=== PATIENT | male | born 1955 | race Caucasian/White ===

== ENCOUNTER 2019-08-23 11:53 | Inpatient (IN) | payer OTHER, SELFPAY ==
[2019-08-23] VITALS (11 sets, daily range): BP systolic 167–206; BP diastolic 69–95; PULSE 82–100; RESP 16–20; TEMP 36.4–36.7; O2SAT 92–98; BMI 40.7
--- NOTE | 2019-08-23 12:05 | W.ED.CHESTPA ---
HPI - Chest Pain General: Chief Complaint: Chest Pain Stated Complaint: CHEST PAIN Time Seen by Provider: 08/23/19 12:04 History of Present Illness: HPI narrative: 64-year-old male presents to the emergency room with complaint of episode of chest discomfort that began while he was urinating. He does state he got better after he used some albuterol began this morning around 430 when he was urinating. He denies fever sweats chills denies productive cough. He does have a history of COPD back pain and hypertension. He is not previously had any kind of work-up for heart disease or any known coronary artery disease. He was seen initially at [facility] and had a troponin with a delta of 9. Associated symptoms: Deny abdominal pain, dyspnea, fever(s), nausea or vomiting Review of Systems Const: Denies: fever, chills, body aches, change in appetite, fatigue or malaise ENMT: Denies: throat pain, ear pain, nasal discharge or nasal congestion Card: Denies: chest pain, edema, shortness of breath on exertion or shortness of breath when lying down Resp: Denies: shortness of breath, productive cough or non-productive cough GI: Denies: abdominal pain, nausea, vomiting, vomiting blood, coffee grounds in vomit, diarrhea, constipation, bloating, blood in stool or black tarry stool : Denies: flank pain, painful urination, urinary frequency or urinary urgency Skin/Breast: Denies: rash or itching [facility] ED PFSH: Medical History (Updated 08/24/19 @ 13:05 by Catalino Wise DO) CHF (congestive heart failure) Chronic hepatitis C CKD (chronic kidney disease) stage 2, GFR 60-89 ml/min COPD (chronic obstructive pulmonary disease) oxygen-dependent, 4 L at baseline Hyperlipidemia Hypertension Hypothyroidism Morbid obesity MADDI (obstructive sleep apnea) Peripheral vascular disease Thyroid nodule Surgical History H/O hernia repair H/O shoulder surgery History of appendectomy Family History (Updated 08/23/19 @ 14:59 by Jazmín Bryan MD) Denies family history of CAD (coronary artery disease) Social History (Updated 08/23/19 @ 15:00 by Jazmín Bryan MD) Smoking and tobacco status: current every day smoker cigarettes Packs smoked per day: 1 Alcohol intake: current Alcohol intake frequency: 0-2 Drinks per Day Alcohol type: hard liquor Alcohol use comment: vodka with dinner x 2 Substance/Drug Use: current Substance/Drug use frequency: daily Substance/Drug use type: Marijuana Lives independently: Yes Physical Exam Const: COMMON NORMALS: average body habitus, oriented x3 and alert GENERAL APPEARANCE: cooperative, comfortable, well kempt and well developed NUTRITIONAL APPEARANCE: obese ORIENTATION/CONSCIOUSNESS: Yes awake, Yes oriented to person and Yes oriented to place HENMT: COMMON NORMALS: normocephalic, head/scalp atraumatic, EAC's normal, TM's normal bilaterally, external nose normal, moist oral mucous membranes and oropharynx normal HEAD & SCALP: normocephalic and atraumatic NOSE: external nose normal EXTERNAL AUDITORY CANAL: EAC's normal TYMPANIC MEMBRANE: TM's normal bilaterally MOUTH: oral and palatal mucosa normal, lip normal and tongue normal THROAT: posterior oropharynx normal and tonsils normal Eye: COMMON NORMALS: PERRL, EOMs intact bilaterally, conjunctivae normal and no scleral icterus CONJUNCTIVA: Yes conjunctivae normal PUPIL: Yes PERRL Neck/C-Spine: COMMON NORMALS: full ROM, no lymphadenopathy, supple, no meningeal signs and thyroid normal THYROID: thyroid normal and asymmetrical Lymph: LYMPHATIC: no lymphadenopathy noted Resp: COMMON NORMALS: normal respiratory effort, no retractions, no use of accessory muscles and clear to auscultation bilaterally AUSCULTATION: clear to auscultation bilaterally Cardio: COMMON NORMALS: regular rate and regular rhythm RATE: regular rate RHYTHM: regular rhythm HEART SOUNDS: no murmurs GI: COMMON NORMALS: normal to inspection, nondistended, normoactive bowel sounds, soft to palpation and no hepatosplenomegaly PALPATION: Yes soft and Yes no hepatosplenomegaly : COMMON NORMALS: Yes no CVA tenderness BLADDER/KIDNEY EXAM: Yes no CVA tenderness Back/Pelvis: COMMON NORMALS: no CVA tenderness LUMBAR SPINE/LOWER BACK: Yes normal to inspection Extremity: COMMON NORMALS: no clubbing, cyanosis or edema, no calf tenderness and no pedal edema Neuro: COMMON NORMALS: oriented x3 SENSORIUM/ORIENTATION: Yes alert, Yes oriented to person and Yes oriented to place MENINGEAL SIGNS: Yes no meningeal signs Psych: APPEARANCE: Yes well kempt Skin: COMMON NORMALS: no rashes or lesions noted and skin turgor normal GENERAL SKIN EXAM: no rashes or lesions noted and turgor normal Course Vital Signs: Vital signs: Vital Signs Temperature 97.8 F 08/24/19 11:28 Pulse Rate 69 08/24/19 12:09 Respiratory Rate 18 08/24/19 12:06 Blood Pressure 154/68 08/24/19 11:28 Pulse Oximetry 95 08/24/19 12:06 MDM - Chest Pain MDM Narrative: Medical decision making narrative: Delta troponin positive at [facility]. Their chart was reviewed we will go ahead and admit for further evaluation cardiac work-up will likely need to see cardiology. Lab Data: Attestation: I reviewed the patient's lab results. Discharge Plan Discharge Patient Disposition: Placed in Observation Admit Provider: Jazmín Bryan Clinical Impression: COPD (chronic obstructive pulmonary disease), Hypertension, CHF (congestive heart failure), CKD (chronic kidney disease) stage 2, GFR 60-89 ml/min, Morbid obesity, MADDI (obstructive sleep apnea) Condition: Stable Interventions: ED Discharge Assessment Last Done: 08/23/19 14:30 Discharge Date/Time: 08/23/19 14:33 Coding Level of Care Code ED Vac Press Operator for Chg Fwd Exam Comprehensive
--- NOTE | 2019-08-23 12:41 | XR_ITS ---
WS: [id number] PORTABLE CHEST HISTORY: dyspnea/cough COMPARISON: 01/09/2006 Consolidation posterior to the RIGHT heart. Otherwise lungs are clear. Pulmonary vasculature is promi nent as compared to prior studies. No pleural effusion. No pneumothorax. Cardiac size: Cardiac silhouette is enlarged. Mediastinum/Aorta: Ectatic aorta. No osseous abnormality seen. XR/XR chest 1V portable [id number] IMPRESSION: 1. Mild CHF with mild cardiomegaly. 2. Linear atelectasis posterior to the RIGHT heart.
--- NOTE | 2019-08-23 12:41 | ECG_ITS ---
Measurements Intervals [place] Rate: 89 P: 60 MO: 206 QRS: 68 QRSD: 100 T: 59 QT: 364 QTc: 444 SINUS RHYTHM No previous ECG available for comparison Electronically Signed On 08-23-2019 15:35:43 CDT by Aron Krishnamurthy M.D. [id number]
[2019-08-23] MEDS: nitroglycerin 1 gm/inch oint Pkt 1 INCH TOPICAL (13:45)
[2019-08-23] MEDS: enoxaparin 120 mg/0.8 mL Syringe SUBCUT (13:59)
--- NOTE | 2019-08-23 14:55 | P.HP_ITS ---
Providers/Chief Complaint Admitting Physician: Jazmín Bryan MD Primary Care Provider: Dr. Paul Chaudhari ([place]) Chief Complaint: Shortness of breath, chest tightness History of Present Illness Omar Ta is a 64 year old male with PMHx of Oxygen-dependent COPD, Chronic diastolic CHF, HTN, Pre-DM, Chronic smoker, CKD stage 2-3, MADDI, Morbid obesity; initially presented to [facility] ER earlier this morning with complaints of worsening shortness of breath and chest tightness that began approximately 4 AM this morning when he got up to go to the bathroom. He has had ongoing issues with dyspnea with exertion, can typically ambulate for about 4-5 steps before he gets quite short of breath so his mobility has been quite limited for the past several months. Over the past several days he has noticed increased abdominal distention, bloating and lower extremity tightness and swelling. He is oxygen dependent at baseline with a 4 L requirement. Has a known history of obstructive sleep apnea but does not use a CPAP machine. He lives alone and admits to daily smoking, 1 pack/day, smokes 1 joint of marijuana daily and has at least 2 drinks of vodka with dinner 5-6 times a week. His medication list includes Bumex 1 mg twice daily and he states that he has not had any difficulty with urination. He thinks he may have gained approximately 10 pounds in the past 2 to 3 weeks without a corresponding increase in his oral intake. Review of medical record shows that he has had prior cardiac work-up done in August 2017 which included a positive nuclear stress test and subsequent coronary angiogram which was normal as noted below with no need for intervention at that time. He also had an echo done which showed an ejection fraction of 65% with grade 1 diastolic dysfunction. Paperwork is provided from [facility] and is available in the chart. I have reviewed his labs as indicated below. He was quite hypertensive on his arrival at their facility with an initial recorded blood pressure of 182/57. His BNP was found to be 1157, delta of 9 following 2-hour troponins, chest x-ray is reported as unremarkable. Patient received full dose aspirin, IV steroids, 1 dose of 40 mg of IV Lasix. EKG is reported as sinus rhythm. Patient was transferred to our facility for further work-up and possible cardiology evaluation. He is being admitted for further work-up and particularly for IV diuresis as he appears quite fluid overloaded at this time. His symptoms seem to be most consistent with fluid overload and he does not have any risk factors that would qualify for COVID-19 testing at this time. Review of Systems Const: Denies: fever, chills or malaise Eyes: Denies: change in vision ENMT: Denies: painful swallowing Card: Reports: chest pain (chest tightness), edema (LE), swelling of feet/ankles, lightheadedness and shortness of breath on exertion; Denies: syncope or pre-syncope Resp: Reports: shortness of breath and productive cough (clear sputum, no change); Denies: coughing up blood GI: Reports: bloating; Denies: abdominal pain, nausea, vomiting, vomiting blood or blood in stool : Denies: difficulty urinating Musc: Reports: back pain (chronic) Skin/Breast: Denies: rash Neuro: Denies: numbness in extremities or weakness in extremities Psych: Denies: anxiety Medications/Allergies Home Medications Medication Instructions Recorded Confirmed Last Taken Type albuterol sulfate [ProAir HFA] 4 puff INHALATION BID 08/23/19 08/23/19 Unknown History aspirin [Aspir-81] 81 mg PO DAILY 08/23/19 08/23/19 08/22/19 History bumetanide 1 mg PO BID 08/23/19 08/23/19 Unknown History cholecalciferol (vitamin D3) 25 mcg PO DAILY 08/23/19 08/23/19 08/22/19 History [Vitamin D3] diltiazem HCl 240 mg PO QAM 08/23/19 08/23/19 08/22/19 History fluticasone propionate [Flonase 2 spray INTRANASAL DAILY 08/23/19 08/23/19 08/22/19 History Allergy Relief] hydralazine 50 mg PO QID 08/23/19 08/23/19 08/22/19 History levothyroxine 100 mcg PO DAILY 08/23/19 08/23/19 08/22/19 History lisinopril 40 mg PO DAILY 08/23/19 08/23/19 08/22/19 History metoprolol tartrate 50 mg PO BID 08/23/19 08/23/19 08/22/19 History ofloxacin 4 drp OTIC (EAR) QAM 08/23/19 08/23/19 08/22/19 History oxymetazoline See Rx Instructions .ROUTE .COMPLEX 08/23/19 08/23/19 08/22/19 History tamsulosin [Flomax] 0.4 mg PO DAILY 08/23/19 08/23/19 08/22/19 History tiotropium bromide [Spiriva 2 puff INHALATION DAILY 08/23/19 08/23/19 08/22/19 History Respimat] Allergies Allergy/AdvReac Type Severity Reaction Status Date / Time No Known Allergies Allergy Verified 08/23/19 11:58 PFSH Acute PFSH: Medical History CHF (congestive heart failure) Chronic hepatitis C CKD (chronic kidney disease) stage 2, GFR 60-89 ml/min COPD (chronic obstructive pulmonary disease) oxygen-dependent, 4 L at baseline Hyperlipidemia Hypertension Hypothyroidism Morbid obesity MADDI (obstructive sleep apnea) Peripheral vascular disease Thyroid nodule Surgical History H/O hernia repair H/O shoulder surgery History of appendectomy Family History (Updated 08/23/19 @ 14:59 by Jazmín Bryan MD) Denies family history of CAD (coronary artery disease) Social History (Updated 08/23/19 @ 15:00 by Jazmín Bryan MD) Smoking and tobacco status: current every day smoker cigarettes Packs smoked per day: 1 Alcohol intake: current Alcohol intake frequency: 0-2 Drinks per Day Alcohol type: hard liquor Alcohol use comment: vodka with dinner x 2 Substance/Drug Use: current Substance/Drug use frequency: daily Substance/Drug use type: Marijuana Lives independently: Yes Vitals/I&O/Wt Last Vital Signs Temp 97.6 F 08/23/19 14:30 Pulse 93 08/23/19 14:30 Resp 18 08/23/19 14:30 BP 206/70 08/23/19 14:30 Pulse Ox 97 08/23/19 14:30 Weight last 48 hrs Weight 117.934 kg Physical Exam Const: COMMON NORMALS: no apparent distress and oriented x3 GENERAL APPEARANCE: cooperative NUTRITIONAL APPEARANCE: obese morbidly obese ORIENTATION/CONSCIOUSNESS: Yes awake HENMT: COMMON NORMALS: normocephalic, head/scalp atraumatic, hearing grossly normal bilaterally and moist oral mucous membranes HEAD & SCALP: normocephalic and atraumatic Eye: COMMON NORMALS: PERRL, EOMs intact bilaterally and conjunctivae normal CONJUNCTIVA: Yes conjunctivae normal PUPIL: Yes PERRL Neck/C-Spine: COMMON NORMALS: full ROM GENERAL: Yes normal visual inspe ction and Yes trachea midline OTHER: -short, thick neck Chest: COMMONS NORMALS: inspection of chest normal Resp: COMMON NORMALS: normal respiratory effort, no retractions and no use of accessory muscles EFFORT & INSPECTION: Yes able to speak in complete sentences, Yes symmetric chest movement and No tachypneic AUSCULTATION: crackles and diminished lung sounds Cardio: COMMON NORMALS: regular rate, regular rhythm, S1 normal heart sound, S2 normal heart sound and no murmurs RATE: regular rate RHYTHM: regular rhythm HEART SOUNDS: S1 normal and S2 normal OTHER: -examination limited by body habitus GI: COMMON NORMALS: soft to palpation and non-tender INSPECTION: Yes abdominal distension and Yes central obesity PALPATION: Yes soft and No tender Extremity: COMMON NORMALS: full ROM OTHER: -noted brawny edema in bilateral LEs Neuro: COMMON NORMALS: oriented x3, moves all extremities, no focal motor deficits and no sensory deficits noted Psych: COMMON NORMALS: mental status grossly normal, thought process normal, cooperative, affect normal and speech normal SPEECH: Yes normal speech THOUGHT PROCESS: normal thought process Skin: COMMON NORMALS: no rashes or lesions noted, no jaundice, no petechiae and no mottling GENERAL SKIN EXAM: no rashes or lesions noted Data CXR: Radiologist's impression: Chest x-ray done at outside facility reported as unremarkable EKG 1: Battery Test Engineer Interpretation: Twelve-lead EKG reported as sinus rhythm Other data: I have reviewed all labs including CBC, CMP, BNP done at [facility], paperwork in chart: Pertinent values -CBC: 7.6/12.2/37.2/205 -CMP: 142/4.3/103/30/26/1.3/166; LFTs wnl, BNP-1157 -Troponins 31->40; delta is 9 Coronary Angiogram Cardiac Diagnostic Report Demographics Patient Name LUCIO WATSON Gender Male Patient Number [id number] Race Visit Number [id number] Ethnicity Corporate ID CCL# [id number] Accession Number [id number] Height 68 inches Date of 1955 Weight 249 pounds Age 62 year(s) BSA 2.24 m^2 Referring David Villar MD BMI 37.86 kg/m^2 Physician Performing David Villar MD Date of Study 09/11/2017 Physician Interventional Physician Procedure Procedure Type Diagnostic procedure:Left Heart Catheterization , Coronary Angiography Conclusions Procedure Summary #1 Separate ostium for LAD. LAD is normal with normal diagonal #2 Separate ostium for LCx, LCx is normal with normal obtuse marginal #3 RCA is a codominant but small caliber vessel which is normal #4 Mildly elevated LVEDP 70 mmHg #5 Hyperdynamic left ventricle estimated ejection fraction 70% A&P Assessment and plan (1) Dyspnea: -Per patient's own admission his main complaint seems to be dyspnea particularly with exertion with noted chest discomfort earlier this morning around 4 AM when he got up to go to the bathroom -Has no known history of CAD though per review of medical record has had prior cardiac work-up including nuclear stress testing that was positive in 08/2017 and subsequent coronary angiogram which was normal with no intervention required -Patient is currently too symptomatic in terms of shortness of breath to undergo nuclear stress testing -Troponins done at outside facility were 31 then 40 after 2 hrs with a noted delta of 9; will repeat troponins here along with serial EKGs. Patient is currently chest pain-free and has been since receiving nebulizer treatments x3 -He also received aspirin 325 mg, a dose of 40 mg of Lasix and IV Solu-Medrol at 125 mg -Given therapeutic dose of Lovenox in the ER; will hold off on further treatment at this time unless repeat testing comes back positive -telemetry monitoring -monitor vital signs -Monitor respiratory status; supplemental oxygen as needed, patient has a baseline oxygen requirement of 4 L -very low suspicion for infection or acute COPD exacerbation currently as no fever/chills, no change in cough or expectoration, currently at baseline O2 requirement, no leukocytosis, unremarkable CXR, so no need for abx or further systemic steroids at this time Status: Acute Qualifiers: Dyspnea type: unspecified Qualified Code(s): R06.00 - Dyspnea, unspecified (2) CHF (congestive heart failure): -Patient appears clinically fluid overloaded as evidenced by abdominal distention, crackles on auscultation, BNP elevation at 1157, lower extremity edema, orthopnea and dyspnea with exertion -Has had prior echo done in 08/2017 showing ejection fraction of 65%, grade 1 diastolic dysfunction -Has been on diuresis with oral Bumex, received 1 dose of IV Lasix at outside facility. We will continue diuresis at this time with IV Bumex; titrate as needed to optimize diuresis -Close monitoring of ins and outs -Monitor vital signs -Monitor respiratory status Status: Acute Qualifiers: Heart failure type: diastolic Heart failure chronicity: acute on chronic Qualified Code(s): I50.33 - Acute on chronic diastolic (congestive) heart failure (3) CKD (chronic kidney disease) stage 2, GFR 60-89 ml/min: -has GIULIANO on CKD stage 2-3, baseline Cr is around 1 -continue to monitor renal function, renally dose meds, avoid nephrotoxins -hold ACEi for now Status: Acute (4) Hypertension: -has known hx of HTN -quite hypertensive currently, resume oral antihypertensives -continue to monitor vital signs Status: Acute Qualifiers: Hypertension type: essential hypertension Qualified Code(s): I10 - Essential (primary) hypertension (5) COPD (chronic obstructive pulmonary disease): -no acute exacerbation currently -baseline oxygen requirement of 4 L NC -continue to monitor respiratory status Status: Chronic Qualifiers: COPD type: unspecified COPD Qualified Code(s): J44.9 - Chronic obstructive pulmonary disease, unspecified (6) Hypothyroidism: -Has known history of hypothyroidism status post ablation, resume levothyroxine -Check TSH in a.m. Status: Chronic Qualifiers: Hypothyroidism type: unspecified Qualified Code(s): E03.9 - Hypothyroidism, unspecified (7) Peripheral vascular disease: -Has known history of PVD with chronic lower extremity edema Status: Chronic (8) MADDI (obstructive sleep apnea): -Has known history of MADDI, does not use CPAP Status: Chronic (9) Morbid obesity: -BMI-41 kg/m2 Status: Chronic Additional A&P Information -hx of chronic hepatitis C -chronic smoker, +THC use, daily EtOH use -noted significant abdominal distention; order US abdomen to evaluate for possible ascites -noted hyperglycemia, has reported hx of pre-DM; check A1c -cardiac diet as tolerated -GI ppx with PPI -DVT ppx with heparin -PT/OT evaluations once respiratory status improves -Dispo: home -Code status: FULL code Attestations Medical Necessity Statement*: Omar Ta's hospital stay will require greater than 2 midnights for IV diuresis and further cardiac work-up. Time Spent in Patient Care: Greater than 35 minutes (>than 50% of time spent in counselling and/or direct pt care on unit) . Coding Level of Care Code Acute Electric Motor Repair Supervisor for Chg Fwd Diagnoses Dyspnea R06.00 Dyspnea type: unspecified CHF (congestive heart failure) I50.33 Heart failure type: diastolic Heart failure chronicity: acute on chronic CKD (chronic kidney disease) stage 2, GFR 60-89 ml/min N18.2 Hypertension I10 Hypertension type: essential hypertension COPD (chronic obstructive pulmonary disease) J44.9 COPD type: unspecified COPD Hypothyroidism E03.9 Hypothyroidism type: unspecified Peripheral vascular disease I73.9 MADDI (obstructive sleep apnea) G47.33 Morbid obesity E66.01
--- NOTE | 2019-08-23 15:04 | ECG_ITS ---
Measurements Intervals [place] Rate: 83 P: 62 TN: 217 QRS: 66 QRSD: 96 T: 61 QT: 369 QTc: 435 SINUS RHYTHM WITH FIRST DEGREE AV BLOCK Compared to ECG 08/23/2019 15:30:24 T-wave abnormality no longer present Electronically Signed On 08-24-2019 10:54:18 CDT by Cherelle Ellison M.D. [id number]
--- NOTE | 2019-08-23 15:04 | US_ITS ---
WS: [id number] Abdominal ultrasound, limited. History: Evaluate for ascites. Comparison: None. All 4 quadrants are imaged by ultrasound to evaluate for ascites. There is no peritoneal fluid identi fied. US/US abdomen lmt fluid [id number] IMPRESSION: No peritoneal ascites.
[2019-08-23] MEDS: bumetanide 0.25 mg/mL SDV 10 mL 1 MG IV (15:21)
[2019-08-23] MEDS: hyDRALAzine 50 mg Tablet PO ×2 (15:21→22:39)
[2019-08-23] MEDS: heparin 5,000 unit/mL INJ 1 mL 5000 UNIT SUBCUT ×2 (15:21→22:40)
[2019-08-23] MEDS: ipratropium-albuterol 3 mL Neb INHALATION (15:57)
--- NOTE | 2019-08-23 16:53 | ECG_ITS ---
Measurements Intervals [place] Rate: 102 P: 52 KS: 202 QRS: 59 QRSD: 98 T: 52 QT: 336 QTc: [address] & T-WAVE ABNORMALITY ABNORMAL RHYTHM ECG Compared to ECG 08/23/2019 15:30:24 Sinus rhythm no longer present First degree AV block no longer present T-wave abnormality still present Electronically Signed On 08-24-2019 10:58:35 CDT by Cherelle Ellison M.D. [id number]
[2019-08-23 17:22] LABS: Troponin(5th) Baseline 26 ng/mL (0-15)
[2019-08-23] MEDS: metoprolol tartrate 50 mg Tablet PO (18:09)
[2019-08-23] MEDS: nicotine 14 mg Patch 1 PATCH TRANSDERMA (18:09)
[2019-08-23 18:40] LABS: Troponin 5 2HR 23.36 ng/mL (0-15); Troponin 5 2HR Delta -2.64 ABS# (0-10)
--- NOTE | 2019-08-23 20:53 | ECG_ITS ---
Measurements Intervals [place] Rate: 93 P: 67 SD: 216 QRS: 60 QRSD: 98 T: 41 QT: 329 QTc: 411 SINUS RHYTHM WITH FIRST DEGREE AV BLOCK NONSPECIFIC ST & T-WAVE ABNORMALITY No previous ECG available for comparison Electronically Signed On 08-23-2019 15:36:26 CDT by Aron Krishnamurthy M.D. [id number]
[2019-08-23 22:38] LABS: Troponin 5 6HR 24.19 ng/mL (0-15)
[2019-08-23 23:01] LABS: Troponin 5 6HR Delta -1.81 ng/L (0-12)
[2019-08-24] VITALS (14 sets, daily range): BP systolic 147–184; BP diastolic 68–81; PULSE 63–87; RESP 16–20; TEMP 36.4–36.9; O2SAT 95–98; BMI 45.0
[2019-08-24] MEDS: hyDROXYzine 25 mg Capsule PO (02:05)
--- NOTE | 2019-08-24 02:11 | PC.NURSE ---
patient decided he didnt want his scds hooked up and took them off as well as moved the telebox off the pocket of gown and its captured between his legs and he removed the batteries and battery compartment lid and threw them across the floor. im not totally sure why as he finally fell asleep and didnt want to wake him. will ask in the morning.
[2019-08-24] MEDS: bumetanide 0.25 mg/mL SDV 10 mL 1 MG IV ×2 (03:35→17:17)
[2019-08-24 06:05] LABS: Basophils % 0.1 %; Hematocrit 36.7 % (42.0-52.0); Hemoglobin 11.5 g/dL (11.7-16.6); Lymphocytes # 0.6 10^3/uL (0.8-4.8); Lymphocytes % 5.3 %; Mean Corpuscular HGB Conc 31.3 g/dL (30.0-36.0); Mean Corpuscular Hemoglobin 30.1 pg (28.0-34.0); Mean Corpuscular Volume 96.1 fL (80-94); Mean Platelet Volume 11.4 fL (7.4-10.4); Monocytes # 0.4 10^3/uL (0.2-0.9); Neutrophils # 9.8 10^3/uL (1.8-7.7); Nucleated Red Blood Cells % 0 %; Platelet Count 205 10^3/cmm (130-400); Red Blood Count 3.82 10^6/uL (4.1-5.3); Red Cell Distribution Width 14.3 % (12.1-15.1); White Blood Count 10.9 10^3/uL (4.0-10.0)
[2019-08-24 06:14] LABS: INR 0.95 (0.8-1.2)
[2019-08-24] MEDS: heparin 5,000 unit/mL INJ 1 mL 5000 UNIT SUBCUT ×3 (06:16→23:35)
[2019-08-24 06:23] LABS: Anion Gap 14.9 (5-19); Blood Urea Nitrogen 25 mg/dL (8-23); Calcium 9.6 mg/dL (8.5-10.5); Carbon Dioxide 30 mmol/L (22-29); Chloride 101 mmol/L (98-107); Glomerular Filtration Rate 60.6 mL/min (90-130); Glucose 188 mg/dL (65-115); Osmolality Calculated 296 mOsm/kg (285-295); Potassium 3.9 mmol/L (3.5-5.1); Sodium 142 mmol/L (136-145)
[2019-08-24 06:26] LABS: Estmated Average Glucose 128; Hemoglobin A1C 6.1 % (4.0-6.0)
[2019-08-24 06:34] LABS: Chol HDL Ratio 4.23 mg/dL (1.0-5.00); Cholesterol 186 mg/dL (0-200); HDL Cholesterol 44 mg/dL (60-100); LDL Cholesterol Calculated 121 mg/dL (50-129); LDL HDL Ratio 2.75 RATIO (0.00-3.22); Thyroid Stimulating Hormone 0.67 uIU/mL (0.27-4.20); Triglycerides 106 mg/dL (0-150)
[2019-08-24] MEDS: ipratropium-albuterol 3 mL Neb INHALATION ×4 (08:31→21:40)
--- NOTE | 2019-08-24 08:36 | P.PN_ITS ---
Subjective Subjective: Interval history: AM labs noted, had 1650 mL urine output overnight. Hypertensive, with improved renal function will resume lisinopril. Patient seen and examined, seems to be sitting up comfortably in bed, breathing has significantly improved and he reports feeling much better today. Has been voiding well. Currently on 4 L oxygen mask. Medications: Reviewed: Yes Medication Review Details: Active Medications Generic Name Dose Route Start Last Admin Trade Name Freq PRN Reason Stop Dose Admin Acetaminophen 650 mg 08/23/19 14:43 Tylenol PO Q6H PRN Mild/Mod Pain Or Temp >/= 101 Albuterol/Ipratrop ium 3 ml 08/23/19 15:04 08/24/19 08:31 Duoneb INHALATION 3 ml Q4H PRN Administration SHORTNESS OF LESLIE TH Aspirin 81 mg 08/24/19 09:00 Aspirin Ec PO DAILY MICHAEL Bumetanide 1 mg 08/23/19 15:04 08/24/19 03:35 Bumex IV 1 mg Q12H MICHAEL Administration Diltiazem HCl 240 mg 08/24/19 09:00 Cardizem Cd (24h r) PO DAILY MICHAEL Fluticasone Propio gus 2 spray 08/24/19 09:00 Flonase INTRANASAL DAILY MICHAEL Heparin Sodium (Be ef Lung) 5,000 unit 08/23/19 15:04 08/24/19 06:16 Heparin SUBCUT 5,000 unit Q8H MICHAEL Administration Hydralazine HCl 50 mg 08/23/19 17:00 08/23/19 22:39 Apresoline PO 50 mg QID MICHAEL Administration Levothyroxine Sodi um 100 mcg 08/24/19 09:00 Synthroid PO DAILY MICHAEL Lisinopril 40 mg 08/24/19 09:00 Prinivil PO DAILY MICHAEL Metoprolol Tartrat e 50 mg 08/23/19 18:00 08/23/19 18:09 Lopressor PO 50 mg BID MICHAEL Administration Morphine Sulfate 2 mg 08/23/19 15:04 Morphine IVP Q4H PRN SEVERE PAIN Nicotine 1 patch 08/23/19 16:45 08/23/19 18:09 Nicoderm 14 Mg P atch TRANSDERMA 1 patch DAILY MICHAEL Administration Nitroglycerin 0.4 mg 08/23/19 15:04 Nitrostat SUBLINGUAL Q5M PRN CHEST PAIN Non-Formulary Medi cation 25 mcg 08/24/19 09:00 Cholecalciferol (Vitamin D3) [Marimar min D3] PO DAILY MICHAEL Ondansetron HCl 4 mg 08/23/19 15:04 Zofran IVP Q6H PRN vomiting, or N/V if npo Tamsulosin HCl 0.4 mg 08/24/19 09:00 Flomax PO DAILY MICHAEL No Known Allergies Allergy (Verified 08/23/19 11:58) Vitals/I&O/Wt Last Vital Signs Temp 98.5 F 08/24/19 07:44 Pulse 87 08/24/19 08:32 Resp 18 08/24/19 08:32 BP 178/80 08/24/19 07:44 Pulse Ox 96 08/24/19 08:32 08/23/19 08/24/19 08/24/19 22:59 06:59 14:59 Intake Total 300 / 300 120 / 420 240 / 240 Output Total 950 / 950 700 / 1650 180 / 180 Balance -650 / -650 -580 / -1230 60 / 60 Weight last 48 hrs Weight 117.934 kg Physical Exam Const: COMMON NORMALS: no apparent distress and oriented x3 GENERAL APPEARANCE: cooperative NUTRITIONAL APPEARANCE: obese morbidly obese ORIENTATION/CONSCIOUSNESS: Yes awake HENMT: COMMON NORMALS: normocephalic, head/scalp atraumatic, hearing grossly normal bilaterally and moist oral mucous membranes HEAD & SCALP: normocephalic and atraumatic Eye: COMMON NORMALS: PERRL, EOMs intact bilaterally and conjunctivae normal CONJUNCTIVA: Yes conjunctivae normal PUPIL: Yes PERRL Neck/C-Spine: COMMON NORMALS: full ROM GENERAL: Yes normal visual inspection and Yes trachea midline OTHER: -short, thick neck Chest: COMMONS NORMALS: inspection of chest normal Resp: COMMON NORMALS: normal respiratory effort, no retractions and no use of accessory muscles EFFORT & INSPECTION: Yes able to speak in complete sentences, Yes symmetric chest movement and No tachypneic AUSCULTATION: crackles, wheezes expiratory wheezes and diminished lung sounds Cardio: COMMON NORMALS: regular rate, regular rhythm, S1 normal heart sound, S2 normal heart sound and no murmurs RATE: regular rate RHYTHM: regular rhythm HEART SOUNDS: S1 normal and S2 normal OTHER: -examination limited by body habitus GI: COMMON NORMALS: soft to palpation and non-tender INSPECTION: Yes abdominal distension and Yes central obesity PALPATION: Yes soft and No tender Extremity: COMMON NORMALS: full ROM OTHER: -noted brawny edema in bilateral LEs Neuro: COMMON NORMALS: oriented x3, moves all extremities, no focal motor deficits and no sensory deficits noted Psych: COMMON NORMALS: mental status grossly normal, thought process normal, cooperative, affect normal and speech normal SPEECH: Yes normal speech THOUGHT PROCESS: normal thought process Skin: COMMON NORMALS: no rashes or lesions noted, no jaundice, no petechiae and no mottling GENERAL SKIN EXAM: no rashes or lesions noted Data : 08/24/19 05:23 08/24/19 05:23 A&P Assessment and plan (1) Dyspnea: -Has no known history of CAD though per review of medical record has had prior cardiac work-up including nuclear stress testing that was positive in 08/2017 and subsequent coronary angiogram which was normal with no intervention required -Patient is currently too symptomatic in terms of shortness of breath to undergo nuclear stress testing -Troponins done at outside facility were 31 then 40 after 2 hrs with a noted delta of 9; repeat troponins here are 26->23->24 respectively, no acute ischemic changes noted on serial EKGs. Patient is continues to be chest pain-free -Given therapeutic dose of Lovenox in the ER; will hold off on further treatment at this time -telemetry monitoring -hypertensive, otherwise stable vital signs, continue to monitor -continue to monitor respiratory status; supplemental oxygen as needed, patient has a baseline oxygen requirement of 4 L -very low suspicion for infection or acute COPD exacerbation currently as no fever/chills, no change in cough or expectoration, currently at baseline O2 requirement, no leukocytosis, unremarkable CXR, so no need for abx or further systemic steroids at this time -slight leukocytosis today (10.9) likely steroid induced Status: Acute Qualifiers: Dyspnea type: unspecified Qualified Code(s): R06.00 - Dyspnea, unspecified (2) CHF (congestive heart failure): -Patient appears clinically fluid overloaded as evidenced by abdominal distention, crackles on auscultation, BNP elevation at 1157, lower extremity edema, orthopnea and dyspnea with exertion -Has had prior echo done in 08/2017 showing ejection fraction of 65%, grade 1 diastolic dysfunction. Repeat Echo: EF=60%, G2DD, normal PSP -Has been on diuresis with oral Bumex, continue diuresis at this time with IV Bu osmany; titrate as needed to optimize diuresis -Close monitoring of ins and outs -continue to monitor vital signs -continue to monitor respiratory status Status: Acute Qualifiers: Heart failure chronicity: acute on chronic Heart failure type: diastolic Qualified Code(s): I50.33 - Acute on chronic diastolic (congestive) heart failure (3) CKD (chronic kidney disease) stage 2, GFR 60-89 ml/min: -has GIULIANO on CKD stage 2-3, baseline Cr is around 1 -continue to monitor renal function, renally dose meds, avoid nephrotoxins -resume ACEi given continued hypertension Status: Acute (4) Hypertension: -has known hx of HTN -quite hypertensive currently, continue oral antihypertensives -continue to monitor vital signs Status: Chronic Qualifiers: Hypertension type: essential hypertension Qualified Code(s): I10 - Essential (primary) hypertension (5) COPD (chronic obstructive pulmonary disease): -no acute exacerbation currently -baseline oxygen requirement of 4 L NC -continue to monitor respiratory status Status: Chronic Qualifiers: COPD type: unspecified COPD Qualified Code(s): J44.9 - Chronic obstructive pulmonary disease, unspecified (6) Hypothyroidism: -Has known history of hypothyroidism status post ablation, continue levothyroxine -TSH wnl Status: Chronic Qualifiers: Hypothyroidism type: unspecified Qualified Code(s): E03.9 - Hypothyroidism, unspecified (7) Peripheral vascular disease: -Has known history of PVD with chronic lower extremity edema Status: Chronic (8) MADDI (obstructive sleep apnea): -Has known history of MADDI, does not use CPAP Status: Chronic (9) Morbid obesity: -BMI-41 kg/m2 Status: Chronic Additional A&P Information -hx of chronic hepatitis C -chronic smoker, +THC use, daily EtOH use; nicotine replacement therapy -noted significant abdominal distention; US abdomen negative for ascites -noted hyperglycemia, has reported hx of pre-DM; A1c-6.1 -cardiac diet as tolerated -GI ppx with PPI -DVT ppx with heparin -PT/OT evaluations once respiratory status improves -Dispo: home -Code status: FULL code Attestations Medical Necessity Statement*: Patient requires hospitalization for continued IV diuresis for management of acute CHF exacerbation. Time Spent in Patient Care: 16 - 35 minutes (>than 50% of time spent in counselling and/or direct pt care on unit) . Coding Level of Care Code Acute Tools And Parts Attendant for Jayceeg Fwd Exam Comprehensive Diagnoses Dyspnea R06.00 Dyspnea type: unspecified CHF (congestive heart failure) I50.33 Heart failure chronicity: acute on chronic Heart failure type: diastolic CKD (chronic kidney disease) stage 2, GFR 60-89 ml/min N18.2 Hypertension I10 Hypertension type: essential hypertension COPD (chronic obstructive pulmonary disease) J44.9 COPD type: unspecified COPD Hypothyroidism E03.9 Hypothyroidism type: unspecified Peripheral vascular disease I73.9 MADDI (obstructive sleep apnea) G47.33 Morbid obesity E66.01
--- NOTE | 2019-08-24 08:42 | USCV_ITS ---
Omar Ta Age: 64 Gender: M : 1955 Exam Date: 08/24/2019 13:28 Ordering Phys: Jazmín Bryan MD Technologist: Leoncio Fox Exam Location: [facility] [place] Indication: CHF BP: 130 / 74 HR: 64 Rhythm: Sinus Technical Quality: Suboptimal MEASUREMENTS (Male / Female) Normal Values 2D ECHO LV Diastolic Diameter PLAX 5.9 cm 4.2 - 5.9 / 3.9 - 5.3 cm LV Systolic Diameter PLAX 4.0 cm IVS Diastolic Thickness 1.2 cm 0.6 - 1.0 / 0.6 - 0.9 cm IVS Systolic Thickness 1.8 cm LVPW Diastolic Thickness 1.2 cm 0.6 - 1.0 / 0.6 - 0.9 cm LVPW Systolic Thickness 1.8 cm LVOT Diameter 2.3 cm LV Ejection Fraction 2D Teich 60.8 % LV Ejection Fraction MOD 2C 57.8 % LV Ejection Fraction 2C AL 59.2 % LA Diameter 5.7 cm LA Width 5.1 cm LA Height 6.4 cm RA Width 5.0 cm RA Height 6.4 cm M-MODE LV Diastolic Diameter MM 5.9 cm 4.2 - 5.9 / 3.9 - 5.3 cm LV Systolic Diameter MM 3.6 cm LV Ejection Fraction MM Teich 67.2 % IVS Diastolic Thickness MM 1.5 cm 0.6 - 1.0 / 0.6 - 0.9 cm IVS Systolic Thickness MM 2.0 cm LVPW Diastolic Thickness MM 1.5 cm 0.6 - 1.0 / 0.6 - 0.9 cm LVPW Systolic Thickness MM 2.1 cm RV Diastolic Diameter MM 1.9 cm Aortic Annulus Diameter 3.8 cm LA Ao Ratio MM 1.5 MV E Point Septal Separation 0.8 cm DOPPLER AV Peak Velocity 137.0 cm/s LVOT Peak Velocity 91.0 cm/s AV Area Cont Eq vti 2.2 cm squared AV Area Cont Eq pk 2.7 cm squared MV Area PHT 5.0 cm squared Mitral E to A Ratio 1.6 MV E' Velocity 10.0 cm/s Mitral E to MV E' Ratio 14.7 Mitral E to LV E' Lateral Ratio 13.8 Mitral E to LV E' Septal Ratio 16.0 TR Peak Velocity 103.0 cm/s TR Peak Gradient 4.2 mmHg TV Peak E Velocity 104.0 cm/s Right Atrial Pressure 3.0 mmHg Pulmonary Artery Systolic Pressu 7.2 mmHg PV Peak Velocity 119.0 cm/s FINDINGS Left Ventricle Normal left ventricular cavity size. No regional wall motion abnormalities. Left ventricular ejection fraction is estimated at 60 %. Grade II/IV diastolic dysfunction, moderately elevated filling pressures. Right Ventricle The right ventricle is normal in size and function. Right Atrium The right atrium is normal in size. Left Atrium The left atrium is normal in size. Mitral Valve Structurally normal mitral valve without significant stenosis or prolapse. There is no mitral regurgitation. Aortic Valve Structurally normal aortic valve without significant sclerosis or stenosis. There is no aortic regurgitation. Tricuspid Valve Structurally normal tricuspid valve without significant stenosis or regurgitation. Pulmonary artery systolic pressure is normal. Pulmonic Valve Structurally normal pulmonic valve without significant stenosis. There is no pulmonic regurgitation. Pericardium Normal pericardium without effusion. Aorta Normal ascending aorta dimension. CONCLUSIONS 1-Normal left ventricular cavity size. No regional wall motion abnormalities. Left ventricular ejection fraction is estimated at 60 %. Grade II/IV diastolic dysfunction, moderately elevated filling pressures. 2-There is no pericardial effusion. 3-No significant valve abnormalities. 4-Pulmonary artery systolic pressure is within normal limits. 5-No significant change since the prior echocardiogram study of. 6-Right atrial pressure is around 5 mm of mercury 08/25/2017. David Villar MD (Electronically Signed) Final Date: 24 August 2019 16:17 S
[2019-08-24] MEDS: metoprolol tartrate 50 mg Tablet PO ×2 (08:59→17:21)
[2019-08-24] MEDS: dilTIAZem ER (24HR) 240 mg Capsule PO (08:59)
[2019-08-24] MEDS: tamsulosin 0.4 mg Capsule PO (08:59)
[2019-08-24] MEDS: lisinopril 20 mg Tablet 40 MG PO (08:59)
[2019-08-24] MEDS: levothyroxine 100 mcg Tablet PO (08:59)
[2019-08-24] MEDS: aspirin 81 mg EC Tablet PO (08:59)
[2019-08-24] MEDS: hyDRALAzine 50 mg Tablet 100 MG PO ×4 (09:00→21:11)
[2019-08-24] MEDS: nicotine 14 mg Patch 1 PATCH TRANSDERMA (09:01)
[2019-08-24] MEDS: fluticasone nasal spray 16gm Btl 2 SPRAY INTRANASAL (09:09)
--- NOTE | 2019-08-24 12:01 | PC.CHAP ---
Pastoral Care Encounter/Spiritual Assessment Type of Contact [] Declined photograph retoucher visit [] Patient/Family/Request visit [] Outpatient visit [] Follow-up visit [] Physician referral [] Code/Alert [x] Routine visit [] Staff referral [] Actively dying [x] Patient sleeping [] Family support [] [] Out of room [] Palliative care [] [] Receiving care in room [] Pre-surgical visit [] Trauma [] Long length of stay [] ICU visit [] Other: Relational/Emotional Strength [] Patient feels connected with others/family/visitors/staff [] Distress [] Loneliness/isolation [] Abandonment Spirituality of Patient [] Person of Sadie [] Attends Voodoo of their Sadie [] Believes in Prayer [] Reads Bible or Yazidism materials [] There are Spiritual issues to be addressed Electrical Test Technician Interventions [] Prayer [] Active listening [] Non-anxious presence [] Spiritual/emotional support [] Crisis/trauma care [] Spiritual counseling [] Bereavement support [] Provided bereavement packet [] Provided Bible/devotional materials [] Provided toy/stuffed animal, coloring book to patient or family member [] Provided Communion [] Anointing/Maunie [] Salvation [x] Completed spiritual assessment [] Other: Impact on Illness or Injury [] Angry [] Fearful [] Anxious [] Often cries [] Exhaustion [] Unable to work [] Unable to attend scientologist [] Unable to walk/stand [] Unable to read [] Unable to drive [] Unable to eat/drink [] Unable to sleep [] Unable to be with family [] Patient intubated [] Other: Summary Time spent with patient x
[2019-08-25] VITALS (9 sets, daily range): BP systolic 155–167; BP diastolic 62–97; PULSE 60–94; RESP 18–24; TEMP 36.3–36.7; O2SAT 90–99
[2019-08-25] MEDS: ipratropium-albuterol 3 mL Neb INHALATION ×2 (04:20→08:54)
[2019-08-25 05:40] LABS: Blood Urea Nitrogen 29 mg/dL (8-23); Calcium 9.6 mg/dL (8.5-10.5); Carbon Dioxide 31 mmol/L (22-29); Chloride 101 mmol/L (98-107); Glomerular Filtration Rate 60.6 mL/min (90-130); Glucose 133 mg/dL (65-115); Osmolality Calculated 293 mOsm/kg (285-295); Sodium 142 mmol/L (136-145)
[2019-08-25] MEDS: bumetanide 0.25 mg/mL SDV 10 mL 1 MG IV (06:53)
[2019-08-25] MEDS: heparin 5,000 unit/mL INJ 1 mL 5000 UNIT SUBCUT (06:54)
[2019-08-25] MEDS: dilTIAZem ER (24HR) 240 mg Capsule PO (09:03)
[2019-08-25] MEDS: lisinopril 20 mg Tablet 40 MG PO (09:03)
[2019-08-25] MEDS: tamsulosin 0.4 mg Capsule PO (09:03)
[2019-08-25] MEDS: metoprolol tartrate 50 mg Tablet PO (09:03)
[2019-08-25] MEDS: hyDRALAzine 50 mg Tablet 100 MG PO ×2 (09:04→13:30)
[2019-08-25] MEDS: levothyroxine 100 mcg Tablet PO (09:04)
[2019-08-25] MEDS: aspirin 81 mg EC Tablet PO (09:05)
[2019-08-25] MEDS: nicotine 14 mg Patch 1 PATCH TRANSDERMA (09:05)
[2019-08-25] MEDS: fluticasone nasal spray 16gm Btl 2 SPRAY INTRANASAL (09:13)
--- NOTE | 2019-08-25 13:30 | PM.PN ---
Subjective Subjective: Interval history: Overnight had 500 mL urine output, has had an additional 1000 mL so far this shift. AM labs noted. Patient quite upset upon my encounter as he did not get any sleep last night due to frequent interruptions and diuretics that make him urinate frequently. He does not want to spend another night in the hospital so is requesting to be discharged today. Has already arranged for a ride and this person will be bringing his oxygen as well. He declined to work with physical therapy and occupational therapy this morning. Medications: Reviewed: Yes Medication Review Details: Active Medications Generic Name Dose Route Start Last Admin Trade Name Freq PRN Reason Stop Dose Admin Acetaminophen 650 mg 08/23/19 14:43 Tylenol PO Q6H PRN Mild/Mod Pain Or Temp >/= 101 Albuterol/Ipratrop ium 3 ml 08/23/19 15:04 08/25/19 08:54 Duoneb INHALATION 3 ml Q4H PRN Administration SHORTNESS OF LESLIE TH Aspirin 81 mg 08/24/19 09:00 08/25/19 09:05 Aspirin Ec PO 81 mg DAILY MICHAEL Administration Bumetanide 1 mg 08/23/19 15:04 08/25/19 06:53 Bumex IV 1 mg Q12H MICHAEL Administration Diltiazem HCl 240 mg 08/24/19 09:00 08/25/19 09:03 Cardizem Cd (24h r) PO 240 mg DAILY MICHAEL Administration Fluticasone Propio gus 2 spray 08/24/19 09:00 08/25/19 09:13 Flonase INTRANASAL 2 spray DAILY MICHAEL Administration Heparin Sodium (Be ef Lung) 5,000 unit 08/23/19 15:04 08/25/19 06:54 Heparin SUBCUT 5,000 unit Q8H MICHAEL Administration Hydralazine HCl 100 mg 08/24/19 09:00 08/25/19 09:04 Apresoline PO 100 mg QID MICHAEL Administration Levothyroxine Sodi um 100 mcg 08/24/19 09:00 08/25/19 09:04 Synthroid PO 100 mcg DAILY MICHAEL Administration Lisinopril 40 mg 08/24/19 09:00 08/25/19 09:03 Prinivil PO 40 mg DAILY MICHAEL Administration Metoprolol Tartrat e 50 mg 08/23/19 18:00 08/25/19 09:03 Lopressor PO 50 mg BID MICHAEL Administration Morphine Sulfate 2 mg 08/23/19 15:04 Morphine IVP Q4H PRN SEVERE PAIN Nicotine 1 patch 08/23/19 16:45 08/25/19 09:05 Nicoderm 14 Mg P atch TRANSDERMA 1 patch DAILY MICHAEL Administration Nitroglycerin 0.4 mg 08/23/19 15:04 Nitrostat SUBLINGUAL Q5M PRN CHEST PAIN Non-Formulary Medi cation 25 mcg 08/24/19 09:00 08/25/19 08:44 Cholecalciferol (Vitamin D3) [Marimar min D3] PO Not Given DAILY MICHAEL Ondansetron HCl 4 mg 08/23/19 15:04 Zofran IVP Q6H PRN vomiting, or N/V if npo Tamsulosin HCl 0.4 mg 08/24/19 09:00 08/25/19 09:03 Flomax PO 0.4 mg DAILY MICHAEL Administration No Known Allergies Allergy (Verified 08/23/19 11:58) Vitals/I&O/Wt Last Vital Signs Temp 97.4 F L 08/25/19 10:35 Pulse 65 08/25/19 10:35 Resp 18 08/25/19 10:35 BP 155/62 08/25/19 10:35 Pulse Ox 97 08/25/19 10:35 08/24/19 08/25/19 08/25/19 22:59 06:59 14:59 Intake Total 600 / 1080 360 / 1440 420 / 420 Output Total 500 / 900 1050 / 1050 Balance 600 / 680 -140 / 540 -630 / -630 Weight last 48 hrs Weight 126.462 kg Weight 130.362 kg Physical Exam Const: COMMON NORMALS: no apparent distress and oriented x3 GENERAL APPEARANCE: cooperative NUTRITIONAL APPEARANCE: obese morbidly obese ORIENTATION/CONSCIOUSNESS: Yes awake HENMT: COMMON NORMALS: normocephalic, head/scalp atraumatic, hearing grossly normal bilaterally and moist oral mucous membranes HEAD & SCALP: normocephalic and atraumatic Eye: COMMON NORMALS: PERRL, EOMs intact bilaterally and conjunctivae normal CONJUNCTIVA: Yes conjunctivae normal PUPIL: Yes PERRL Neck/C-Spine: COMMON NORMALS: full ROM GENERAL: Yes normal visual inspection and Yes trachea midline OTHER: -short, thick neck Chest: COMMONS NORMALS: inspection of chest normal Resp: COMMON NORMALS: normal respiratory effort, no retractions and no use of accessory muscles EFFORT & INSPECTION: Yes able to speak in complete sentences, Yes symmetric chest movement and No tachypneic AUSCULTATION: crackles, wheezes expiratory wheezes and diminished lung sounds Cardio: COMMON NORMALS: regular rate, regular rhythm, S1 normal heart sound, S2 normal heart sound and no murmurs RATE: regular rate RHYTHM: regular rhythm HEART SOUNDS: S1 normal and S2 normal OTHER: -examination limited by body habitus GI: COMMON NORMALS: soft to palpation and non-tender INSPECTION: Yes abdominal distension and Yes central obesity PALPATION: Yes soft and No tender Extremity: COMMON NORMALS: full ROM OTHER: -noted brawny edema in bilateral LEs Neuro: COMMON NORMALS: oriented x3, moves all extremities, no focal motor deficits and no sensory deficits noted Psych: COMMON NORMALS: mental status grossly normal, thought process normal, cooperative, affect normal and speech normal SPEECH: Yes normal speech THOUGHT PROCESS: normal thought process Skin: COMMON NORMALS: no rashes or lesions noted, no jaundice, no petechiae and no mottling GENERAL SKIN EXAM: no rashes or lesions noted Data : 08/24/19 05:23 08/25/19 04:26 A&P Assessment and plan (1) Dyspnea: -Has no known history of CAD though per review of medical record has had prior cardiac work-up including nuclear stress testing that was positive in 08/2017 and subsequent coronary angiogram which was normal with no intervention required -Patient is currently too symptomatic in terms of shortness of breath to undergo nuclear stress testing -Troponins done at outside facility were 31 then 40 after 2 hrs with a noted delta of 9; repeat troponins here are 26->23->24 respectively, no acute ischemic changes noted on serial EKGs. Patient is continues to be chest pain-free -Given therapeutic dose of Lovenox in the ER; will hold off on further treatment at this time -telemetry monitoring -hypertensive, otherwise stable vital signs, continue to monitor -continue to monitor respiratory status; supplemental oxygen as needed, patient has a baseline oxygen requirement of 4 L -very low suspicion for infection or acute COPD exacerbation currently as no fever/chills, no change in cough or expectoration, currently at baseline O2 requirement, no leukocytosis, unremarkable CXR, so no need for abx or further systemic steroids at this time -slight leukocytosis (10.9) likely steroid induced Status: Acute Qualifiers: Dyspnea type: unspecified Qualified Code(s): R06.00 - Dyspnea, unspecified (2) CHF (congestive heart failure): -Patient appears clinically fluid overloaded as evidenced by abdominal distention, crackles on auscultation, BNP elevation at 1157, lower extremity edema, orthopnea and dyspnea with exertion -Has had prior echo done in 08/2017 showing ejection fraction of 65%, grade 1 diastolic dysfunction. Repeat Echo: EF=60%, G2DD, normal PSP -Has been on diuresis with oral Bumex at home, continue diuresis at this time with IV Bumex; titrate as needed to optimize diuresis -Close monitoring of ins and outs -continue to monitor vital signs -continue to monitor respiratory status Status: Acute (3) CKD (chronic kidney disease) stage 2, GFR 60-89 ml/min: -has GIULIANO on CKD stage 2-3, baseline Cr is around 1 -continue to monitor renal function, renally dose meds, avoid nephrotoxins -on ACEi Status: Acute (4) Hypertension: -has known hx of HTN -BP not optimally controlled currently, continue oral antihypertensives and titrate as needed for optimal control -continue to monitor vital signs Status: Chronic (5) COPD (chronic obstructive pulmonary disease): -no acute exacerbation currently -baseline oxygen requirement of 4 L NC -continue to monitor respiratory status Status: Chronic (6) Hypothyroidism: -Has known history of hypothyroidism status post ablation, continue levothyroxine -TSH wnl Status: Chronic Qualifiers: Hypothyroidism type: unspecified Qualified Code(s): E03.9 - Hypothyroidism, unspecified (7) Peripheral vascular disease: -Has known history of PVD with chronic lower extremity edema Status: Chronic (8) MADDI (obstructive sleep apnea): -Has known history of MADDI, does not use CPAP Status: Chronic (9) Morbid obesity: -BMI-41 kg/m2 Status: Chronic Additional A&P Information -hx of chronic hepatitis C -chronic smoker, +THC use, daily EtOH use; nicotine replacement therapy -noted significant abdominal distention; US abdomen negative for ascites -noted hyperglycemia, has reported hx of pre-DM; A1c-6.1 -cardiac diet as tolerated -GI ppx with PPI -DVT ppx with heparin -PT/OT evaluations today -Dispo: home -Code status: FULL code Attestations Medical Necessity Statement*: Discharge home per patient request. Time Spent in Patient Care: 16 - 35 minutes (>than 50% of time spent in counselling and/or direct pt care on unit). Coding Level of Care Code Acute Revenue Specialist for Chg Fwd Exam Comprehensive Diagnoses Dyspnea R06.00 Dyspnea type: unspecified CHF (congestive heart failure) I50.9 CKD (chronic kidney disease) stage 2, GFR 60-89 ml/min N18.2 Hypertension I10 COPD (chronic obstructive pulmonary disease) J44.9 Hypothyroidism E03.9 Hypothyroidism type: unspecified Peripheral vascular disease I73.9 MADDI (obstructive sleep apnea) G47.33 Morbid obesity E66.01
--- NOTE | 2019-08-25 15:01 | P.DS_ITS ---
Discharge Providers Date of Admission: 08/23/19 13:43 Date of Discharge: August 25, 2019 Attending Provider at Admission: Jazmín Bryan MD Attending Provider at Discharge: Jazmín Bryan MD Diagnoses at Discharge Discharge Diagnosis (1) Dyspnea: Status: Acute Problem details: -Has no known history of CAD though per review of medical record has had prior cardiac work-up including nuclear stress testing that was positive in 08/2017 and subsequent coronary angiogram which was normal with no intervention required -Patient is currently too symptomatic in terms of shortness of breath to undergo nuclear stress testing -Troponins done at outside facility were 31 then 40 after 2 hrs with a noted delta of 9; repeat troponins here are 26->23->24 respectively, no acute ischemic changes noted on serial EKGs. Patient is continues to be chest pain-free -Given therapeutic dose of Lovenox in the ER; will hold off on further treatment at this time -telemetry monitoring -hypertensive, otherwise stable vital signs, continue to monitor -continue to monitor respiratory status; supplemental oxygen as needed, patient has a baseline oxygen requirement of 4 L -very low suspicion for infection or acute COPD exacerbation currently as no fever/chills, no change in cough or expectoration, currently at baseline O2 requirement, no leukocytosis, unremarkable CXR, so no need for abx or further systemic steroids at this time -slight leukocytosis (10.9) likely steroid induced Qualifiers: Dyspnea type: unspecified Qualified Code(s): R06.00 - Dyspnea, unspecified (2) CHF (congestive heart failure): Status: Acute Problem details: -Patient appears clinically fluid overloaded as evidenced by abdominal distention, crackles on auscultation, BNP elevation at 1157, lower extremity edema, orthopnea and dyspnea with exertion -Has had prior echo done in 08/2017 showing ejection fraction of 65%, grade 1 diastolic dysfunction. Repeat Echo: EF=60%, G2DD, normal PSP -Has been on diuresis with oral Bumex at home, continue diuresis at this time with IV Bumex; titrate as needed to optimize diuresis -Close monitoring of ins and outs -continue to monitor vital signs -continue to monitor respiratory status Qualifiers: Heart failure type: diastolic Heart failure chronicity: acute on chronic Qualified Code(s): I50.33 - Acute on chronic diastolic (congestive) heart failure (3) CKD (chronic kidney disease) stage 2, GFR 60-89 ml/min: Status: Chronic Problem details: -has GIULIANO on CKD stage 2-3, baseline Cr is around 1 -continue to monitor renal function, renally dose meds, avoid nephrotoxins -on ACEi (4) Hypertension: Status: Chronic Problem details: -has known hx of HTN -BP not optimally controlled currently, continue oral antihypertensives and titrate as needed for optimal control -continue to monitor vital signs Qualifiers: Hypertension type: essential hypertension Qualified Code(s): I10 - Essential (primary) hypertension (5) COPD (chronic obstructive pulmonary disease): Status: Chronic Problem details: oxygen-dependent, 4 L at baseline Qualifiers: COPD type: unspecified COPD Qualified Code(s): J44.9 - Chronic obstructive pulmonary disease, unspecified (6) Hypothyroidism: Status: Chronic Problem details: -Has known history of hypothyroidism status post ablation, continue levothyroxine Qualifiers: Hypothyroidism type: unspecified Qualified Code(s): E03.9 - Hypothyroidism, unspecified (7) Peripheral vascular disease: Status: Chronic Problem details: -Has known history of PVD with chronic lower extremity edema (8) MADDI (obstructive sleep apnea): Status: Chronic Problem details: -Has known history of MADDI, does not use CPAP (9) Morbid obesity: Status: Chronic Problem details: -BMI-44 kg/m2 Other Information Additional DC diagnoses/information: -hx of chronic hepatitis C -chronic smoker, +THC use, daily EtOH use; nicotine replacement therapy -noted significant abdominal distention; US abdomen negative for ascites -noted hyperglycemia, has reported hx of pre-DM; A1c-6.1 Reason for Visit Reason for Visit: Reason For Visit: Shortness of breath, chest tightness Hospital Course Hospital Course: Patient was admitted to the medical surgical floor and started on IV diuresis with Bumex. He has responded well to diuresis as evidenced by decreased dyspnea, decreased abdominal distention, ability to maintain his oxygenation on his baseline oxygen requirement of 4 L nasal cannula as well as symptomatic improvement. Patient was noted to have abdominal distention on admission with no noted peritoneal ascites on ultrasound. He was noted to have troponin elevation at outside facility which on repeat here was noted to be negative in terms of delta change. There were also no noted acute ischemic changes on serial EKGs or on telemetry. He had received a therapeutic dose of Lovenox in the ER which I did not continue as low threshold for actual cardiac source of troponin elevation. Suspicion is that this is due to to acute CHF exacerbation. He was not found to have any indication clinically of in fection or acute COPD exacerbation so no antibiotics or steroids were prescribed. He has been maintained on his oxygen requirement of 4 L. Blood pressure was on the higher side so I increased his dose of hydralazine for more optimal blood pressure control. Renal function has remained stable and close to his baseline. He was educated on need for smoking cessation. He has requested to be discharged home today as he has not been able to get enough rest while admitted at the hospital. Given his underlying comorbidities he is at high risk for readmission. Discharge Summary: -Patient to follow-up with his primary care physician within 1 week Physical Exam Const: COMMON NORMALS: no apparent distress and oriented x3 GENERAL APPEARANCE: cooperative NUTRITIONAL APPEARANCE: obese morbidly obese ORIENTATION/CONSCIOUSNESS: Yes awake HENMT: COMMON NORMALS: normocephalic, head/scalp atraumatic, hearing grossly normal bilaterally and moist oral mucous membranes HEAD & SCALP: normocephalic and atraumatic Eye: COMMON NORMALS: PERRL, EOMs intact bilaterally and conjunctivae normal CONJUNCTIVA: Yes conjunctivae normal PUPIL: Yes PERRL Neck/C-Spine: COMMON NORMALS: full ROM GENERAL: Yes normal visual inspection and Yes trachea midline OTHER: -short, thick neck Chest: COMMONS NORMALS: inspection of chest normal Resp: COMMON NORMALS: normal respiratory effort, no retractions and no use of accessory muscles EFFORT & INSPECTION: Yes able to speak in complete sentences, Yes symmetric chest movement and No tachypneic AUSCULTATION: crackles, wheezes expiratory wheezes and diminished lung sounds Cardio: COMMON NORMALS: regular rate, regular rhythm, S1 normal heart sound, S2 normal heart sound and no murmurs RATE: regular rate RHYTHM: regular rhythm HEART SOUNDS: S1 normal and S2 normal OTHER: -examination limited by body habitus GI: COMMON NORMALS: soft to palpation and non-tender INSPECTION: Yes abdominal distension and Yes central obesity PALPATION: Yes soft and No tender Extremity: COMMON NORMALS: full ROM OTHER: -noted brawny edema in bilateral LEs Neuro: COMMON NORMALS: oriented x3, moves all extremities, no focal motor deficits and no sensory deficits noted Psych: COMMON NORMALS: mental status grossly normal, thought process normal, cooperative, affect normal and speech normal SPEECH: Yes normal speech THOUGHT PROCESS: normal thought process Skin: COMMON NORMALS: no rashes or lesions noted, no jaundice, no petechiae and no mottling GENERAL SKIN EXAM: no rashes or lesions noted Discharge Data Data Completed and Pending: Completed Studies During Hospitalization Category Date Time Status XR chest 1V jordon ble [id number] Stat Exams 08/23/19 12:41 [place] [id number] Routine Ultrasound 08/23/19 15:04 Completed US echo complete [CV echo complete* [id number]] Routine Ultrasound 08/24/19 08:42 Completed Labs from last 24 hours 08/25/19 04:26 Sodium 142 Potassium 4.0 Chloride 101 Carbon Dioxide 31 H Anion Gap 14.0 BUN 29 H Creatinine 1.2 GFR Calculation 60.6 L Glucose 133 H Calculated Osmolal ity 293 Calcium 9.6 Vitals: Last Vital Signs Temp 97.4 F L 08/25/19 10:35 Pulse 65 08/25/19 10:35 Resp 18 08/25/19 10:35 BP 155/62 08/25/19 10:35 Pulse Ox 97 08/25/19 10:35 Discharge Plan Discharge Patient Disposition: Home, Self-Care Condition: Stable Prescriptions: New hydralazine 50 mg Tablet 100 mg PO QID 30 Days Qty: 240 RF: 0 Continued Aspir-81 81 mg Tablet,Delayed Release (Dr/Ec) 81 mg PO DAILY RF: 0 levothyroxine 100 mcg Tablet 100 mcg PO DAILY RF: 0 ofloxacin 0.3 % drops 4 drp otic (ear) QAM RF: 0 Flomax 0.4 mg Capsule 0.4 mg PO DAILY RF: 0 ProAir HFA 90 mcg/actuation Hfa Aerosol Inhaler 4 puff INHALATION BID RF: 0 Flonase Allergy Relief 50 mcg/actuation [place],Suspension 2 spray INTRANASAL DAILY RF: 0 Vitamin D3 25 mcg (1,000 unit) Capsule 25 mcg PO DAILY RF: 0 oxymetazoline 0.05 % [place],Non-Aerosol See Rx Instructions .ROUTE .COMPLEX RF: 0 Spiriva Respimat 2.5 mcg/actuation Mist 2 puff INHALATION DAILY RF: 0 diltiazem HCl 240 mg Capsule,Extended Release 24hr 240 mg PO QAM 30 Days Qty: 30 RF: 0 metoprolol tartrate 50 mg Tablet 50 mg PO BID 30 Days Qty: 60 RF: 0 bumetanide 1 mg Tablet 1 mg PO BID 30 Days Qty: 60 RF: 0 lisinopril 40 mg Tablet 40 mg PO DAILY 30 Days Qty: 30 RF: 0 Discontinued hydralazine 50 mg Tablet 50 mg PO QID RF: 0 Discharge Orders: Discharge Order (Routine); Ordered 08/25/19 Ordered By: Jazmín Bryan Referrals: Paul Chaudhari [Family Provider] - 4-7 days (Post hospital discharge follow up. Treated for acute CHF exacerbation. ) Discharge Diet: Cardiac Discharge Activity: Resume usual activity Activity Restrictions/Additional Instructions: -Please continue to use supplemental oxygen, 4 L NC. Discharge Attestations Time Spent in Discharge Care*: greater than 30 min Specific Discharge Activities: Specific discharge activities: educating patient, educating and/or supporting family/caregiver, discussing with pcp/other providers, discussing with manager of case management/social workers/dc planners, documenting/other paperwork and evaluating patient/reviewing data Time Spent in Smoking Cessation: Time spent discussing smoking cessation with patient: 3 to 10 minutes Details of Smoking Cessation Education: -Need for smoking cessation given multiple comorbidities including CHF, COPD, HTN Status at Discharge: Cognitive status at discharge: cognitively intact , Behavioral status at discharge: cooperative , Functional status at discharge: independent ambulation Overall status at discharge: patient is back to baseline Quality Metrics Clinical Quality Measures During this hospital stay, did patient experience: None Coding Level of Care Code Acute Manager Assessment for Jessie Gallo Diagnoses Dyspnea R06.00 Dyspnea type: unspecified CHF (congestive heart failure) I50.33 Heart failure type: diastolic Heart failure chronicity: acute on chronic CKD (chronic kidney disease) stage 2, GFR 60-89 ml/min N18.2 Hypertension I10 Hypertension type: essential hypertension COPD (chronic obstructive pulmonary disease) J44.9 COPD type: unspecified COPD Hypothyroidism E03.9 Hypothyroidism type: unspecified Peripheral vascular disease I73.9 MADDI (obstructive sleep apnea) G47.33 Morbid obesity E66.01
--- NOTE | 2019-08-25 16:08 | PC.NURSE ---
Discharge instructions given per the physician's orders. Patient verbalized understanding of discharge information and did not have any further questions.
--- NOTE | 2019-08-25 17:37 | PC.PT ---
PT note; patient refused attempted PT evaluation, ?2 attempts today
== END 2019-08-25 16:15 | disposition home or self-care (01) | DRG 291 ==
LOC: ER 14:18 → MEDSURG 14:19
PROVIDERS: Admitting Provider Family Medicine; Emergency Provider Family Medicine; Family Provider Family Medicine; Visit Provider Family Medicine
DX: I13.0 Hypertensive heart and chronic kidney disease with heart failure and stage 1 through stage 4 chronic kidney disease, or unspecified chronic kidney disease (principal); I50.33 Acute on chronic diastolic (congestive) heart failure; Z68.41 Body mass index [BMI] 40.0-44.9, adult; N18.3 Chronic kidney disease, stage 3 (moderate); E11.22 Type 2 diabetes mellitus with diabetic chronic kidney disease; J44.9 Chronic obstructive pulmonary disease, unspecified; Z99.81 Dependence on supplemental oxygen; G47.33 Obstructive sleep apnea (adult) (pediatric); E66.01 Morbid (severe) obesity due to excess calories; F17.210 Nicotine dependence, cigarettes, uncomplicated; F10.20 Alcohol dependence, uncomplicated; F12.90 Cannabis use, unspecified, uncomplicated; B18.2 Chronic viral hepatitis C; E03.9 Hypothyroidism, unspecified; I25.10 Atherosclerotic heart disease of native coronary artery without angina pectoris; Z79.82 Long term (current) use of aspirin; Z79.51 Long term (current) use of inhaled steroids
CPT/HCPCS: 12345; 36415; 71045; 76705; 80048; 80061; 83036; 84443; 84484; 85025; 85610; 93005; 93306; 94640; 96372; 99283; J1644; J1650; J3490

== ENCOUNTER 2020-07-27 13:17 | Outpatient (CLI) | payer OTHER, SELFPAY | END 2020-07-27 13:18 | disposition home or self-care (01) | LOC: WOUND 13:22 | PROVIDERS: Family Provider Family Medicine; Visit Provider Thoracic Surgery (Cardiothoracic Vascular Surgery) | DX: L97.811 Non-pressure chronic ulcer of other part of right lower leg limited to breakdown of skin (principal) | CPT/HCPCS: G0463 ==

== ENCOUNTER 2020-07-31 10:46 | Outpatient (CLI) | payer OTHER, SELFPAY | END 2020-07-31 10:47 | disposition home or self-care (01) | LOC: WOUND 10:47 | PROVIDERS: Family Provider Family Medicine; Visit Provider Nurse Practitioner Family | DX: I89.0 Lymphedema, not elsewhere classified (principal); L97.819 Non-pressure chronic ulcer of other part of right lower leg with unspecified severity; L97.829 Non-pressure chronic ulcer of other part of left lower leg with unspecified severity | CPT/HCPCS: 99212 ==

== ENCOUNTER 2020-08-07 13:05 | Outpatient (CLI) | payer OTHER, SELFPAY | END 2020-08-07 13:06 | disposition home or self-care (01) | LOC: WOUND 13:05 | PROVIDERS: Family Provider Family Medicine; Visit Provider Nurse Practitioner Family | DX: I89.0 Lymphedema, not elsewhere classified (principal) | CPT/HCPCS: 99212 ==

== ENCOUNTER 2020-08-07 14:59 | Observation (INO) | payer OTHER, SELFPAY ==
[2020-08-07] VITALS (7 sets, daily range): BP systolic 124–150; BP diastolic 53–78; PULSE 62–78; RESP 16–21; TEMP 36.8; O2SAT 97–100; BMI 42.3
--- NOTE | 2020-08-07 19:22 | ED_ITS ---
HPI - Skin/Abscess/Foreign Bdy General: Chief complaint: Skin/Abscess/Foreign Body Stated complaint: WEEPING EDEMA, INFECTED/SENT BY WOUND CLINIC Time Seen by Provider: 08/07/20 19:08 Source: patient Mode of arrival: ambulatory Limitations: no limitations History of Present Illness: HPI narrative: 65-year-old male who sent here by wound care for chronic wound and cellulitis to his right lower leg. He states that he just finished a 10-day course of ciprofloxacin and had seen wound care and sent him here 5 antibiotics has had minimal improvement. He does have a chronic wound and cellulitis to right lower leg with a foul smell. Denies any fever. Denies any pain. Associated symptoms: Deny chills, fever(s), nausea or vomiting Review of Systems Const: Denies: fever(s), chills, body aches or change in appetite Eyes: Denies: blurry vision or eye discomfort ENMT: Denies: throat pain or dental pain Card: Denies: chest pain Resp: Denies: dyspnea GI: Denies: abdominal pain, nausea, vomiting or diarrhea : Denies: dysuria Musc: Denies: neck pain or back pain Skin/Breast: Reports: erythema Neuro: Denies: headache(s) Psych: Denies: depression Joe/Lymph: Denies: easy bruising All/Imm: Denies: urticaria [facility] ED PFSH: Medical History (Updated 08/07/20 @ 20:09 by Dino Sood MD) CHF (congestive heart failure) -Patient appears clinically fluid overloaded as evidenced by abdominal distention, crackles on auscultation, BNP elevation at 1157, lower extremity edema, orthopnea and dyspnea with exertion -Has had prior echo done in 08/2017 showing ejection fraction of 65%, grade 1 diastolic dysfunction. Repeat Echo: EF=60%, G2DD, normal PSP -Has been on diuresis with oral Bumex at home, continue diuresis at this time with IV Bumex; titrate as needed to optimize diuresis -Close monitoring of ins and outs -continue to monitor vital signs -continue to monitor respiratory status Chronic hepatitis C CKD (chronic kidney disease) stage 2, GFR 60-89 ml/min -has GIULIANO on CKD stage 2-3, baseline Cr is around 1 -continue to monitor renal function, renally dose meds, avoid nephrotoxins -on ACEi COPD (chronic obstructive pulmonary disease) oxygen-dependent, 4 L at baseline Hyperlipidemia Hypertension -has known hx of HTN -BP not optimally controlled currently, continue oral antihypertensives and titrate as needed for optimal control -continue to monitor vital signs Hypothyroidism -Has known history of hypothyroidism status post ablation, continue levothyroxine Morbid obesity -BMI-44 kg/m2 MADDI (obstructive sleep apnea) -Has known history of MADDI, does not use CPAP Peripheral vascular disease -Has known history of PVD with chronic lower extremity edema Thyroid nodule Surgical History H/O hernia repair H/O shoulder surgery History of appendectomy Family History (Updated 08/23/19 @ 14:59 by Jazmín Bryan MD) Denies family history of CAD (coronary artery disease) Social History (Updated 08/23/19 @ 15:00 by Jazmín Bryan MD) Smoking and tobacco status: current every day smoker cigarettes Packs smoked per day: 1 Alcohol intake: current Alcohol intake frequency: 0-2 Drinks per Day Alcohol ty pe: hard liquor Lives independently: Yes Physical Exam Const: COMMON NORMALS: no acute distress, patient oriented x3 and healthy appearing HENMT: COMMON NORMALS: normocephalic and atraumatic HEAD & SCALP: normocephalic and atraumatic Eye: COMMON NORMALS: Equal, round and reactive pupils present and EOMs intact bilaterally PUPIL: Yes Equal, round and reactive pupils present Neck/C-Spine: COMMON NORMALS: full ROM and supple Chest: COMMONS NORMALS: normal inspection of the chest and normal palpation of entire chest wall Resp: COMMON NORMALS: normal respiratory effort, No retractions, No use of accessory muscles and clear to auscultation bilaterally AUSCULTATION: clear to auscultation bilaterally Cardio: COMMON NORMALS: regular rate, regular rhythm and No murmurs present (Cardio) RATE: regular rate RHYTHM: regular rhythm GI: COMMON NORMALS: Normal to inspection, nondistended, normoactive bowel sounds present, Soft to palpation, non-tender and no masses PALPATION: Yes Soft to palpation Extremity: COMMON NORMALS: full ROM NARRATIVE EXTREMITY EXAM: chronic wound and cellulitis to right lower leg Neuro: COMMON NORMALS: patient oriented x3, moves all extremities and no focal motor deficits Psych: COMMON NORMALS: mental status grossly normal, Normal thought process present and cooperative THOUGHT PROCESS: Normal thought process present Skin: COMMON NORMALS: no rashes or lesions noted and no wounds GENERAL SKIN EXAM: no rashes or lesions noted Course Vital Signs: Vital signs: Vital Signs Temperature 98.2 F 08/07/20 15:09 Pulse Rate 62 08/07/20 19:10 Respiratory Rate 21 H 08/07/20 19:10 Blood Pressure 150/63 08/07/20 19:10 Pulse Oximetry 100 08/07/20 19:10 MDM - Skin/Abscess/Foreign Bdy MDM Narrative: Medical decision making narrative: Patient presents with cellulitis and here from wound care. He has no signs of osteomyelitis. He has failed outpatient therapy. I spoke to hospitalist will admit for IV antibiotics. Lab Data: Labs: Lab Results 08/07/20 08/07/20 Range/Units 19:15 19:15 WBC 8.4 (4.0-10.0) 10^3/ uL RBC 3.82 L (4.1-5.3) 10^6/u L Hgb 11.3 L (11.7-16.6) g/dL Hct 36.7 L (42.0-52.0) % MCV 96.1 H (80-94) fL MCH 29.6 (28.0-34.0) pg MCHC 30.8 (30.0-36.0) g/dL RDW 13.8 (12.1-15.1) % Plt Count 266 (130-400) 10^3/c mm MPV 10.9 H (7.4-10.4) fL Neut % (Auto) 69.0 % Lymph % (Auto) 13.2 % Divide % (Auto) 13.9 % Eos % (Auto) 3.1 % Baso % (Auto) 0.6 % Neut # (Auto) 5.82 (1.8-7.7) 10^3/u L Lymph # (Auto) 1.1 (0.8-4.8) 10^3/u L Divide # (Auto) 1.2 H (0.2-0.9) 10^3/u L Eos # (Auto) 0.3 (0.0-0.8) 10^3/u L Baso # (Auto) 0.1 (0.0-0.1) 10^3/u L Nucleated RBC % (a uto) 0 % Nucleated RBCs # 0.0 /100WBC Sodium 141 (136-145) mmol/L Potassium 4.2 (3.5-5.1) mmol/L Chloride 102 (98-107) mmol/L Carbon Dioxide 31 H (22-29) mmol/L Anion Gap 12.2 (5-19) BUN 28 H (8-23) mg/dL Creatinine 1.4 H (0.7-1.2) mg/dL GFR Calculation 50.5 L (90-130) mL/min Glucose 102 (65-115) mg/dL Calculated Osmolal ity 298 H (285-295) mOsm/k g Calcium 9.5 (8.5-10.5) mg/dL Total Bilirubin 0.3 (0.15-1.2) mg/dL AST 14 (0-40) U/L ALT 14 (0-41) U/L Alkaline Phosphata se 71 (40-130) IU/L Total Protein 7.1 (6.6-8.7) g/dL Albumin 3.9 (3.5-5.2) g/dL Globulin 3.2 (1.3-4.6) g/dL Discharge Plan Discharge Patient Disposition: Admitted As Inpatient Clinical Impression: Cellulitis Qualifiers: Site of cellulitis: extremity Site of cellulitis of extremity: lower extremity Laterality: right Qualified Code(s): L03.115 - Cellulitis of right lower limb Condition: Stable Coding Level of Care Code ED Investment Broker for Jessie Fwd Exam Comprehensive
[2020-08-07] MEDS: vancomycin 1,000 MG in sodium chloride 0.9% 250 ML 250 MG IV (19:30)
[2020-08-07 19:48] LABS: Basophils # 0.1 10^3/uL (0.0-0.1); Basophils % 0.6 %; Eosinophils # 0.3 10^3/uL (0.0-0.8); Eosinophils % 3.1 %; Hematocrit 36.7 % (42.0-52.0); Hemoglobin 11.3 g/dL (11.7-16.6); Lymphocytes # 1.1 10^3/uL (0.8-4.8); Lymphocytes % 13.2 %; Mean Corpuscular HGB Conc 30.8 g/dL (30.0-36.0); Mean Corpuscular Hemoglobin 29.6 pg (28.0-34.0); Mean Corpuscular Volume 96.1 fL (80-94); Mean Platelet Volume 10.9 fL (7.4-10.4); Monocytes # 1.2 10^3/uL (0.2-0.9); Monocytes % 13.9 %; Neutrophils # 5.82 10^3/uL (1.8-7.7); Nucleated Red Blood Cells % 0 %; Platelet Count 266 10^3/cmm (130-400); Red Blood Count 3.82 10^6/uL (4.1-5.3); Red Cell Distribution Width 13.8 % (12.1-15.1); White Blood Count 8.4 10^3/uL (4.0-10.0)
[2020-08-07 19:58] LABS: Alanine Aminotransferase 14 U/L (0-41); Albumin Level 3.9 g/dL (3.5-5.2); Alkaline Phosphatase 71 IU/L (40-130); Anion Gap 12.2 (5-19); Aspartate Amino Transferase 14 U/L (0-40); Blood Urea Nitrogen 28 mg/dL (8-23); Calcium 9.5 mg/dL (8.5-10.5); Carbon Dioxide 31 mmol/L (22-29); Chloride 102 mmol/L (98-107); Globulin 3.2 g/dL (1.3-4.6); Glomerular Filtration Rate 50.5 mL/min (90-130); Glucose 102 mg/dL (65-115); Osmolality Calculated 298 mOsm/kg (285-295); Potassium 4.2 mmol/L (3.5-5.1); Sodium 141 mmol/L (136-145); Total Bilirubin 0.3 mg/dL (0.15-1.2); Total Protein 7.1 g/dL (6.6-8.7)
--- NOTE | 2020-08-07 20:01 | XRR_ITS ---
PROCEDURE INFORMATION: Exam: XR Right Tibia and Fibula Exam date and time: 08/07/2020 8:25 PM Age: 65 years old Clinical indication: Location not specified; Patient HX: Weeping edema; Additional info: Cellulitis TECHNIQUE: Imaging protocol: XR Right tibia and fibula. Views: 2 views. COMPARISON: No relevant prior studies available. FINDINGS: Bones/joints: Normal. Calcaneal spur. No acute fracture. Soft tissues: Superficial soft tissue edema. XR/XR tibia fibula RT 2V [id number] IMPRESSION: No acute osseous findings.
--- NOTE | 2020-08-07 20:26 | P.HP_ITS ---
Providers/Chief Complaint Primary Care Provider: Sun Bello MD Chief Complaint: WEEPING EDEMA, INFECTED/SENT BY WOUND CLINIC History of Present Illness Omar Ta is a 65 year old male who was sent from wound care clinic for worsening of right lower extremity cellulitis. Patient is stating that he noted spontaneous weeping about 2 to 3 weeks ago, [facility] He has not noticed any fever, nausea, vomiting, chest pain, shortness of breath. He has chronic history of lymphedema for which she follows up with wound care clinic. He was evaluated by Dr. Kohler, he has different of 30 to 40 mmHg in blood pressure of right and left arm however no previous history of aortic dissection or vascular stenosis. He is an active smoker, drinks alcohol occasionally, lives with his girlfriend, he has COPD for which he uses 4 L of oxygen [id number]. Diagnostics in the ER revealed cellulitis without sepsis hemoglobin stable mild GIULIANO, he was given vancomycin in the ER, Review of Systems Const: Reports: fatigue; Denies: fever(s) Eyes: Denies: change in vision ENMT: Denies: throat pain Card: Denies: chest pain Resp: Denies: dyspnea GI: Denies: abdominal pain : Denies: flank pain Musc: Reports: extremity pain, extremity swelling and muscle cramps; Denies: neck pain Skin/Breast: Reports: new lesions, changing lesions, non-healing lesions, lesions and changes in skin color Neuro: Denies: headache(s) Psych: Denies: anxiety Endo: Denies: polyuria Joe/Lymph: Denies: easy bruising All/Imm: Denies: urticaria Medications/Allergies Home Medications Medication Instructions Recorded Confirmed Last Taken Type Spiriva Respimat 2 puff INHALATION DAILY 08/23/19 08/07/20 08/07/20 History albuterol sulfate [ProAir HFA] 4 puff INHALATION BID 08/23/19 08/07/20 Unknown History cholecalciferol (vitamin D3) 25 mcg PO DAILY 08/23/19 08/07/20 08/07/20 History [Vitamin D3] fluticasone propionate [Flonase 2 spray INTRANASAL DAILY@0800 08/23/19 08/07/20 08/07/20 History Allergy Relief] levothyroxine 100 mcg PO DAILY@0730 08/23/19 08/07/20 08/07/20 History tamsulosin [Flomax] 0.4 mg PO DAILY@1600 08/23/19 08/07/20 08/06/20 History aspirin [Aspir-81] 81 mg PO DAILY@0800 08/07/20 08/07/20 08/07/20 History diltiazem HCl 240 mg PO DAILY@0800 08/07/20 08/07/20 08/07/20 History furosemide 40 mg PO BID@0800,1600 08/07/20 08/07/20 08/07/20 History hydralazine 50 mg PO QID@08,12,16,20 08/07/20 08/07/20 08/07/20 History lisinopril 40 mg PO DAILY@1600 08/07/20 08/07/20 08/06/20 History metoprolol tartrate 50 mg PO BID@0800,1600 08/07/20 08/07/20 08/07/20 History Allergies Allergy/AdvReac Type Severity Reaction Status Date / Time No Known Allergies Allergy Verified 08/07/20 15:13 PFSH Acute PFSH: Medical History (Updated 08/08/20 @ 01:36 by David Andrews MD) CHF (congestive heart failure) -Has had prior echo done in 08/2017 showing ejection fraction of 65%, grade 1 diastolic dysfunction. Repeat Echo: EF=60%, G2DD, normal PSP Chronic hepatitis C CKD (chronic kidney disease) stage 2, GFR 60-89 ml/min -has GIULIANO on CKD stage 2-3, baseline Cr is around 1 COPD (chronic obstructive pulmonary disease) oxygen-dependent, 4 L at baseline Hyperlipidemia Hypertension Hypothyroidism -Has known history of hypothyroidism status post ablation, Morbid obesity -BMI-44 kg/m2 MADDI (obstructive sleep apnea) -Has known history of MADDI, does not use CPAP Peripheral vascular disease -Has known history of PVD with chronic lower extremity edema Thyroid nodule Surgical History H/O hernia repair H/O shoulder surgery History of appendectomy Family History Denies family history of CAD (coronary artery disease) Social History Smoking and tobacco status: current every day smoker cigarettes Packs smoked per day: 1 Alcohol intake: current Alcohol intake frequency: 0-2 Drinks per Day Alcohol type: hard liquor Lives independently: Yes Vitals/I&O/Wt Last Vital Signs Temp 98.2 F 08/07/20 15:09 Pulse 62 08/07/20 19:10 Resp 21 H 08/07/20 19:10 BP 150/63 08/07/20 19:10 Pulse Ox 100 08/07/20 19:10 Weight last 48 hrs Weight 122.47 kg Physical Exam Narrative: EXAM NARRATIVE: Morbidly obese male currently laying in right lateral position Very pleasant during my evaluation, appears unkept and more than stated age S1, S2 sinus rhythm with signs of heart failure Abdomen distended central obesity nontender Mild wheezing without audible stridor, no active respite distress EOMI, PERRLA No neurological deficit Bilateral lower extremity lymphedema Cellulitis of right lower extremity, 1 open wound with clean red base without any purulent drainage, venous stasis dermatitis, skin maceration, purulent drainage with soaked/saturated dressing, lower extremities are warm to touch, no vascular compromise appreciated Data : 08/07/20 19:15 08/07/20 19:15 Micro: Microbiology 08/07/20 19:15 Blood Culture - Preliminary Blood SPECIMEN COLLECTED A&P Assessment and plan (1) Cellulitis: Status: Acute Qualifiers: Laterality: right Site of cellulitis: extremity Site of cellulitis of extremity: lower extremity Qualified Code(s): L03.115 - Cellulitis of right lower limb (2) GIULIANO (acute kidney injury): Status: Acute Additional A&P Information Purulent cellulitis of right lower extremity No signs of sepsis, he has lymphedema Follows up with wound care, [facility] I will continue him on vancomycin and cefepime, avoid Zosyn because of GIULIANO, p atient is telling me that he is prediabetic, hemoglobin A1c 6.1 Obtain blood cultures He will need debridement of macerated/nonhealing tissue, kindly consider general surgery consult in the morning, Kerlix and ABD dry dressing because of excessive purulent drainage ABIs are 0.5 0.6 bilaterally, We will get venous Doppler studies Acute on chronic kidney disease stage IIa Hold lisinopril Does show signs of fluid overload, has history of grade 2 diastolic dysfunction EF 60%, check BNP, continue Lasix and potassium supplementation, likely etiology cardiorenal Blood pressure difference 30 to 40 mmHg in arms, will get CTA chest History of hypothyroidism: Continue levothyroxine 100 mcg Essential hypertension continue diltiazem and metoprolol hold lisinopril Obstructive sleep apnea, he is noncompliant with CPAP Nicotine abuse: Counseled on smoking cessation DVT prophylaxis Heparin Full code Cardiac diet Attestations Medical Necessity Statement*: Anticipating discharge in less than 48 hours need antibiotics for purulent cellulitis, he is not septic on admission Time Spent in Patient Care: (>than 50% of time spent in counselling and/or direct pt care on unit) . 50 minutes Coding Level of Care Code Acute Care Coordinator for [facility] Diagnoses Cellulitis L03.115 Laterality: right Site of cellulitis: extremity Site of cellulitis of extremity: lower extremity GIULIANO (acute kidney injury) N17.9
[2020-08-08] VITALS (13 sets, daily range): BP systolic 125–155; BP diastolic 63–78; PULSE 60–74; RESP 14–18; TEMP 36.8–37; O2SAT 95–100
[2020-08-08] MEDS: cefepime 2,000 MG in sodium chloride 0.9% (plus) 50 ML 100 MG IV ×2 (01:04→13:35)
--- NOTE | 2020-08-08 01:04 | PC.PHAR ---
Vancomycin is dosed at 1gm IVPB every 12 hours to produce a predicted trough level of 17.20 (population based pharmacokinetic analysis). A trough level has been ordered from the lab to be obtained before the fourth dose to confirm and adjust if needed.
--- NOTE | 2020-08-08 01:47 | CTR_ITS ---
PROCEDURE INFORMATION: Exam: CT Angiography Chest With Contrast Exam date and time: 08/08/2020 2:30 AM Age: 65 years old Clinical indication: Dyspnea and shortness of breath; Patient HX: Severe SOB and dyspnea. 30-40 point difference in BP recordings between left and right arm. Unable to lay supine or put arms above head. Best positioning obtained. ; Additional info: Blood pressure difference in both arms 30 to 40 mmhg TECHNIQUE: Imaging protocol: Computed tomographic angiography of the chest with contrast. 3D rendering (Not supervised by radiologist): MIP and/or 3D reconstructed images were created by the technologist. Radiation optimization: All CT scans at this facility use at least one of these dose optimization techniques: automated exposure control; mA and/or kV adjustment per patient size (includes targeted exams where dose is matched to clinical indication); or iterative reconstruction. Contrast material: VISI 320; Contrast volume: 74 ml; Contrast route: INTRAVENOUS (IV); COMPARISON: CR XR chest 1V portable [id number] 08/23/2019 12:55 PM RADIATION DOSE METRICS: Total DLP (mGy-cm): 765.36 FINDINGS: Pulmonary arteries: Normal. No pulmonary emboli. Aorta: Aortic calcifications are noted. No findings of aortic aneurysm or acute aortic abnormality. There is suboptimal contrast for evaluation of great vessels off the aortic arch and respiratory motion also partially degrades great vessel detail. There may be some narrowing in the proximal left subclavian artery. Lungs: Upper lobe predominant emphysema. Mild airspace disease right lower lobe likely representing atelectasis. 8 mm nodule right middle lobe. Pleural spaces: Unremarkable. No pneumothorax. No pleural effusion. Heart: Coronary calcifications are noted. Lymph nodes: Unremarkable. No enlarged lymph nodes. Bones/joints: No acute fracture. Soft tissues: Unremarkable. CT/CT angio chest PE protcl [id number] IMPRESSION: No acute vascular findings. Emphysema noted. Right middle lobe pulmonary nodule; for patients at low risk (minimal or absent history of smoking and of other known risk factors), recommend CT Chest at 6-12 months, then consider CT Chest at 18-24 months. For patients at high risk (history of smoking or of other known risk factors), recommend CT Chest at 6-12 months, then CT Chest at 18-24 months. (Reference: Roxi) REFERENCES: Roxi Vincent et al. Guidelines for Management of Incidental Pulmonary Nodules Detected on CT Images: From the Fleischner Society 2017. Radiology. 2017;284(1):228-243. Radiation Dose CTDIVOL = (mGy): DLP = 765.36 (mGy-cm)
[2020-08-08] MEDS: iodixanol 320 mg/mL 100mL Btl IV (03:33)
[2020-08-08] MEDS: oxyCODONE 5 mg IR Tab/Cap 10 MG PO ×4 (03:47→18:31)
[2020-08-08] MEDS: levothyroxine 100 mcg Tablet PO (06:30)
[2020-08-08] MEDS: heparin 5,000 unit/mL INJ 1 mL 5000 UNIT SUBCUT ×3 (06:30→21:59)
[2020-08-08 06:44] LABS: Basophils % 0.5 %; Eosinophils # 0.2 10^3/uL (0.0-0.8); Eosinophils % 2.3 %; Hematocrit 32.5 % (42.0-52.0); Hemoglobin 9.8 g/dL (11.7-16.6); Lymphocytes # 0.8 10^3/uL (0.8-4.8); Lymphocytes % 11.5 %; Mean Corpuscular HGB Conc 30.2 g/dL (30.0-36.0); Mean Corpuscular Hemoglobin 29.2 pg (28.0-34.0); Mean Corpuscular Volume 96.7 fL (80-94); Mean Platelet Volume 10.7 fL (7.4-10.4); Monocytes # 0.9 10^3/uL (0.2-0.9); Monocytes % 12.5 %; Neutrophils % 72.9 %; Nucleated Red Blood Cells % 0 %; Platelet Count 234 10^3/cmm (130-400); Red Blood Count 3.36 10^6/uL (4.1-5.3); Red Cell Distribution Width 13.6 % (12.1-15.1); White Blood Count 7.3 10^3/uL (4.0-10.0)
[2020-08-08 07:06] LABS: Anion Gap 9.4 (5-19); Blood Urea Nitrogen 24 mg/dL (8-23); Calcium 8.8 mg/dL (8.5-10.5); Carbon Dioxide 30 mmol/L (22-29); Chloride 105 mmol/L (98-107); Glomerular Filtration Rate 66.8 mL/min (90-130); Glucose 113 mg/dL (65-115); Osmolality Calculated 295 mOsm/kg (285-295); Potassium 4.4 mmol/L (3.5-5.1); Sodium 140 mmol/L (136-145)
[2020-08-08 07:17] LABS: NT Pro B Type Natriuretic Pept 1719 pg/mL (0-125)
[2020-08-08] MEDS: vancomycin 1,000 MG in sodium chloride 0.9% 250 ML 250 MG IV ×2 (07:59→18:31)
[2020-08-08] MEDS: metoprolol tartrate 50 mg Tablet PO ×2 (08:02→21:58)
[2020-08-08] MEDS: hyDRALAzine 25 mg Tablet PO ×3 (08:02→21:58)
[2020-08-08] MEDS: sennosides-docusate Tablet 1 TAB PO (08:02)
[2020-08-08] MEDS: tamsulosin 0.4 mg Capsule PO (08:02)
[2020-08-08] MEDS: aspirin 81 mg EC Tablet PO (08:02)
[2020-08-08] MEDS: dilTIAZem ER (24HR) 120 mg Capsule PO (08:03)
--- NOTE | 2020-08-08 12:24 | PC.CHAP ---
Pastoral Care Encounter/Spiritual Assessment Type of Contact [] Declined publication manager visit [] Patient/Family/Request visit [] Outpatient visit [] Follow-up visit [] Physician referral [] Code/Alert [x] Routine visit [] Staff referral [] Actively dying [x] Patient sleeping [] Family support [] [] Out of room [] Palliative care [] [] Receiving care in room [] Pre-surgical visit [] Trauma [] Long length of stay [] ICU visit [] Other: Relational/Emotional Strength [] Patient feels connected with others/family/visitors/staff [] Distress [] Loneliness/isolation [] Abandonment Spirituality of Patient [] Person of Sadie [] Attends Hinduism of their Sadie [] Believes in Prayer [] Reads Bible or Anabaptism materials [] There are Spiritual issues to be addressed [employer] Interventions [] Prayer [] Active listening [] Non-anxious presence [] Spiritual/emotional support [] Crisis/trauma care [] Spiritual counseling [] Bereavement support [] Provided bereavement packet [] Provided Bible/devotional materials [] Provided toy/stuffed animal, coloring book to patient or family member [] Provided Communion [] Anointing/[place] [] Salvation [] Completed spiritual assessment [] Other: Impact on Illness or Injury [] Angry [] Fearful [] Anxious [] Often cries [] Exhaustion [] Unable to work [] Unable to attend adventism [] Unable to walk/stand [] Unable to read [] Unable to drive [] Unable to eat/drink [] Unable to sleep [] Unable to be with family [] Patient intubated [] Other: Summary Time spent with patient
[2020-08-08] MEDS: nicotine 21 mg Patch 1 PATCH TRANSDERMA (13:34)
[2020-08-08 15:23] LABS: Thyroid Stimulating Hormone 2.16 uIU/mL (0.27-4.20)
--- NOTE | 2020-08-08 16:22 | P.CONIM_ITS ---
Providers/Reason For Consult Consulting Physican/Specialty*: Migel Pool Reason for Consult*: Right lower extremity edema and skin excoriation Attending Physician: Migel Pool Primary Care Provider: Sun Bello MD History of Present Illness History of Present Illness Omar Ta is a 65 year old male who had been previously seen in the wound care for right lower extremity swelling. Patient states that he has noticed a swelling in the right leg over the last 2 years but has now progressively worsened over the last couple of months. He denies any fevers states that he has always had chills. He has noticed some drainage from the wound which is mainly clear to yellowish fluid. Patient was seen in the ER and was admitted for IV antibiotics due to right lower extremity cellulitis. Review of Systems General: Reports: 10 or more systems reviewed and unremarkable except in HPI and below Meds/Allergies Home Medications and Allergies Home Medications Medication Instructions Recorded Confirmed Last Taken Type Spiriva Respimat 2 puff INHALATION DAILY 08/23/19 08/07/20 08/07/20 History albuterol sulfate [ProAir HFA] 4 puff INHALATION BID 08/23/19 08/07/20 Unknown History cholecalciferol (vitamin D3) 25 mcg PO DAILY 08/23/19 08/07/20 08/07/20 History [Vitamin D3] fluticasone propionate [Flonase 2 spray INTRANASAL DAILY@0800 08/23/19 08/07/20 08/07/20 History Allergy Relief] levothyroxine 100 mcg PO DAILY@0730 08/23/19 08/07/20 08/07/20 History tamsulosin [Flomax] 0.4 mg PO DAILY@1600 08/23/19 08/07/20 08/06/20 History aspirin [Aspir-81] 81 mg PO DAILY@0800 08/07/20 08/07/20 08/07/20 History diltiazem HCl 240 mg PO DAILY@0800 08/07/20 08/07/20 08/07/20 History furosemide 40 mg PO BID@0800,1600 08/07/20 08/07/20 08/07/20 History hydralazine 50 mg PO QID@08,12,16,20 08/07/20 08/07/20 08/07/20 History lisinopril 40 mg PO DAILY@1600 08/07/20 08/07/20 08/06/20 History metoprolol tartrate 50 mg PO BID@0800,1600 08/07/20 08/07/20 08/07/20 History Allergies Allergy/AdvReac Type Severity Reaction Status Date / Time No Known Allergies Allergy Verified 08/07/20 15:13 Current Medications Current Medications Generic Name Dose Route Start Last Admin Trade Name Freq PRN Reason Stop Dose Admin Aspirin 81 mg 08/08/20 09:00 08/08/20 08:02 Aspirin 81 Mg Ec Tablet PO 81 mg DAILY MICHAEL Administration Diltiazem HCl 120 mg 08/08/20 09:00 08/08/20 08:03 Diltiazem Er (24hr) 120 Mg Capsule PO 120 mg DAILY MICHAEL Administration Heparin Sodium (Beef Lung) 5,000 unit 08/08/20 06:00 08/08/20 14:52 Heparin 5,000 Unit/Ml Inj 1 Ml SUBCUT 5,000 unit Q8H MICHAEL Administration Hydralazine HCl 25 mg 08/08/20 09:00 08/08/20 14:52 Hydralazine 25 Mg Tablet PO 25 mg TID MICHAEL Administration Vancomycin HCl 1,000 mg/ 250 mls @ 250 mls/hr 08/08/20 07:30 08/08/20 09:54 Sodium Chloride IV Infused Q12H MICHAEL Infusion Protocol As Directed Cefepime HCl 2,000 mg/ Sodium 50 mls @ 100 mls/hr 08/08/20 00:30 08/08/20 15:47 Chloride IV Infused Q12H MICHAEL Infusion Protocol Levothyroxine Sodium 100 mcg 08/08/20 06:00 08/08/20 06:30 Levothyroxine 100 Mcg Tablet PO 100 mcg QAM MICHAEL Administration Metoprolol Tartrate 50 mg 08/08/20 09:00 08/08/20 08:02 Metoprolol Tartrate 50 Mg Tablet PO 50 mg BID@0900,2100 MICHAEL Administration Nicotine 1 patch 08/08/20 13:30 08/08/20 13:34 Nicotine 21 Mg Patch TRANSDERMA 1 patch DAILY MICHAEL Administration Oxycodone HCl 10 mg 08/08/20 00:29 08/08/20 13:34 Oxycodone 5 Mg Ir Tab/Cap PO 10 mg Q4H PRN Administration SEVERE PAIN Senna/Docusate Sodium 1 tab 08/08/20 09:00 08/08/20 08:02 Sennosides-Docusate Tablet PO 1 tab DAILY MICHAEL Administration Tamsulosin HCl 0.4 mg 08/08/20 09:00 08/08/20 08:02 Tamsulosin 0.4 Mg Capsule PO 0.4 mg DAILY MICHAEL Administration PFSH Acute PFSH: Medical History CHF (congestive heart failure) -Has had prior echo done in 08/2017 showing ejection fraction of 65%, grade 1 diastolic dysfunction. Repeat Echo: EF=60%, G2DD, normal PSP Chronic hepatitis C CKD (chronic kidney disease) stage 2, GFR 60-89 ml/min -has GIULIANO on CKD stage 2-3, baseline Cr is around 1 COPD (chronic obstructive pulmonary disease) oxygen-dependent, 4 L at baseline Hyperlipidemia Hypertension Hypothyroidism -Has known history of hypothyroidism status post ablation, MADDI (obstructive sleep apnea) -Has known history of MADDI, does not use CPAP Peripheral vascular disease -Has known history of PVD with chronic lower extremity edema Surgical History H/O hernia repair H/O shoulder surgery History of appendectomy Family History Denies family history of CAD (coronary artery disease) Social History Smoking and tobacco status: current every day smoker cigarettes Packs smoked per day: 1 Alcohol intake: current Alcohol intake frequency: 0-2 Drinks per Day Alcohol type: hard liquor Lives independently: Yes Vitals/I&O/Wt Last Vital Signs Temp 98.6 F 08/08/20 15:54 Pulse 63 08/08/20 15:54 Resp 18 08/08/20 15:54 BP 142/66 08/08/20 15:54 Pulse Ox 100 08/08/20 15:54 08/08/20 08/08/20 08/08/20 06:59 14:59 22:59 Intake Total 300 / 300 970 / 1020 50 / 1020 Balance 300 / 300 970 / 1020 50 / 1020 Weight last 48 hrs Weight 270 lb Physical Exam Narrative: EXAM NARRATIVE: HEENT: Normocephalic Eye: Sclera /conjunctiva normal Abdomen: Soft to palpation Neurological: Oriented to place person and time Skin: Intact, right lower extremity chronic lymphedema with skin excoriation Data Micro: Micro: Microbiology 08/07/20 19:28 Blood Culture - Pr eliminary Blood [facility] [place] 08/07/20 19:15 Blood Culture - Pr eliminary Blood [facility] [place] A&P Assessment and plan (1) Chronic acquired lymphedema: 65-year-old male admitted to the hospital with suspected cellulitis of r ight lower extremity. I think patient more likely has chronic lymphedema. His white count is 7.3. Patient has been afebrile Apply zinc oxide paste, cover with ABDs, Kerlix, Jose wraps Patient needs arterial and venous studies as outpatient for subsequent application of lymphedema wraps by physical therapy Patient could potentially go home on empiric oral antibiotics for a few more days Status: Acute Coding Level of Care Code Acute Painter Interior Finish for [facility] Fwd Diagnoses Chronic acquired lymphedema I89.0
[2020-08-08 18:57] LABS: Add Urine Microscopic? NO
[2020-08-08 19:07] LABS: Bilirubin Urine Neg (Negative); Blood Urine Neg (Negative); Glucose Urine UA Norm (Normal); Ketones Urine Negative (Negative); Leukocyte Esterase Urine Negative (Negative); Nitrate Urine Negative (Negative); Protein Urine Neg (Negative); Specific Gravity, Urine 1.015 (1.005-1.030); Urine Appearance Clear (CLEAR); Urine Color Yellow (Yellow); Urobilinogen Urine Norm (Negative); pH Urine 5 (5-7)
--- NOTE | 2020-08-08 21:24 | P.PN_ITS ---
Subjective Subjective: Interval history: Reporting pain in right lower extremity. Otherwise doing okay. Denies chest pain or pressure. Wondering whether may have poor vascular perfusion his leg given his history of difference in blood pressures between arms. Breathing comfortably. Vitals/I&O/Wt Last Vital Signs Temp 98.4 F 08/08/20 19:26 Pulse 65 08/08/20 19:26 Resp 18 08/08/20 19:26 BP 152/68 08/08/20 19:26 Pulse Ox 96 08/08/20 19:26 08/08/20 08/08/20 08/08/20 06:59 14:59 22:59 Intake Total 300 / 300 970 / 970 540 / 1510 Balance 300 / 300 970 / 970 540 / 1510 Weight last 48 hrs Weight 122.47 kg Physical Exam 2 Const: COMMON NORMALS: no acute distress and patient oriented x3 HENMT: COMMON NORMALS: oropharynx normal Neck/C-Spine: COMMON NORMALS: no JVD Resp: COMMON NORMALS: normal respiratory effort AUSCULTATION: diminished lung sounds Cardio: COMMON NORMALS: no JVD, regular rhythm, S1 normal heart sound present, S2 normal heart sound present and No murmurs present (Cardio) RHYTHM: regular rhythm HEART SOUNDS: S1 normal heart sound present and S2 normal heart sound present GI: COMMON NORMALS: Normal to inspection, nondistended, normoactive bowel sounds present, Soft to palpation and non-tender PALPATION: Yes Soft to palpation Extremity: COMMON NORMALS: no joint enlargement GENERAL: Yes edema (3+) Neuro: COMMON NORMALS: patient oriented x3 and moves all extremities Skin: COMMON NORMALS: no rashes or lesions noted GENERAL SKIN EXAM: no rashes or lesions noted OTHER: Ulceration of right lower extremity above the ankle to about the level mid feng. Almost circumferential at the bottom. Serous discharge. Data : 08/08/20 06:10 08/08/20 06:10 Micro: Microbiology 08/07/20 19:28 Blood Culture - Preliminary Blood NEGATIVE TO DATE 08/07/20 19:15 Blood Culture - Preliminary Blood NEGATIVE TO DATE A&P Assessment and plan (1) Cellulitis: Cellulitis/infection of chronic ulceration. Appears to be venous stasis ulceration. No sign of threatened limb/acute ischemia, although she does report difference in blood pressures between his arms. TONY reported as 0.5, 0.6 bilaterally. Underlying peripheral artery disease possibility, but ulcers do not appear arterial in nature. Appreciate surgical assessment. Will refer for additional relation by arterial Doppler. At this time continuing on IV antibiotic. I would like to obtain duplex ultrasound which we discussed with him to assess for possible VTE. Appears venous duplex studies were intended, but so far not obtained. In case unremarkable and continues to do well, likely discharge in the morning with outpatient follow-up. Status: Acute Qualifiers: Laterality: right Site of cellulitis: extremity Site of cellulitis of extremity: lower extremity Qualified Code(s): L03.115 - Cellulitis of right lower limb (2) GIULIANO (acute kidney injury): Improving. Status: Acute Additional A&P Information Blood pressure difference 30 to 40 mmHg in arms. CTA chest obtained. Emphysema. Right middle lobe nodule. No acute vascular findings. Suboptimal contrast for evaluation of great vessels off the aortic arch. Possibly some narrowing in the proximal left subclavian artery. Consider follow-up with vascular surgery. Right middle lobe pulmonary nodule. Follow-up CT chest. History of hypothyroidism: Continue levothyroxine 100 mcg Essential hypertension continue diltiazem and metoprolol hold lisinopril Obstructive sleep apnea, he is noncompliant with CPAP Nicotine abuse: Encourage smoking cessation DVT prophylaxis Heparin Full code Cardiac diet Attestations Medical Necessity Statement*: Continue observation for assessment of lower extremity Doppler to assess for possible VTE as cause of his symptoms, swelling, ulceration, continue IV antibiotics currently, with likely discharge in the morning. Coding Level of Care Code Acute Flying Ii Instructor for [facility] Fwd Diagnoses Cellulitis L03.115 Laterality: right Site of cellulitis: extremity Site of cellulitis of extremity: lower extremity GIULIANO (acute kidney injury) N17.9
[2020-08-08] MEDS: atorvastatin 40 mg Tablet 20 MG PO (21:58)
[2020-08-09] VITALS (8 sets, daily range): BP systolic 123–147; BP diastolic 67–74; PULSE 53–79; RESP 14–20; TEMP 36.6–36.9; O2SAT 96–99
[2020-08-09] MEDS: cefepime 2,000 MG in sodium chloride 0.9% (plus) 50 ML 100 MG IV (00:09)
[2020-08-09] MEDS: oxyCODONE 5 mg IR Tab/Cap 10 MG PO ×2 (03:40→13:18)
[2020-08-09 05:29] LABS: Basophils % 0.5 %; Eosinophils # 0.2 10^3/uL (0.0-0.8); Eosinophils % 3.3 %; Hematocrit 32.2 % (42.0-52.0); Hemoglobin 9.7 g/dL (11.7-16.6); Lymphocytes # 0.7 10^3/uL (0.8-4.8); Lymphocytes % 11.3 %; Mean Corpuscular HGB Conc 30.1 g/dL (30.0-36.0); Mean Corpuscular Hemoglobin 29.6 pg (28.0-34.0); Mean Corpuscular Volume 98.2 fL (80-94); Monocytes # 0.8 10^3/uL (0.2-0.9); Monocytes % 13.8 %; Neutrophils # 4.07 10^3/uL (1.8-7.7); Neutrophils % 70.9 %; Nucleated Red Blood Cells % 0 %; Platelet Count 217 10^3/cmm (130-400); Red Blood Count 3.28 10^6/uL (4.1-5.3); Red Cell Distribution Width 13.6 % (12.1-15.1); White Blood Count 5.7 10^3/uL (4.0-10.0)
[2020-08-09 05:43] LABS: Anion Gap 8.7 (5-19); Blood Urea Nitrogen 24 mg/dL (8-23); Carbon Dioxide 32 mmol/L (22-29); Chloride 107 mmol/L (98-107); Glomerular Filtration Rate 55.1 mL/min (90-130); Glucose 131 mg/dL (65-115); Osmolality Calculated 302 mOsm/kg (285-295); Potassium 4.7 mmol/L (3.5-5.1); Sodium 143 mmol/L (136-145)
[2020-08-09] MEDS: heparin 5,000 unit/mL INJ 1 mL 5000 UNIT SUBCUT (06:09)
[2020-08-09] MEDS: levothyroxine 100 mcg Tablet PO (06:10)
[2020-08-09] MEDS: vancomycin 1,000 MG in sodium chloride 0.9% 250 ML 250 MG IV (07:04)
[2020-08-09] MEDS: hyDRALAzine 25 mg Tablet PO (09:21)
[2020-08-09] MEDS: sennosides-docusate Tablet 1 TAB PO (09:21)
[2020-08-09] MEDS: tamsulosin 0.4 mg Capsule PO (09:21)
[2020-08-09] MEDS: nicotine 21 mg Patch 1 PATCH TRANSDERMA (09:21)
[2020-08-09] MEDS: dilTIAZem ER (24HR) 120 mg Capsule PO (09:21)
[2020-08-09] MEDS: aspirin 81 mg EC Tablet PO (09:21)
[2020-08-09] MEDS: metoprolol tartrate 50 mg Tablet PO (09:21)
--- NOTE | 2020-08-09 16:01 | PC.NURSE ---
THIS AM DURING AM MED PASS, RN ATTEMPTED TO LOOK AT PTS WOUNDS ON HIS LEGS, PT ASKED IF WE COULD WAIT UNTIL HIS DRESSING CHANGED, PT THEN REFUSED DRESSING CHANGE.
--- NOTE | 2020-08-09 17:51 | PC.RESP ---
Smoking Cessation and Pulmonary Rehab information sent to patient.
--- NOTE | 2020-08-09 19:39 | PC.NURSE ---
Late entry from 1534: This nurse went into patients room to explain that Dr. Pool had called to tell the patient he had got caught up in something else and was currently working on patients discharge. Patient states that as soon as his ride got here he was leaving with or without his papers. States that they drove from [place] and he was going to leave. This nurse tried to explain to patient that he needed to wait for discharge instruction or he would have to leave AMA.
--- NOTE | 2020-08-09 20:11 | PC.NURSE ---
AT APPROX. 1500 HRLY ROUNDING DONE AND PT WAS SITTING ON SIDE OF BED WAITING FOR DR. KUMARI TO PUT IN D/C ORDERS SO THAT THE PT COULD LEAVE. AT APPROX. 1550 THIS NURSE WENT TO PTS ROOM TO ROUND ON HIM AGAIN, AND PT WAS GONE, PTS ROOMMATE STATED, HIS RIDE GOT HERE AND HE LEFT. THIS NURSE NOTIFIED CHARGE NURSE AND DR. KUMARI. PT WAS REACHED BY PHONE AND NURSE REQ. HE COME BACK AND SIGN HIS PAPERWORK. PT STATED, I AM NOT COMING BACK! THE TOLD ME I WAS BEING D/C AND MY RIDE WAS HERE. NOTIFIED DR. KUMARI OF THIS AND HE REQ. THAT PT BE CALLED BACK AND TO 4TH GRADE TEACHER HIS RX. NURSE ATTEMPTED TO CALL PT BACK AND NO ANSWER, TRIED 3 DIFFERENT TIMES.
--- NOTE | 2020-08-09 22:26 | P.DS_ITS ---
Discharge Providers Date of Admission: 08/07/20 23:00 Date of Discharge: August 09, 2020 Attending Provider at Admission: David Andrews MD Attending Provider at Discharge: Migel Pool Primary Care Provider: Sun Bello MD Diagnoses at Discharge Discharge Diagnosis (1) Cellulitis: Status: Acute Qualifiers: Laterality: right Site of cellulitis: extremity Site of cellulitis of extremity: lower extremity Qualified Code(s): L03.115 - Cellulitis of right lower limb (2) GIULIANO (acute kidney injury): Status: Acute Reason for Visit Reason for Visit: WEEPING EDEMA, INFECTED/SENT BY WOUND CLINIC Hospital Course Hospital Course Pleasant 65-year-old gentleman was admitted for assessment management of cellulitis and wound of right lower extremity, in the setting of chronic lymphedema, venous stasis, was observed in the hospital with IV antibiotics, assessed by wound care. On presentation also complained of being very severely fatigued. The symptoms appear to have improved with treatment of lower extremity infection. Quite significantly improved. Did not require debridement in the hospital. Additional antibiotic course prescribed on discharge. With continued follow-up with wound care recommended by wound care physician. He is also on recommendation referred for additional assessment by arterial Doppler study. Please follow-up results with him. Please refer him for follow-up with vascular surgery regarding significant blood pressure difference between his arms, noted concern for left subclavian artery stenosis on CT angiogram of the chest assessed in the hospital. Please also follow-up with him regarding repeat CT chest which is requested to follow-up on 8 mm incidentally noted right middle lobe nodule. Today he was feeling much better. Wanting to discharge home, in fact left the hospital before discharge paperwork and prescriptions were provided, but was called to discuss discharge instructions. Physical Exam Const: COMMON NORMALS: no acute distress, patient oriented x3 and alert ORIENTATION/CONSCIOUSNESS: Yes awake OTHER: In good spirits. HENMT: COMMON NORMALS: oropharynx normal Neck/C-Spine: COMMON NORMALS: no JVD Resp: COMMON NORMALS: normal respiratory effort AUSCULTATION: diminished lung sounds Cardio: COMMON NORMALS: no JVD, regular rhythm, S1 normal heart sound present, S2 normal heart sound present and No murmurs present (Cardio) RHYTHM: regular rhythm HEART SOUNDS: S1 normal heart sound present and S2 normal heart sound present GI: COMMON NORMALS: Normal to inspection, nondistended, normoactive bowel sounds present, Soft to palpation and non-tender PALPATION: Yes Soft to palpation Extremity: COMMON NORMALS: no joint enlargement GENERAL: Yes edema (2+) Neuro: COMMON NORMALS: patient oriented x3 and moves all extremities SENSORIUM/ORIENTATION: Yes alert Skin: COMMON NORMALS: no rashes or lesions noted GENERAL SKIN EXAM: no rashes or lesions noted OTHER: Ulceration of right lower extremity above the ankle to about the level mid feng. Almost circumferential at the bottom. Clean dressing today. Discharge Data Data Completed and Pending: Completed Studies During Hospitalization Category Date Time Status CT angio chest PE protcl [id number] Rout ine Cat Scan 08/08/20 01:47 Completed XR tibia fibula R T 2V [id number] Stat Exams 08/07/20 20:01 Completed Pending at discharge Category Date Time Status Blood Culture Sta t Lab 08/07/20 19:28 Results Labs from last 24 hours 08/09/20 08/09/20 05:03 05:03 WBC 5.7 RBC 3.28 L Hgb 9.7 L Hct 32.2 L MCV 98.2 H MCH 29.6 MCHC 30.1 RDW 13.6 Plt Count 217 MPV 11.0 H Neut % (Auto) 70.9 Lymph % (Auto) 11.3 [place] % (Auto) 13.8 Eos % (Auto) 3.3 Baso % (Auto) 0.5 Neut # (Auto) 4.07 Lymph # (Auto) 0.7 L [place] # (Auto) 0.8 Eos # (Auto) 0.2 Baso # (Auto) 0.0 Nucleated RBC % (a uto) 0 Nucleated RBCs # 0.0 Sodium 143 Potassium 4.7 Chloride 107 Carbon Dioxide 32 H Anion Gap 8.7 BUN 24 H Creatinine 1.3 H GFR Calculation 55.1 L Glucose 131 H Calculated Osmolal ity 302 H Calcium 9.0 Vitals: Last Vital Signs Temp 98.4 F 08/09/20 11:37 Pulse 53 L 08/09/20 11:37 Resp 16 08/09/20 17:55 BP 123/67 08/09/20 11:37 Pulse Ox 99 08/09/20 11:37 Discharge Plan Discharge Patient Disposition: Home Condition: Stable Prescriptions: New zinc oxide 20 % Ointment 1 applic topical PRN PRN (Reason: Skin Protectant) Qty: 30 RF: 0 nicotine 21 mg/24 hr Patch 24 Hour 1 patch transdermal DAILY Qty: 30 RF: 0 doxycycline monohydrate 100 mg capsule 100 mg PO BID 5 Days Qty: 10 RF: 0 Continued levothyroxine 100 mcg Tablet 100 mcg PO DAILY@0730 RF: 0 tamsulosin [Flomax] 0.4 mg Capsule 0.4 mg PO DAILY@1600 RF: 0 albuterol sulfate [ProAir HFA] 90 mcg/actuation Hfa Aerosol Inhaler 4 puff INHALATION BID RF: 0 fluticasone propionate [Flonase Allergy Relief] 50 mcg/actuation [place],Suspension 2 spray INTRANASAL DAILY@0800 RF: 0 cholecalciferol (vitamin D3) [Vitamin D3] 25 mcg (1,000 unit) Capsule 25 mcg PO DAILY RF: 0 Spiriva Respimat 2.5 mcg/actuation Mist 2 puff INHALATION DAILY RF: 0 furosemide 40 mg Tablet 40 mg PO BID@0800,1600 RF: 0 aspirin 81 mg Tablet,Delayed Release (Dr/Ec) 81 mg PO DAILY@0800 RF: 0 hydralazine 50 mg Tablet 50 mg PO QID@08,12,16,20 RF: 0 diltiazem HCl 240 mg capsule,extended release 24hr 240 mg PO DAILY@0800 RF: 0 metoprolol tartrate 50 mg tablet 50 mg PO BID@0800,1600 RF: 0 lisinopril 40 mg tablet 40 mg PO DAILY@1600 RF: 0 Discharge Orders: Discharge Order (Routine); Ordered 08/09/20 Ordered By: Migel Pool Other Ambulatory Orders: [place] [id number] (Routine) Timeframe: 3 Days Facility: [facility] - Location: Radiology Ordered By: Migel Pool CT chest wo con [id number] (Routine) Timeframe: 6 Months Facility: [facility] - Location: Radiology [facility] Ordered By: Migel Pool Referrals: Sun Bello MD [Primary Care Provider] - 4-7 days (PLEASE CALL FOR APPOINTMENT) Timothy Negron MD [Physician] - 08/14/20 (PLEASE CALL FOR APPOINTMENT WITH DR NEGRON) Discharge Diet: Cardiac Discharge Activity: Increase activity as tolerated and Oxygen as instructed Patient Instructions: Doxycycline (By mouth), Nicotine (Absorbed through the skin), Zinc Oxide (On the skin) Activity Restrictions/Additional Instructions: Continue dressing changes as recommended by wound care. Apply zinc oxide, ABD pad over the wound, wrapped with Kerlix, and Jose bandage on top from bottom of toes to the knee. Primary care provider: Please refer patient for additional assessment by vascular surgery for follow-up on the blood pressure difference between the arms, suspected narrowing in proximal left subclavian artery. Please follow-up results of the arterial Doppler ultrasound. Please also discuss with your primary care doctor noted small spot, 8 mm in your right middle lobe of your lung. Follow-up CT scan is ordered for you, please discuss with your primary care provider regarding the results or any additional follow-up. Discharge Attestations Time Spent in Discharge Care*: greater than 30 min Status at Discharge: Cognitive status at discharge: cognitively intact , Behavioral status at discharge: cooperative , Quality Metrics Clinical Quality Measures During this hospital stay, did patient experience: None Coding Level of Care Code Acute g FW [place] note Diagnoses Cellulitis L03.115 Laterality: right Site of cellulitis: extremity Site of cellulitis of extremity: lower extremity GIULIANO (acute kidney injury) N17.9
== END 2020-08-09 15:00 | disposition home or self-care (01) ==
LOC: ER 20:09 → MEDSURG 08-08 07:18
PROVIDERS: Nurse Practitioner Family; Admitting Provider Internal Medicine; Emergency Provider Emergency Medicine; PCP Family Medicine; Visit Provider Internal Medicine
DX: L03.115 Cellulitis of right lower limb (principal); N17.9 Acute kidney failure, unspecified; E03.9 Hypothyroidism, unspecified; G47.33 Obstructive sleep apnea (adult) (pediatric); F17.210 Nicotine dependence, cigarettes, uncomplicated; Z79.82 Long term (current) use of aspirin; I13.0 Hypertensive heart and chronic kidney disease with heart failure and stage 1 through stage 4 chronic kidney disease, or unspecified chronic kidney disease; N18.2 Chronic kidney disease, stage 2 (mild); I50.9 Heart failure, unspecified; I73.9 Peripheral vascular disease, unspecified
CPT/HCPCS: 36415; 71275; 73590; 80048; 80053; 81003; 83880; 84443; 85025; 87040; 96365; 96367; 96372; 99285; G0378; J0692; J1644; J3370; J7050; Q9967

== ENCOUNTER 2020-08-10 08:35 | Emergency (ER) | payer OTHER, SELFPAY ==
[2020-08-10 08:36] VITALS: BP 144/64; PULSE 83; RESP 24; TEMP 36.3; O2SAT 96; BMI 42.3
--- NOTE | 2020-08-10 08:37 | XR_ITS ---
WS: [id number] PORTABLE CHEST HISTORY: sob COMPARISON: 08/23/2019 Moderate pulmonary hyperexpansion. Areas of atelectasis at the lung bases. No pneumonia identified. N o pleural effusion or pneumothorax. Cardiac size: Moderately enlarged cardiac silhouette. Mediastinum/Aorta: Mild atherosclerosis aorta. No osseous abnormality seen. XR/XR chest 1V portable [id number] IMPRESSION: 1. Chronic emphysema with moderate cardiomegaly. 2. Bibasilar atelectasis but no pneumonia.
[2020-08-10 08:51] VITALS: PULSE 72; RESP 24
[2020-08-10 09:06] LABS: Basophils # 0.1 10^3/uL (0.0-0.1); Basophils % 0.6 %; Eosinophils # 0.3 10^3/uL (0.0-0.8); Eosinophils % 3.1 %; Hematocrit 35.3 % (42.0-52.0); Hemoglobin 10.7 g/dL (11.7-16.6); Lymphocytes # 0.9 10^3/uL (0.8-4.8); Lymphocytes % 10.8 %; Mean Corpuscular HGB Conc 30.3 g/dL (30.0-36.0); Mean Corpuscular Hemoglobin 29.4 pg (28.0-34.0); Mean Platelet Volume 11.3 fL (7.4-10.4); Monocytes # 0.9 10^3/uL (0.2-0.9); Monocytes % 10.4 %; Neutrophils # 6.35 10^3/uL (1.8-7.7); Neutrophils % 74.7 %; Nucleated Red Blood Cells % 0 %; Platelet Count 250 10^3/cmm (130-400); Red Blood Count 3.64 10^6/uL (4.1-5.3); Red Cell Distribution Width 13.2 % (12.1-15.1); White Blood Count 8.5 10^3/uL (4.0-10.0)
--- NOTE | 2020-08-10 09:13 | W.ED.SOB ---
HPI - SOB/Dyspnea General: Chief Complaint: Shortness of Breath/Dyspnea Stated Complaint: RESPIRATORY DISTRESS Time Seen by Provider: 08/10/20 08:39 History of Present Illness: HPI Narrative: 65-year-old male comes in complaining of shortness of breath. This morning he woke up complaining significant shortness of breath. He has chronic orthopnea which remains unchanged he denies any productive cough although he states he feels like he needs to cough something. He has no abdominal pain no dysuria urgency or frequency. Patient was discharged yesterday with cellulitis and an acute kidney injuryAnd referred to the wound clinic. He denies chest pain. Denies abdominal pain. MD elicited complaint: shortness of breath Pertinent past history: COPD and congestive heart failure Onset (ago): day(s) Context: recent illness Timing: intermittent Severity: moderate Exacerbating factors: lying flat, exertion and movement Relieving factors: oxygen, rest and upright position Known history of: congestive heart failure Associated symptoms: Reports extremity pain; Deny abdominal pain, chest congestion, chest pain, cough, diaphoresis, dizziness, fever(s), hemoptysis, lightheadedness, myalgias, nausea, orthopnea, palpitations, paresthesias, polydipsia, polyuria, rash, sense of impending doom, syncope or vomiting Review of Systems Const: Denies: fever(s) or diaphoresis ENMT: Denies: throat pain, ear or mastoid pain, nasal discharge or nasal congestion Card: Denies: chest pain, palpitations, lightheadedness, syncope or orthopnea Resp: Denies: hemoptysis or chest congestion GI: Denies: abdominal pain or nausea : Denies: flank pain, dysuria, urinary frequency or urinary urgency Musc: Reports: extremity pain Skin/Breast: Denies: rash or pruritus Neuro: Denies: dizziness Endo: Denies: polyuria or polydipsia PFSH ED PFSH: Medical History CHF (congestive heart failure) -Has had prior echo done in 08/2017 showing ejection fraction of 65%, grade 1 diastolic dysfunction. Repeat Echo: EF=60%, G2DD, normal PSP Chronic hepatitis C CKD (chronic kidney disease) stage 2, GFR 60-89 ml/min -has GIULIANO on CKD stage 2-3, baseline Cr is around 1 COPD (chronic obstructive pulmonary disease) oxygen-dependent, 4 L at baseline Hyperlipidemia Hypertension Hypothyroidism -Has known history of hypothyroidism status post ablation, MADDI (obstructive sleep apnea) -Has known history of MADDI, does not use CPAP Peripheral vascular disease -Has known history of PVD with chronic lower extremity edema Surgical History H/O hernia repair H/O shoulder surgery History of appendectomy Family History Denies family history of CAD (coronary artery disease) Social History Smoking and tobacco status: current every day smoker cigarettes Packs smoked per day: 1 Alcohol intake: current Alcohol intake frequency: 0-2 Drinks per Day Alcohol type: hard liquor Lives independently: Yes Physical Exam Const: COMMON NORMALS: no acute distress GENERAL APPEARANCE: cooperative and comfortable ORIENTATION/CONSCIOUSNESS: Yes awake, Yes oriented to person, Yes oriented to place and Yes oriented to time HENMT: COMMON NORMALS: normocephalic, atraumatic and hearing grossly normal bilaterally HEAD & SCALP: normocephalic and atraumatic Neck/C-Spine: COMMON NORMALS: no JVD Resp: COMMON NORMALS: normal respiratory effort, No retractions, No use of accessory muscles and clear to auscultation bilaterally AUSCULTATION: clear to auscultation bilaterally Cardio: COMMON NORMALS: no JVD, regular rate, regular rhythm and No murmurs present (Cardio) RATE: regular rate RHYTHM: regular rhythm GI: COMMON NORMALS: Soft to palpation and No hepatosplenomegaly present AUSCULTATION: Yes normoactive bowel sounds PALPATION: Yes Soft to palpation, No Tenderness to palpation present (GI), No Guarding due to palpation present (GI) and Yes No hepatosplenomegaly present Extremity: NARRATIVE EXTREMITY EXAM: Following the lower extremities no induration no active drainage no redness or erythema. Neuro: SENSORIUM/ORIENTATION: Yes oriented to person, Yes oriented to place and Yes oriented to time Skin: COMMON NORMALS: no rashes or lesions noted GENERAL SKIN EXAM: no rashes or lesions noted Course Vital Signs: Vital signs: Vital Signs Temperature 97.4 F L 08/10/20 08:36 Pulse Rate 78 08/10/20 11:30 Respiratory Rate 20 H 08/10/20 11:30 Blood Pressure 144/54 08/10/20 11:30 Pulse Oximetry 97 08/10/20 11:30 MDM - SOB/Dyspnea MDM Narrative: Medical decision making narrative: Patient is feeling somewhat better. His 2-hour delta troponin is negative. We will go ahead and discharge him home he has an acute exacerbation of his COPD as well as congestive heart failure continue routine wound care on his lower extremities follow-up with outpatient care as previously planned at the time of discharge. I did give him albuterol to use as needed. Should return if worsens in any way. Lab Data: Labs: Lab Results 08/10/20 08/10/20 08/10/20 Range/Units 07:50 07:50 07:50 WBC 8.5 (4.0-10.0) 10^3/ uL RBC 3.64 L (4.1-5.3) 10^6/u L Hgb 10.7 L (11.7-16.6) g/dL Hct 35.3 L (42.0-52.0) % MCV 97.0 H (80-94) fL MCH 29.4 (28.0-34.0) pg MCHC 30.3 (30.0-36.0) g/dL RDW 13.2 (12.1-15.1) % Plt Count 250 (130-400) 10^3/c mm MPV 11.3 H (7.4-10.4) fL Neut % (Auto) 74.7 % Lymph % (Auto) 10.8 % [place] % (Auto) 10.4 % Eos % (Auto) 3.1 % Baso % (Auto) 0.6 % Neut # (Auto) 6.35 (1.8-7.7) 10^3/u L Lymph # (Auto) 0.9 (0.8-4.8) 10^3/u L [place] # (Auto) 0.9 (0.2-0.9) 10^3/u L Eos # (Auto) 0.3 (0.0-0.8) 10^3/u L Baso # (Auto) 0.1 (0.0-0.1) 10^3/u L Nucleated RBC % (a uto) 0 % Nucleated RBCs # 0.0 /100WBC Sodium 140 (136-145) mmol/L Potassium 4.9 (3.5-5.1) mmol/L Chloride 102 (98-107) mmol/L Carbon Dioxide 28 (22-29) mmol/L Anion Gap 14.9 (5-19) BUN 21 (8-23) mg/dL Creatinine 1.2 (0.7-1.2) mg/dL GFR Calculation 60.4 L (90-130) mL/min Glucose 133 H (65-115) mg/dL Calculated Osmolal ity 295 (285-295) mOsm/k g Calcium 9.4 (8.5-10.5) mg/dL Total Bilirubin 0.4 (0.15-1.2) mg/dL AST 12 (0-40) U/L ALT 15 (0-41) U/L Alkaline Phosphata se 72 (40-130) IU/L Troponin T Baselin e 39 H (0-15) ng/L Troponin T 120 Min [place] (0-15) ng/L Delta Troponin T (0-10) ABS# Total Protein 6.8 (6.6-8.7) g/dL Albumin 3.9 (3.5-5.2) g/dL Globulin 2.9 (1.3-4.6) g/dL 08/10/20 Range/Units 10:05 WBC (4.0-10.0) 10^3/ uL RBC (4.1-5.3) 10^6/u L Hgb (11.7-16.6) g/dL Hct (42.0-52.0) % MCV (80-94) fL MCH (28.0-34.0) pg MCHC (30.0-36.0) g/dL RDW (12.1-15.1) % Plt Count (130-400) 10^3/c mm MPV (7.4-10.4) fL Neut % (Auto) % Lymph % (Auto) % [place] % (Auto) % Eos % (Auto) % Baso % (Auto) % Neut # (Auto) (1.8-7.7) 10^3/u L Lymph # (Auto) (0.8-4.8) 10^3/u L [place] # (Auto) (0.2-0.9) 10^3/u L Eos # (Auto) (0.0-0.8) 10^3/u L Baso # (Auto) (0.0-0.1) 10^3/u L Nucleated RBC % (a uto) % Nucleated RBCs # /100WBC Sodium (136-145) mmol/L Potassium (3.5-5.1) mmol/L Chloride (98-107) mmol/L Carbon Dioxide (22-29) mmol/L Anion Gap (5-19) BUN (8-23) mg/dL Creatinine (0.7-1.2) mg/dL GFR Calculation (90-130) mL/min Glucose (65-115) mg/dL Calculated Osmolal ity (285-295) mOsm/k g Calcium (8.5-10.5) mg/dL Total Bilirubin (0.15-1.2) mg/dL AST (0-40) U/L ALT (0-41) U/L Alkaline Phosphata se (40-130) IU/L Troponin T Baselin e (0-15) ng/L Troponin T 120 Min [place] 32.06 H (0-15) ng/L Delta Troponin T -6.94 L (0-10) ABS# Total Protein (6.6-8.7) g/dL Albumin (3.5-5.2) g/dL Globulin (1.3-4.6) g/dL Discharge Plan Discharge Patient Disposition: Home Clinical Impression: Acute exacerbation of chronic obstructive airways disease, Wound of left lower extremity Condition: Stable Prescriptions: New albuterol sulfate 2.5 mg /3 mL (0.083 %) solution for nebulization 2.5 mg inhalation Q4H PRN (Reason: shortness of breath or wheezing) Qty: 180 RF: 0 No Action levothyroxine 100 mcg Tablet 100 mcg PO DAILY@0730 RF: 0 tamsulosin [Flomax] 0.4 mg Capsule 0.4 mg PO DAILY@1600 RF: 0 albuterol sulfate [ProAir HFA] 90 mcg/actuation Hfa Aerosol Inhaler 4 puff INHALATION BID RF: 0 fluticasone propionate [Flonase Allergy Relief] 50 mcg/actuation [place],Suspension 2 spray INTRANASAL DAILY@0800 RF: 0 cholecalciferol (vitamin D3) [Vitamin D3] 25 mcg (1,000 unit) Capsule 25 mcg PO DAILY RF: 0 Spiriva Respimat 2.5 mcg/actuation Mist 2 puff INHALATION DAILY RF: 0 furosemide 40 mg Tablet 40 mg PO BID@0800,1600 RF: 0 aspirin 81 mg Tablet,Delayed Release (Dr/Ec) 81 mg PO DAILY@0800 RF: 0 hydralazine 50 mg Tablet 50 mg PO QID@08,12,16,20 RF: 0 diltiazem HCl 240 mg capsule,extended release 24hr 240 mg PO DAILY@0800 RF: 0 metoprolol tartrate 50 mg tablet 50 mg PO BID@0800,1600 RF: 0 lisinopril 40 mg tablet 40 mg PO DAILY@1600 RF: 0 zinc oxide 20 % Ointment 1 applic topical PRN PRN (Reason: Skin Protectant) Qty: 30 RF: 0 nicotine 21 mg/24 hr Patch 24 Hour 1 patch transdermal DAILY Qty: 30 RF: 0 Discharge Orders: Discharge ED (Routine); Ordered 08/10/20 Ordered By: Catalino Wise Referrals: Sun Bello MD [Primary Care Provider] - Discharge Diet: Usual diet Discharge Activity: Increase activity as tolerated Patient Instructions: Opioid Safety Activity Restrictions/Additional Instructions: Use albuterol every 4 hours as needed. Coding Level of Care Code ED Account Collector for Jessie Gallo
[2020-08-10 09:21] LABS: Alanine Aminotransferase 15 U/L (0-41); Albumin Level 3.9 g/dL (3.5-5.2); Alkaline Phosphatase 72 IU/L (40-130); Anion Gap 14.9 (5-19); Aspartate Amino Transferase 12 U/L (0-40); Blood Urea Nitrogen 21 mg/dL (8-23); Calcium 9.4 mg/dL (8.5-10.5); Carbon Dioxide 28 mmol/L (22-29); Chloride 102 mmol/L (98-107); Globulin 2.9 g/dL (1.3-4.6); Glomerular Filtration Rate 60.4 mL/min (90-130); Glucose 133 mg/dL (65-115); Osmolality Calculated 295 mOsm/kg (285-295); Potassium 4.9 mmol/L (3.5-5.1); Sodium 140 mmol/L (136-145); Total Bilirubin 0.4 mg/dL (0.15-1.2); Total Protein 6.8 g/dL (6.6-8.7)
[2020-08-10 09:22] LABS: Troponin(5th) Baseline 39 ng/L (0-15)
[2020-08-10 10:21] VITALS: BP 153/70; PULSE 73; RESP 20; O2SAT 97
[2020-08-10 10:30] VITALS: BP 157/62; PULSE 72; RESP 22; O2SAT 92
--- NOTE | 2020-08-10 10:38 | ECG_ITS ---
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 Measurements Intervals [place] Rate: 75 P: 51 CO: 191 QRS: 69 QRSD: 94 T: 63 QT: 377 QTc: 422 Interpretive Statements SINUS RHYTHM MINIMAL ST DEPRESSION [0.025+ mV ST DEPRESSION] Compared to ECG 08/10/2020 08:59:45 No significant changes Electronically Signed On 08-10-2020 17:26:26 CDT by Cherelle Ellison M.D. [id number]
[2020-08-10 10:51] LABS: Troponin 5 2HR 32.06 ng/L (0-15); Troponin 5 2HR Delta -6.94 ABS# (0-10)
[2020-08-10 11:00] VITALS: BP 133/44; PULSE 86; RESP 22; O2SAT 97
[2020-08-10 11:30] VITALS: BP 144/54; PULSE 78; RESP 20; O2SAT 97
--- NOTE | 2020-08-10 14:38 | ECG_ITS ---
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 Measurements Intervals [place] Rate: 75 P: 70 SC: 180 QRS: 66 QRSD: 94 T: 39 QT: 383 QTc: 428 Interpretive Statements SINUS RHYTHM WITH OCCASIONAL SUPRAVENTRICULAR PREMATURE COMPLEXES LOW QRS VOLTAGE IN PRECORDIAL LEADS [QRS DEFLECTION < 1.0 mV IN CHEST LEADS] MINIMAL ST DEPRESSION [0.025+ mV ST DEPRESSION] Compared to ECG 08/23/2019 20:34:46 Low QRS voltage now present ST (T wave) deviation now present First degree AV block no longer present Electronically Signed On 08-10-2020 22:41:22 CDT by Cherelle Ellison M.D. [id number]
== END 2020-08-10 12:02 | disposition home or self-care (01) ==
PROVIDERS: Nurse Practitioner Family; Emergency Provider Family Medicine; PCP Family Medicine
DX: J44.1 Chronic obstructive pulmonary disease with (acute) exacerbation (principal); S81.802A Unspecified open wound, left lower leg, initial encounter; X58.XXXA Exposure to other specified factors, initial encounter; Z79.82 Long term (current) use of aspirin; I13.0 Hypertensive heart and chronic kidney disease with heart failure and stage 1 through stage 4 chronic kidney disease, or unspecified chronic kidney disease; N18.2 Chronic kidney disease, stage 2 (mild); I50.9 Heart failure, unspecified; Z86.19 Personal history of other infectious and parasitic diseases; E78.5 Hyperlipidemia, unspecified; F17.210 Nicotine dependence, cigarettes, uncomplicated
CPT/HCPCS: 71045; 80053; 84484; 85025; 93005; 99284

== ENCOUNTER 2020-08-14 06:00 | Outpatient (RCR) | payer OTHER, SELFPAY | END 2020-09-08 23:59 | disposition home or self-care (01) | LOC: SPT 06:00 | PROVIDERS: PCP Family Medicine; Referring Provider Nurse Practitioner Family; Visit Provider Nurse Practitioner Family | DX: I89.0 Lymphedema, not elsewhere classified (principal); I73.9 Peripheral vascular disease, unspecified | CPT/HCPCS: 29581; 97140; 97161 ==

== ENCOUNTER 2020-08-14 13:05 | Outpatient (CLI) | payer OTHER, SELFPAY | END 2020-08-14 13:06 | disposition home or self-care (01) | LOC: WOUND 13:06 | PROVIDERS: PCP Family Medicine; Visit Provider Nurse Practitioner Family | DX: I89.0 Lymphedema, not elsewhere classified (principal) | CPT/HCPCS: 99212 ==

== ENCOUNTER 2020-08-21 12:32 | Outpatient (CLI) | payer OTHER, SELFPAY ==
--- NOTE | 2020-08-21 12:36 | USCV_ITS ---
Omar Ta Age: 65 Gender: M : 1955 Exam Date: 08/21/2020 13:17 Ordering Phys: Paul Kohler MD (Andy) ([email or web address] [email or web address] Technologist: Radha Hudson [place] [facility] [place]: HISTORY: Patient has history of ulcers. PROCEDURES: Bilateral duplex Venous Insufficiency study of the Deep and Superficial systems was carried out according to normal protocol with the patient in supine positon for deep system and dependent position for the superficial system. FINDINGS: There is no evidence of bilateral deep vein thrombosis. No evidence of superficial thrombosis in the bilateral saphenous system. No evidence of reflux was noted in the bilateral deep venous system. No venous reflux noted in the bilateral greater saphenous vein. No venous reflux noted in the bilateral small saphenous vein. CONCLUSIONS No evidence of DVT in the above-mentioned identifiable veins. No significant venous reflux were noted either in the deep or in the superficial veins. Normal caliber veins bilaterally. Superficial veins are more than 1 cm deep from the surface Dr Sivakumar Houston MD [facility] (Electronically Signed) Final Date: 21 August 2020 18:43 S
--- NOTE | 2020-08-21 13:05 | US_ITS ---
WS: [id number] THYROID ULTRASOUND HISTORY: NODULE COMPARISON: 12/14/2018 By history patient had radioactive iodine for thyroid disease. No thyroid tissue is noted within ei er thyroid bed. No adenopathy is identified. US/US thyroid [id number] IMPRESSION: No lymphadenopathy or thyroid tissue identified within the neck.
== END 2020-08-21 12:33 | disposition home or self-care (01) ==
LOC: RAD 12:33
PROVIDERS: PCP Family Medicine; Referring Provider Emergency Medicine Emergency Medical Services; Visit Provider Thoracic Surgery (Cardiothoracic Vascular Surgery)
DX: L97.529 Non-pressure chronic ulcer of other part of left foot with unspecified severity (principal); L97.519 Non-pressure chronic ulcer of other part of right foot with unspecified severity; E04.1 Nontoxic single thyroid nodule
CPT/HCPCS: 76536; 93970

== ENCOUNTER 2020-08-22 08:13 | Outpatient (CLI) | payer OTHER, SELFPAY ==
--- NOTE | 2020-08-22 08:18 | USCV_ITS ---
Omar Ta Age: 65 Gender: M : 1955 Exam Date: 08/22/2020 08:29 Ordering Phys: Paul Kohler MD (Andy) ([email or web address] [place] Technologist: Radha Hudson Exam Location: [facility] [place] Indication: NON HEALING ULCER/REDNESS RIGHT LEFT Brachial 125.00 mmHg Brachial 131.00 mmHg Pressure (mmHg) Waveform Pressure (mmHg) Waveform 109.00 Above Knee 134.00 89.00 Below Knee 103.00 125.00 [employer]PER 123.00 108.00 DPA 112.00 0.95 Ankle/Brachial Index 0.94 83.00 Pre-Exercise Toe Pressure 104.00 0.63 Pre-Exercise Toe/Brachial Index 0.79 FINDINGS Near normal resting TONY bilaterally Slightly diminished resting TBI on the right side Normal resting TBI on the left side Blunting of the dicrotic notch bilaterally CONCLUSIONS Features of mild peripheral artery disease bilaterally. Dr Sivakumar Houston MD [facility] (Electronically Signed) Final Date: 24 August 2020 08:01 S
== END 2020-08-22 08:14 | disposition home or self-care (01) ==
LOC: RAD 08:15
PROVIDERS: PCP Family Medicine; Visit Provider Internal Medicine Medical Oncology
DX: L53.9 Erythematous condition, unspecified (principal); L97.929 Non-pressure chronic ulcer of unspecified part of left lower leg with unspecified severity; L97.919 Non-pressure chronic ulcer of unspecified part of right lower leg with unspecified severity
CPT/HCPCS: 93923

== ENCOUNTER 2020-08-28 13:46 | Outpatient (CLI) | payer OTHER, SELFPAY | END 2020-08-28 13:47 | disposition home or self-care (01) | LOC: WOUND 13:47 | PROVIDERS: PCP Family Medicine; Visit Provider Nurse Practitioner Family | DX: Z09 Encounter for follow-up examination after completed treatment for conditions other than malignant neoplasm (principal) | CPT/HCPCS: 99212 ==

== ENCOUNTER → 2021-09-11 10:37 | Outpatient (BNVA) | payer OTHER, SELFPAY | PROVIDERS: PCP Family Medicine; Referring Provider Family Medicine; Visit Provider Podiatrist Foot & Ankle Surgery | DX: B35.3 Tinea pedis (principal); F17.210 Nicotine dependence, cigarettes, uncomplicated | CPT/HCPCS: 99203; 99204 ==

== ENCOUNTER → 2021-10-10 11:16 | Outpatient (BNVA) | payer OTHER, SELFPAY | PROVIDERS: PCP Family Medicine; Visit Provider Podiatrist Foot & Ankle Surgery | DX: B35.3 Tinea pedis (principal) | CPT/HCPCS: 99214 ==

== ENCOUNTER 2021-11-12 09:21 | Inpatient (IN) | payer OTHER, MEDICARE, SELFPAY ==
[2021-11-12] VITALS (12 sets, daily range): BP systolic 142–162; BP diastolic 66–78; PULSE 60–90; RESP 18–36; TEMP 35.9–36.6; O2SAT 95–100; BMI 36.8; BMI 35.0
--- NOTE | 2021-11-12 09:36 | CTR_ITS ---
PROCEDURE INFORMATION: Exam: CT Head Without Contrast Exam date and time: 11/12/2021 9:56 AM Age: 66 years old Clinical indication: Altered mental status/memory loss; Confusion or disorientation; Additional info: AMS TECHNIQUE: Imaging protocol: Computed tomography of the head without contrast. Radiation optimization: All CT scans at this facility use at least one of these dose optimization techniques: automated exposure control; mA and/or kV adjustment per patient size (includes targeted exams where dose is matched to clinical indication); or iterative reconstruction. COMPARISON: CTA Neck [id number] 08/07/2017 1:28 PM RADIATION DOSE METRICS: Total DLP (mGy-cm): 1288.66 FINDINGS: Brain: Encephalomalacia in the right parietal lobe. Patchy hypoattenuation in the periventricular and subcortical white matter, consistent with chronic small vessel ischemia. No CT evidence of acute ischemia. No acute hemorrhage. No mass effect. Cerebral ventricles: Global cerebral volume loss with ex vacuo dilatation of the ventricles. Paranasal sinuses: Mild mucosal thickening of the left ethmoid air cells. Mastoid air cells: Small left mastoid effusion. Bones/joints: Unremarkable. No acute fracture. Soft tissues: Unremarkable. CT/CT head wo con* [id number] IMPRESSION: No acute intracranial abnormality. Please note that MRI is more sensitive for early changes of acute ischemia.
[2021-11-12 09:46] LABS: Basophils # 0.1 10^3/uL (0.0-0.1); Basophils % 0.4 %; Eosinophils # 0.1 10^3/uL (0.0-0.8); Eosinophils % 0.3 %; Hemoglobin 10.5 g/dL (11.7-16.6); Lymphocytes # 1.2 10^3/uL (0.8-4.8); Lymphocytes % 7.7 %; Mean Corpuscular HGB Conc 31.8 g/dL (30.0-36.0); Mean Corpuscular Hemoglobin 28.5 pg (28.0-34.0); Mean Corpuscular Volume 89.7 fl (80-94); Monocytes # 1.2 10^3/uL (0.2-0.9); Neutrophils # 12.67 10^3/uL (1.8-7.7); Neutrophils % 82.8 %; Nucleated Red Blood Cells % 0 %; Platelet Count 289 10^3/cmm (130-400); Red Blood Count 3.68 10^6/uL (4.1-5.3); Red Cell Distribution Width 15.5 % (12.1-15.1); White Blood Count 15.3 10^3/uL (4.0-10.0)
[2021-11-12 10:03] LABS: Troponin(5th) Baseline 78 ng/L (0-15)
[2021-11-12 10:06] LABS: Alanine Aminotransferase 40 U/L (0-41); Albumin Level 3.8 g/dL (3.5-5.2); Alkaline Phosphatase 66 IU/L (40-130); Anion Gap 15.3 (5-19); Aspartate Amino Transferase 175 U/L (0-40); Blood Urea Nitrogen 49 mg/dL (8-23); Calcium 13.2 mg/dL (8.5-10.5); Carbon Dioxide 29 mmol/L (22-29); Chloride 102 mmol/L (98-107); Globulin 3.4 g/dL (1.3-4.6); Glomerular Filtration Rate 22.6 mL/min (90-130); Glucose 135 mg/dL (65-115); Lipase 50 U/L (13-60); Magnesium 2.4 mg/dL (1.7-2.3); Osmolality Calculated 309 mOsm/kg (285-295); Potassium 4.3 mmol/L (3.5-5.1); Sodium 142 mmol/L (136-145); Total Bilirubin 0.6 mg/dL (0.15-1.2); Total Protein 7.2 g/dL (6.6-8.7)
[2021-11-12 10:07] LABS: Alcohol Level < 10 mg/dL (0-10)
[2021-11-12 10:15] LABS: Ammonia 13 umol/L (16-60); Lactic Sepsis W/Reflex 1.5 mmol/L (0.5-2.2)
[2021-11-12 10:20] LABS: Creatine Phosphokinase 8809 U/L (39-308)
--- NOTE | 2021-11-12 10:21 | XRR_ITS ---
PROCEDURE INFORMATION: Exam: XR Chest Exam date and time: 11/12/2021 10:26 AM Age: 66 years old Clinical indication: Cough and dyspnea; Patient HX: Chonic coughing and SOB; Additional info: Dyspnea/cough TECHNIQUE: Imaging protocol: Radiologic exam of the chest. Views: 1 view. COMPARISON: CR XR chest 1V portable [id number] 08/10/2020 8:55 AM FINDINGS: Lungs: Unremarkable. No consolidation. Pleural spaces: Unremarkable. No pleural effusion. No pneumothorax. Heart/Mediastinum: Mild cardiomegaly. Bones/joints: Unremarkable. XR/XR chest 1V portable [id number] IMPRESSION: No acute cardiopulmonary abnormality.
--- NOTE | 2021-11-12 10:22 | W.ED.AMS ---
HPI - Altered Mental Status General: Chief Complaint: Altered Mental Status Stated Complaint: AMS/FOUND IN FLOOR Time Seen by Provider: 11/12/21 09:31 Source: patient Mode of arrival: EMS Limitations: altered mental status History of Present Illness: 58-year-old brought in from his home. He was found down unknown length of downtime he is confused and disoriented he thinks president is Frederick Palomo he does notice 12 November but is completely unaware of the year. He has a harsh cough and sounds very congested. He denies any chest pain he is usually on 4 L/min by nasal cannula. He has no lateralizing focal neurologic deficits. He denies any fever sweats chills or abdominal pain. Patient has known history of COPD also has chronic lymphedema. MD complaint: altered mental status and confusion Review of Systems General: Reports: ROS unobtainable due to mental status [facility] ED PFSH: Medical History CHF (congestive heart failure) -Has had prior echo done in 08/2017 showing ejection fraction of 65%, grade 1 diastolic dysfunction. Repeat Echo: EF=60%, G2DD, normal PSP Chronic hepatitis C CKD (chronic kidney disease) stage 2, GFR 60-89 ml/min -has GIULIANO on CKD stage 2-3, baseline Cr is around 1 COPD (chronic obstructive pulmonary disease) oxygen-dependent, 4 L at baseline Hyperlipidemia Hypertension Hypothyroidism -Has known history of hypothyroidism status post ablation, MADDI (obstructive sleep apnea) -Has known history of MADDI, does not use CPAP Peripheral vascular disease -Has known history of PVD with chronic lower extremity edema Surgical History H/O hernia repair H/O shoulder surgery History of appendectomy Family History Denies family history of CAD (coronary artery disease) Social History Smoking and tobacco status: current every day smoker cigarettes Packs smoked per day: 1 Alcohol intake: current Alcohol intake frequency: 0-2 Drinks per Day Alcohol type: hard liquor Lives independently: Yes Physical Exam Const: ORIENTATION/CONSCIOUSNESS: Yes awake and Yes confused; not oriented to person, not oriented to place and not oriented to time HENMT: COMMON NORMALS: normocephalic and atraumatic HEAD & SCALP: normocephalic and atraumatic FACE & SINUS: normal facial exam Eye: COMMON NORMALS: Equal, round and reactive pupils present, EOMs intact bilaterally, conjunctivae normal and no scleral icterus CONJUNCTIVA: Yes conjunctivae normal PUPIL: Yes Equal, round and reactive pupils present Neck/C-Spine: COMMON NORMALS: full ROM and no lymphadenopathy Lymph: LYMPHATIC: No no lymphadenopathy noted Resp: AUSCULTATION: crackles Cardio: COMMON NORMALS: regular rate and regular rhythm RATE: regular rate RHYTHM: regular rhythm GI: COMMON NORMALS: Soft to palpation PALPATION: Yes Soft to palpation, No Tenderness to palpation present (GI), No Guarding due to palpation present (GI) and No Rigid due to palpation : COMMON NORMALS: Yes no CVA tenderness BLADDER/KIDNEY EXAM: Yes no CVA tenderness Back/Pelvis: COMMON NORMALS: no CVA tenderness Extremity: GENERAL: Yes edema (+2) Neuro: SENSORIUM/ORIENTATION: No oriented to person, No oriented to place and No oriented to time Course Vital Signs: Vital signs: Vital Signs Temperature 98.2 F 11/13/21 07:25 Pulse Rate 76 11/13/21 07:25 Respiratory Rate 20 H 11/13/21 07:25 Blood Pressure 134/71 11/13/21 07:25 Pulse Oximetry 99 11/13/21 07:25 MDM - Altered Mental Status Medical Decision Making Rhabdomyolysis with acute kidney injury superimposed on chronic kidney disease COPD and mild congestive heart failure. He also has an acute urinary tract infection and early sepsis and anemia. Discussed with hospitalist orders written Medical Records I reviewed the patient's medical records. Lab Data I reviewed the patient's lab results. : 11/13/21 04:53 11/13/21 04:[address] 11/12/21 09:36 IMPRESSION: No acute intracranial abnormality. Please note that MRI is more sensitive for early changes of acute ischemia. Renal Ultrasound 11/12/21 14:54 IMPRESSION: 1. No hydronephrosis. Dominant simple cyst in the upper pole the right kidney measuring up to 9.3 cm in size. 2. Cholelithiasis. Chest X-Ray 11/12/21 21:39 IMPRESSION: No acute findings. Laboratory Results WBC 15.3 10^3/uL (4.0-10.0) H 11/12/21 09:30 RBC 3.68 10^6/uL (4.1-5.3) L 11/12/21 09:30 Hgb 10.5 g/dL (11.7-16.6) L 11/12/21 09:30 Hct 33.0 % (42.0-52.0) L 11/12/21 09:30 MCV 89.7 fl (80-94) 11/12/21 09:30 MCH 28.5 pg (28.0-34.0) 11/12/21 09:30 MCHC 31.8 g/dL (30.0-36.0) 11/12/21 09:30 RDW 15.5 % (12.1-15.1) H 11/12/21 09:30 Plt Count 289 10^3/cmm (130-400) 11/12/21 09:30 MPV 11.0 fL (7.4-10.4) H 11/12/21 09:30 Neut % (Auto) 82.8 % 11/12/21 09:30 Lymph % (Auto) 7.7 % 11/12/21 09:30 [place] % (Auto) 8.0 % 11/12/21 09:30 Eos % (Auto) 0.3 % 11/12/21 09:30 Baso % (Auto) 0.4 % 11/12/21 09:30 Neut # (Auto) 12.67 10^3/uL (1.8-7.7) H 11/12/21 09:30 Lymph # (Auto) 1.2 10^3/uL (0.8-4.8) 11/12/21 09:30 [place] # (Auto) 1.2 10^3/uL (0.2-0.9) H 11/12/21 09:30 Eos # (Auto) 0.1 10^3/uL (0.0-0.8) 11/12/21 09:30 Baso # (Auto) 0.1 10^3/uL (0.0-0.1) 11/12/21 09:30 Nucleated RBC % (auto) 0 % 11/12/21 09:30 Nucleated RBCs # 0.0 /100WBC 11/12/21 09:30 Specimen Type Arterial 11/12/21 10:28 Sample Site Radial, left 11/12/21 10:28 ABG pH 7.43 (7.35-7.45) 11/12/21 10:28 ABG pCO2 46.4 mmHg (35-45) H 11/12/21 10:28 ABG pO2 141.0 mmHg (80.0-100.0) H 11/12/21 10:28 ABG HCO3 30.6 mmol/L (22-26) H 11/12/21 10:28 ABG O2 Saturation 99.6 11/12/21 10:28 ABG Base Excess 5.5 mmol/L (-2.0-2.0) H 11/12/21 10:28 [place] Test Pos 11/12/21 10:28 A-a O2 Gradient 7.5 mmHg (5-10) 11/12/21 10:28 Hematocrit 33.0 % (42-52) L 11/12/21 10:28 Hgb O2 Saturation 97.9 % (95-100) 11/12/21 10:28 Carboxyhemoglobin 1.0 %THgb (0.4-20.1) 11/12/21 10:28 Methemoglobin 0.7 % (0.4-1.5) 11/12/21 10:28 Total Hemoglobin 10.8 g/dL (14-18) L 11/12/21 10:28 Sodium 146.0 mmol/L (131-143) H 11/12/21 10:28 Potassium 4.4 mmol/L (3.5-5.0) 11/12/21 10:28 Glucose 135.0 mg/dL (70-115) H 11/12/21 10:28 Ionized Calcium 1.8 mmol/L (1.1-1.4) H* 11/12/21 10:28 O2 Delivery Device Nc 11/12/21 10:28 O2 Liters/Min 4.0 % 11/12/21 10:28 FiO2 36.0 % 11/12/21 10:28 Financial Analyst Accountant ID Cak 11/12/21 10:28 Sodium 142 mmol/L (136-145) 11/12/21 09:30 Potassium 4.3 mmol/L (3.5-5.1) 11/12/21 09:30 Chloride 102 mmol/L (98-107) 11/12/21 09:30 Carbon Dioxide 29 mmol/L (22-29) 11/12/21 09:30 Anion Gap 15.3 (5-19) 11/12/21 09:30 BUN 49 mg/dL (8-23) H 11/12/21 09:30 Creatinine 2.8 mg/dL (0.7-1.2) H 11/12/21 09:30 GFR Calculation 22.6 mL/min (90-130) L 11/12/21 09:30 Glucose 135 mg/dL (65-115) H 11/12/21 09:30 Calculated Osmolality 309 mOsm/kg (285-295) H 11/12/21 09:30 Lactic Acid 1.5 mmol/L (0.5-2.2) 11/12/21 09:30 Calcium 13.2 mg/dL (8.5-10.5) H 11/12/21 09:30 Magnesium 2.4 mg/dL (1.7-2.3) H 11/12/21 09:30 Total Bilirubin 0.6 mg/dL (0.15-1.2) 11/12/21 09:30 AST 175 U/L (0-40) H 11/12/21 09:30 ALT 40 U/L (0-41) 11/12/21 09:30 Alkaline Phosphatase 66 IU/L (40-130) 11/12/21 09:30 Ammonia 13 umol/L (16-60) L 11/12/21 09:30 Creatine Kinase 8809 U/L (39-308) H* 11/12/21 09:30 Troponin T Baseline 78 ng/L (0-15) H 11/12/21 09:30 NT-Pro-B Natriuret Pep 4499 pg/mL (0-125) H 11/12/21 09:30 Total Protein 7.2 g/dL (6.6-8.7) 11/12/21 09:30 Albumin 3.8 g/dL (3.5-5.2) 11/12/21 09:30 Globulin 3.4 g/dL (1.3-4.6) 11/12/21 09:30 Lipase 50 U/L (13-60) 07/04/22 09:30 Ethyl Alcohol < 10 mg/dL (0-10) 11/12/21 09:30 Discharge Plan Discharge Patient Disposition: Admitted As Inpatient Admit Provider: Mark Maciel Clinical Impression: Rhabdomyolysis, Chronic acquired lymphedema, Falls frequently, Encephalopathy, (HFpEF) heart failure with preserved ejection fraction, Acute kidney injury superimposed on CKD, UTI (urinary tract infection) Condition: Stable Coding Level of Care Code ED Electrical Controls Technician for Jessie Gallo
--- NOTE | 2021-11-12 10:28 | PC.PHAR ---
PT UNABLE TO VERIFY DUE TO AMS- [facility]- MEDS VERIFIED USING LIST BROUGHT IN BY EMS FROM PT HOME AND EXTERNAL MED LIST
[2021-11-12 10:39] LABS: ABG PCO2 46.4 mmHg (35-45); ABG PH Result 7.43 (7.35-7.45); Alveolar-Arterial Oxygen Gradi 7.5 mmHg (5-10); Base Excess ABG 5.5 mmol/L (-2.0-2.0); Blood Gas Allen Test Pos; Blood Gas Operator Identificat CAK; Blood Gas Sample Site Radial, left; Blood Gas Sample Type Arterial; HCO3 ABG 30.6 mmol/L (22-26); HGB O2 Sat 97.9 % (95-100); Ionized Calcium Level - ABG 1.8 mmol/L (1.1-1.4); Methemoglobin 0.7 % (0.4-1.5); Oxygen Device NC; Oxygen Saturation ABG 99.6; Potassium Level - ABG 4.4 mmol/L (3.5-5.0); Total Hemoglobin 10.8 g/dL (14-18)
[2021-11-12 10:52] LABS: NT Pro B Type Natriuretic Pept 4499 pg/mL (0-125)
--- NOTE | 2021-11-12 11:36 | ECG_ITS ---
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 Measurements Intervals [place] Rate: 75 P: [place]: QRS: 68 QRSD: 94 T: 0 QT: 330 QTc: 370 Interpretive Statements Indeterminate rhythm secondary to baseline artifact, probable sinus rhythm with PVCs INCOMPLETE RIGHT BUNDLE BRANCH BLOCK [90+ ms QRS DURATION, TERMINAL R IN V1/V2, 40+ ms S IN I/aVL/V4/V5/V6] NONSPECIFIC ST & T-WAVE ABNORMALITY ABNORMAL RHYTHM ECG Compared to ECG 08/10/2020 10:18:08 Ventricular premature complex(es) now present Aberrant conduction of supraventricular beat(s) now present Incomplete right bundle-branch block now present T-wave abnormality now present ST (T wave) deviation no longer present Electronically Signed On 11-13-2021 16:54:11 CDT by Aron Krishnamurthy M.D. [id number]
[2021-11-12 12:17] LABS: Amphetamines Screen Urine Negative (Negative); Barbiturates Screen Urine Negative (Negative); Benzodiazepines Screen Urine Negative (Negative); Cocaine Screen Urine Negative (Negative); Opiate Screen Urine Negative (Negative); PCP Screen Urine Negative (Negative); THC Screen Urine Positive (Negative)
[2021-11-12 12:18] LABS: Add Urine Microscopic? YES; Bacteria Urine 2+ /hpf; Bilirubin Urine 1+ (Negative); Blood Urine 3+ (Negative); Glucose Urine UA Norm (Normal); Ketones Urine Negative (Negative); Leukocyte Esterase Urine Negative (Negative); Nitrate Urine Negative (Negative); Protein Urine Neg (Negative); RBC Urine 15-25 /hpf (0-2); Specific Gravity, Urine 1.025 (1.005-1.030); Squamous Epithelial Cell Urine 0-4 /hpf (0-5); Urine Appearance Clear (CLEAR); Urine Color Orange (Yellow); Urobilinogen Urine Norm (Negative); pH Urine 5 (5-7)
[2021-11-12 12:19] LABS: Add Urine Culture? Yes
--- NOTE | 2021-11-12 12:30 | P.HP_ITS ---
Providers/Chief Complaint Admitting Physician: Mark Maciel MD Primary Care Provider: Sun Belol MD Chief Complaint: AMS/FOUND IN FLOOR History of Present Illness Omar Ta is a 66 year old male with PMH of COPD ON 4LS home oxygen, HFpEF, HTN, Hypothyroidism, chronic hepc , MADDI,PVD, alcohol abuse has been sober since May this year, was brought from home by the EMS after he was found down at home, when i interacted with the patient he says i am not aware of the circumstances in which i was found down, he says that he has been not felling well for the last 4 days, and has also not seen his G,F for the last 4 days,he was complaining of pain while passing urine,denied any chest pain,sob,abdominal pain,nausea,vomiting,fever. Upon arrival in the ER Pertinent Imaging studies included: Xray chest : No infiltrates,no effusion, no PTX C.T Head without contrast :No acute intracranical pathology Pertinent Labs : WBC : 15.3 , H&H : , PLT : 289 , Na: 142, k: 4.3 , BUN/SCR: 49/2.8 , RBS: 135 , Lactic acid :1.5 , Ammonia:13 , CK: 8809 Pro BNP: 4499 , Troponin : 78,80 Urine Analysis : Urine Bcateria : 2+ , Urine WBC : 5-10 Review of Systems General: Reports: 10 or more systems reviewed and unremarkable except in HPI and below Const: Denies: fever(s), chills, body aches, change in appetite or diaphoresis Card: Denies: palpitations, edema, swelling of feet/ankles, dyspnea on exertion, orthopnea or leg pain with exertion Resp: Denies: dyspnea, productive cough, wheezing or pain on inspiration GI: Denies: abdominal pain, nausea, vomiting, diarrhea or constipation : Denies: flank pain Musc: Denies: back pain, extremity pain or extremity swelling Neuro: Denies: headache(s) or difficulty walking Medications/Allergies Home Medications Medication Instructions Recorded Confirmed Last Taken Type albuterol sulfate 90 mcg/actuation 4 puff INHALATION BID 08/23/19 11/12/21 Unknown History aerosol inhaler (ProAir HFA) cholecalciferol (vitamin D3) 25 25 mcg PO DAILY 08/23/19 11/12/2108/07/21 History mcg (1,000 unit) capsule (Vitamin D3) fluticasone propionate 50 2 spray INTRANASAL DAILY@0800 08/23/19 11/12/21 08/07/20 History mcg/actuation nasal spray,suspension (Flonase Allergy Relief) levothyroxine 100 mcg tablet 100 mcg PO DAILY@0730 08/23/19 11/12/21 08/07/20 History tamsulosin 0.4 mg capsule (Flomax) 0.4 mg PO DAILY@1600 08/23/19 11/12/21 08/06/20 History tiotropium bromide 2.5 2 puff INHALATION DAILY 08/23/19 11/12/21 08/07/20 Histor y mcg/actuation mist for inhalation (Spiriva Respimat) aspirin 81 mg tablet,delayed 81 mg PO DAILY@0800 08/07/20 11/12/21 08/07/20 History release diltiazem HCl 240 mg 240 mg PO DAILY@0800 08/07/20 11/12/21 08/07/20 History capsule,extended release 24 hr furosemide 40 mg tablet 40 mg PO BID@0800,1600 08/07/20 11/12/21 08/07/20 History hydralazine 50 mg tablet 50 mg PO QID@08,12,16,20 08/07/20 11/12/21 08/07/20 History lisinopril 40 mg tablet 40 mg PO DAILY@1600 08/07/20 11/12/21 08/06/20 History metoprolol tartrate 50 mg tablet 50 mg PO BID@0800,1600 08/07/20 11/12/21 08/07/20 History nicotine 21 mg/24 hr daily 1 patch TRANSDERMAL DAILY #30 ea 08/09/20 11/12/21 Unknown Rx transdermal patch zinc oxide 20 % topical ointment 1 applic TOPICAL PRN PRN #30 g 08/09/20 11/12/21 Unknown Rx albuterol sulfate 2.5 mg (3 mL) INHALATION Q4H PRN 08/10/20 11/12/21 Unknown Rx #180 ml terbinafine HCl 250 mg tablet 250 mg PO DAILY 14 Days #14 tab 09/11/21 11/12/21 Unknown Rx terbinafine HCl 250 mg tablet 250 mg PO DAILY 14 Days #14 tab 10/10/21 11/12/21 Unknown Rx Allergies Allergy/AdvReac Type Severity Reaction Status Date / Time No Known Allergies Allergy Verified 11/12/21 10:30 PFSH Acute PFSH: Medical History (Updated 11/12/21 @ 15:02 by Mark Maciel MD) CHF (congestive heart failure) -Has had prior echo done in 08/2017 showing ejection fraction of 65%, grade 1 diastolic dysfunction. Repeat Echo: EF=60%, G2DD, normal PSP Chronic hepatitis C CKD (chronic kidney disease) stage 2, GFR 60-89 ml/min -has GIULIANO on CKD stage 2-3, baseline Cr is around 1 COPD (chronic obstructive pulmonary disease) oxygen-dependent, 4 L at baseline Hyperlipidemia Hypertension Hypothyroidism -Has known history of hypothyroidism status post ablation, MADDI (obstructive sleep apnea) -Has known history of MADDI, does not use CPAP Peripheral vascular disease -Has known history of PVD with chronic lower extremity edema Surgical History H/O hernia repair H/O shoulder surgery History of appendectomy Family History Denies family history of CAD (coronary artery disease) Social History Smoking and tobacco status: current every day smoker cigarettes Packs smoked per day: 1 Alcohol intake: current Alcohol intake frequency: 0-2 Drinks per Day Alcohol type: hard liquor Lives independently: Yes Vitals/I&O/Wt Last Vital Signs Temp 96.7 F L 11/12/21 09:36 Pulse 89 11/12/21 10:44 Resp 22 H 11/12/21 10:44 BP 162/74 11/12/21 10:44 Pulse Ox 100 11/12/21 10:44 Weight last 48 hrs Weight 106.594 kg Physical Exam HENMT: COMMON NORMALS: normocephalic and atraumatic HEAD & SCALP: normocephalic and atraumatic Eye: COMMON NORMALS: no scleral icterus GENERAL EYE: appearance normal, both eyes and all related structures Chest: COMMONS NORMALS: normal inspection of the chest and normal palpation of entire chest wall CHEST: Yes Symmetrical chest wall rise Resp: COMMON NORMALS: normal respiratory effort, No retractions, No use of accessory muscles and clear to auscultation bilaterally EFFORT & INSPECTION: Yes symmetric chest movement AUSCULTATION: clear to auscultation bilaterally Cardio: COMMON NORMALS: regular rate, regular rhythm, S1 normal heart sound present, S2 normal heart sound present, No gallops present (Cardio), No murmurs present (Cardio), No rub (Cardio) and Peripheral pulses 2+ throughout RATE: regular rate RHYTHM: regular rhythm HEART SOUNDS: S1 normal heart sound present and S2 normal heart sound present PERIPHERAL PULSES: Peripheral pulses 2+ throughout GI: COMMON NORMALS: Normal to inspection, nondistended, normoactive bowel sounds present, Soft to palpation, non-tender, No hepatosplenomegaly present and no masses AUSCULTATION: Yes normoactive bowel sounds PALPATION: Yes Soft to palpation and Yes No hepatosplenomegaly present RECTAL EXAM: Yes deferred Extremity: COMMON NORMALS: no clubbing, cyanosis or edema and no pedal edema Urinary Catheter Management: Lopes: Cath Placed During This Visit: yes Urinary Catheter Date of Insertion: 11/12/21 Urinary Catheter Time of Insertion: 11:57 Data : 11/12/21 09:30 11/12/21 09:30 A&P Assessment and plan (1) Rhabdomyolysis: Status: Acute (2) Chronic acquired lymphedema: Status: Acute (3) Chronic hepatitis C: Status: Acute (4) COPD (chronic obstructive pulmonary disease): Status: Acute Qualifiers: COPD type: unspecified COPD Qualified Code(s): J44.9 - Chronic obstructive pulmonary disease, unspecified (5) (HFpEF) heart failure with preserved ejection fraction: Status: Acute (6) Acute kidney injury superimposed on CKD: Status: Acute (7) UTI (urinary tract infection): Status: Acute (8) Leukocytosis: Status: Acute (9) Anemia: Status: Acute (10) Hypothyroidism: Status: Acute (11) MADDI (obstructive sleep apnea): Status: Acute Plan 66 year old male with PMH of COPD ON 4LS home oxygen, HFpEF, HTN, Hypothyroidism, chronic hepc , MADDI,PVD, was brought from home by the EMS after he was found down at home. Assessment : AMS Likely 2/2 GIULIANO,UTI,Rhabdomyplysis GIULIANO ON CKD: Likely pre renaL GIULIANO Rhabdomyolysis UTI Leukocytosis Anemia HTN HFpEF (Compenstaed ) Hypothyroidism chronic hep c MADDI Plan : Follow Blood Culture Urine culture Procalcitonin Random Urine Na Random Urine CR Random urine Protein Fena Renal ultrasound Monitor BMP Monitor Intake output /Charting Avoid Nephrotoxics Continue I.V Hydration with Ns@125cc/hr Follow TSH Follow Anemia Panel Follow B12 and folic Acid Continue Ceftriaxone for now. Continue Levothyroxine Code Status : Full code DVT PPX: On lovenox Attestations Medical Necessity Statement*: Patient needs to be in hospital for the management of AMS,GIULIANO, Need for I.V Hydration. Anticipated LOS Greater then 2 midnights. Time Spent in Patient Care: Greater than 35 minutes (>than 50% of time spent in counselling and/or direct pt care on unit) . Coding Level of Care Code Acute Senior Office Assistant for Chg Fwd Exam Detailed Diagnoses Rhabdomyolysis M62.82 Chronic acquired lymphedema I89.0 Chronic hepatitis C B18.2 COPD (chronic obstructive pulmonary disease) J44.9 COPD type: unspecified COPD (HFpEF) heart failure with preserved ejection fraction I50.30 Acute kidney injury superimposed on CKD N17.9; N18.9 UTI (urinary tract infection) N39.0 Leukocytosis D72.829 Anemia D64.9 Hypothyroidism E03.9 MADDI (obstructive sleep apnea) G47.33
[2021-11-12 12:35] LABS: Troponin 5 2HR 80.72 ng/L (0-15)
[2021-11-12 12:43] LABS: Troponin 5 2HR Delta 2.72 ABS# (0-10)
[2021-11-12] MEDS: morphine 4 mg/mL SDV 1 mL IVP (12:44)
[2021-11-12] MEDS: sodium chloride 0.9% 1,000 ML 125 ML IV (13:42)
[2021-11-12] MEDS: heparin 5,000 unit/mL INJ 1 mL 5000 UNIT SUBCUT (13:42)
[2021-11-12] MEDS: ipratropium-albuterol 3 mL Neb INHALATION ×2 (14:01→20:39)
--- NOTE | 2021-11-12 14:54 | USR_ITS ---
PROCEDURE INFORMATION: Exam: US Retroperitoneal; Complete; Kidneys and Bladder Exam date and time: 11/12/2021 3:07 PM Age: 66 years old Clinical indication: Other: Mark; Patient HX: PT unable to answer any questions TECHNIQUE: Imaging protocol: Real-time ultrasound of the retroperitoneum with image documentation. Complete exam focused on the kidneys and bladder. COMPARISON: US abdomen lmt fluid [id number] 08/23/2019 3:33 PM FINDINGS: Gallbladder: Shadowing gallstone noted in the gallbladder body/neck. Right kidney: Right kidney measures 10.5 cm in length. Dominant simple appearing cyst in the upper pole the right kidney measuring up to 9.3 cm in size. A smaller simple appearing cyst noted in the mid aspect of the right kidney measuring up to 2.4 cm in size. No stones. No hydronephrosis. Left kidney: The left kidney measures 10.9 cm in length. No stones. No hydronephrosis. Urinary bladder: Under distended with Lopes catheter. US/US renal BI* [id number] IMPRESSION: 1. No hydronephrosis. Dominant simple cyst in the upper pole the right kidney measuring up to 9.3 cm in size. 2. Cholelithiasis.
--- NOTE | 2021-11-12 15:36 | ECG_ITS ---
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 Measurements Intervals [place] Rate: 68 P: 82 [place]: 173 QRS: 54 QRSD: 102 T: 60 QT: 343 QTc: 365 Interpretive Statements SINUS RHYTHM INCOMPLETE RIGHT BUNDLE BRANCH BLOCK [90+ ms QRS DURATION, TERMINAL R IN V1/V2, 40+ ms S IN I/aVL/V4/V5/V6] NONSPECIFIC ST & T-WAVE ABNORMALITY Compared to ECG 11/12/2021 10:18:51 Ventricular premature complex(es) no longer present Aberrant conduction of supraventricular beat(s) no longer present T-wave abnormality still present Electronically Signed On 11-13-2021 16:54:37 CDT by Aron Krishnamurthy M.D. [id number]
[2021-11-12] MEDS: cefTRIAXone 1,000 MG in sodium chloride 0.9% (plus) 50 ML 100 MG IV (15:43)
[2021-11-12 16:06] LABS: Troponin 5 6HR 77.09 ng/L (0-15)
[2021-11-12 16:09] LABS: Urine Creatinine 218 mg/dL (39-259)
[2021-11-12 16:10] LABS: Urine Protein Random 64 mg/dL; Urine Random Sodium 14 mmol/L
[2021-11-12 16:10] LABS: Troponin 5 6HR Delta -0.91 ng/L (0-12)
--- NOTE | 2021-11-12 21:39 | XRR_ITS ---
PROCEDURE INFORMATION: Exam: XR Chest Exam date and time: 11/12/2021 10:27 PM Age: 66 years old Clinical indication: Cough; Additional info: Secretions, cough, follow up TECHNIQUE: Imaging protocol: Radiologic exam of the chest. Views: 1 view. COMPARISON: CR (CHEST, ) 11/12/2021 10:26 AM FINDINGS: Lungs: Unremarkable. No consolidation. Pleural spaces: Unremarkable. No pleural effusion. No pneumothorax. Heart/Mediastinum: Unremarkable. No cardiomegaly. Bones/joints: Unremarkable. XR/XR chest 1V portable [id number] IMPRESSION: No acute findings.
[2021-11-12] MEDS: budesonide 0.5 mg/2 mL Neb 0.25 MG INHALATION (22:39)
[2021-11-12 23:59] LABS: Creatine Phosphokinase 7499 U/L (39-308)
[2021-11-13] VITALS (14 sets, daily range): BP systolic 124–164; BP diastolic 65–75; PULSE 0–96; RESP 16–24; TEMP 36.8–37; O2SAT 88–100
--- NOTE | 2021-11-13 00:04 | PC.NURSE ---
physician notified of elevated ck
[2021-11-13] MEDS: heparin 5,000 unit/mL INJ 1 mL 5000 UNIT SUBCUT ×2 (00:19→11:51)
--- NOTE | 2021-11-13 01:23 | PC.NURSE ---
Dr Pool to bedside for assessment with CN and no new orders,continue to monitor.
[2021-11-13] MEDS: sodium chloride 0.9% 1,000 ML 125 ML IV ×2 (02:26→08:05)
[2021-11-13] MEDS: ipratropium-albuterol 3 mL Neb INHALATION ×4 (03:55→20:07)
[2021-11-13 05:14] LABS: Basophils # 0.1 10^3/uL (0.0-0.1); Basophils % 0.5 %; Eosinophils % 7.6 %; Hematocrit 29.9 % (42.0-52.0); Hemoglobin 9.5 g/dL (11.7-16.6); Lymphocytes # 1.3 10^3/uL (0.8-4.8); Mean Corpuscular HGB Conc 31.8 g/dL (30.0-36.0); Mean Corpuscular Hemoglobin 28.4 pg (28.0-34.0); Mean Corpuscular Volume 89.3 fl (80-94); Mean Platelet Volume 11.3 fL (7.4-10.4); Neutrophils # 9.51 10^3/uL (1.8-7.7); Neutrophils % 73.4 %; Nucleated Red Blood Cells % 0 %; Platelet Count 281 10^3/cmm (130-400); Red Blood Count 3.35 10^6/uL (4.1-5.3); Red Cell Distribution Width 15.9 % (12.1-15.1)
[2021-11-13 05:37] LABS: Ammonia 16 umol/L (16-60); Lactic Sepsis W/Reflex 0.9 mmol/L (0.5-2.2)
[2021-11-13 05:48] LABS: Alanine Aminotransferase 52 U/L (0-41); Albumin Level 3.2 g/dL (3.5-5.2); Alkaline Phosphatase 55 IU/L (40-130); Aspartate Amino Transferase 147 U/L (0-40); Blood Urea Nitrogen 44 mg/dL (8-23); Calcium 12.1 mg/dL (8.5-10.5); Carbon Dioxide 28 mmol/L (22-29); Chloride 110 mmol/L (98-107); Ferritin 782 ng/mL (30-400); Globulin 3.1 g/dL (1.3-4.6); Glomerular Filtration Rate 33.4 mL/min (90-130); Glucose 101 mg/dL (65-115); Magnesium 2.4 mg/dL (1.7-2.3); Osmolality Calculated 315 mOsm/kg (285-295); Phosphorus 2.6 mg/dL (2.5-4.5); Sodium 147 mmol/L (136-145); Thyroid Stimulating Hormone 6.38 uIU/mL (0.27-4.20); Total Bilirubin 0.4 mg/dL (0.15-1.2); Total Protein 6.3 g/dL (6.6-8.7)
[2021-11-13 05:51] LABS: Anion Gap 13.3 (5-19); Potassium 4.3 mmol/L (3.5-5.1)
[2021-11-13 05:58] LABS: Procalcitonin 0.33 ng/mL (0-0.5); Vitamin B12 504 pg/mL (232-1245)
[2021-11-13 06:07] LABS: Folate Level 6.5 ng/mL (4.5-32.2)
[2021-11-13 06:11] LABS: Iron 30 ug/dL (59-158); Percent Saturation 16.5 % (20-50); Total Iron Binding Capacity 181 mcg/dl; Transferrin 166 mg/dL (200-360); Unsaturated Iron Binding 151 ug/dL (112-347)
[2021-11-13 06:16] LABS: Creatine Phosphokinase 3819 U/L (39-308)
[2021-11-13] MEDS: dilTIAZem ER (24HR) 240 mg Capsule PO (08:00)
[2021-11-13] MEDS: levothyroxine 100 mcg Tablet PO (08:00)
[2021-11-13] MEDS: thiamine 100 mg Tablet PO (08:01)
[2021-11-13] MEDS: metoprolol tartrate 50 mg Tablet PO ×2 (08:01→16:14)
[2021-11-13] MEDS: guaiFENesin 600 mg Tablet PO ×2 (08:01→16:40)
[2021-11-13] MEDS: hyDRALAzine 50 mg Tablet PO (08:40)
--- NOTE | 2021-11-13 09:10 | P.PN_ITS ---
Subjective Subjective: Patient was seen and examined this morning, continues to have some degree of confusion. BUN and serum creatinine is improving, CK is improving. Medications: Medication Review Details: Generic Name Dose Route Start Last Admin Trade Name Antonio PRN Reason Stop Dose Admin Albuterol/Ipratrop ium 3 ml 11/12/21 15:00 11/13/21 03:55 Ipratropium-Albu terol 3 Ml Neb INHALATION 3 ml Q6H.RESPIRATORY S CH Administration Budesonide 0.25 mg 11/12/21 21:40 11/12/21 22:39 Budesonide 0.5 M g/2 Ml Neb INHALATION 0.25 mg BID.RESPIRATORY S CH Administration Diltiazem HCl 240 mg 11/13/21 08:00 11/13/21 08:00 Diltiazem Er (24 hr) 240 Mg Capsule PO 240 mg DAILY@0800 [facility] Administration Guaifenesin 600 mg 11/12/21 18:00 11/13/21 08:01 Guaifenesin 600 Mg Tablet PO 600 mg BID MICHAEL Administration Heparin Sodium (Po rcine) 5,000 unit 11/12/21 12:30 11/13/21 00:19 Heparin 5,000 Un it/Ml Inj 1 Ml SUBCUT 5,000 unit Q12H MICHAEL Administration Hydralazine HCl 50 mg 11/13/21 09:00 11/13/21 08:40 Hydralazine 50 M g Tablet PO 50 mg TID MICHAEL Administration Ceftriaxone Sodium 1,000 mg/ 50 mls @ 100 mls/ hr 11/12/21 14:45 11/12/21 17:08 Sodium Chloride IV Infused Q24H MICHAEL Infusion Protocol Levothyroxine Sodi um 100 mcg 11/13/21 07:30 11/13/21 08:00 Levothyroxine 10 0 Mcg Tablet PO 100 mcg DAILY@0730 MICHAEL Administration Metoprolol Tartrat e 50 mg 11/12/21 16:00 11/13/21 08:01 Metoprolol Tartr ate 50 Mg Tablet PO 50 mg BID@0800,1600 [facility] Administration Tamsulosin HCl 0.4 mg 11/12/21 16:00 11/12/21 15:49 Tamsulosin 0.4 M g Capsule PO Not Given DAILY@1600 [facility] Thiamine Mononitra te 100 mg 11/13/21 09:00 11/13/21 08:01 Thiamine 100 Mg Tablet PO 100 mg DAILY MICHAEL Administration Vitals/I&O/Wt Last Vital Signs Temp 98.2 F 11/13/21 07:25 Pulse 76 11/13/21 07:25 Resp 20 H 11/13/21 07:25 BP 134/71 11/13/21 07:25 Pulse Ox 99 11/13/21 07:25 11/12/21 11/13/21 11/13/21 22:59 06:59 14:59 Intake Total 754.167 / 754.167 295.833 / 1050.000 789.583 / 789.583 Output Total 535 / 535 300 / 835 Balance 219.167 / 219.167 -4.167 / 215.000 789.583 / 789.583 Weight last 48 hrs Weight 101.514 kg Weight 106.594 kg Physical Exam HENMT: COMMON NORMALS: normocephalic and atraumatic HEAD & SCALP: normocephalic and atraumatic Chest: COMMONS NORMALS: normal inspection of the chest and normal palpation of entire chest wall CHEST: Yes Symmetrical chest wall rise Resp: COMMON NORMALS: normal respiratory effort, No retractions, No use of accessory muscles and clear to auscultation bilaterally EFFORT & INSPECTION: Yes symmetric chest movement AUSCULTATION: clear to auscultation bilaterally Cardio: COMMON NORMALS: regular rate, regular rhythm, S1 normal heart sound present, S2 normal heart sound present, No gallops present (Cardio), No murmurs present (Cardio), No rub (Cardio) and Peripheral pulses 2+ throughout RATE: regular rate RHYTHM: regular rhythm HEART SOUNDS: S1 normal heart sound present and S2 normal heart sound present PERIPHERAL PULSES: Peripheral pulses 2+ throughout GI: COMMON NORMALS: Normal to inspection, nondistended, normoactive bowel sounds present, Soft to palpation, non-tender, No hepatosplenomegaly present and no masses AUSCULTATION: Yes normoactive bowel sounds PALPATION: Yes Soft to palpation and Yes No hepatosplenomegaly present RECTAL EXAM: Yes deferred Extremity: COMMON NORMALS: no clubbing, cyanosis or edema and no pedal edema Urinary Catheter Management: Lopes: Cath Placed During This Visit: yes Reason for Continuing Indwelling Catheter: Other Urinary Catheter Date of Insertion: 11/12/21 Urinary Catheter Time of Insertion: 11:57 Data : 11/13/21 04:53 11/13/21 04:53 Micro: Microbiology 11/12/21 11:50 Urine Culture - Preliminary Urine,Clean Catch 11/12/21 17:04 Blood Culture - Preliminary Blood SPECIMEN COLLECTED 11/12/21 15:34 Blood Culture - Preliminary Blood SPECIMEN COLLECTED A&P Assessment and plan (1) Rhabdomyolysis: Status: Acute (2) Chronic acquired lymphedema: Status: Acute (3) Chronic hepatitis C: Status: Acute (4) COPD (chronic obstructive pulmonary disease): Status: Acute Qualifiers: COPD type: unspecified COPD Qualified Code(s): J44.9 - Chronic obstructive pulmonary disease, unspecified (5) (HFpEF) heart failure with preserved ejection fraction: Status: Acute (6) Acute kidney injury superimposed on CKD: Status: Acute (7) UTI (urinary tract infection): Status: Acute (8) Leukocytosis: Status: Acute (9) Anemia: Status: Acute (10) Hypothyroidism: Status: Acute (11) MADDI (obstructive sleep apnea): Status: Acute Plan 66 year old male with PMH of COPD ON 4LS home oxygen, HFpEF, HTN, Hypothyroidism, chronic hepc , MADDI,PVD, was brought from home by the EMS after he was found down at home. Assessment : AMS Likely 2/2 GIULIANO,UTI,Rhabdomyplysis GIULIANO ON CKD: Likely pre renaL GIULIANO Rhabdomyolysis UTI Leukocytosis Anemia HTN HFpEF (Compenstaed ) Hypothyroidism chronic hep c MADDI Plan : Blood Culture : Urine culture : Procalcitonin: Normal Random Urine Na: 14 Random Urine CR:218 Random urine Protein: 64 UPCR: 0.3 G/DAY Urine protein: Negative Fena : Prerenal Renal ultrasound :No hydronephrosis Monitor BMP Monitor Intake output /Charting Avoid Nephrotoxics Continue I.V Hydration with Ns@125cc/hr TSH: 6.38 Follow Anemia Panel: Serum iron 30, serum ferritin:782, tibc : 181, percent saturation: 16 , transferrin:166 B12:504 and folic Acid : 6.5 Continue Ceftriaxone for now. Continue Levothyroxine Code Status : Full code DVT PPX: On lovenox Attestations Medical Necessity Statement*: Patient is to be in hospital for management of rhabdo GIULIANO altered mental status. Need for IV hydration. Time Spent in Patient Care: Greater than 35 minutes (>than 50% of time spent in counselling and/or direct pt care on unit) . Coding Level of Care Code Acute Diesel Power Mechanic for Chg Fwd Exam Detailed Diagnoses Rhabdomyolysis M62.82 Chronic acquired lymphedema I89.0 Chronic hepatitis C B18.2 COPD (chronic obstructive pulmonary disease) J44.9 COPD type: unspecified COPD (HFpEF) heart failure with preserved ejection fraction I50.30 Acute kidney injury superimposed on CKD N17.9; N18.9 UTI (urinary tract infection) N39.0 Leukocytosis D72.829 Anemia D64.9 Hypothyroidism E03.9 MADDI (obstructive sleep apnea) G47.33
[2021-11-13] MEDS: dextrose 5%-sod chloride 0.45% 1,000 ML 125 ML IV (09:11)
[2021-11-13] MEDS: budesonide 0.5 mg/2 mL Neb 0.25 MG INHALATION ×2 (09:26→20:06)
[2021-11-13] MEDS: LORazepam 2 mg/mL INJ 1 mL 1 MG IVP ×2 (11:50→21:40)
--- NOTE | 2021-11-13 12:49 | PC.CHAP ---
Pastoral Care Encounter/Spiritual Assessment Type of Contact [] Declined valet service attendant visit [] Patient/Family/Request visit [] Outpatient visit [] Follow-up visit [] Physician referral [] Code/Alert [x] Routine visit [] Staff referral [] Actively dying [] Patient sleeping [] Family support [] [] Out of room [] Palliative care [] [x] Receiving care in room [] Pre-surgical visit [] Trauma [] Long length of stay [] ICU visit [] Other: Relational/Emotional Strength [] Patient feels connected with others/family/visitors/staff [] Distress [] Loneliness/isolation [] Abandonment Spirituality of Patient [] Person of Sadie [] Attends Adventism of their Sadie [] Believes in Prayer [] Reads Bible or Mandaeism materials [] There are Spiritual issues to be addressed Assistant Editor Interventions [] Prayer [] Active listening [] Non-anxious presence [] Spiritual/emotional support [] Crisis/trauma care [] Spiritual counseling [] Bereavement support [] Provided bereavement packet [] Provided Bible/devotional materials [] Provided toy/stuffed animal, coloring book to patient or family member [] Provided Communion [] Anointing/Norris [] Salvation [] Completed spiritual assessment [] Other: Impact on Illness or Injury [] Angry [] Fearful [] Anxious [] Often cries [] Exhaustion [] Unable to work [] Unable to attend hindu [] Unable to walk/stand [] Unable to read [] Unable to drive [] Unable to eat/drink [] Unable to sleep [] Unable to be with family [] Patient intubated [] Other: Summary Time spent with patient
[2021-11-13] MEDS: ziprasidone 20 mg/mL SDV 5 MG IM ×2 (13:52→19:25)
[2021-11-13] MEDS: cefTRIAXone 1,000 MG in sodium chloride 0.9% (plus) 50 ML 100 MG IV (15:08)
[2021-11-13] MEDS: tamsulosin 0.4 mg Capsule PO (16:14)
--- NOTE | 2021-11-13 18:23 | PC.NURSE ---
Patient lung sounds are very full, gurgly and wheezing inspirations. Dr Maciel notified at this time.
[2021-11-13] MEDS: acetylcysteine 200 mg/mL SDV 4 mL INHALATION (20:07)
[2021-11-14] VITALS (17 sets, daily range): BP systolic 120–174; BP diastolic 60–71; PULSE 52–86; RESP 12–24; TEMP 36.4–37; O2SAT 94–100
[2021-11-14] MEDS: heparin 5,000 unit/mL INJ 1 mL 5000 UNIT SUBCUT ×2 (00:24→15:22)
--- NOTE | 2021-11-14 01:54 | PC.NURSE ---
11/13/20212137. informed of worsening breath sounds and wheezing. Per MD hold fluids
[2021-11-14 02:35] LABS: Basophils # 0.1 10^3/uL (0.0-0.1); Basophils % 0.5 %; Eosinophils # 1.3 10^3/uL (0.0-0.8); Eosinophils % 9.4 %; Hematocrit 29.4 % (42.0-52.0); Hemoglobin 9.2 g/dL (11.7-16.6); Lymphocytes # 1.5 10^3/uL (0.8-4.8); Lymphocytes % 10.3 %; Mean Corpuscular HGB Conc 31.3 g/dL (30.0-36.0); Mean Corpuscular Volume 89.4 fl (80-94); Mean Platelet Volume 11.2 fL (7.4-10.4); Monocytes % 7.4 %; Neutrophils # 10.14 10^3/uL (1.8-7.7); Neutrophils % 71.8 %; Nucleated Red Blood Cells % 0 %; Platelet Count 277 10^3/cmm (130-400); Red Blood Count 3.29 10^6/uL (4.1-5.3); Red Cell Distribution Width 15.9 % (12.1-15.1); White Blood Count 14.1 10^3/uL (4.0-10.0)
[2021-11-14] MEDS: ipratropium-albuterol 3 mL Neb INHALATION ×4 (02:38→20:39)
[2021-11-14] MEDS: acetylcysteine 200 mg/mL SDV 4 mL INHALATION ×4 (02:39→20:39)
[2021-11-14 02:55] LABS: Alanine Aminotransferase 66 U/L (0-41); Albumin Level 2.9 g/dL (3.5-5.2); Alkaline Phosphatase 54 IU/L (40-130); Anion Gap 12.2 (5-19); Aspartate Amino Transferase 140 U/L (0-40); Blood Urea Nitrogen 38 mg/dL (8-23); Calcium 11.6 mg/dL (8.5-10.5); Carbon Dioxide 25 mmol/L (22-29); Chloride 114 mmol/L (98-107); Globulin 3.2 g/dL (1.3-4.6); Glomerular Filtration Rate 40.3 mL/min (90-130); Glucose 100 mg/dL (65-115); Osmolality Calculated 313 mOsm/kg (285-295); Potassium 4.2 mmol/L (3.5-5.1); Sodium 147 mmol/L (136-145); Total Bilirubin 0.4 mg/dL (0.15-1.2); Total Protein 6.1 g/dL (6.6-8.7)
--- NOTE | 2021-11-14 03:09 | XRR_ITS ---
PROCEDURE INFORMATION: Exam: XR Chest Exam date and time: 11/14/2021 5:20 AM Age: 66 years old Clinical indication: Shortness of breath; Patient HX: PT unable to give history, SOB wheezing; Additional info: Rhonchi, AMS TECHNIQUE: Imaging protocol: Radiologic exam of the chest. Views: 1 view. Total images: 272 COMPARISON: CR (CHEST, ) 11/12/2021 10:27 PM FINDINGS: Lungs: No acute focal pulmonary opacities are detected. Pleural spaces: Unremarkable. No pleural effusion. No pneumothorax. Heart/Mediastinum: Mild cardiomegaly stable. Vasculature: Atherosclerosis is evident. Bones/joints: Osseous structures are unchanged from the prior exam. XR/XR chest 1V portable [id number] IMPRESSION: 1. Mild cardiomegaly stable. 2. No acute focal pulmonary opacities are detected.
[2021-11-14 03:16] LABS: Creatine Phosphokinase 3476 U/L (39-308)
--- NOTE | 2021-11-14 04:39 | ECG_ITS ---
[facility] Test Date: 2021-11-14 Pat Name: Omar Ta Department: Room: 253 Gender: Male Rural Carrier: : 1955 Requested By: Migel Pool Order Number: [id number] Reading MD: Graham Rosales M.D. Measurements Intervals [place] Rate: 95 P: NV: QRS: 80 QRSD: 96 T: 35 QT: 343 QTc: 432 Interpretive Statements ATRIAL FIBRILLATION NONSPECIFIC ST & T-WAVE ABNORMALITY Compared to ECG 11/12/2021 15:16:29 Sinus rhythm no longer present Incomplete right bundle-branch block no longer present T-wave abnormality still present Electronically Signed On 11-14-2021 18:01:12 CDT by Graham Rosales M.D. [id number]
--- NOTE | 2021-11-14 05:05 | USCV_ITS ---
Omar Ta Age: 66 Gender: M : 1955 Exam Date: 11/14/2021 07:50 Ordering Phys: Migel Pool MD Technologist: Leoncio Fox [place] [facility] [place]: chest pain BP: 167 / 86 HR: 61 Rhythm: Sinus Technical Quality: Adequate MEASUREMENTS (Male / Female) Normal Values 2D ECHO LV Diastolic Diameter PLAX 5.1 cm 4.2 - 5.9 / 3.9 - 5.3 cm LV Systolic Diameter PLAX 3.7 cm IVS Diastolic Thickness 1.3 cm 0.6 - 1.0 / 0.6 - 0.9 cm IVS Systolic Thickness 1.6 cm LVPW Diastolic Thickness 1.4 cm 0.6 - 1.0 / 0.6 - 0.9 cm LVPW Systolic Thickness 1.7 cm LVOT Diameter 2.1 cm LV Ejection Fraction 2D Teich 45.6 % LV Ejection Fraction MOD 2C 70.3 % LV Ejection Fraction 2C AL 70.2 % LA Diameter 4.9 cm Aorta at Sinotubular Diameter 3.3 cm IVC Diameter 1.7 cm M-MODE LV Diastolic Diameter MM 6.0 cm 4.2 - 5.9 / 3.9 - 5.3 cm LV Systolic Diameter MM 4.1 cm LV Ejection Fraction MM Teich 59.2 % IVS Diastolic Thickness MM 1.4 cm 0.6 - 1.0 / 0.6 - 0.9 cm IVS Systolic Thickness MM 2.1 cm LVPW Diastolic Thickness MM 1.6 cm 0.6 - 1.0 / 0.6 - 0.9 cm LVPW Systolic Thickness MM 2.4 cm RV Diastolic Diameter MM 2.1 cm Aortic Annulus Diameter 3.7 cm LA Ao Ratio MM 1.5 MV E Point Septal Separation 0.9 cm DOPPLER AV Peak Velocity 114.0 cm/s LVOT Peak Velocity 84.0 cm/s AV Area Cont Eq vti 3.2 cm squared AV Area Cont Eq pk 2.6 cm squared MV Area PHT 5.0 cm squared Mitral E to A Ratio 1.1 MV E' Velocity 40.5 cm/s Mitral E to MV E' Ratio 11.1 Mitral E to LV E' Lateral Ratio 13.5 Mitral E to LV E' Septal Ratio 9.4 TR Peak Velocity 157.3 cm/s TR Peak Gradient 9.9 mmHg TV Peak E Velocity 78.0 cm/s Right Atrial Pressure 3.0 mmHg Pulmonary Artery Systolic Pressu 12.9 mmHg PV Peak Velocity 142.0 cm/s FINDINGS Left Ventricle Normal left ventricular size. LV systolic function is normal with EF of 55-60%. No regional wall motion abnormalities. Right Ventricle The right ventricle is normal in size and function. Right Atrium The right atrium is normal in size. Normal RA pressure Left Atrium The left atrium is dilated Mitral Valve Structurally normal mitral valve without significant stenosis or prolapse. There is no mitral regurgitation. Aortic Valve Structurally normal aortic valve without significant sclerosis or stenosis. There is no aortic regurgitation. Tricuspid Valve Grossly normal without significant stenosis. Mild tricuspid regurgitation. Insufficient TR jet to calculate RVSP Pulmonic Valve Not visualized Pericardium Normal pericardium without effusion. Aorta Normal ascending aorta dimension. IVC CONCLUSIONS LV systolic function is normal with EF of 55 to 60%. Left atrium is dilated. Mild tricuspid regurgitation. Compared to prior echocardiogram from 08/24/2019, no significant changes are seen. Graham Rosales MD (Electronically Signed) Final Date: 22 November 2021 11:46 S
--- NOTE | 2021-11-14 05:16 | PC.NURSE ---
restraints removed 11/14/2021 0524
[2021-11-14 06:08] LABS: Troponin T (5th) Once 55 ng/L (0-15)
--- NOTE | 2021-11-14 06:19 | PC.NURSE ---
spoke with MD Corine about pt HR normalizing to sinus dylon to sinus rhythm. per MD hold amio gtt and transfer to ICU for csu stepdown bed for now. if pt HR returns to Afib greater than 100 or nonsustained v tach reoccurs to start amio and transfer.
[2021-11-14] MEDS: budesonide 0.5 mg/2 mL Neb 0.25 MG INHALATION ×2 (08:37→20:38)
[2021-11-14] MEDS: dilTIAZem ER (24HR) 240 mg Capsule PO (09:36)
[2021-11-14] MEDS: levothyroxine 100 mcg Tablet PO (09:36)
[2021-11-14] MEDS: hyDRALAzine 50 mg Tablet PO ×3 (09:36→21:03)
[2021-11-14] MEDS: thiamine 100 mg Tablet PO (09:37)
[2021-11-14] MEDS: dextrose 5% 1,000 ML 75 ML IV ×2 (09:51→21:02)
[2021-11-14] MEDS: metoprolol tartrate 50 mg Tablet PO (09:57)
--- NOTE | 2021-11-14 12:52 | PM.PN ---
Subjective Subjective: Patient was seen and examined this morning,had a rough last night, he was having multiple PVCs last night as well as 1 Episode of NSVT,he also went into a.fib, xray chest: has not shown any pulmonary vascular congestion as well as no infiltrates, EKG showed A.fib with non specific ST-T Wave changes, baseline troponin : 55 , patient continue to have significant confusion. BUN and serum creatinine is improving, CK is improving. Medications: Medication Review Details: Generic Name Dose Route Start Last Admin Trade Name Antonio PRN Reason Stop Dose Admin Albuterol/Ipratrop ium 3 ml 11/12/21 15:00 11/13/21 03:55 Ipratropium-Albu terol 3 Ml Neb INHALATION 3 ml Q6H.RESPIRATORY S CH Administration Budesonide 0.25 mg 11/12/21 21:40 11/12/21 22:39 Budesonide 0.5 M g/2 Ml Neb INHALATION 0.25 mg BID.RESPIRATORY S CH Administration Diltiazem HCl 240 mg 11/13/21 08:00 11/13/21 08:00 Diltiazem Er (24 hr) 240 Mg Capsule PO 240 mg DAILY@0800 MICHAEL Administration Guaifenesin 600 mg 11/12/21 18:00 11/13/21 08:01 Guaifenesin 600 Mg Tablet PO 600 mg BID MICHAEL Administration Heparin Sodium (Po rcine) 5,000 unit 11/12/21 12:30 11/13/21 00:19 Heparin 5,000 Un it/Ml Inj 1 Ml SUBCUT 5,000 unit Q12H MICHAEL Administration Hydralazine HCl 50 mg 11/13/21 09:00 11/13/21 08:40 Hydralazine 50 M g Tablet PO 50 mg TID MICHAEL Administration Ceftriaxone Sodium 1,000 mg/ 50 mls @ 100 mls/ hr 11/12/21 14:45 11/12/21 17:08 Sodium Chloride IV Infused Q24H MICHAEL Infusion Protocol Levothyroxine Sodi um 100 mcg 11/13/21 07:30 11/13/21 08:00 Levothyroxine 10 0 Mcg Tablet PO 100 mcg DAILY@0730 MICHAEL Administration Metoprolol Tartrat e 50 mg 11/12/21 16:00 11/13/21 08:01 Metoprolol Tartr ate 50 Mg Tablet PO 50 mg BID@0800,1600 [facility] Administration Tamsulosin HCl 0.4 mg 11/12/21 16:00 11/12/21 15:49 Tamsulosin 0.4 M g Capsule PO Not Given DAILY@1600 [facility] Thiamine Mononitra te 100 mg 11/13/21 09:00 11/13/21 08:01 Thiamine 100 Mg Tablet PO 100 mg DAILY MICHAEL Administration Vitals/I&O/Wt Last Vital Signs Temp 97.6 F 11/14/21 11:12 Pulse 52 L 11/14/21 11:12 Resp 19 H 11/14/21 11:12 BP 120/67 11/14/21 11:12 Pulse Ox 100 11/14/21 11:12 11/13/21 11/14/21 11/14/21 22:59 06:59 14:59 Intake Total 1170 / 2976.250 Output Total 500 / 500 500 / 1000 Balance 670 / 2476.250 -500 / 1976.250 Weight last 48 hrs Weight 101.514 kg Physical Exam HENMT: COMMON NORMALS: normocephalic and atraumatic HEAD & SCALP: normocephalic and atraumatic Eye: COMMON NORMALS: no scleral icterus GENERAL EYE: appearance normal, both eyes and all related structures Chest: COMMONS NORMALS: normal inspection of the chest and normal palpation of entire chest wall CHEST: Yes Symmetrical chest wall rise Resp: COMMON NORMALS: normal respiratory effort, No retractions, No use of accessory muscles and clear to auscultation bilaterally EFFORT & INSPECTION: Yes symmetric chest movement AUSCULTATION: clear to auscultation bilaterally Cardio: COMMON NORMALS: regular rate, regular rhythm, S1 normal heart sound present, S2 normal heart sound present, No gallops present (Cardio), No murmurs present (Cardio), No rub (Cardio) and Peripheral pulses 2+ throughout RATE: regular rate RHYTHM: regular rhythm HEART SOUNDS: S1 normal heart sound present and S2 normal heart sound present PERIPHERAL PULSES: Peripheral pulses 2+ throughout GI: COMMON NORMALS: Normal to inspection, nondistended, normoactive bowel sounds present, Soft to palpation, non-tender, No hepatosplenomegaly present and no masses AUSCULTATION: Yes normoactive bowel sounds PALPATION: Yes Soft to palpation and Yes No hepatosplenomegaly present RECTAL EXAM: Yes deferred Extremity: COMMON NORMALS: no clubbing, cyanosis or edema and no pedal edema Urinary Catheter Management: Lopes: Cath Placed During This Visit: yes Reason for Continuing Indwelling Catheter: Acute Urinary Retention or Obstruction Urinary Catheter Date of Insertion: 11/12/21 Urinary Catheter Time of Insertion: 11:57 Data : 11/14/21 01:38 11/14/21 01:38 Micro: Microbiology 11/12/21 11:50 Urine Culture - Final Urine,Clean Catch 11/12/21 17:04 Blood Culture - Preliminary Blood NEGATIVE TO DATE 11/12/21 15:34 Blood Culture - Preliminary Blood NEGATIVE TO DATE A&P Assessment and plan (1) Rhabdomyolysis: Status: Acute (2) Chronic acquired lymphedema: Status: Acute (3) Chronic hepatitis C: Status: Acute (4) COPD (chronic obstructive pulmonary disease): Status: Acute Qualifiers: COPD type: unspecified COPD Qualified Code(s): J44.9 - Chronic obstructive pulmonary disease, unspecified (5) (HFpEF) heart failure with preserved ejection fraction: Status: Acute (6) Acute kidney injury superimposed on CKD: Status: Acute (7) UTI (urinary tract infection): Status: Acute (8) Leukocytosis: Status: Acute (9) Anemia: Status: Acute (10) Hypothyroidism: Status: Acute (11) MADDI (obstructive sleep apnea): Status: Acute (12) Hypernatremia: Status: Acute (13) Atrial fibrillation: Status: Acute Plan 66 year old male with PMH of COPD ON 4LS home oxygen, HFpEF, HTN, Hypothyroidism, chronic hepc , MADDI,PVD, was brought from home by the EMS after he was found down at home. Assessment : AMS Likely 2/2 GIULIANO,UTI,Rhabdomyplysis GIULIANO ON CKD: Likely pre renaL GIULIANO Rhabdomyolysis Transient Atrial Fibrillation NSVT Hypernatremia UTI Leukocytosis Anemia HTN HFpEF (Compenstaed ) Hypothyroidism chronic hep c MADDI Plan : Blood Culture : NTD Urine culture : NTS Procalcitonin: Normal Random Urine Na: 14 Random Urine CR:218 Random urine Protein: 64 UPCR: 0.3 G/DAY Urine protein: Negative Fena : Prerenal Renal ultrasound :No hydronephrosis 2D Echo : Monitor BMP Monitor Intake output /Charting Avoid Nephrotoxics Continue I.V Hydration with D5W@75cc/hr TSH: 6.38 Anemia Panel: Serum iron 30, serum ferritin:782, tibc : 181, percent saturation: 16 , transferrin:166 B12:504 and folic Acid : 6.5 Continue Ceftriaxone for now. Continue Levothyroxine Code Status : Full code DVT PPX: On lovenox Attestations Medical Necessity Statement*: Patient needs to be in hospital for the management of AMS. Time Spent in Patient Care: Greater than 35 minutes Coding Level of Care Code Acute Lining Scrubber for Chg Fwd Exam Detailed Diagnoses Rhabdomyolysis M62.82 Chronic acquired lymphedema I89.0 Chronic hepatitis C B18.2 COPD (chronic obstructive pulmonary disease) J44.9 COPD type: unspecified COPD (HFpEF) heart failure with preserved ejection fraction I50.30 Acute kidney injury superimposed on CKD N17.9; N18.9 UTI (urinary tract infection) N39.0 Leukocytosis D72.829 Anemia D64.9 Hypothyroidism E03.9 MADDI (obstructive sleep apnea) G47.33 Hypernatremia E87.0 Atrial fibrillation I48.91
[2021-11-14] MEDS: cefTRIAXone 1,000 MG in sodium chloride 0.9% (plus) 50 ML 100 MG IV (15:22)
[2021-11-14] MEDS: tamsulosin 0.4 mg Capsule PO (15:22)
--- NOTE | 2021-11-14 19:17 | PC.NURSE ---
Report to night club manager nurse
[2021-11-15] VITALS (12 sets, daily range): BP systolic 115–164; BP diastolic 49–75; PULSE 57–83; RESP 15–20; TEMP 36.2–36.8; O2SAT 90–99
[2021-11-15] MEDS: heparin 5,000 unit/mL INJ 1 mL 5000 UNIT SUBCUT ×2 (00:01→13:01)
[2021-11-15] MEDS: ipratropium-albuterol 3 mL Neb INHALATION ×4 (02:22→20:33)
[2021-11-15] MEDS: acetylcysteine 200 mg/mL SDV 4 mL INHALATION ×4 (02:22→20:32)
[2021-11-15 05:50] LABS: Basophils % 0.2 %; Eosinophils % 0.1 %; Hemoglobin 9.3 g/dL (11.7-16.6); Lymphocytes # 0.5 10^3/uL (0.8-4.8); Lymphocytes % 3.7 %; Mean Corpuscular HGB Conc 32.1 g/dL (30.0-36.0); Mean Corpuscular Hemoglobin 28.4 pg (28.0-34.0); Mean Corpuscular Volume 88.4 fl (80-94); Mean Platelet Volume 11.2 fL (7.4-10.4); Monocytes # 0.2 10^3/uL (0.2-0.9); Monocytes % 1.7 %; Neutrophils # 12.98 10^3/uL (1.8-7.7); Neutrophils % 93.2 %; Nucleated Red Blood Cells % 0 %; Platelet Count 262 10^3/cmm (130-400); Red Blood Count 3.28 10^6/uL (4.1-5.3); White Blood Count 13.9 10^3/uL (4.0-10.0)
[2021-11-15 06:12] LABS: Alanine Aminotransferase 63 U/L (0-41); Alkaline Phosphatase 54 IU/L (40-130); Anion Gap 16.2 (5-19); Aspartate Amino Transferase 68 U/L (0-40); Blood Urea Nitrogen 39 mg/dL (8-23); Calcium 10.8 mg/dL (8.5-10.5); Carbon Dioxide 23 mmol/L (22-29); Chloride 108 mmol/L (98-107); Globulin 3.4 g/dL (1.3-4.6); Glomerular Filtration Rate 50.4 mL/min (90-130); Glucose 203 mg/dL (65-115); Osmolality Calculated 311 mOsm/kg (285-295); Potassium 4.2 mmol/L (3.5-5.1); Sodium 143 mmol/L (136-145); Total Bilirubin 0.3 mg/dL (0.15-1.2); Total Protein 6.4 g/dL (6.6-8.7)
[2021-11-15 06:14] LABS: Creatine Phosphokinase 1019 U/L (39-308)
[2021-11-15] MEDS: dilTIAZem ER (24HR) 240 mg Capsule PO (08:07)
[2021-11-15] MEDS: thiamine 100 mg Tablet PO (08:07)
[2021-11-15] MEDS: levothyroxine 100 mcg Tablet PO (08:07)
[2021-11-15] MEDS: hyDRALAzine 50 mg Tablet PO ×3 (08:07→20:51)
[2021-11-15] MEDS: guaiFENesin 600 mg Tablet PO ×2 (08:07→17:01)
[2021-11-15] MEDS: sodium chloride 0.9% 1,000 ML 75 ML IV ×2 (08:34→21:59)
[2021-11-15] MEDS: budesonide 0.5 mg/2 mL Neb 0.25 MG INHALATION ×2 (09:18→20:31)
--- NOTE | 2021-11-15 12:09 | PM.PN ---
Subjective Subjective: Patient was seen and examined this morning,he was much more alert awake and oriented today,he was asking when he was admitted, he was able to recall that he fell at home, was not able to outline how he felt,he also told that his medical records are at [place],told that lately at home he is felling weak and unsteady. He also wanted to eat today as he was felling hungry. His labs are improving, hypernatremia has resolved, CK has continued to trend down ,BUN and SCR has continued to improve. Medications: Medication Review Details: Generic Name Dose Route Start Last Admin Trade Name Freq PRN Reason Stop Dose Admin Albuterol/Ipratrop ium 3 ml 11/12/21 15:00 11/13/21 03:55 Ipratropium-Albu terol 3 Ml Neb INHALATION 3 ml Q6H.RESPIRATORY S CH Administration Budesonide 0.25 mg 11/12/21 21:40 11/12/21 22:39 Budesonide 0.5 M g/2 Ml Neb INHALATION 0.25 mg BID.RESPIRATORY S CH Administration Diltiazem HCl 240 mg 11/13/21 08:00 11/13/21 08:00 Diltiazem Er (24 hr) 240 Mg Capsule PO 240 mg DAILY@0800 MICHAEL Administration Guaifenesin 600 mg 11/12/21 18:00 11/13/21 08:01 Guaifenesin 600 Mg Tablet PO 600 mg BID MICHAEL Administration Heparin Sodium (Po rcine) 5,000 unit 11/12/21 12:30 11/13/21 00:19 Heparin 5,000 Un it/Ml Inj 1 Ml SUBCUT 5,000 unit Q12H MICHAEL Administration Hydralazine HCl 50 mg 11/13/21 09:00 11/13/21 08:40 Hydralazine 50 M g Tablet PO 50 mg TID MICHAEL Administration Ceftriaxone Sodium 1,000 mg/ 50 mls @ 100 mls/ hr 11/12/21 14:45 11/12/21 17:08 Sodium Chloride IV Infused Q24H MICHAEL Infusion Protocol Levothyroxine Sodi um 100 mcg 11/13/21 07:30 11/13/21 08:00 Levothyroxine 10 0 Mcg Tablet PO 100 mcg DAILY@0730 MICHAEL Administration Metoprolol Tartrat e 50 mg 11/12/21 16:00 11/13/21 08:01 Metoprolol Tartr ate 50 Mg Tablet PO 50 mg BID@0800,1600 [facility] Administration Tamsulosin HCl 0.4 mg 11/12/21 16:00 11/12/21 15:49 Tamsulosin 0.4 M g Capsule PO Not Given DAILY@1600 [facility] Thiamine Mononitra te 100 mg 11/13/21 09:00 11/13/21 08:01 Thiamine 100 Mg Tablet PO 100 mg DAILY [facility] Administration Vitals/I&O/Wt Last Vital Signs Temp 98.0 F 11/15/21 11:52 Pulse 68 11/15/21 11:52 Resp 16 11/15/21 11:52 BP 154/66 11/15/21 11:52 Pulse Ox 98 11/15/21 11:52 11/14/21 11/15/21 11/15/21 22:59 06:59 14:59 Intake Total 958.75 / 958.75 911.25 / 911.25 Output Total 300 / 300 250 / 550 Balance 658.75 / 658.75 -250 / 408.75 911.25 / 911.25 Physical Exam HENMT: COMMON NORMALS: normocephalic and atraumatic HEAD & SCALP: normocephalic and atraumatic Eye: COMMON NORMALS: no scleral icterus GENERAL EYE: appearance normal, both eyes and all related structures Chest: COMMONS NORMALS: normal inspection of the chest and normal palpation of entire chest wall CHEST: Yes Symmetrical chest wall rise Resp: COMMON NORMALS: normal respiratory effort, No retractions, No use of accessory muscles and clear to auscultation bilaterally EFFORT & INSPECTION: Yes symmetric chest movement AUSCULTATION: clear to auscultation bilaterally Cardio: COMMON NORMALS: regular rate, regular rhythm, S1 normal heart sound present, S2 normal heart sound present, No gallops present (Cardio), No murmurs present (Cardio), No rub (Cardio) and Peripheral pulses 2+ throughout RATE: regular rate RHYTHM: regular rhythm HEART SOUNDS: S1 normal heart sound present and S2 normal heart sound present PERIPHERAL PULSES: Peripheral pulses 2+ throughout GI: COMMON NORMALS: Normal to inspection, nondistended, normoactive bowel sounds present, Soft to palpation, non-tender, No hepatosplenomegaly present and no masses AUSCULTATION: Yes normoactive bowel sounds PALPATION: Yes Soft to palpation and Yes No hepatosplenomegaly present RECTAL EXAM: Yes deferred Extremity: COMMON NORMALS: no clubbing, cyanosis or edema and no pedal edema Urinary Catheter Management: Lopes: Cath Placed During This Visit: yes Reason for Continuing Indwelling Catheter: Acute Urinary Retention or Obstruction Urinary Catheter Date of Insertion: 11/12/21 Urinary Catheter Time of Insertion: 11:57 Data : 11/15/21 05:15 11/15/21 05:15 Micro: Microbiology 11/12/21 11:50 Urine Culture - Final Urine,Clean Catch A&P Assessment and plan (1) Rhabdomyolysis: Status: Acute (2) Chronic acquired lymphedema: Status: Acute (3) Chronic hepatitis C: Status: Acute (4) COPD (chronic obstructive pulmonary disease): Status: Acute Qualifiers: COPD type: unspecified COPD Qualified Code(s): J44.9 - Chronic obstructive pulmonary disease, unspecified (5) (HFpEF) heart failure with preserved ejection fraction: Status: Acute (6) Acute kidney injury superimposed on CKD: Status: Acute (7) UTI (urinary tract infection): Status: Acute (8) Leukocytosis: Status: Acute (9) Anemia: Status: Acute (10) Hypothyroidism: Status: Acute (11) MADDI (obstructive sleep apnea): Status: Acute (12) Hypernatremia: Status: Acute (13) Atrial fibrillation: Status: Acute Plan 66 year old male with PMH of COPD ON 4LS home oxygen, HFpEF, HTN, Hypothyroidism, chronic hepc , MADDI,COPD On 4ls home oxygen, PVD, was brought from home by the EMS after he was found down at home. Assessment : AMS Likely 2/2 GIULIANO,UTI,Rhabdomyplysis GIULIANO ON CKD: Likely pre renaL GIULIANO Rhabdomyolysis Transient Atrial Fibrillation NSVT Hypernatremia UTI Leukocytosis Anemia HTN HFpEF (Compenstaed ) Hypothyroidism chronic hep c MADDI COPD Plan : Blood Culture : Negative Urine culture : Negative Procalcitonin: Normal Random Urine Na: 14 Random Urine CR:218 Random urine Protein: 64 UPCR: 0.3 G/DAY Urine protein: Negative Fena : Prerenal Renal ultrasound :No hydronephrosis 2D Echo : Monitor BMP Monitor Intake output /Charting Avoid Nephrotoxics Continue I.V Hydration with Ns @75cc/hr TSH: 6.38 Anemia Panel: Serum iron 30, serum ferritin:782, tibc : 181, percent saturation: 16 , transferrin:166 B12:504 and folic Acid : 6.5 Continue Ceftriaxone for now. Continue Levothyroxine Code Status : Full code DVT PPX: On lovenox Attestations Medical Necessity Statement*: Patient needs to be in hospital for the management of AMS,GIULIANO,Rhabdomyolysis. Coding Level of Care Code Acute Decal Applier for Chg Fwd Exam Detailed Diagnoses Rhabdomyolysis M62.82 Chronic acquired lymphedema I89.0 Chronic hepatitis C B18.2 COPD (chronic obstructive pulmonary disease) J44.9 COPD type: unspecified COPD (HFpEF) heart failure with preserved ejection fraction I50.30 Acute kidney injury superimposed on CKD N17.9; N18.9 UTI (urinary tract infection) N39.0 Leukocytosis D72.829 Anemia D64.9 Hypothyroidism E03.9 MADDI (obstructive sleep apnea) G47.33 Hypernatremia E87.0 Atrial fibrillation I48.91
--- NOTE | 2021-11-15 12:23 | ECG_ITS ---
[facility] Test Date: 2021-11-15 Pat Name: Omar Ta Department: Room: 253 Gender: Male Behavioral Services Tech: : 1955 Requested By: Mark Maciel Order Number: [id number] Leann MD: Sivakumar Houston M.D. Measurements Intervals [place] Rate: 69 P: -49 NC: 114 QRS: 62 QRSD: 93 T: 0 QT: 340 QTc: 366 Interpretive Statements SINUS RHYTHM WITH SHORT NC INTERVAL NONSPECIFIC ST & T-WAVE ABNORMALITY Compared to ECG 11/14/2021 04:47:04 Short NC interval now present Atrial fibrillation no longer present T-wave abnormality still present Electronically Signed On 11-15-2021 19:26:47 CDT by Sivakumar Houston M.D. [email or web address], [id number]
--- NOTE | 2021-11-15 13:59 | PC.SOCIAL ---
Pg 2 IMM Explained to pt Pg 2 IMM. No questions voiced. Provided pt a copy. Initialed, dated, & timed a copy & placed in chart.
[2021-11-15] MEDS: LORazepam 2 mg/mL INJ 1 mL 1 MG IVP (14:09)
[2021-11-15] MEDS: cefTRIAXone 1,000 MG in sodium chloride 0.9% (plus) 50 ML 100 MG IV (14:10)
[2021-11-15] MEDS: tamsulosin 0.4 mg Capsule PO (15:57)
[2021-11-15] MEDS: ziprasidone 20 mg/mL SDV 5 MG IM (15:57)
--- NOTE | 2021-11-15 17:32 | PC.NURSE ---
Patient sitting on edge of bed most of shift, disagreeable to laying in bed or sitting in chair. Patient is uncooperative and has had episodes of impulsivness and agitation. Sitter at bedside, Patient began AM more alert and oriented than what was stated in report but as the day has progressed he has become alert but only oriented to self, confused and inappropriate thoughts. Cantu is in place and patent with needing constant reminders to leave cantu and PIV alone. Room is clean and clutter free with call light in reach. Family updated via phone.
[2021-11-16] VITALS (15 sets, daily range): BP systolic 114–156; BP diastolic 62–78; PULSE 55–89; RESP 13–21; TEMP 36.3–36.8; O2SAT 93–99
[2021-11-16] MEDS: heparin 5,000 unit/mL INJ 1 mL 5000 UNIT SUBCUT ×3 (00:13→23:38)
--- NOTE | 2021-11-16 06:23 | PC.NURSE ---
unable to read cardiac strips due to leads not appropriately placed and patient refused to have it fixed
[2021-11-16] MEDS: levothyroxine 100 mcg Tablet PO (06:33)
[2021-11-16] MEDS: thiamine 100 mg Tablet PO (08:42)
[2021-11-16] MEDS: dilTIAZem ER (24HR) 240 mg Capsule PO (08:43)
[2021-11-16] MEDS: guaiFENesin 600 mg Tablet PO ×2 (08:43→17:18)
[2021-11-16] MEDS: hyDRALAzine 50 mg Tablet PO ×3 (08:43→20:27)
[2021-11-16] MEDS: acetylcysteine 200 mg/mL SDV 4 mL INHALATION ×2 (09:40→14:43)
[2021-11-16] MEDS: ipratropium-albuterol 3 mL Neb INHALATION ×3 (09:40→21:07)
[2021-11-16] MEDS: budesonide 0.5 mg/2 mL Neb 0.25 MG INHALATION ×2 (09:40→21:07)
[2021-11-16 10:47] LABS: Basophils % 0.2 %; Hematocrit 31.2 % (42.0-52.0); Hemoglobin 9.8 g/dL (11.7-16.6); Lymphocytes # 0.6 10^3/uL (0.8-4.8); Lymphocytes % 2.7 %; Mean Corpuscular HGB Conc 31.4 g/dL (30.0-36.0); Mean Corpuscular Hemoglobin 28.8 pg (28.0-34.0); Mean Corpuscular Volume 91.8 fl (80-94); Mean Platelet Volume 10.7 fL (7.4-10.4); Monocytes # 0.7 10^3/uL (0.2-0.9); Monocytes % 3.3 %; Neutrophils # 19.93 10^3/uL (1.8-7.7); Neutrophils % 91.8 %; Nucleated Red Blood Cells % 0 %; Platelet Count 265 10^3/cmm (130-400); Red Cell Distribution Width 16.4 % (12.1-15.1); White Blood Count 21.7 10^3/uL (4.0-10.0)
[2021-11-16 11:11] LABS: Anion Gap 15.3 (5-19); Blood Urea Nitrogen 44 mg/dL (8-23); Calcium 10.6 mg/dL (8.5-10.5); Carbon Dioxide 24 mmol/L (22-29); Chloride 106 mmol/L (98-107); Glomerular Filtration Rate 46.5 mL/min (90-130); Glucose 197 mg/dL (65-115); Osmolality Calculated 309 mOsm/kg (285-295); Potassium 4.3 mmol/L (3.5-5.1); Sodium 141 mmol/L (136-145)
[2021-11-16 11:17] LABS: Creatine Phosphokinase 928 U/L (39-308)
--- NOTE | 2021-11-16 12:00 | P.PN_ITS ---
Subjective Subjective: Patient still has some element of confusion/Delirium particularly towards the later half of the day.possible some element of sun dowing Needing geodon to calm him down. Today in the morning he wanted his cantu catheter to be taken out as he was not very comfortable with it.He also had 1 Episode of fall today,likely mechanical , no apparent injuries.CK has continued to trend down as well. Medications: Medication Review Details: Generic Name Dose Route Start Last Admin Trade Name Antonio PRN Reason Stop Dose Admin Albuterol/Ipratrop ium 3 ml 11/12/21 15:00 11/13/21 03:55 Ipratropium-Albu terol 3 Ml Neb INHALATION 3 ml Q6H.RESPIRATORY S CH Administration Budesonide 0.25 mg 11/12/21 21:40 11/12/21 22:39 Budesonide 0.5 M g/2 Ml Neb INHALATION 0.25 mg BID.RESPIRATORY S CH Administration Diltiazem HCl 240 mg 11/13/21 08:00 11/13/21 08:00 Diltiazem Er (24 hr) 240 Mg Capsule PO 240 mg DAILY@0800 MICHAEL Administration Guaifenesin 600 mg 11/12/21 18:00 11/13/21 08:01 Guaifenesin 600 Mg Tablet PO 600 mg BID MICHAEL Administration Heparin Sodium (Po rcine) 5,000 unit 11/12/21 12:30 11/13/21 00:19 Heparin 5,000 Un it/Ml Inj 1 Ml SUBCUT 5,000 unit Q12H MICHAEL Administration Hydralazine HCl 50 mg 11/13/21 09:00 11/13/21 08:40 Hydralazine 50 M g Tablet PO 50 mg TID MICHAEL Administration Ceftriaxone Sodium 1,000 mg/ 50 mls @ 100 mls/ hr 11/12/21 14:45 11/12/21 17:08 Sodium Chloride IV Infused Q24H MICHAEL Infusion Protocol Levothyroxine Sodi um 100 mcg 11/13/21 07:30 11/13/21 08:00 Levothyroxine 10 0 Mcg Tablet PO 100 mcg DAILY@0730 MICHAEL Administration Metoprolol Tartrat e 50 mg 11/12/21 16:00 11/13/21 08:01 Metoprolol Tartr ate 50 Mg Tablet PO 50 mg BID@0800,1600 MICHAEL Administration Tamsulosin HCl 0.4 mg 11/12/21 16:00 11/12/21 15:49 Tamsulosin 0.4 M g Capsule PO Not Given DAILY@1600 [facility] Thiamine Mononitra te 100 mg 11/13/21 09:00 11/13/21 08:01 Thiamine 100 Mg Tablet PO 100 mg DAILY [facility] Administration Vitals/I&O/Wt Last Vital Signs Temp 97.6 F 11/16/21 11:34 Pulse 68 11/16/21 11:34 Resp 18 11/16/21 11:34 BP 114/62 11/16/21 11:34 Pulse Ox 99 11/16/21 11:34 11/15/21 11/16/21 11/16/21 22:59 06:59 14:59 Intake Total 1540 / 2621.25 120 / 120 Output Total 600 / 600 275 / 875 Balance 940 / 2020.25 -275 / 1746.25 120 / 120 Physical Exam HENMT: COMMON NORMALS: normocephalic and atraumatic HEAD & SCALP: normocephalic and atraumatic Eye: COMMON NORMALS: no scleral icterus GENERAL EYE: appearance normal, both eyes and all related structures Chest: COMMONS NORMALS: normal inspection of the chest and normal palpation of entire chest wall CHEST: Yes Symmetrical chest wall rise Resp: COMMON NORMALS: normal respiratory effort, No retractions, No use of accessory muscles and clear to auscultation bilaterally EFFORT & INSPECTION: Yes symmetric chest movement AUSCULTATION: clear to auscultation bilaterally Cardio: COMMON NORMALS: regular rate, regular rhythm, S1 normal heart sound present, S2 normal heart sound present, No gallops present (Cardio), No murmurs present (Cardio), No rub (Cardio) and Peripheral pulses 2+ throughout RATE: regular rate RHYTHM: regular rhythm HEART SOUNDS: S1 normal heart sound present and S2 normal heart sound present PERIPHERAL PULSES: Peripheral pulses 2+ throughout GI: COMMON NORMALS: Normal to inspection, nondistended, normoactive bowel sounds present, Soft to palpation, non-tender, No hepatosplenomegaly present and no masses AUSCULTATION: Yes normoactive bowel sounds PALPATION: Yes Soft to palpation and Yes No hepatosplenomegaly present RECTAL EXAM: Yes deferred Extremity: COMMON NORMALS: no clubbing, cyanosis or edema and no pedal edema Urinary Catheter Management: Cantu: Cath Placed During This Visit: yes Reason for Continuing Indwelling Catheter: Acute Urinary Retention or Obstruction Urinary Catheter Date of Insertion: 11/12/21 Urinary Catheter Time of Insertion: 11:57 Data : 11/16/21 10:38 11/16/21 10:38 A&P Assessment and plan (1) Rhabdomyolysis: Status: Acute (2) Chronic acquired lymphedema: Status: Acute (3) Chronic hepatitis C: Status: Acute (4) COPD (chronic obstructive pulmonary disease): Status: Acute Qualifiers: COPD type: unspecified COPD Qualified Code(s): J44.9 - Chronic obstructive pulmonary disease, unspecified (5) (HFpEF) heart failure with preserved ejection fraction: Status: Acute (6) Acute kidney injury superimposed on CKD: Status: Acute (7) UTI (urinary tract infection): Status: Acute (8) Leukocytosis: Status: Acute (9) Anemia: Status: Acute (10) Hypothyroidism: Status: Acute (11) MADDI (obstructive sleep apnea): Status: Acute (12) Hypernatremia: Status: Acute (13) Atrial fibrillation: Status: Acute Plan 66 year old male with PMH of COPD ON 4LS home oxygen, HFpEF, HTN, Hypothyroidism, chronic hepc , MADDI,COPD On 4ls home oxygen, PVD, was brought fro m home by the EMS after he was found down at home. Assessment : AMS Likely 2/2 GIULIANO,UTI,Rhabdomyplysis GIULIANO ON CKD: Likely pre renaL GIULIANO Rhabdomyolysis Transient Atrial Fibrillation NSVT Hypernatremia UTI Leukocytosis Anemia HTN HFpEF (Compenstaed ) Hypothyroidism chronic hep c MADDI COPD Plan : Blood Culture : Negative Urine culture : Negative Procalcitonin: Normal Random Urine Na: 14 Random Urine CR:218 Random urine Protein: 64 UPCR: 0.3 G/DAY Urine protein: Negative Fena : Prerenal Renal ultrasound :No hydronephrosis 2D Echo : Monitor BMP Monitor Intake output /Charting Avoid Nephrotoxics Continue I.V Hydration with Ns @75cc/hr TSH: 6.38 Anemia Panel: Serum iron 30, serum ferritin:782, tibc : 181, percent saturation: 16 , transferrin:166 B12:504 and folic Acid : 6.5 Continue Ceftriaxone for now. Continue Levothyroxine Code Status : Full code DVT PPX: On lovenox Attestations Medical Necessity Statement*: Patient is still in hospital for management of altered mental status, GIULIANO rhabdo. Coding Level of Care Code Acute Survey Research Professor for Chg Fwd Exam Detailed Diagnoses Rhabdomyolysis M62.82 Chronic acquired lymphedema I89.0 Chronic hepatitis C B18.2 COPD (chronic obstructive pulmonary disease) J44.9 COPD type: unspecified COPD (HFpEF) heart failure with preserved ejection fraction I50.30 Acute kidney injury superimposed on CKD N17.9; N18.9 UTI (urinary tract infection) N39.0 Leukocytosis D72.829 Anemia D64.9 Hypothyroidism E03.9 MADDI (obstructive sleep apnea) G47.33 Hypernatremia E87.0 Atrial fibrillation I48.91
[2021-11-16] MEDS: sodium chloride 0.9% 1,000 ML 50 ML IV (13:08)
--- NOTE | 2021-11-16 13:55 | PC.NURSE ---
pt observed on the floor by the bed. Pt reported , I was trying to look in my dresser. Patient sitter in the room at time of incident. Bed alarm was not on, bed alarm turned on after incident. Patient denied pain. No aparent injury present. Physician notified. No new orders given at this time. Pt resting quietly in bed
[2021-11-16] MEDS: cefTRIAXone 1,000 MG in sodium chloride 0.9% (plus) 50 ML 100 MG IV (15:14)
[2021-11-16] MEDS: tamsulosin 0.4 mg Capsule PO (17:18)
[2021-11-17] VITALS (10 sets, daily range): BP systolic 132–173; BP diastolic 65–85; PULSE 65–123; RESP 18; TEMP 36.4–37.2; O2SAT 92–100
[2021-11-17] MEDS: ipratropium-albuterol 3 mL Neb INHALATION ×2 (03:34→09:30)
[2021-11-17 05:57] LABS: Basophils # 0.1 10^3/uL (0.0-0.1); Basophils % 0.2 %; Eosinophils % 0.1 %; Hematocrit 29.2 % (42.0-52.0); Hemoglobin 9.5 g/dL (11.7-16.6); Lymphocytes # 0.7 10^3/uL (0.8-4.8); Lymphocytes % 3.3 %; Mean Corpuscular HGB Conc 32.5 g/dL (30.0-36.0); Mean Corpuscular Hemoglobin 28.4 pg (28.0-34.0); Mean Corpuscular Volume 87.4 fl (80-94); Mean Platelet Volume 11.3 fL (7.4-10.4); Monocytes # 1.2 10^3/uL (0.2-0.9); Monocytes % 5.2 %; Neutrophils # 19.82 10^3/uL (1.8-7.7); Neutrophils % 87.4 %; Nucleated Red Blood Cells % 0.1 %; Platelet Count 231 10^3/cmm (130-400); Red Blood Count 3.34 10^6/uL (4.1-5.3); Red Cell Distribution Width 16.6 % (12.1-15.1); White Blood Count 22.7 10^3/uL (4.0-10.0)
[2021-11-17 06:14] LABS: Blood Urea Nitrogen 42 mg/dL (8-23); Calcium 10.4 mg/dL (8.5-10.5); Carbon Dioxide 23 mmol/L (22-29); Chloride 109 mmol/L (98-107); Glomerular Filtration Rate 66.6 mL/min (90-130); Glucose 159 mg/dL (65-115); Osmolality Calculated 308 mOsm/kg (285-295); Sodium 142 mmol/L (136-145)
[2021-11-17] MEDS: levothyroxine 100 mcg Tablet PO (06:29)
[2021-11-17] MEDS: budesonide 0.5 mg/2 mL Neb 0.25 MG INHALATION (09:30)
[2021-11-17] MEDS: dilTIAZem ER (24HR) 180 mg Capsule PO (09:31)
[2021-11-17] MEDS: hyDRALAzine 50 mg Tablet PO (09:31)
[2021-11-17] MEDS: guaiFENesin 600 mg Tablet PO (09:31)
[2021-11-17] MEDS: predniSONE 1 mg Tablet 4 MG PO (09:32)
[2021-11-17] MEDS: thiamine 100 mg Tablet PO (09:32)
--- NOTE | 2021-11-17 10:34 | PC.NURSE ---
This nurse retrieved wallet out of [facility] and gave to
--- NOTE | 2021-11-17 11:09 | P.DS_ITS ---
Discharge Providers Date of Admission: 11/12/21 11:22 Date of Discharge: November 17, 2021 Attending Provider at Admission: Mark Maciel MD Attending Provider at Discharge: Mark Maciel MD Primary Care Provider: Sun Bello MD Diagnoses at Discharge Discharge Diagnosis (1) Rhabdomyolysis: (2) Chronic acquired lymphedema: (3) Chronic hepatitis C: (4) COPD (chronic obstructive pulmonary disease): Qualifiers: COPD type: unspecified COPD Qualified Code(s): J44.9 - Chronic obstructive pulmonary disease, unspecified Permanent problem details: oxygen-dependent, 4 L at baseline (5) (HFpEF) heart failure with preserved ejection fraction: (6) Acute kidney injury superimposed on CKD: (7) UTI (urinary tract infection): (8) Leukocytosis: (9) Anemia: (10) Hypothyroidism: (11) MADDI (obstructive sleep apnea): (12) Hypernatremia: (13) Atrial fibrillation: Reason for Visit Reason for Visit: AMS/FOUND IN FLOOR Hospital Course Hospital Course Omar Ta is a 66 year old male with PMH of COPD ON 4LS home oxygen, HFpEF, HTN, Hypothyroidism, chronic hepc , MADDI,PVD, alcohol abuse has been sober since May this year,? was brought from home by the EMS after he was found down at home, when i interacted with the patient he says i am not aware of the circumstances in which i was found down, he says that he has been not felling well for the last 4 days, and has also not seen his G,F for the last 4 days,he was complaining of pain while passing urine,denied any chest pain,sob,abdominal pain,nausea,vomiting,fever. Upon arrival in the ER Pertinent Imaging studies included: Xray chest : No infiltrates,no effusion, no PTX C.T Head without contrast :No acute intracranical pathology Pertinent Labs : WBC : 15.3 , H&H : 10/33, PLT : 289 , Na: 142, k: 4.3 , BUN/SCR: 49/2.8 , RBS: 135 , Lactic acid :1.5 , Ammonia:13 , CK: 8809 Pro BNP: 4499 , Troponin : 78,80 Urine Analysis : Urine Bcateria : 2+ , Urine WBC : 5-10. Hospital course : Patient was admitted for the management of : AMS Likely 2/2 GIULIANO,UTI,Rhabdomyplysis, GIULIANO ON CKD: Likely pre renaL GIULIANO? Rhabdomyolysis, UTI, Leukocytosis, Anemia, HTN, HFpEF ([place] ),Hypoth yroidism , chronic hep c?,MADDI. Patient was kept of I.V Hydration, abx , Blood Culture : Negative,cUrine culture : Negative?,Procalcitonin: Normal Random Urine Na: 14,Random Urine CR:218,Random urine Protein: 64,UPCR: 0.3 G/DAY,Urine protein: Negative Fena : Prerenal,Renal ultrasound :No hydronephrosis,2D Echo :LV systolic function is normal with EF of 55 to 60%.?Left atrium is dilated. Mild tricuspid regurgitation.BMP was monitored , Intake output /Charting was done, CK was monitored , he responded well to above medical management at the time of discharge giuliano has resoved , rhabdomyolysis has resolved, he was at his baseline mentation. His lisinopril and lasix was kept on hold,he responded well to above medical management and was discharged in stable condition. He was asked to follow with his pcp as outpatient. Physical Exam HENMT: COMMON NORMALS: normocephalic and atraumatic HEAD & SCALP: normocephalic and atraumatic Eye: COMMON NORMALS: no scleral icterus GENERAL EYE: appearance normal, both eyes and all related structures Chest: COMMONS NORMALS: normal inspection of the chest and normal palpation of entire chest wall CHEST: Yes Symmetrical chest wall rise Resp: COMMON NORMALS: normal respiratory effort, No retractions, No use of accessory muscles and clear to auscultation bilaterally EFFORT & INSPECTION: Yes symmetric chest movement AUSCULTATION: clear to auscultation bilaterally Cardio: COMMON NORMALS: regular rate, regular rhythm, S1 normal heart sound present, S2 normal heart sound present, No gallops present (Cardio), No murmurs present (Cardio), No rub (Cardio) and Peripheral pulses 2+ throughout RATE: regular rate RHYTHM: regular rhythm HEART SOUNDS: S1 normal heart sound present and S2 normal heart sound present PERIPHERAL PULSES: Peripheral pulses 2+ throughout GI: COMMON NORMALS: Normal to inspection, nondistended, normoactive bowel sounds present, Soft to palpation, non-tender, No hepatosplenomegaly present and no masses AUSCULTATION: Yes normoactive bowel sounds PALPATION: Yes Soft to palpation and Yes No hepatosplenomegaly present RECTAL EXAM: Yes deferred Extremity: COMMON NORMALS: no clubbing, cyanosis or edema and no pedal edema Urinary Catheter Management: Lopes: Cath Placed During This Visit: yes, but has since been removed by the nurse Reason for Continuing Indwelling Catheter: Decision to DC Catheter Urinary Catheter Date of Insertion: 11/12/21 Urinary Catheter Time of Insertion: 11:57 Date Urinary Catheter Removed: 11/16/21 Time Urinary Catheter Discontinued: 08:32 Discharge Data Studies Completed and Pending Completed Studies During Hospitalization Category Date Time Status CT head wo con* [id number] Stat Cat Scan 11/12/21 09:36 Completed CXRP [XR chest 1V portable [id number]] Routine Exams 11/12/21 21:39 Completed CXRP [XR chest 1V portable [id number]] Routine Exams 11/14/21 03:09 Completed XR chest 1V portable [id number] Stat Exams 11/12/21 10:21 Completed US renal BI* [id number] Routine Ultrasound 11/12/21 14:54 Completed Pending at discharge Category Date Time Status BMP [Basic Metabolic Panel] AM LABS Lab 11/18/21 04:00 Ordered BMP [Basic Metabolic Panel] AM LABS Lab 11/19/21 04:00 Ordered Blood Culture Routine Lab 11/12/21 17:04 Results CBC Auto Diff [Complete Blood Count w/Auto] AM LABS Lab 11/18/21 04:00 Ordered CBC Auto Diff [Complete Blood Count w/Auto] AM LABS Lab 11/19/21 04:00 Ordered CV. echo complete* [id number] Routine Ultrasound 11/14/21 05:05 Taken Radiology Impressions Head CT 11/12/21 09:36 IMPRESSION: No acute intracranial abnormality. Please note that MRI is more sensitive for early changes of acute ischemia. Renal Ultrasound 11/12/21 14:54 IMPRESSION: 1. No hydronephrosis. Dominant simple cyst in the upper pole the right kidney measuring up to 9.3 cm in size. 2. Cholelithiasis. Chest X-Ray 11/14/21 03:09 IMPRESSION: 1. Mild cardiomegaly stable. 2. No acute focal pulmonary opacities are detected. Laboratory Results WBC 22.7 10^3/uL (4.0-10.0) H 11/17/21 05:33 RBC 3.34 10^6/uL (4.1-5.3) L 11/17/21 05:33 Hgb 9.5 g/dL (11.7-16.6) L 11/17/21 05:33 Hct 29.2 % (42.0-52.0) L 11/17/21 05:33 MCV 87.4 fl (80-94) 11/17/21 05:33 MCH 28.4 pg (28.0-34.0) 11/17/21 05:33 MCHC 32.5 g/dL (30.0-36.0) 11/17/21 05:33 RDW 16.6 % (12.1-15.1) H 11/17/21 05:33 Plt Count 231 10^3/cmm (130-400) 11/17/21 05:33 MPV 11.3 fL (7.4-10.4) H 11/17/21 05:33 Neut % (Auto) 87.4 % 11/17/21 05:33 Lymph % (Auto) 3.3 % 11/17/21 05:33 [place] % (Auto) 5.2 % 11/17/21 05:33 Eos % (Auto) 0.1 % 11/17/21 05:33 Baso % (Auto) 0.2 % 11/17/21 05:33 Neut # (Auto) 19.82 10^3/uL (1.8-7.7) H 11/17/21 05:33 Lymph # (Auto) 0.7 10^3/uL (0.8-4.8) L 11/17/21 05:33 [place] # (Auto) 1.2 10^3/uL (0.2-0.9) H 11/17/21 05:33 Eos # (Auto) 0.0 10^3/uL (0.0-0.8) 11/17/21 05:33 Baso # (Auto) 0.1 10^3/uL (0.0-0.1) 11/17/21 05:33 Nucleated RBC % (auto) 0.1 % 11/17/21 05:33 Nucleated RBCs # 0.0 /100WBC 11/17/21 05:33 Specimen Type Arterial 11/12/21 10:28 Sample Site Radial, left 11/12/21 10:28 ABG pH 7.43 (7.35-7.45) 11/12/21 10:28 ABG pCO2 46.4 mmHg (35-45) H 11/12/21 10:28 ABG pO2 141.0 mmHg (80.0-100.0) H 11/12/21 10:28 ABG HCO3 30.6 mmol/L (22-26) H 11/12/21 10:28 ABG O2 Saturation 99.6 11/12/21 10:28 ABG Base Excess 5.5 mmol/L (-2.0-2.0) H 11/12/21 10:28 Timothy Test Pos 11/12/21 10:28 A-a O2 Gradient 7.5 mmHg (5-10) 11/12/21 10:28 Hematocrit 33.0 % (42-52) L 11/12/21 10:28 Hgb O2 Saturation 97.9 % (95-100) 11/12/21 10:28 Carboxyhemoglobin 1.0 %THgb (0.4-20.1) 11/12/21 10:28 Methemoglobin 0.7 % (0.4-1.5) 11/12/21 10:28 Total Hemoglobin 10.8 g/dL (14-18) L 11/12/21 10:28 Sodium 146.0 mmol/L (131-143) H 11/12/21 10:28 Potassium 4.4 mmol/L (3.5-5.0) 11/12/21 10:28 Glucose 135.0 mg/dL (70-115) H 11/12/21 10:28 Ionized Calcium 1.8 mmol/L (1.1-1.4) H* 11/12/21 10:28 O2 Delivery Device Nc 11/12/21 10:28 O2 Liters/Min 4.0 % 11/12/21 10:28 FiO2 36.0 % 11/12/21 10:28 Director Blood Bank ID Cak 11/12/21 10:28 Sodium 142 mmol/L (136-145) 11/17/21 05:33 Potassium 4.0 mmol/L (3.5-5.1) 11/17/21 05:33 Chloride 109 mmol/L (98-107) H 11/17/21 05:33 Carbon Dioxide 23 mmol/L (22-29) 11/17/21 05:33 Anion Gap 14.0 (5-19) 11/17/21 05:33 BUN 42 mg/dL (8-23) H 11/17/21 05:33 Creatinine 1.1 mg/dL (0.7-1.2) 11/17/21 05:33 GFR Calculation 66.6 mL/min (90-130) L 11/17/21 05:33 Glucose 159 mg/dL (65-115) H 11/17/21 05:33 Calculated Osmolality 308 mOsm/kg (285-295) H 11/17/21 05:33 Lactic Acid 0.9 mmol/L (0.5-2.2) 11/13/21 05:02 Calcium 10.4 mg/dL (8.5-10.5) 11/17/21 05:33 Phosphorus 2.6 mg/dL (2.5-4.5) 11/13/21 04:53 Magnesium 2.4 mg/dL (1.7-2.3) H 11/13/21 04:53 Iron 30 ug/dL (59-158) L 11/13/21 05:02 TIBC 181 mcg/dl 11/13/21 05:02 % Saturation 16.5 % (20-50) L 11/13/21 05:02 Unsat Iron Binding 151 ug/dL (112-347) 11/13/21 05:02 Transferrin 166 mg/dL (200-360) L 11/13/21 05:02 Ferritin 782 ng/mL (30-400) H 11/13/21 04:53 Total Bilirubin 0.3 mg/dL (0.15-1.2) 11/15/21 05:15 AST 68 U/L (0-40) H 11/15/21 05:15 ALT 63 U/L (0-41) H 11/15/21 05:15 Alkaline Phosphatase 54 IU/L (40-130) 11/15/21 05:15 Ammonia 16 umol/L (16-60) 11/13/21 05:02 Creatine Kinase 928 U/L (39-308) H* 11/16/21 10:38 Troponin T Gen 5 ng/L 55 ng/L (0-15) H 11/14/21 05:20 Troponin T Baseline 78 ng/L (0-15) H 11/12/21 09:30 Troponin T 120 Minute 80.72 ng/L (0-15) H 11/12/21 12:02 Delta Troponin T 2.72 ABS# (0-10) 11/12/21 12:02 Troponin T Hi Sens 6Hr 77.09 ng/L (0-15) H 11/12/21 15:34 Troponin T Hi Sens 6Hr Delta -0.91 ng/L (0-12) L 11/12/21 15:34 NT-Pro-B Natriuret Pep 4499 pg/mL (0-125) H 11/12/21 09:30 Total Protein 6.4 g/dL (6.6-8.7) L 11/15/21 05:15 Albumin 3.0 g/dL (3.5-5.2) L 11/15/21 05:15 Globulin 3.4 g/dL (1.3-4.6) 11/15/21 05:15 Lipase 50 U/L (13-60) 11/12/21 09:30 Vitamin B12 504 pg/mL (232-1245) 11/13/21 05:02 Folate 6.5 ng/mL (4.5-32.2) 11/13/21 05:02 Procalcitonin 0.33 ng/mL (0-0.5) 11/13/21 05:02 TSH 6.38 uIU/mL (0.27-4.20) H 11/13/21 04:53 Urine Color [place] (Yellow) 11/12/21 11:50 Urine Appearance Clear (CLEAR) 11/12/21 11:50 Urine pH 5 (5-7) 11/12/21 11:50 Ur Specific [place] 1.025 (1.005-1.030) 11/12/21 11:50 Urine Protein Neg (Negative) 11/12/21 11:50 Urine Glucose (UA) Norm (Normal) 11/12/21 11:50 Urine Ketones Negative (Negative) 11/12/21 11:50 Urine Blood 3+ (Negative) H 11/12/21 11:50 Urine Nitrate Negative (Negative) 11/12/21 11:50 Urine Bilirubin 1+ (Negative) H 11/12/21 11:50 Urine Urobilinogen Norm mg/dL (Negative) 11/12/21 11:50 Ur Leukocyte Esterase Negative (Negative) 11/12/21 11:50 Urine RBC 15-25 /hpf (0-2) H 11/12/21 11:50 Urine WBC 5-10 /hpf (0-5) H 11/12/21 11:50 Ur Squamous Epith Cells 0-4 /hpf (0-5) H 11/12/21 11:50 Amorphous Sediment Not Reportable 11/12/21 11:50 Urine Bacteria 2+ /hpf (NONE) H 11/12/21 11:50 Fine Granular Casts 5-10 /lpf H 11/12/21 11:50 U Random Total Protein 64 mg/dL 11/12/21 15:40 Ur Random Sodium 14 mmol/L 11/12/21 15:40 Urine Creatinine 218 mg/dL (39-259) 11/12/21 15:40 Urine Opiates Screen Negative ng/mL (Negative) 11/12/21 11:50 Ur Barbiturates Screen Negative ng/mL (Negative) 11/12/21 11:50 Ur Phencyclidine Scrn Negative ng/mL (Negative) 11/12/21 11:50 Ur Amphetamines Screen Negative ng/mL (Negative) 11/12/21 11:50 U Benzodiazepines Scrn Negative ng/mL (Negative) 11/12/21 11:50 Urine Cocaine Screen Negative ng/mL (Negative) 11/12/21 11:50 U Marijuana (THC) Screen Positive ng/mL (Negative) H 11/12/21 11:50 Ethyl Alcohol < 10 mg/dL (0-10) 11/12/21 09:30 Vitals Last Vital Signs Temp 98.2 F 11/17/21 07:50 Pulse 70 11/17/21 09:00 Resp 18 11/17/21 09:00 BP 161/71 11/17/21 07:50 Pulse Ox 98 11/17/21 09:00 Discharge Plan Discharge Patient Disposition: Home Condition: Stable Prescriptions: Continued levothyroxine 100 mcg Tablet 100 mcg PO DAILY@0730 0RF albuterol sulfate [ProAir HFA] 90 mcg/actuation Hfa Aerosol Inhaler 4 puff INHALATION BID 0RF cholecalciferol (vitamin D3) [Vitamin D3] 25 mcg (1,000 unit) Capsule 25 mcg PO DAILY 0RF albuterol sulfate 2.5 mg /3 mL (0.083 %) solution for nebulization 2.5 mg inhalation Q4H PRN (Reason: shortness of breath or wheezing) Qty: 180 0RF aspirin 81 mg Tablet,Delayed Release (Dr/Ec) 81 mg PO DAILY@0800 0RF diltiazem HCl 240 mg capsule,extended release 24hr 240 mg PO DAILY@0800 0RF Trelegy Ellipta 100-62.5-25 mcg blister with device 1 inh inhalation DAILY Qty: 60 4RF Flomax 0.4 mg Capsule 0.4 mg PO DAILY@1600 Qty: 60 0RF metoprolol tartrate 50 mg tablet 25 mg PO BID@0800,1600 Qty: 60 0RF hydralazine 50 mg Tablet 25 mg PO BID Qty: 60 0RF potassium chloride 10 mEq tablet extended release 10 meq PO DAILY Qty: 30 0RF Augmentin 500-125 mg tablet 1 tab PO BID Qty: 10 0RF Held furosemide 40 mg Tablet 40 mg PO BID@0800,1600 0RF Hold Instructions: Resume on 11/24/21. lisinopril 40 mg tablet 40 mg PO DAILY@1600 0RF Hold Instructions: Resume on 11/24/21. Discharge Orders: Discharge Order (Routine); Ordered 11/17/21 Ordered By: Mark Maciel Other Ambulatory Orders: DME: Samantha (Order) Location: None Selected Ordered By: Mark Maciel DME: Riki (Order) Location: None Selected Ordered By: Mark Maciel Referrals: Sun Bello MD [Primary Care Provider] - 1 week (Please call Friday to schedule a follow up appointment.) Discharge Diet: Regular Patient Instructions: Atrial Fibrillation, COPD, Heart Failure (DC), Urinary Tract Infection in Men (DC), Hypernatremia (ED), CHF Stoplight, COPD Stoplight, Opioid Safety Discharge Attestations Time Spent in Discharge Care*: less than 30 min Status at Discharge: Cognitive status at discharge: cognitively intact , Behavioral status at discharge: cooperative , Quality Metrics Clinical Quality Measures [ No reported AMI, CVA or VTE this stay] Coding Level of Care Code Acute Chg FW DC note Diagnoses Rhabdomyolysis M62.82 Chronic acquired lymphedema I89.0 Chronic hepatitis C B18.2 COPD (chronic obstructive pulmonary disease) J44.9 COPD type: unspecified COPD (HFpEF) heart failure with preserved ejection fraction I50.30 Acute kidney injury superimposed on CKD N17.9; N18.9 UTI (urinary tract infection) N39.0 Leukocytosis D72.829 Anemia D64.9 Hypothyroidism E03.9 MADDI (obstructive sleep apnea) G47.33 Hypernatremia E87.0 Atrial fibrillation I48.91
[2021-11-17] MEDS: heparin 5,000 unit/mL INJ 1 mL 5000 UNIT SUBCUT (11:55)
--- NOTE | 2021-11-17 12:32 | PC.SOCIAL ---
IMM update pg 2 of IMM updated and reviewed w/ patient. Copy provided and Copy placed in chart.
== END 2021-11-17 13:23 | disposition home or self-care (01) | DRG 682 ==
LOC: ER 10:24 → MEDSURG 12:22
PROVIDERS: Internal Medicine; Admitting Provider Internal Medicine; Emergency Provider Family Medicine; PCP Family Medicine; Visit Provider Internal Medicine
DX: N17.9 Acute kidney failure, unspecified (principal); I50.33 Acute on chronic diastolic (congestive) heart failure; I13.0 Hypertensive heart and chronic kidney disease with heart failure and stage 1 through stage 4 chronic kidney disease, or unspecified chronic kidney disease; M62.82 Rhabdomyolysis; N39.0 Urinary tract infection, site not specified; G93.40 Encephalopathy, unspecified; E87.0 Hyperosmolality and hypernatremia; J44.9 Chronic obstructive pulmonary disease, unspecified; N18.9 Chronic kidney disease, unspecified; E78.5 Hyperlipidemia, unspecified; E03.9 Hypothyroidism, unspecified; G47.33 Obstructive sleep apnea (adult) (pediatric); I73.9 Peripheral vascular disease, unspecified; F17.210 Nicotine dependence, cigarettes, uncomplicated; D63.1 Anemia in chronic kidney disease; Z99.81 Dependence on supplemental oxygen; B18.2 Chronic viral hepatitis C; I49.3 Ventricular premature depolarization; I48.91 Unspecified atrial fibrillation; Z79.51 Long term (current) use of inhaled steroids; Z79.82 Long term (current) use of aspirin
CPT/HCPCS: 36415; 36600; 51702; 51798; 70450; 71045; 76770; 80048; 80051; 80053; 80306; 80307; 81001; 82140; 82330; 82550; 82570; 82607; 82728; 82746; 82805; 83540; 83550; 83605; 83690; 83735; 83880; 84100; 84145; 84156; 84300; 84443; 84466; 84484; 85025; 87040; 87086; 92507; 92523; 92526; 92610; 93005; 93306; 94640; 96372; 97110; 97116; 97161; 97530; 99285; J0696; J1644; J2060; J2270; J2930; J3486; J7030; J7512; J7608; J7626; J7799

== ENCOUNTER 2021-11-18 11:51 | Inpatient (IN) | payer OTHER, MEDICARE, SELFPAY ==
[2021-11-18] VITALS (12 sets, daily range): BP systolic 106–132; BP diastolic 46–65; PULSE 46–65; RESP 15–18; TEMP 35.9–37; O2SAT 91–100; BMI 36.0
--- NOTE | 2021-11-18 11:53 | XRR_ITS ---
PROCEDURE INFORMATION: Exam: XR Chest Exam date and time: 11/18/2021 12:19 PM Age: 66 years old Clinical indication: Pain; Angina pectoris; Additional info: Chest pain TECHNIQUE: Imaging protocol: Radiologic exam of the chest. Views: 1 view. COMPARISON: CR XR chest 1V portable [id number] 11/14/2021 5:20 AM FINDINGS: Lungs: Streaky opacities at the superior right perihilar region are stable when compared to the prior study. Pleural spaces: Unremarkable. No pleural effusion. No pneumothorax. Heart/Mediastinum: Cardiomegaly. Vasculature: There is calcified plaque in the aortic arch. Bones/joints: Unremarkable. XR/XR chest 1V portable [id number] IMPRESSION: 1. Cardiomegaly. 2. Streaky opacities at the superior right perihilar region are stable when compared to the prior study. Differential includes scarring. Follow-up to exclude neoplasm as clinically warranted.
--- NOTE | 2021-11-18 11:53 | ECG_ITS ---
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 Measurements Intervals [place] Rate: 55 P: 81 LA: 165 QRS: 75 QRSD: 102 T: 180 QT: 373 QTc: 357 Interpretive Statements SINUS BRADYCARDIA NONSPECIFIC ST & T-WAVE ABNORMALITY Compared to ECG 11/15/2021 13:32:31 Sinus rhythm no longer present Short LA interval no longer present T-wave abnormality still present Electronically Signed On 11-18-2021 23:35:22 CDT by Graham Rosales M.D. [email or web address] [facility]un[facility] medical centerUnited [id number]
--- NOTE | 2021-11-18 12:26 | ED_ITS ---
HPI - General Adult General: Chief complaint: Chest Pain Stated complaint: CHEST PAIN Time Seen by Provider: 11/18/21 11:53 History of Present Illness: This is a [66] yo patient hx of CHF, atrial fibrillation, COPD presenting to the ED complaining of acute sudden onset intermittent chest pressure for the last 2 hours. Patient reports that this is a pressure-like squeeze that is worse with exertion. Patient also reports exertional dyspnea for last 2 hours. Patient took 4 baby aspirin. Pain is not tearing in nature and does not radiate to the back. Pain not associated with vom iting or PO intake. Denies any recent sympathomimetic drug use. Patient denies any cough. Denies palpitations, dysphagia, diaphoresis, radiation of pain to bilateral arms, jaw. Denies F/N/V/D. Patient denies any recent immobility, surgery, unilateral leg swelling, or prior PE. Patient denies any orthopnea. Due to ongoing chest pressure, the patient called EMS. In route, patient received nitro by EMS pain improved from a 10 to a 7 however patient blood pressure was noted to be mildly hypotensive. Onset: 2 hrs ago Duration: ongoing for the last 2 hrs Location: home Severity: moderate Associated symptoms: Reports chest pain and dyspnea; Deny nausea, rash, palpitations or vomiting Review of Systems Const: Denies: fever(s) or chills Eyes: Denies: change in vision ENMT: Denies: mouth pain Card: Reports: chest pain; Denies: palpitations Resp: Reports: dyspnea; Denies: non-productive cough GI: Denies: abdominal pain, nausea, vomiting or diarrhea : Denies: dysuria Musc: Denies: extremity pain Skin/Breast: Denies: rash or new lesions Neuro: Denies: weakness in extremities Psych: Reports: other (Normal mood) Joe/Lymph: Denies: easy bruising PFSH ED PFSH: Medical History (HFpEF) heart failure with preserved ejection fraction Acute kidney injury superimposed on CKD Anemia Atrial fibrillation CHF (congestive heart failure) -Has had prior echo done in 08/2017 showing ejection fraction of 65%, grade 1 diastolic dysfunction. Repeat Echo: EF=60%, G2DD, normal PSP Chronic acquired lymphedema Chronic hepatitis C CKD (chronic kidney disease) stage 2, GFR 60-89 ml/min -has GIULIANO on CKD stage 2-3, baseline Cr is around 1 COPD (chronic obstructive pulmonary disease) oxygen-dependent, 4 L at baseline Encephalopathy Falls frequently Hyperlipidemia Hypernatremia Hypertension Hypothyroidism -Has known history of hypothyroidism status post ablation, Hypothyroidism Leukocytosis MADDI (obstructive sleep apnea) -Has known history of MADDI, does not use CPAP MADDI (obstructive sleep apnea) Peripheral vascular disease -Has known history of PVD with chronic lower extremity edema Rhabdomyolysis UTI (urinary tract infection) Surgical History H/O hernia repair H/O shoulder surgery History of appendectomy Family History Denies family history of CAD (coronary artery disease) Social History Smoking and tobacco status: current every day smoker cigarettes Packs smoked per day: 1 Alcohol intake: current Alcohol intake frequency: 0-2 Drinks per Day Alcohol type: hard liquor Lives independently: Yes Physical Exam Const: COMMON NORMALS: alert HENMT: COMMON NORMALS: atraumatic HEAD & SCALP: atraumatic MOUTH: moist mucous membranes not abnormal Eye: COMMON NORMALS: EOMs intact bilaterally and conjunctivae normal CONJUNCTIVA: Yes conjunctivae normal Neck/C-Spine: COMMON NORMALS: full ROM and supple Resp: COMMON NORMALS: normal respiratory effort and clear to auscultation bilaterally AUSCULTATION: clear to auscultation bilaterally Cardio: COMMON NORMALS: regular rate RATE: regular rate OTHER: 2+ radial pulses b/l GI: COMMON NORMALS: Soft to palpation and non-tender PALPATION: Yes Soft to palpation Extremity: COMMON NORMALS: full ROM Neuro: SENSORIUM/ORIENTATION: Yes alert MOTOR EXAM: No Abnormal motor strength present and Other motor observations present (no focal motor deficits) Psych: COMMON NORMALS: speech normal SPEECH: Yes normal speech MOOD & AFFECT: Yes euthymic mood Course Vital Signs: Vital signs: Vital Signs Temperature 96.7 F L 11/18/21 11:59 Pulse Rate 50 L 11/18/21 14:00 Respiratory Rate 15 11/18/21 14:00 Blood Pressure 117/59 11/18/21 14:00 Pulse Oximetry 100 11/18/21 14:00 MDM - General Adult Medical Decision Making [66]yo patient w/ hx of CHF, atrial fibrillation, COPD presenting to the ED with evaluation of chest pain x 2 hrs. HDS, pulse 2+ radially bilaterally, no signs of fluid overload, AAOx3, neuro exam intact. Given History and Exam today I have no suspicion for ACS, Pneumothorax, Pneumonia, Pulmonary Embolus, Tamponade, Aortic Dissection or other emergent problems as a cause for this presentation. Workup: ECG x 2, CXR, CBC, BMP, Troponin x 2 Interventions: Morphine Findings: ECG: No overt evidence of STEMI, hyperacute T waves, localizable STD or T wave inversions. No evidence of Brugada?s sign, delta wave, epsilon wave, significantly prolonged QTc, or malignant arrhythmia. No Q waves. Other Labs unremarkable for emergent problems. CXR: Without PTX, PNA, or widened mediastinum Last Stress Test: never Last Heart Catheterization: never [3:30pm] On reassessment, the patient is HDS, no complaints of persistent chest pain in the ED after evaluation. White count 26.3 up from baseline of 22 from discharge yesterday. Patient is noted to have possible right upper quadrant opacity consistent with possible pneumonia. Because of recent hospitalization, patient received vancomycin and cefepime. Blood culture pending. She will be admitted to hospital for evaluation of pneumonia. At 4:11pm, incidental findings of streaky opacity discussed extensively with patient. Patient is instructed to follow up for repeat XR. Disposition: observation Lab Data : 11/18/21 14:05 11/18/21 14:05 Radiology Impressions Chest X-Ray 11/18/21 11:53 IMPRESSION: 1. Cardiomegaly. 2. Streaky opacities at the superior right perihilar region are stable when compared to the prior study. Differential includes scarring. Follow-up to exclude neoplasm as clinically warranted. Laboratory Results WBC 26.3 10^3/uL (4.0-10.0) H 11/18/21 14:05 RBC 3.49 10^6/uL (4.1-5.3) L 11/18/21 14:05 Hgb 10.0 g/dL (11.7-16.6) L 11/18/21 14:05 Hct 32.9 % (42.0-52.0) L 11/18/21 14:05 MCV 94.3 fl (80-94) H 11/18/21 14:05 MCH 28.7 pg (28.0-34.0) 11/18/21 14:05 MCHC 30.4 g/dL (30.0-36.0) 11/18/21 14:05 RDW 17.2 % (12.1-15.1) H 11/18/21 14:05 Plt Count 220 10^3/cmm (130-400) 11/18/21 14:05 MPV 10.9 fL (7.4-10.4) H 11/18/21 14:05 Neut % (Auto) 77.3 % 11/18/21 14:05 Lymph % (Auto) 5.1 % 11/18/21 14:05 Page % (Auto) 6.6 % 11/18/21 14:05 Eos % (Auto) 7.1 % 11/18/21 14:05 Baso % (Auto) 0.3 % 11/18/21 14:05 Neut # (Auto) 20.34 10^3/uL (1.8-7.7) H 11/18/21 14:05 Lymph # (Auto) 1.4 10^3/uL (0.8-4.8) 11/18/21 14:05 Page # (Auto) 1.7 10^3/uL (0.2-0.9) H 11/18/21 14:05 Eos # (Auto) 1.9 10^3/uL (0.0-0.8) H 11/18/21 14:05 Baso # (Auto) 0.1 10^3/uL (0.0-0.1) 11/18/21 14:05 Nucleated RBC % (auto) 0.2 % 11/18/21 14:05 Nucleated RBCs # 0.1 /100WBC 11/18/21 14:05 Sodium 140 mmol/L (136-145) 11/18/21 14:05 Potassium 3.9 mmol/L (3.5-5.1) 11/18/21 14:05 Chloride 107 mmol/L (98-107) 11/18/21 14:05 Carbon Dioxide 26 mmol/L (22-29) 11/18/21 14:05 Anion Gap 10.9 (5-19) 11/18/21 14:05 BUN 38 mg/dL (8-23) H 11/18/21 14:05 Creatinine 1.3 mg/dL (0.7-1.2) H 11/18/21 14:05 GFR Calculation 54.9 mL/min (90-130) L 11/18/21 14:05 Glucose 125 mg/dL (65-115) H 11/18/21 14:05 Calculated Osmolality 301 mOsm/kg (285-295) H 11/18/21 14:05 Lactic Acid 1.3 mmol/L (0.5-2.2) 11/18/21 14:05 Calcium 9.7 mg/dL (8.5-10.5) 11/18/21 14:05 Troponin T Baseline 36 ng/L (0-15) H 11/18/21 14:05 Imaging Data Other Imaging: Radiologist's impression: [place] [address] XRay Report Signed Patient: Omar Ta Unit #: [id number] : 1955 Age/Sex: 66 / M ADM Date: 11/18/21 Loc: ER Room/Bed: Attending Dr: Ordering Provider/Ordering MD: Francois Neri MD Date of Service: 11/18/21 Procedure(s): XR chest 1V portable [id number] Accession Number(s): [id number] Report Number: [id number] PROCEDURE INFORMATION: Exam: XR Chest Exam date and time: 11/18/2021 12:19 PM Age: 66 years old Clinical indication: Pain; Angina pectoris; Additional info: Chest pain TECHNIQUE: Imaging protocol: Radiologic exam of the chest. Views: 1 view. COMPARISON: CR XR chest 1V portable [id number] 11/14/2021 5:20 AM FINDINGS: Lungs: Streaky opacities at the superior right perihilar region are stable when compared to the prior study. Pleural spaces: Unremarkable. No pleural effusion. No pneumothorax. Heart/Mediastinum: Cardiomegaly. Vasculature: There is calcified plaque in the aortic arch. Bones/joints: Unremarkable. XR/XR chest 1V portable [id number] IMPRESSION: 1. Cardiomegaly. 2. Streaky opacities at the superior right perihilar region are stable when compared to the prior study. Differential includes scarring. Follow-up to exclude neoplasm as clinically warranted. ? Dictated By: Denise Matthew MD Signed By: Denise Matthew MD Signed Date/Time: 11/18/21 1309 DD/ 1219 Discharge Plan Discharge Patient Disposition: Admitted As Inpatient Admit Provider: Peter Sargent Clinical Impression: Chest pain, Pneumonia Condition: Stable Coding Level of Care Code ED Business Development Intern for Chg Fwd Exam Comprehensive
--- NOTE | 2021-11-18 12:26 | W.ED.CHESTPA ---
HPI - Chest Pain General: Chief Complaint: Chest Pain Stated Complaint: CHEST PAIN Time Seen by Provider: 11/18/21 11:53 [facility] PFSH: Medical History CHF (congestive heart failure) -Has had prior echo done in 08/2017 showing ejection fraction of 65%, grade 1 diastolic dysfunction. Repeat Echo: EF=60%, G2DD, normal PSP Chronic hepatitis C CKD (chronic kidney disease) stage 2, GFR 60-89 ml/min -has GIULIANO on CKD stage 2-3, baseline Cr is around 1 COPD (chronic obstructive pulmonary disease) oxygen-dependent, 4 L at baseline Hyperlipidemia Hypertension Hypothyroidism -Has known history of hypothyroidism status post ablation, MADDI (obstructive sleep apnea) -Has known history of MADDI, does not use CPAP Peripheral vascular disease -Has known history of PVD with chronic lower extremity edema Surgical History H/O hernia repair H/O shoulder surgery History of appendectomy Family History Denies family history of CAD (coronary artery disease) Social History Smoking and tobacco status: current every day smoker cigarettes Packs smoked per day: 1 Alcohol intake: current Alcohol intake frequency: 0-2 Drinks per Day Alcohol type: hard liquor Lives independently: Yes Course Vital Signs: Vital signs: Vital Signs Temperature 96.7 F L 11/18/21 11:59 Pulse Rate 50 L 11/18/21 11:59 Respiratory Rate 18 11/18/21 11:59 Blood Pressure 110/52 11/18/21 11:59 Pulse Oximetry 100 11/18/21 11:59 Discharge Plan Discharge Condition: Stable Prescriptions: No Action terbinafine HCl 250 mg tablet 250 mg PO DAILY 14 Days Qty: 14 0RF terbinafine HCl 250 mg tablet 250 mg PO DAILY 14 Days Qty: 14 0RF levothyroxine 100 mcg Tablet 100 mcg PO DAILY@0730 0RF tamsulosin [Flomax] 0.4 mg Capsule 0.4 mg PO DAILY@1600 0RF albuterol sulfate [ProAir HFA] 90 mcg/actuation Hfa Aerosol Inhaler 4 puff INHALATION BID 0RF fluticasone propionate [Flonase Allergy Relief] 50 mcg/actuation [place],Suspension 2 spray INTRANASAL DAILY@0800 0RF cholecalciferol (vitamin D3) [Vitamin D3] 25 mcg (1,000 unit) Capsule 25 mcg PO DAILY 0RF Spiriva Respimat 2.5 mcg/actuation Mist 2 puff INHALATION DAILY 0RF albuterol sulfate 2.5 mg /3 mL (0.083 %) solution for nebulization 2.5 mg inhalation Q4H PRN (Reason: shortness of breath or wheezing) Qty: 180 0RF furosemide 40 mg Tablet 40 mg PO BID@0800,1600 0RF Hold Instructions: Resume on 11/24/21. aspirin 81 mg Tablet,Delayed Release (Dr/Ec) 81 mg PO DAILY@0800 0RF hydralazine 50 mg Tablet 50 mg PO QID@08,12,16,20 0RF diltiazem HCl 240 mg capsule,extended release 24hr 240 mg PO DAILY@0800 0RF metoprolol tartrate 50 mg tablet 50 mg PO BID@0800,1600 0RF lisinopril 40 mg tablet 40 mg PO DAILY@1600 0RF Hold Instructions: Resume on 11/24/21. zinc oxide 20 % Ointment 1 applic topical PRN PRN (Reason: Skin Protectant) Qty: 30 0RF nicotine 21 mg/24 hr Patch 24 Hour 1 patch transdermal DAILY Qty: 30 0RF Referrals: Sun Bello MD [Primary Care Provider] - Coding Level of Care Code ED Marketing Content Specialist for Jessie Gallo
[2021-11-18] MEDS: morphine 4 mg/mL SDV 1 mL IVP (12:35)
--- NOTE | 2021-11-18 12:39 | PM.DCS ---
Discharge Providers Date of Discharge: November 18, 2021 Primary Care Provider: Sun Bello MD Reason for Visit Reason for Visit: CHEST PAIN Hospital Course Hospital Course HPI : Omar Ta is a 66 year old male with PMH of COPD ON 4LS home oxygen, HFpEF, HTN, Hypothyroidism, chronic hepc , MADDI,PVD, alcohol abuse has been sober since May this year,? was brought from home by the EMS after he was found down at home, when i interacted with the patient he says i am not aware of the circumstances in which i was found down, he says that he has been not felling well for the last 4 days, and has also not seen his G,F for the last 4 days,he was complaining of pain while passing urine,denied any chest pain,sob,abdominal pain,nausea,vomiting,fever. Upon arrival in the ER Pertinent Imaging studies included: Xray chest : No infiltrates,no effusion, no PTX C.T Head without contrast :No acute intracranical pathology Pertinent Labs : WBC : 15.3 , H&H : 10/33, PLT : 289 , Na: 142, k: 4.3 , BUN/SCR: 49/2.8 , RBS: 135 , Lactic acid :1.5 , Ammonia:13 , CK: 8809 Pro BNP: 4499 , Troponin : 78,80 Urine Analysis : Urine Bcateria : 2+ , Urine WBC : 5-10 Hospital course: Patient was admitted for the management of acute metabolic encephalopathy secondary to GIULIANO UTI and Rhabdomyplysis. Patient responded well to IV hydration at the time of discharge GIULIANO had resolved, rhabdomyolysis had significantly improved with downtrending CK : At the time of discharge CK was 928. Serum creatinine has normalized. Blood Culture : Negative Urine culture : Negative? Procalcitonin: Normal , Renal ultrasound :No hydronephrosis, patient was kept on IV antibiotics. He responded well to the above medical management and was discharged in stable condition to home. He was told to continue to follow with his primary care physician as an outpatient. Physical Exam Const: COMMON NORMALS: patient oriented x3 HENMT: COMMON NORMALS: normocephalic and atraumatic HEAD & SCALP: normocephalic and atraumatic Chest: CHEST: Yes Symmetrical chest wall rise Resp: EFFORT & INSPECTION: Yes symmetric chest movement OTHER: Diminished air entry B/L Cardio: COMMON NORMALS: regular rate, regular rhythm, S1 normal heart sound present, S2 normal heart sound present, No gallops present (Cardio), No murmurs present (Cardio), No rub (Cardio) and Peripheral pulses 2+ throughout RATE: regular rate RHYTHM: regular rhythm HEART SOUNDS: S1 normal heart sound present and S2 normal heart sound present PERIPHERAL PULSES: Peripheral pulses 2+ throughout GI: COMMON NORMALS: Normal to inspection, nondistended, normoactive bowel sounds present, Soft to palpation, non-tender, No hepatosplenomegaly present and no masses AUSCULTATION: Yes normoactive bowel sounds PALPATION: Yes Soft to palpation and Yes No hepatosplenomegaly present RECTAL EXAM: Yes deferred Extremity: COMMON NORMALS: no clubbing, cyanosis or edema and no pedal edema Neuro: COMMON NORMALS: patient oriented x3 Discharge Data Studies Completed and Pending Pending at discharge Category Date Time Status XR chest 1V portable [id number] Stat Exams 11/18/21 11:53 Taken BMP [Basic Metabolic Panel] Stat Lab 11/18/21 11:53 Ordered CBC Auto Diff [Complete Blood Count w/Auto] Stat Lab 11/18/21 11:53 Ordered Troponin(5th) 2 Hour. Timed Lab 11/18/21 13:53 Ordered Troponin(5th) 6 hour. Timed Lab 11/18/21 17:53 Ordered Troponin(5th) Baseline Stat Lab 11/18/21 11:53 Ordered Vitals Last Vital Signs Temp 96.7 F L 11/18/21 11:59 Pulse 50 L 11/18/21 11:59 Resp 18 11/18/21 11:59 BP 110/52 11/18/21 11:59 Pulse Ox 100 11/18/21 11:59 Discharge Plan Discharge Condition: Stable Prescriptions: No Action terbinafine HCl 250 mg tablet 250 mg PO DAILY 14 Days Qty: 14 0RF terbinafine HCl 250 mg tablet 250 mg PO DAILY 14 Days Qty: 14 0RF levothyroxine 100 mcg Tablet 100 mcg PO DAILY@0730 0RF tamsulosin [Flomax] 0.4 mg Capsule 0.4 mg PO DAILY@1600 0RF albuterol sulfate [ProAir HFA] 90 mcg/actuation Hfa Aerosol Inhaler 4 puff INHALATION BID 0RF fluticasone propionate [Flonase Allergy Relief] 50 mcg/actuation [place],Suspension 2 spray INTRANASAL DAILY@0800 0RF cholecalciferol (vitamin D3) [Vitamin D3] 25 mcg (1,000 unit) Capsule 25 mcg PO DAILY 0RF Spiriva Respimat 2.5 mcg/actuation Mist 2 puff INHALATION DAILY 0RF albuterol sulfate 2.5 mg /3 mL (0.083 %) solution for nebulization 2.5 mg inhalation Q4H PRN (Reason: shortness of breath or wheezing) Qty: 180 0RF furosemide 40 mg Tablet 40 mg PO BID@0800,1600 0RF Hold Instructions: Resume on 11/24/21. aspirin 81 mg Tablet,Delayed Release (Dr/Ec) 81 mg PO DAILY@0800 0RF hydralazine 50 mg Tablet 50 mg PO QID@08,12,16,20 0RF diltiazem HCl 240 mg capsule,extended release 24hr 240 mg PO DAILY@0800 0RF metoprolol tartrate 50 mg tablet 50 mg PO BID@0800,1600 0RF lisinopril 40 mg tablet 40 mg PO DAILY@1600 0RF Hold Instructions: Resume on 11/24/21. zinc oxide 20 % Ointment 1 applic topical PRN PRN (Reason: Skin Protectant) Qty: 30 0RF nicotine 21 mg/24 hr Patch 24 Hour 1 patch transdermal DAILY Qty: 30 0RF Referrals: Sun Bello MD [Primary Care Provider] - Discharge Attestations Time Spent in Discharge Care*: less than 30 min Status at Discharge: Cognitive status at discharge: cognitively intact, Behavioral status at discharge: cooperative, Quality Metrics Clinical Quality Measures [ No reported AMI, CVA or VTE this stay] Coding Level of Care Code Acute Chg FW DC note
--- NOTE | 2021-11-18 13:53 | ECG_ITS ---
[facility] Test Date: 2021-11-18 Pat Name: Omar Ta Department: Room: Gender: Male Associate Program Manager: : 1955 Requested By: Francois Neri Order Number: [id number] Leann MD: Graham Rosales M.D. Measurements Intervals [place] Rate: 50 P: 74 LA: 164 QRS: 57 QRSD: 98 T: 60 QT: 402 QTc: 370 Interpretive Statements SINUS BRADYCARDIA NONSPECIFIC T-WAVE ABNORMALITY Compared to ECG 11/18/2021 12:08:45 No significant changes Electronically Signed On 11-18-2021 23:42:05 CDT by Graham Rosales M.D. [id number]
[2021-11-18 14:15] LABS: Basophils # 0.1 10^3/uL (0.0-0.1); Basophils % 0.3 %; Eosinophils # 1.9 10^3/uL (0.0-0.8); Eosinophils % 7.1 %; Hematocrit 32.9 % (42.0-52.0); Lymphocytes # 1.4 10^3/uL (0.8-4.8); Lymphocytes % 5.1 %; Mean Corpuscular HGB Conc 30.4 g/dL (30.0-36.0); Mean Corpuscular Hemoglobin 28.7 pg (28.0-34.0); Mean Corpuscular Volume 94.3 fl (80-94); Mean Platelet Volume 10.9 fL (7.4-10.4); Monocytes # 1.7 10^3/uL (0.2-0.9); Monocytes % 6.6 %; Neutrophils # 20.34 10^3/uL (1.8-7.7); Neutrophils % 77.3 %; Nucleated Red Blood Cells # 0.1 /100WBC; Nucleated Red Blood Cells % 0.2 %; Platelet Count 220 10^3/cmm (130-400); Red Blood Count 3.49 10^6/uL (4.1-5.3); Red Cell Distribution Width 17.2 % (12.1-15.1); White Blood Count 26.3 10^3/uL (4.0-10.0)
[2021-11-18 14:35] LABS: Troponin(5th) Baseline 36 ng/L (0-15)
[2021-11-18 14:38] LABS: Anion Gap 10.9 (5-19); Blood Urea Nitrogen 38 mg/dL (8-23); Calcium 9.7 mg/dL (8.5-10.5); Carbon Dioxide 26 mmol/L (22-29); Chloride 107 mmol/L (98-107); Glomerular Filtration Rate 54.9 mL/min (90-130); Glucose 125 mg/dL (65-115); Osmolality Calculated 301 mOsm/kg (285-295); Potassium 3.9 mmol/L (3.5-5.1); Sodium 140 mmol/L (136-145)
--- NOTE | 2021-11-18 15:36 | P.HP_ITS ---
Providers/Chief Complaint Primary Care Provider: Sun Bello MD Chief Complaint: CHEST PAIN History of Present Illness Omar Ta is a 66 year old male with a past medical history of COPD on 4 L, heart failure with preserved ejection fraction, hypertension, hypothyroidism, chronic hep C, obstructive sleep apnea, peripheral vascular disease, alcohol abuse disorder who presents [facility] due to complaints of chest pain. Patient tells me that since getting home from the hospital, he has had severe substernal chest pain, associate with shortness of breath, nonradiating, no nausea, no vomiting, no diaphoresis. He is never had a cardiovascular history, has never had a cardiovascular work-up, never had a stre ss test, never had an angiogram., Currently he is on 5 L, no history of COVID- 19, history of influenza, no dysuria, no abdominal pain complaints, no diarrhea, does report increased shortness of breath, productive cough Review of Systems Const: Denies: fever(s), fatigue or malaise Eyes: Denies: change in vision ENMT: Denies: nasal congestion Card: Denies: chest pain, edema, swelling of feet/ankles or dyspnea on exertion Resp: Denies: non-productive cough or wheezing GI: Denies: abdominal pain, nausea or vomiting : Denies: flank pain, difficulty urinating, dysuria or urinary frequency Skin/Breast: Denies: rash Neuro: Denies: headache(s), dizziness or vertigo Endo: Denies: polyuria or polydipsia Medications/Allergies Home Medications Medication Instructions Recorded Confirmed Last Taken Type albuterol sulfate 90 mcg/actuation 4 puff INHALATION BID 08/23/19 11/18/2111/09 History aerosol inhaler (ProAir HFA) cholecalciferol (vitamin D3) 25 25 mcg PO DAILY 08/23/19 11/18/21 11/18/21 History mcg (1,000 unit) capsule (Vitamin D3) levothyroxine 100 mcg tablet 100 mcg PO DAILY@0730 08/23/19 11/18/21 11/18/21 History tamsulosin 0.4 mg capsule (Flomax) 0.4 mg PO DAILY@1600 08/23/19 11/18/21 11/17/21 History tiotropium bromide 2.5 2 puff INHALATION DAILY 08/23/19 11/18/21 11/18/21 History mcg/actuation mist for inhalation (Spiriva Respimat) aspirin 81 mg tablet,delayed 81 mg PO DAILY@0800 08/07/20 11/18/21 11/18/21 History release diltiazem HCl 240 mg 240 mg PO DAILY@0800 08/07/20 11/18/21 11/18/21 History capsule,extended release 24 hr furosemide 40 mg tablet 40 mg PO BID@0800,1600 08/07/20 11/18/21 08/07/20 History hydralazine 50 mg tablet 50 mg PO QID@08,12,16,20 08/07/20 11/18/21 11/18/21 History lisinopril 40 mg tablet 40 mg PO DAILY@1600 08/07/20 11/18/21 08/06/20 History metoprolol tartrate 50 mg tablet 50 mg PO BID@0800,1600 08/07/20 11/18/21 11/18/21 History albuterol sulfate 2.5 mg (3 mL) INHALATION Q4H PRN 08/10/20 11/18/21 Unknown Rx #180 ml Allergies Allergy/AdvReac Type Severity Reaction Status Date / Time No Known Allergies Allergy Verified 11/18/21 13:07 PFSH Acute PFSH: Medical History (HFpEF) heart failure with preserved ejection fraction Acute kidney injury superimposed on CKD Anemia Atrial fibrillation CHF (congestive heart failure) -Has had prior echo done in 08/2017 showing ejection fraction of 65%, grade 1 diastolic dysfunction. Repeat Echo: EF=60%, G2DD, normal PSP Chronic acquired lymphedema Chronic hepatitis C CKD (chronic kidney disease) stage 2, GFR 60-89 ml/min -has GIULIANO on CKD stage 2-3, baseline Cr is around 1 COPD (chronic obstructive pulmonary disease) oxygen-dependent, 4 L at baseline Encephalopathy Falls frequently Hyperlipidemia Hypernatremia Hypertension Hypothyroidism -Has known history of hypothyroidism status post ablation, Hypothyroidism Leukocytosis MADDI (obstructive sleep apnea) -Has known history of MADDI, does not use CPAP MADDI (obstructive sleep apnea) Peripheral vascular disease -Has known history of PVD with chronic lower extremity edema Rhabdomyolysis UTI (urinary tract infection) Surgical History H/O hernia repair H/O shoulder surgery History of appendectomy Family History Denies family history of CAD (coronary artery disease) Social History Smoking and tobacco status: current every day smoker cigarettes Packs smoked per day: 1 Alcohol intake: current Alcohol intake frequency: 0-2 Drinks per Day Alcohol type: hard liquor Lives independently: Yes Vitals/I&O/Wt Last Vital Signs Temp 96.7 F L 11/18/21 11:59 Pulse 50 L 11/18/21 14:00 Resp 15 11/18/21 14:00 BP 117/59 11/18/21 14:00 Pulse Ox 100 11/18/21 14:00 Weight last 48 hrs Weight 104.326 kg Physical Exam Const: COMMON NORMALS: no acute distress and patient oriented x3 HENMT: COMMON NORMALS: normocephalic HEAD & SCALP: normocephalic Eye: COMMON NORMALS: Equal, round and reactive pupils present and EOMs intact bilaterally Neck/C-Spine: COMMON NORMALS: no JVD Resp: COMMON NORMALS: normal respiratory effort, No retractions, No use of accessory muscles and clear to auscultation bilaterally AUSCULTATION: clear to auscultation bilaterally Cardio: COMMON NORMALS: no JVD, regular rate, regular rhythm, S1 normal heart sound present and S2 normal heart sound present RATE: regular rate RHYTHM: regular rhythm HEART SOUNDS: S1 normal heart sound present and S2 normal heart sound present GI: COMMON NORMALS: Soft to palpation, non-tender, No hepatosplenomegaly present, no masses and no bruits INSPECTION: Yes abdominal distension AUSCULTATION: Yes normoactive bowel sounds PALPATION: Yes Soft to palpation and Yes No hepatosplenomegaly present PERCUSSION: Fluid wave present Extremity: COMMON NORMALS: capillary refill normal, no clubbing, cyanosis or edema and no calf tenderness NARRATIVE EXTREMITY EXAM: 1+ pitting edema Neuro: COMMON NORMALS: patient oriented x3, CN's II-XII intact bilaterally, moves all extremities and no focal motor deficits Psych: COMMON NORMALS: mental status grossly normal Data : 11/18/21 14:05 11/18/21 14:05 A&P Assessment and plan (1) Chest pain: Status: Acute (2) Pneumonia: Status: Acute (3) Peripheral vascular disease: Status: Acute Plan Leukocytosis -Possibly secondary to pneumonia -Chest x-ray does show right perihilar streaking -Patient does report increased shortness of breath, productive cough -Plan -We will do CT chest abdomen pelvis -Abdomen is distended, has a history of hepatitis C, seems like ascites, possible SBP? Liver function studies, inflammatory markers -Broad-spectrum antibiotic therapy vancomycin, cefepime -Blood cultures, sputum cultures, MRSA PCR -Pro-Haim, CRP -Patient is DNR/DNI, I confirmed with this multiple times, does not want to have chest compression, no medications for ACLS, does not want to be intubated -Lovenox for DVT prophylaxis Chest pain complaints -She will EKGs, serial troponins -Telemetry monitoring -Aspirin, statin, metoprolol -Cardiac echo Fluid overload, has 1+ pitting edema bilateral lower extremity -Continue Lasix 40 IV twice daily -BMP, cardiac echo -Hold off on further fluid therapy COPD, 4 L oxygen dependent, no wheezing on exam, DuoNeb as needed, hold off on steroids Attestations Medical Necessity Statement*: Patient requires hospitalization for leukocytosis, pneumonia, chest pain, fluid overload, inpatient, greater than 2 midnights Coding Level of Care Code Acute Flight Crew Ordnanceman for Chg Fwd Exam Comprehensive Diagnoses Chest pain R07.9 Pneumonia J18.9 Peripheral vascular disease I73.9
[2021-11-18] MEDS: cefepime 1,000 MG in sodium chloride 0.9% (plus) 50 ML 100 MG IV (15:46)
[2021-11-18 16:06] LABS: Lactic Sepsis W/Reflex 1.3 mmol/L (0.5-2.2)
[2021-11-18 16:14] LABS: NT Pro B Type Natriuretic Pept 1234 pg/mL (0-125); Procalcitonin 0.09 ng/mL (0-0.5)
[2021-11-18 16:25] LABS: C Reactive Protein 12.1 mg/L (0.0-4.9); Creatine Phosphokinase 165 U/L (39-308)
--- NOTE | 2021-11-18 16:33 | CTR_ITS ---
PROCEDURE INFORMATION: Exam: CT Chest Without Contrast; Diagnostic Exam date and time: 11/18/2021 6:19 PM Age: 66 years old Clinical indication: Abdominal pain; Generalized; Chest pressure; Additional info: Leukocytosis, chest pain, abdominal ditention TECHNIQUE: Imaging protocol: Diagnostic computed tomography of the chest without contrast. Radiation optimization: All CT scans at this facility use at least one of these dose optimization techniques: automated exposure control; mA and/or kV adjustment per patient size (includes targeted exams where dose is matched to clinical indication); or iterative reconstruction. COMPARISON: CT angio chest PE protcl [id number] 08/08/2020 3:42 AM RADIATION DOSE METRICS: Total DLP (mGy-cm): 1418 FINDINGS: Lungs: There is a lobulated mass in the superior mediastinum extending to the right perihilar region surrounding the mediastinal and right perihilar structures measuring 6 1 x 8.5 x 7.1 cm in AP/transverse/craniocaudad dimensions. There are centrilobular emphysematous changes in the bilateral lungs. There is peribronchial thickening and scarring along the medial and posterior aspects of the right upper lobe. There a 4 mm noncalcified nodular density in the right middle lobe series 4, image 35. Streaky densities at the lung bases are most consistent with scarring and/or atelectasis. Pleural spaces: Trace left pleural fluid. Heart: There is a small amount of pericardial fluid. Multivessel atherosclerotic disease which involves the coronary arteries. Lymph nodes: Unremarkable. No enlarged lymph nodes. Vasculature: Unremarkable. No aortic aneurysm. Bones/joints: Unremarkable. No acute fracture. Soft tissues: Unremarkable. CT Chest at 12 months. (Reference: Roxi) REFERENCES: Roxi Vincent, et al. Guidelines for Management of Incidental Pulmonary Nodules Detected on CT Images: From the Fleischner Society 2017. Radiology. 2017;284(1):228-243. PROCEDURE INFORMATION: Exam: CT Abdomen And Pelvis Without Contrast Exam date and time: 11/18/2021 6:19 PM Age: 66 years old Clinical indication: Abdominal pain; Generalized; Chest pressure; Additional info: Leukocytosis, chest pain, abdominal ditention TECHNIQUE: Imaging protocol: Computed tomography of the abdomen and pelvis without contrast. Radiation optimization: All CT scans at this facility use at least one of these dose optimization techniques: automated exposure control; mA and/or kV adjustment per patient size (includes targeted exams where dose is matched to clinical indication); or iterative reconstruction. COMPARISON: US abdomen lmt fluid [id number] 08/23/2019 3:33 PM RADIATION DOSE METRICS: Total DLP (mGy-cm): 1418 FINDINGS: Heart: Multivessel atherosclerotic disease which involves the coronary arteries. Liver: Normal. No mass. Gallbladder and bile ducts: Cholelithiasis. Pancreas: Peripancreatic hazy stranding is present. [id number] fatty atrophy of the pancreas. Spleen: Normal. No splenomegaly. Adrenal glands: There is a 2.9 cm lesion in the left adrenal gland with macroscopic fat consistent with a benign myelolipoma. There is a 3.2 cm nonspecific heterogeneous lesion in the right adrenal gland. Kidneys and ureters: There are cysts with benign features in the kidneys the larger of which measures 9.3 cm in the right kidney. Stomach and bowel: There are fat density regions in the duodenum which may represent content within bowel versus benign lipomas. There is duodenal mucosal thickening with adjacent mesenteric inflammatory stranding. There is diverticulosis of the colon without evidence of diverticulitis. Appendix: No evidence of appendicitis. Intraperitoneal space: A small amount of fluid and stranding extends along the bilateral pericolic gutters. Vasculature: Unremarkable. No abdominal aortic aneurysm. Lymph nodes: Unremarkable. No enlarged lymph nodes. Urinary bladder: A Lopes catheter is present in the bladder. Reproductive: There are calcifications in the prostate gland. Bones/joints: Unremarkable. No acute fracture. Soft tissues: There is edema in the subcutaneous soft tissues along the right side of the lower thorax, abdomen, and pelvis. CT/[place] [id number] IMPRESSION: 1. There is a lobulated mediastinal/right perihilar mass as described above. 2. There are centrilobular emphysematous changes in the bilateral lungs. 3. There is a 4 mm noncalcified nodular density in right middle lobe.For patients at low risk (minimal or absent history of smoking and of other known risk factors), no routine follow-up is indicated. For patients at high risk (history of smoking or of other known risk factors), consider optional IMPRESSION: 1. Hazy stranding in the peripancreatic fat is consistent with acute pancreatitis. Please correlate with pancreatic laboratory values. 2. There is a 3.2 cm nonspecific heterogeneous lesion in the right adrenal gland. 3. There is mucosal thickening of the duodenum with adjacent mesenteric inflammatory stranding consistent with a nonspecific enteritis. This may be reactive in nature secondary to the adjacent pancreatic pathology. COMMENTS: Consistent with the [employer]'s Incidental Findings Committee white paper (J Am Liz Radiol 2017): For any incidental adrenal lesion greater than or equal to 1 cm but less than or equal to 4 cm classified in this report as benign, likely benign, or containing fat (including classification as an adenoma or myelolipoma), no follow-up imaging is recommended per consensus recommendations based on imaging criteria. Further lab evaluation could be pursued if warranted based on clinical findings.
[2021-11-18 17:03] LABS: Troponin 5 2HR 33.79 ng/L (0-15)
[2021-11-18] MEDS: vancomycin 1,000 MG in sodium chloride 0.9% 250 ML 250 MG IV (17:06)
[2021-11-18 17:12] LABS: Hepatitis A Antibody IgM Non-Reactive (Nonreactive); Hepatitis B Core IgM Non-Reactive (Nonreactive); Hepatitis B Surface Antigen Non-Reactive (Nonreactive)
[2021-11-18 17:14] LABS: Troponin 5 2HR Delta -2.21 ABS# (0-10)
[2021-11-18] MEDS: enoxaparin 40 mg/0.4 mL Syringe SUBCUT (17:18)
[2021-11-18] MEDS: tamsulosin 0.4 mg Capsule PO (17:18)
[2021-11-18] MEDS: hyDRALAzine 50 mg Tablet PO ×2 (17:18→21:35)
[2021-11-18] MEDS: FUROsemide 10 mg/mL SDV 4mL 40 MG IVP (17:19)
[2021-11-18] MEDS: pantoprazole 40 mg SDV IVP (17:19)
[2021-11-18 17:21] LABS: Alanine Aminotransferase 51 U/L (0-41); Alkaline Phosphatase 44 IU/L (40-130); Gamma Glutamyl Transferase 41 U/L (8-61); Globulin 2.4 g/dL (1.3-4.6); Total Bilirubin 0.4 mg/dL (0.15-1.2); Total Protein 5.4 g/dL (6.6-8.7)
[2021-11-18 17:27] LABS: Urine Appearance Hazy (CLEAR); Urine Color Yellow (Yellow); pH Urine 5 (5-7)
[2021-11-18 17:28] LABS: Add Urine Microscopic? YES; Bilirubin Urine Neg (Negative); Blood Urine 3+ (Negative); Glucose Urine UA Norm (Normal); Ketones Urine Negative (Negative); Leukocyte Esterase Urine 1+ (Negative); Nitrate Urine Negative (Negative); Protein Urine Neg (Negative); RBC Urine 25-40 /hpf (0-2); Specific Gravity, Urine 1.015 (1.005-1.030); Urobilinogen Urine Norm (Negative)
[2021-11-18 17:29] LABS: Add Urine Culture? No; Bacteria Urine 1+ /hpf; Squamous Epithelial Cell Urine 0-4 /hpf (0-5); WBC Urine 15-25 /hpf (0-5)
[2021-11-18 17:48] LABS: Lipase 417 U/L (13-60)
[2021-11-18 17:51] LABS: Aspartate Amino Transferase 27 U/L (0-40)
[2021-11-18 17:54] LABS: Influenza A by IFA Negative (Negative); Influenza B by IFA Negative (Negative)
[2021-11-18 18:27] LABS: Hepatitis C Virus Antibody Reactive (Nonreactive)
[2021-11-18 18:48] LABS: SARS Covid-2 Antigen Negative (Negative)
[2021-11-18 19:55] LABS: Troponin 5 6HR 37.57 ng/L (0-15)
[2021-11-18 19:57] LABS: Troponin 5 6HR Delta 1.57 ng/L (0-12)
[2021-11-18] MEDS: atorvastatin 40 mg Tablet PO (21:35)
[2021-11-19] VITALS (10 sets, daily range): BP systolic 98–134; BP diastolic 53–69; PULSE 63–70; RESP 16–18; TEMP 36.4–36.9; O2SAT 97–100
[2021-11-19] MEDS: cefepime 1,000 MG in sodium chloride 0.9% (plus) 50 ML 100 MG IV ×2 (03:19→16:11)
--- NOTE | 2021-11-19 04:27 | PC.NURSE ---
Patient has been awake all night. Patient states, I don't really know how to explain it, but I am paranoid. I'm scared that I can't do anything for myself. I feel like I am constantly going pee and I am uncomfortable. This nurse talked to patient and educated to the patient that he may be de-conditioned after being in the hospital for some time and the catheter can leave the feeling of the urge to void. This nurse sat patient up to the side of bed to reposition patient for comfort. Patient stated the sitting position felt more comfortable but seemed it made him more scared of not being able to do it himself. This nurse reassured the patient that I am here and available if he needed anything and replaced the call light near him. The patient sat on the side of the bed for about five to ten minutes then requested to lie back down. The patient stood at the side of the bed, took a couple steps toward the head of the bed and sat down. This nurse asked the patient if he needed help with his feet, the patient stated that was all he was able to do. This nurse and machine ironer, Collette, assisted the patient back into a supine position.
[2021-11-19 04:45] LABS: Basophils # 0.1 10^3/uL (0.0-0.1); Basophils % 0.2 %; Eosinophils # 1.9 10^3/uL (0.0-0.8); Hematocrit 29.8 % (42.0-52.0); Hemoglobin 9.6 g/dL (11.7-16.6); Lymphocytes # 1.1 10^3/uL (0.8-4.8); Lymphocytes % 5.1 %; Mean Corpuscular HGB Conc 32.2 g/dL (30.0-36.0); Mean Platelet Volume 11.3 fL (7.4-10.4); Monocytes # 1.3 10^3/uL (0.2-0.9); Monocytes % 5.9 %; Neutrophils # 16.57 10^3/uL (1.8-7.7); Neutrophils % 77.1 %; Nucleated Red Blood Cells % 0.1 %; Platelet Count 208 10^3/cmm (130-400); Red Blood Count 3.31 10^6/uL (4.1-5.3); Red Cell Distribution Width 17.2 % (12.1-15.1); White Blood Count 21.5 10^3/uL (4.0-10.0)
[2021-11-19 05:03] LABS: Alanine Aminotransferase 47 U/L (0-41); Albumin Level 3.1 g/dL (3.5-5.2); Alkaline Phosphatase 46 IU/L (40-130); Anion Gap 11.8 (5-19); Aspartate Amino Transferase 15 U/L (0-40); Blood Urea Nitrogen 33 mg/dL (8-23); C Reactive Protein 32.4 mg/L (0.0-4.9); Calcium 9.2 mg/dL (8.5-10.5); Carbon Dioxide 26 mmol/L (22-29); Chloride 106 mmol/L (98-107); Creatine Phosphokinase 87 U/L (39-308); Globulin 2.3 g/dL (1.3-4.6); Glomerular Filtration Rate 50.4 mL/min (90-130); Glucose 119 mg/dL (65-115); Lipase 82 U/L (13-60); Magnesium 1.9 mg/dL (1.7-2.3); Osmolality Calculated 298 mOsm/kg (285-295); Phosphorus 1.7 mg/dL (2.5-4.5); Potassium 3.8 mmol/L (3.5-5.1); Sodium 140 mmol/L (136-145); Total Bilirubin 0.4 mg/dL (0.15-1.2); Total Protein 5.4 g/dL (6.6-8.7)
[2021-11-19] MEDS: FUROsemide 10 mg/mL SDV 4mL 40 MG IVP (05:06)
[2021-11-19 05:11] LABS: INR 0.98 (0.8-1.2)
[2021-11-19 05:19] LABS: Estmated Average Glucose 140; Hemoglobin A1C 6.5 % (4.0-6.0)
[2021-11-19] MEDS: levothyroxine 100 mcg Tablet PO (06:47)
[2021-11-19] MEDS: cholecalciferol (vitamin D3) 1,000 unit Tablet 1000 UNIT PO (08:34)
[2021-11-19] MEDS: hyDRALAzine 50 mg Tablet PO ×4 (08:34→20:25)
[2021-11-19] MEDS: metoprolol tartrate 50 mg Tablet PO (08:35)
[2021-11-19] MEDS: dilTIAZem ER (24HR) 240 mg Capsule PO (08:35)
[2021-11-19] MEDS: aspirin 81 mg EC Tablet PO (08:35)
--- NOTE | 2021-11-19 12:22 | P.PN_ITS ---
Subjective Subjective: This morning patient was examined at the bedside along counter caser, he was examined twice, patient is stating that his girlfriend will not be able to take care of him, he is agreeable to go to [facility], I did discuss hilar mass which is a new finding since his previous CT scan, He is not complaining of active chest pain Currently on 3L nasal cannula bench manager updated Patient is stating that he does not want to go for any chemo or radiotherapy in case he has lung cancer however would like to pursue histopathological diagnosis for diagnostic purposes, I did discuss with him that this could be done outpatient with pulmonary follow-up with Dr. Cortes or Ab He is in agreement, I also discussed with him that at this point it is difficult to discuss treatment options and prognosis since we do not know the histopathological diagnosis, he will not go for any kind of treatment at any c ost, he is requiring 3 to 4 L of oxygen at baseline, Vitals/I&O/Wt Last Vital Signs Temp 97.7 F 11/19/21 08:00 Pulse 65 11/19/21 08:00 Resp 17 11/19/21 08:00 BP 129/67 11/19/21 08:00 Pulse Ox 100 11/19/21 07:30 11/18/21 11/19/21 11/19/21 22:59 06:59 14:59 Intake Total 540 / 540 50 / 590 Output Total 1100 / 1100 900 / 2000 Balance -560 / -560 -850 / -1410 Weight last 48 hrs Weight 104.326 kg Weight 104.326 kg Physical Exam Narrative: Patient's mentation is fluctuant However able to answer my questions appropriately Short attention span Currently on 3 L nasal cannula I did not appreciate active wheezing Mild rhonchi at the base of the lungs Abdomen soft No active chest pain S1, S2 Normal complexion Venous stasis dermatitis Nonfocal neuro exam Onychomycosis Digital clubbing Urinary Catheter Management: Lopes: Cath Placed During This Visit: yes Reason for Continuing Indwelling Catheter: Other Urinary Catheter Date of Insertion: 11/18/21 Urinary Catheter Time of Insertion: 18:29 Data : 11/19/21 04:23 11/19/21 04:23 Micro: Microbiology 11/18/21 16:40 MRSA Culture - Final Nose 11/18/21 15:44 Blood Culture - Preliminary Blood SPECIMEN COLLECTED 11/18/21 15:40 Blood Culture - Preliminary Blood SPECIMEN COLLECTED A&P Assessment and plan (1) Chest pain: Status: Acute (2) Pneumonia: Status: Acute (3) Right middle lobe pulmonary nodule: Status: Acute (4) Peripheral vascular disease: Status: Acute (5) Chronic acquired lymphedema: Status: Acute (6) Hilar mass: Status: Acute Plan New finding of hilar mass 6 x 8 x 7 cm lobulated mass superior mediastinum extending to right perihilar region Currently patient is requiring 3 L of oxygen At home uses [address] scan did not show active pneumonia 4 mm noncalcified nodules identified Patient does not want to pursue chemo or radiotherapy, however he wants to know the type of malignancy for which she will need histopathological/biopsy by IR vs pulmonary Discontinue vancomycin, continue cefepime Pancreatitis: Patient is tolerating his diet Monitor clinically for now Stop trending lipase Abnormal liver enzymes Liver ultrasound consistent with congestive hepatopathy No obstruction of biliary ducts History of hepatitis C No active signs of SBP Continue cefepime for now Unstable angina Will do cardiac stress test tomorrow N.p.o. after midnight Patient is DNR/DNI goals of care discussed with the patient, counter caser aware, nurse present at the bedside Cardiac diet for now Low-fat Waxing and waning mentation, Patient has a Lopes catheter Creatinine 1.4 Adequate diuresis Clinically he does look mildly fluid overloaded Awaiting [facility] placement DVT prophylaxis Lovenox Attestations Medical Necessity Statement*: Awaiting [facility] placement Time Spent in Patient Care: 30 Coding Level of Care Code Acute Planting Machine Crewman for Chg Fwd Diagnoses Chest pain R07.9 Pneumonia J18.9 Right middle lobe pulmonary nodule R91.1 Peripheral vascular disease I73.9 Chronic acquired lymphedema I89.0 Hilar mass R91.8
[2021-11-19] MEDS: potassium chloride ER 20 mEq Tablet 40 MEQ PO (13:26)
[2021-11-19] MEDS: FUROsemide 10 mg/mL SDV 10mL 60 MG IVP (13:30)
[2021-11-19] MEDS: tamsulosin 0.4 mg Capsule PO (15:56)
[2021-11-19] MEDS: enoxaparin 40 mg/0.4 mL Syringe SUBCUT (15:58)
[2021-11-19] MEDS: pantoprazole 40 mg SDV IVP (16:07)
[2021-11-19] MEDS: magnesium oxide 400 mg tablet PO (17:28)
[2021-11-19] MEDS: doxycycline 100 mg Tablet PO (17:28)
--- NOTE | 2021-11-19 19:04 | PC.NURSE ---
Bedside Report given to Lisa AYALA at this time. Pt A&Ox4.
[2021-11-19] MEDS: atorvastatin 40 mg Tablet PO (20:25)
[2021-11-19] MEDS: bumetanide 1 mg Tablet PO (20:25)
--- NOTE | 2021-11-19 22:40 | US_ITS ---
WS: [id number] RIGHT UPPER QUADRANT ULTRASOUND HISTORY: hepatobiliary COMPARISON: 11/12/2021 renal ultrasound. Liver: 16.1 cm in length. Poorly visualized liver due to body habitus and increased attenuation. Live r is dense and heterogeneous. No bile duct dilatation. Portal Vein: Normal hepatopetal flow with monophasic waveform. Gallbladder: Mild diffuse gallbladder wall thickening with cholecystitis lithiasis. Shadowing from th e gallbladder lumen. No pericholecystic fluid. Similar findings described on 07/19/2016. Gallbladder w all measures up to 6 mm. CBD: 0.6 cm Pancreas: Completely obscured by bowel gas. Right kidney: 9.7 cm in length. Large cyst from the upper pole measures 9.4 x 9.0 x 7.9 cm. There are a few additional scattered cysts. The renal cortex is very difficult to visualize otherwise. In part this is due to body habitus and bowel gas. Similar findings were noted on the prior ultrasound. Aorta and IVC: Limited but unremarkable. No ascites. US/US abdomen limited [id number] IMPRESSION: 1. Quality the exam is compromised by body habitus. 2. Cholelithiasis without biliary dilatation. Diffuse gallbladder wall thicken ing. Similar findings noted on the prior examination. Gallbladder wall thickeni ng is probably due to chronic cholecystitis or the associated hepatocellular di sease. 3. Chronic hepatocellular disease, likely hepatic steatosis. 4. Poorly visualized RIGHT kidney but there are numerous cysts present.
[2021-11-20] VITALS (10 sets, daily range): BP systolic 106–153; BP diastolic 39–88; PULSE 61–96; RESP 16–18; TEMP 36.4–36.9; O2SAT 96–100
[2021-11-20 03:27] LABS: Basophils % 0.2 %; Eosinophils # 1.7 10^3/uL (0.0-0.8); Eosinophils % 8.2 %; Hematocrit 33.4 % (42.0-52.0); Hemoglobin 10.2 g/dL (11.7-16.6); Lymphocytes % 4.8 %; Mean Corpuscular HGB Conc 30.5 g/dL (30.0-36.0); Mean Corpuscular Hemoglobin 28.7 pg (28.0-34.0); Mean Corpuscular Volume 94.1 fl (80-94); Mean Platelet Volume 11.5 fL (7.4-10.4); Monocytes # 1.4 10^3/uL (0.2-0.9); Monocytes % 6.9 %; Neutrophils # 15.98 10^3/uL (1.8-7.7); Neutrophils % 78.2 %; Nucleated Red Blood Cells % 0.1 %; Platelet Count 185 10^3/cmm (130-400); Red Blood Count 3.55 10^6/uL (4.1-5.3); Red Cell Distribution Width 17.4 % (12.1-15.1); White Blood Count 20.4 10^3/uL (4.0-10.0)
[2021-11-20 03:44] LABS: Alanine Aminotransferase 39 U/L (0-41); Albumin Level 3.3 g/dL (3.5-5.2); Alkaline Phosphatase 46 IU/L (40-130); Anion Gap 13.5 (5-19); Aspartate Amino Transferase 13 U/L (0-40); Blood Urea Nitrogen 36 mg/dL (8-23); C Reactive Protein 88.2 mg/L (0.0-4.9); Calcium 8.9 mg/dL (8.5-10.5); Carbon Dioxide 27 mmol/L (22-29); Chloride 103 mmol/L (98-107); Globulin 2.4 g/dL (1.3-4.6); Glomerular Filtration Rate 43.2 mL/min (90-130); Glucose 129 mg/dL (65-115); Magnesium 1.9 mg/dL (1.7-2.3); Osmolality Calculated 300 mOsm/kg (285-295); Phosphorus 1.9 mg/dL (2.5-4.5); Potassium 3.5 mmol/L (3.5-5.1); Sodium 140 mmol/L (136-145); Total Bilirubin 0.5 mg/dL (0.15-1.2); Total Protein 5.7 g/dL (6.6-8.7)
[2021-11-20] MEDS: acetaminophen 325 mg Tablet 650 MG PO (04:44)
--- NOTE | 2021-11-20 06:16 | PC.NURSE ---
Patient having another episode of paranoia. Patient slept very little tonight. Patient is stating he has cancer from the findings of a new lung nodule. This nurse educated the patient that it is unknown if it is cancer at this point and a biopsy will need to be performed for diagnostics. Patient states he doesn't need to do the stress test because he has already failed it. This nurse educated the patient that he has not taken the stress test yet in order to fail it, and that the test is done to see if his heart is what is causing his chest pain. Patient restless and complaining of not being able to get comfortable due to neck and back pain. Patient seems slightly confused, but is able to answer questions appropriately.
--- NOTE | 2021-11-20 06:27 | ECG_ITS ---
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 Interpretive Statements NAME OF STUDY: LEXISCAN SESTAMIBI STRESS TEST INDICATION: [ua, ] Procedure: At the baseline, the blood pressure was 141/42 mmHg with a heart rate of 73 bpm. The electrocardiogram showed normal sinus rhythm, diffuse ST depressions. The Lexiscan was infused over a period of 20 seconds. A total of 0.4 mg of Lexiscan was infused. The stress phase was continued for a total of 5 minutes. Heart rate was at the end of stress phase was 82 bpm and a blood pressure of 202/79 mmHg. The EKG at the peak infusion revealed since normal sinus rhythm with no significant ST-T wave changes. Sestamibi was injected 20 seconds after the Lexiscan infusion. Blood pressure at the end of recovery phase was 106/39 mmHg with a heart rate of 83 bpm. Conclusion: 1. Normal EKG response to Lexiscan infusion 2. No Lexiscan induced chest pain or cardiac arrhythmia. 3. Normal blood pressure and heart rate response. 4. Sestamibi/sestamibi perfusion scan pending; see separate report. Electronically Signed On 12-01-2021 12:20:08 CDT by Graham Rosales M.D. [id number]
[2021-11-20] MEDS: levothyroxine 100 mcg Tablet PO (06:34)
[2021-11-20] MEDS: regadenoson 0.4 Mg/5 ml Syringe IVP (07:56)
[2021-11-20] MEDS: dilTIAZem ER (24HR) 120 mg Capsule PO (09:25)
[2021-11-20] MEDS: magnesium oxide 400 mg tablet PO ×2 (09:25→17:03)
[2021-11-20] MEDS: cholecalciferol (vitamin D3) 1,000 unit Tablet 1000 UNIT PO (09:25)
[2021-11-20] MEDS: doxycycline 100 mg Tablet PO ×2 (09:26→17:03)
[2021-11-20] MEDS: aspirin 81 mg EC Tablet PO (09:26)
[2021-11-20] MEDS: hyDRALAzine 50 mg Tablet PO ×4 (09:27→20:44)
--- NOTE | 2021-11-20 10:23 | NMCV_ITS ---
NM amirah perf SPECT r/s* [id number] Omar Ta Age: 66 Gender: M : 1955 Exam Date: 11/20/2021 06:47 Ordering Phys: David Andrews MD Technologist: JOBY Nieto Exam Location: [facility] Indications: CHEST PAIN STRESS TEST Please see separate stress test report in [facility] for full findings IMAGE PROTOCOL Rest/Stress 1 Lexiscan Day Radiopharmaceutical Dose (mCi) Administration Site Administered by Rest: Tc-99m 10.9 IV JOBY Camara Sestamibi Stress:Tc-99m 32.9 IV JOBY Camara Sestamibi Rest: 20-Nov-2021 60 Discovery 630 Stress: 20-Nov-2021 30 Discovery 630 0.4mg Lexiscan. Supine position only as patient was unable to lay prone. SPECT RESULTS Technical Quality: Excellent Raw Data Analysis: Normal Image Corrections: No attenuation or motion correction applied Summed Stress Score: 2 Summed Rest Score: 4 Summed Difference Score: 2 PERFUSION FINDINGS There is a very small in size reversible perfusion defect seen in inferolateral wall. This is consistent with small sized area of ischemia in left circumflex artery territory. FUNCTIONAL RESULTS (calculated via Gated SPECT) Stress Image LV EF (%): 77 Stress EDV (mL):65 TID: 1 Stress ESV (mL):15 FUNCTIONAL FINDINGS: There is normal left ventricular systolic function. IMPRESSIONS 1. Very small sized area of ischemia noted in left circumflex artery territory. 2. LV systolic function is normal Graham Rosales MD (Electronically Signed) Final Date: 20 November 2021 13:02 S
--- NOTE | 2021-11-20 11:46 | PM.PN ---
Subjective Subjective: No events overnight Remained afebrile Creatinine is worsening Transport stress test Currently no active chest pain or shortness of breath He was laying flat I have stopped his diuretics today -2.8 L balance Patient is still willing to go for the biopsy however does not want to pursue chemotherapy or radiotherapy for his cancer We will touch base with Dr. Berger We will keep him n.p.o. after midnight Hold DVT prophylaxis Vitals/I&O/Wt Last Vital Signs Temp 98.3 F 11/20/21 11:25 Pulse 82 11/20/21 11:25 Resp 16 11/20/21 09:33 BP 111/63 11/20/21 11:25 Pulse Ox 100 11/20/21 11:25 11/19/21 11/20/21 11/20/21 22:59 06:59 14:59 Intake Total 50 / 640 Output Total 825 / 2275 1175 / 3450 Balance -775 / -1635 -1175 / -2810 Weight last 48 hrs Weight 104.326 kg Weight 104.326 kg Physical Exam Narrative: Patient is laying in left lateral position No signs of fluid overload S1, S2 Abdomen soft Bilateral breath sounds with crackles at the base of the lungs left greater than right Abdomen without signs of guarding rigidity or peritonitis EOMI, PERRLA Nonfocal neuro exam Urinary Catheter Management: Lopes: Cath Placed During This Visit: yes Reason for Continuing Indwelling Catheter: Accurate Measurement of Urinary Output in Critically Ill Patients Urinary Catheter Date of Insertion: 11/18/21 Urinary Catheter Time of Insertion: 18:29 Data : 11/20/21 02:47 11/20/21 02:47 Micro: Microbiology 11/18/21 17:05 Urine Culture - Final Urine Ureter 11/18/21 15:44 Blood Culture - Preliminary Blood NEGATIVE TO DATE 11/18/21 15:40 Blood Culture - Preliminary Blood NEGATIVE TO DATE 11/18/21 16:40 MRSA Culture - Final Nose A&P Assessment and plan (1) Hilar mass: Status: Acute (2) Pneumonia: Status: Acute (3) Chest pain: Status: Acute (4) Right middle lobe pulmonary nodule: Status: Acute (5) Peripheral vascular disease: Status: Acute (6) Wound of left lower extremity: Status: Acute (7) Chronic acquired lymphedema: Status: Acute Plan Hilar mass Patient is willing to go for biopsy For histopathological diagnosis however he does not want to pursue chemo or radiotherapy Will touch base with Dr. Berger Hold DVT prophylaxis N.p.o. after midnight Currently he is requiring 2 L of oxygen His leukocytosis most likely is related to underlying cancer/lymphoma? Pancreatitis: No active signs, abdomen is soft, tolerating his diet No need of trending lipase Abnormal liver enzymes are secondary to congestive hepatopathy Unstable angina: We will follow-up with stress test results CHF exacerbation preserved ejection fraction Grade 2 diastolic function I have requested another echo today Cut back on diuretics, -2.8 L, creatinine is worsening I will watch him off diuretics for next 24 hours DNR/DNI Low-fat cardiac diet Hold DVT prophylaxis for bronchoscopy Awaiting custodial placement Attestations Medical Necessity Statement*: Awaiting placement Time Spent in Patient Care: 30 Coding Level of Care Code Acute Manager Of Internal for Jayceeg Fwd Diagnoses Hilar mass R91.8 Pneumonia J18.9 Chest pain R07.9 Right middle lobe pulmonary nodule R91.1 Peripheral vascular disease I73.9 Wound of left lower extremity S81.802A Chronic acquired lymphedema I89.0
[2021-11-20] MEDS: tamsulosin 0.4 mg Capsule PO (17:03)
[2021-11-20 20:42] LABS: Glucose Point of Care 183 mg/dL (70-110)
[2021-11-20] MEDS: atorvastatin 40 mg Tablet PO (20:44)
--- NOTE | 2021-11-20 23:20 | P.CONIM_ITS ---
Providers/Reason For Consult Consulting Physician/Specialty*: VALENTIN CORTES MD/PULMONARY CRITICAL CARE Reason for Consult*: CT evidence of lobulated mass in the superior mediastinum extending to the right perihilar region Requesting Physician: MARY KAUR MD Attending Physician: Mary Kaur MD Primary Care Provider: Sun Bello MD History of Present Illness History of Present Illness Omar Ta is a 66 year old male with past medical history of COPD on 4 L, heart failure with preserved ejection fraction, hypertension, hypothyroidism, chronic hep C, MADDI, peripheral vascular disease, alcohol abuse disorder presented to [facility] due to complaints of chest pain. Patient had a hospital admission from 11/12/2021 to 11/18/2021 for acute metabolic encephalopathy secondary to GIULIANO, UTI and rhabdomyolysis. He was treated with IV hydration, negative urine cultures and was discharged on 11/18/2021. Patient came back to hospital on the same day with chief complaint of severe substernal chest pain associated with shortness of breath. Chest x-ray showed streaky opacities at the superior right perihilar region which are stable compared to chest x-rays that were done during previous visit. However a CT chest abdomen pelvis 11/18/2021 was obtained by admitting physician which showed a lobulated mass in the superior mediastinum extending to the right perihilar region surrounding the mediastinal and right perihilar structures measuring 6.1 x 8.5 x 7.1 cm. There is a 4 mm noncalcified nodular density in the right middle lobe. Last year 08/08/2020 patient had a CTA which showed 8 mm right middle lobe nodule but did not show this lobulated mass which is new and current CT scan. Also there is 3.2 cm nonspecific heterogeneous lesion in right adrenal gland on CT abdomen pelvis. Patient has significant smoking history and reported smoking at least 1 pack/day for more than 50 years and quit 3 months ago. There is CT evidence of emphysema but I do not see any PFTs in [facility]. Currently on DuoNeb every 6 hours as needed. As outpatient he uses Spiriva 2 puffs daily and albuterol nebulization every 4 hours as needed. He was requiring 2 to 3 L of supplemental oxygen. Patient was recommended CPAP 11 to 15 cm for MADDI in 2018. He underwent myocardial perfusion scan yesterday which was reported very small sized area of ischemia in left circumflex artery territory with normal LV systolic function. He was receiving Bumex 1 Mg p.o. daily but it was held due to worsening renal functions. Echo is pending. I have seen patient at bedside today and his significant other was present as well. Patient reported dyspnea on exertion and severe deconditioning I also reported exertional chest pain. I have explained him that given significant smoking history-this lobulated mass in CTA is highly suspicious for lung malignancy. Patient expressed wishes to undergo biopsy for histopathological diagnosis of the lung mass but at present he does not want to pursue chemoradiotherapy. Patient and his significant other reported that he is wheelchair-bound and wants to be discharged to home/half-way with wheelchair. Review of Systems General: Reports: 10 or more systems reviewed and unremarkable except in HPI and below Medications/Allergies Home Medications Medication Instructions Recorded Confirmed Last Taken Type albuterol sulfate 90 mcg/actuation 4 puff INHALATION BID 08/23/19 11/18/21 11/18/21 History aerosol inhaler (ProAir HFA) cholecalciferol (vitamin D3) 25 25 mcg PO DAILY 08/23/19 11/18/21 11/18/21 History mcg (1,000 unit) capsule (Vitamin D3) levothyroxine 100 mcg tablet 100 mcg PO DAILY@0730 08/23/19 11/18/21 11/18/21 History tamsulosin 0.4 mg capsule (Flomax) 0.4 mg PO DAILY@1600 08/23/19 11/18/21 11/17/21 History tiotropium bromide 2.5 2 puff INHALATION DAILY 08/23/19 11/18/21 11/18/21 History mcg/actuation mist for inhalation (Spiriva Respimat) aspirin 81 mg tablet,delayed 81 mg PO DAILY@0800 08/07/20 11/18/21 11/18/21 History release diltiazem HCl 240 mg 240 mg PO DAILY@0800 08/07/20 11/18/21 11/18/21 History capsule,extended release 24 hr furosemide 40 mg tablet 40 mg PO BID@0800,1600 08/07/20 11/18/21 08/07/20 History hydralazine 50 mg tablet 50 mg PO QID@08,12,16,20 08/07/20 11/18/21 11/18/21 History lisinopril 40 mg tablet 40 mg PO DAILY@1600 08/07/20 11/18/21 08/06/20 History metoprolol tartrate 50 mg tablet 50 mg PO BID@0800,1600 08/07/20 11/18/21 11/18/21 History albuterol sulfate 2.5 mg (3 mL) INHALATION Q4H PRN 08/10/20 11/18/21 Unknown Rx #180 ml Allergies Allergy/AdvReac Type Severity Reaction Status Date / Time No Known Allergies Allergy Verified 11/18/21 13:07 Current Medications Generic Name Dose Route Start Last Admin Trade Name Freq PRN Reason Stop Dose Admin Acetaminophen 650 mg 11/18/21 16:33 11/20/21 04:44 Acetaminophen 325 Mg Tablet PO 650 mg Q6H PRN Administration Mild/Mod Pain Or Temp >/= 101 Aspirin 81 mg 11/19/21 08:00 11/20/21 09:26 Aspirin 81 Mg Ec Tablet PO 81 mg DAILY@0800 MICHAEL Administration Atorvastatin Calcium 40 mg 11/18/21 21:00 11/20/21 20:44 Atorvastatin 40 Mg Tablet PO 40 mg BEDTIME MICHAEL Administration Bumetanide 1 mg 11/19/21 19:40 11/19/21 20:25 Bumetanide 1 Mg Tablet PO 1 mg DAILY MICHAEL Administration Diltiazem HCl 120 mg 11/20/21 08:00 11/20/21 09:25 Diltiazem Er (24hr) 120 Mg Capsule PO 120 mg DAILY@0800 MICHAEL Administration Doxycycline Monohydrate 100 mg 11/19/21 18:00 11/20/21 17:03 Doxycycline 100 Mg Tablet PO 100 mg BID MICHAEL Administration Protocol Enoxaparin Sodium 40 mg 11/18/21 16:33 11/19/21 15:58 Enoxaparin 40 Mg/0.4 Ml Syringe SUBCUT 40 mg Q24H MICHAEL Administration Hydralazine HCl 50 mg 11/18/21 16:33 11/20/21 20:44 Hydralazine 50 Mg Tablet PO 50 mg QID@08,12,16,20 MICHAEL Administration Levothyroxine Sodium 100 mcg 11/19/21 07:30 11/20/21 06:34 Levothyroxine 100 Mcg Tablet PO 100 mcg DAILY@0730 MICHAEL Administration Magnesium Oxide 400 mg 11/19/21 18:00 11/20/21 17:03 Magnesium Oxide 400 Mg Tablet PO 400 mg BID MICHAEL Administration Metoprolol Tartrate 50 mg 11/18/21 16:33 11/19/21 08:35 Metoprolol Tartrate 50 Mg Tablet PO 50 mg BID@0800,1600 MICHAEL Administration Tamsulosin HCl 0.4 mg 11/18/21 16:33 11/20/21 17:03 Tamsulosin 0.4 Mg Capsule PO 0.4 mg DAILY@1600 MICHAEL Administration Vitamin D 1,000 unit 11/19/21 09:00 11/20/21 09:25 Cholecalciferol (Vitamin D3) 1,000 Unit Tablet PO 1,000 unit DAILY MICHAEL Administration PFSH Acute PFSH: Medical History (Updated 11/21/21 @ 10:55 by Valentin Cortes MD) (HFpEF) heart failure with preserved ejection fraction Acute kidney injury superimposed on CKD Anemia Atrial fibrillation CHF (congestive heart failure) -Has had prior echo done in 08/2017 showing ejection fraction of 65%, grade 1 diastolic dysfunction. Repeat Echo: EF=60%, G2DD, normal PSP Chronic acquired lymphedema Chronic hepatitis C CKD (chronic kidney disease) stage 2, GFR 60-89 ml/min -has GIULIANO on CKD stage 2-3, baseline Cr is around 1 COPD (chronic obstructive pulmonary disease) oxygen-dependent, 4 L at baseline Encephalopathy Falls frequently Hyperlipidemia Hypernatremia Hypertension Hypothyroidism -Has known history of hypothyroidism status post ablation, Hypothyroidism Leukocytosis MADDI (obstructive sleep apnea) -Has known history of MADDI, does not use CPAP MADDI (obstructive sleep apnea) Peripheral vascular disease -Has known history of PVD with chronic lower extremity edema Rhabdomyolysis UTI (urinary tract infection) Surgical History H/O hernia repair H/O shoulder surgery History of appendectomy Family History Denies family history of CAD (coronary artery disease) Social History Smoking and tobacco status: current every day smoker cigarettes Packs smoked per day: 1 Alcohol intake: current Alcohol intake frequency: 0-2 Drinks per Day Alcohol type: hard liquor Lives independently: Yes Vitals/I&O/Wt Last Vital Signs Temp 97.6 F 11/20/21 20:00 Pulse 66 11/20/21 21:11 Resp 18 11/20/21 21:11 BP 143/72 11/20/21 20:00 Pulse Ox 97 11/20/21 21:11 11/20/21 11/20/21 11/21/21 14:59 22:59 06:59 Intake Total 350 / 350 240 / 590 Balance 350 / 350 240 / 590 Physical Exam Narrative: General: alert, NAD on supplemental oxygen HEENT: conj clear, EOMI, PERRL, mmm, Neck: supple, no meningismus Heme: no cervical LAP Pulmonary: Bilateral breath sounds present with mild expiratory wheeze Cardiovascular: rrr, nl s1s2, no mrg Abdomen: soft, nt, nd, no r/g, bs+ Extremities: pulses +, no edema, no c/c : no CVA tenderness Skin: intact, no rash MSK: no back or neck pain Neurologic: grossly intact Urinary Catheter Management: Lopes: Cath Placed During This Visit: yes Reason for Continuing Indwelling Catheter: Accurate Measurement of Urinary Output in Critically Ill Patients Urinary Catheter Date of Insertion: 11/18/21 Urinary Catheter Time of Insertion: 18:29 Data : 11/21/21 04:30 11/21/21 04:30 Other Labs: Radiology Impressions Chest X-Ray 11/18/21 11:53 IMPRESSION: 1. Cardiomegaly. 2. Streaky opacities at the superior right perihilar region are stable when compared to the prior study. Differential includes scarring. Follow-up to exclude neoplasm as clinically warranted. Chest/Abdomen/Pelvis CT 11/18/21 16:33 IMPRESSION: 1. There is a lobulated mediastinal/right perihilar mass as described above. 2. There are centrilobular emphysematous changes in the bilateral lungs. 3. There is a 4 mm noncalcified nodular density in right middle lobe.For patients at low risk (minimal or absent history of smoking and of other known risk factors), no routine follow-up is indicated. For patients at high risk (history of smoking or of other known risk factors), consider optional IMPRESSION: 1. Hazy stranding in the peripancreatic fat is consistent with acute pancreatitis. Please correlate with pancreatic laboratory values. 2. There is a 3.2 cm nonspecific heterogeneous lesion in the right adrenal gland. 3. There is mucosal thickening of the duodenum with adjacent mesenteric inflammatory stranding consistent with a nonspecific enteritis. This may be reactive in nature secondary to the adjacent pancreatic pathology. COMMENTS: Consistent with the [employer]'s Incidental Findings Committee white paper (J Am Liz Radiol 2017): For any incidental adrenal lesion greater than or equal to 1 cm but less than or equal to 4 cm classified in this report as benign, likely benign, or containing fat (including classification as an adenoma or myelolipoma), no follow-up imaging is recommended per consensus recommendations based on imaging criteria. Further lab evaluation could be pursued if warranted based on clinical findings. ADDENDUM: 11/18/211943 CRITICAL RESULT: The study was personally discussed on the telephone with Dr. Michaels on 11/18/2021 7:41 PM CDT. The results were understood and acknowledged. Abdomen Ultrasound 11/19/21 22:40 IMPRESSION: 1. Quality the exam is compromised by body habitus. 2. Cholelithiasis without biliary dilatation. Diffuse gallbladder wall thickening. Similar findings noted on the prior examination. Gallbladder wall thickening is probably due to chronic cholecystitis or the associated hepatocellular disease. 3. Chronic hepatocellular disease, likely hepatic steatosis. 4. Poorly visualized RIGHT kidney but there are numerous cysts present. Laboratory Results WBC 19.7 10^3/uL (4.0-10.0) H 11/21/21 04:30 RBC 3.13 10^6/uL (4.1-5.3) L 11/21/21 04:30 Hgb 8.9 g/dL (11.7-16.6) L 11/21/21 04:30 Hct 29.1 % (42.0-52.0) L 11/21/21 04:30 MCV 93.0 fl (80-94) 11/21/21 04:30 MCH 28.4 pg (28.0-34.0) 11/21/21 04:30 MCHC 30.6 g/dL (30.0-36.0) 11/21/21 04:30 RDW 17.9 % (12.1-15.1) H 11/21/21 04:30 Plt Count 164 10^3/cmm (130-400) 11/21/21 04:30 MPV 11.7 fL (7.4-10.4) H 11/21/21 04:30 Neut % (Auto) 80.9 % 11/21/21 04:30 Lymph % (Auto) 4.7 % 11/21/21 04:30 [place] % (Auto) 6.1 % 11/21/21 04:30 Eos % (Auto) 7.3 % 11/21/21 04:30 Baso % (Auto) 0.2 % 11/21/21 04:30 Neut # (Auto) 15.89 10^3/uL (1.8-7.7) H 11/21/21 04:30 Lymph # (Auto) 0.9 10^3/uL (0.8-4.8) 11/21/21 04:30 [place] # (Auto) 1.2 10^3/uL (0.2-0.9) H 11/21/21 04:30 Eos # (Auto) 1.4 10^3/uL (0.0-0.8) H 11/21/21 04:30 Baso # (Auto) 0.0 10^3/uL (0.0-0.1) 11/21/21 04:30 Nucleated RBC % (auto) 0 % 11/21/21 04:30 Nucleated RBCs # 0.0 /100WBC 11/21/21 04:30 PT 13.30 SECONDS (12.1-14.9) 11/19/21 04:23 INR 0.98 (0.8-1.2) 11/19/21 04:23 Sodium 140 mmol/L (136-145) 11/21/21 04:30 Potassium 3.5 mmol/L (3.5-5.1) 11/21/21 04:30 Chloride 105 mmol/L (98-107) 11/21/21 04:30 Carbon Dioxide 27 mmol/L (22-29) 11/21/21 04:30 Anion Gap 11.5 (5-19) 11/21/21 04:30 BUN 34 mg/dL (8-23) H 11/21/21 04:30 Creatinine 1.5 mg/dL (0.7-1.2) H 11/21/21 04:30 GFR Calculation 46.5 mL/min (90-130) L 11/21/21 04:30 Glucose 116 mg/dL (65-115) H 11/21/21 04:30 POC Glucose 183 mg/dL (70-110) H 11/20/21 20:34 Estimat Average Glucose 140 11/19/21 04:23 Hemoglobin A1c 6.5 % (4.0-6.0) H 11/19/21 04:23 Calculated Osmolality 299 mOsm/kg (285-295) H 11/21/21 04:30 Lactic Acid 1.3 mmol/L (0.5-2.2) 11/18/21 14:05 Lactate 1.0 mmol/L (0.5-2.2) 11/19/21 04:23 Calcium 8.9 mg/dL (8.5-10.5) 11/21/21 04:30 Phosphorus 2.3 mg/dL (2.5-4.5) L 11/21/21 04:30 Magnesium 2.1 mg/dL (1.7-2.3) 11/21/21 04:30 Total Bilirubin 0.5 mg/dL (0.15-1.2) 11/20/21 02:47 Direct Bilirubin 0.20 mg/dL (0.00-0.30) 11/18/21 16:25 GGT 41 U/L (8-61) 11/18/21 16:25 AST 13 U/L (0-40) 11/20/21 02:47 ALT 39 U/L (0-41) 11/20/21 02:47 Alkaline Phosphatase 46 IU/L (40-130) 11/20/21 02:47 Creatine Kinase 87 U/L (39-308) 11/19/21 04:23 Troponin T Baseline 36 ng/L (0-15) H 11/18/21 14:05 Troponin T 120 Minute 33.79 ng/L (0-15) H 11/18/21 16:25 Delta Troponin T -2.21 ABS# (0-10) L 11/18/21 16:25 Troponin T Hi Sens 6Hr 37.57 ng/L (0-15) H 11/18/21 19:20 Troponin T Hi Sens 6Hr Delta 1.57 ng/L (0-12) 11/18/21 19:20 C-Reactive Protein 109.7 mg/L (0.0-4.9) H 11/21/21 04:30 NT-Pro-B Natriuret Pep 1234 pg/mL (0-125) H 11/18/21 14:05 Total Protein 5.7 g/dL (6.6-8.7) L 11/20/21 02:47 Albumin 3.3 g/dL (3.5-5.2) L 11/20/21 02:47 Globulin 2.4 g/dL (1.3-4.6) 11/20/21 02:47 Lipase 82 U/L (13-60) H 11/19/21 04:23 Procalcitonin 0.10 ng/mL (0-0.5) 11/19/21 04:23 Urine Color Yellow (Yellow) 11/18/21 17:05 Urine Appearance Hazy (CLEAR) A 11/18/21 17:05 Urine pH 5 (5-7) 11/18/21 17:05 Ur Specific [place] 1.015 (1.005-1.030) 11/18/21 17:05 Urine Protein Neg (Negative) 11/18/21 17:05 Urine Glucose (UA) Norm (Normal) 11/18/21 17:05 Urine Ketones Negative (Negative) 11/18/21 17:05 Urine Blood 3+ (Negative) H 11/18/21 17:05 Urine Nitrate Negative (Negative) 11/18/21 17:05 Urine Bilirubin Neg (Negative) 11/18/21 17:05 Urine Urobilinogen Norm mg/dL (Negative) 11/18/21 17:05 Ur Leukocyte Esterase 1+ (Negative) H 11/18/21 17:05 Urine RBC 25-40 /hpf (0-2) H 11/18/21 17:05 Urine WBC 15-25 /hpf (0-5) H 11/18/21 17:05 Ur Squamous Epith Cells 0-4 /hpf (0-5) H 11/18/21 17:05 Amorphous Sediment Not Reportable 11/18/21 17:05 Urine Bacteria 1+ /hpf (NONE) H 11/18/21 17:05 Hepatitis A IgM Ab Non-reactive (Nonreactive) 11/18/21 14:05 Hep Bs Antigen Non-reactive (Nonreactive) 11/18/21 14:05 Hep B Core IgM Ab Non-reactive (Nonreactive) 11/18/21 14:05 Hepatitis C Antibody Reactive (Nonreactive) H 11/18/21 14:05 HCV RNA (PCR) IUs/ml <1.18 not detected Log IU/mL (NOT DETECTED) 11/18/21 18:27 HCV RNA (PCR) IU log10 <15 not detected IU/mL (NOT DETECTED) 11/18/21 18:27 Influenza Type A Ag Negative (Negative) 11/18/21 16:50 Influenza Type B Ag Negative (Negative) 11/18/21 16:50 SARS-CoV-2 Ag (Rapid) Negative (Negative) 11/18/21 18:08 Micro: Microbiology 11/18/21 17:05 Urine Culture - Final Urine Ureter A&P Assessment and plan (1) Lung mass: Status: Acute (2) Smoker: Status: Acute (3) MADDI (obstructive sleep apnea): Status: Acute (4) Emphysema lung: Status: Acute Plan #New lobulated mass in superior mediastinum extending to right perihilar region on CT 11/18/2021 compared to 08/08/2020 #Highly suspicious for lung cancer given significant smoking history-1 PPD by 50 years-reported quitting 3 months ago -Scheduled for endobronchial ultrasound-guided fine-needle aspiration of hilar mass on 11/21/2021 -Patient will follow-up in pulmonary clinic for biopsy results in 10 days #CT evidence of emphysema -Currently requiring 2 to 3 L supplemental oxygen -We will perform PFTs and 6-minute walk test as outpatient -Recommended to discharge patient with ICS/LABA/LAMA -May benefit from pulmonary rehab but patient is not ambulating due to chronic lymphedema and cellulitis -Strongly encouraged to maintain abstinence from smoking #History of MADDI-noncompliant with CPAP -Currently uses supplemental oxygen at nighttime -Encouraged to lose weight Medical condition, labs, investigations, medications, counseling regarding medication compliance, side effects, importance of follow-up appointments, s moking-its adverse effects and importance of cessation and plan of care- everything explained in detail to the patient. Patient verbalized understanding and agreed with the plan. This documentation was created by [employer] traffic control technician software (known for inherent traffic control technician error). Every effort was made to assure accuracy of traffic control technician. Any obvious errors or omissions should be clarified with the author of the document. Recommendations conveyed to hospitalist, RN taking care of the patient Consult Attestations Medical Necessity Statement: Deferred to the hospitalist Time Spent in Patient Care: Greater than 35 minutes (>than 50% of time spent in counselling and/or direct pt care on unit) . Coding Level of Care Code New Pt Acute Investment Banker for Chg Fwd Patient Type New History Comprehensive Exam Comprehensive Medical Decision Making Moderate Complexity Diagnoses Lung mass R91.8 Smoker F17.200 MADDI (obstructive sleep apnea) G47.33 Emphysema lung J43.9 Time Spent (min) 40
[2021-11-21] VITALS (18 sets, daily range): BP systolic 115–156; BP diastolic 47–67; PULSE 44–85; RESP 13–18; TEMP 36.1–36.9; O2SAT 93–100
[2021-11-21 00:28] LABS: HEP C RNA Viral Load Quant <1.18 NOT DETECTED Log IU/mL (NOT DETECTED); HEP C RNA Viral Load Quant <15 NOT DETECTED IU/mL (NOT DETECTED)
[2021-11-21 04:51] LABS: Basophils % 0.2 %; Eosinophils # 1.4 10^3/uL (0.0-0.8); Eosinophils % 7.3 %; Hematocrit 29.1 % (42.0-52.0); Hemoglobin 8.9 g/dL (11.7-16.6); Lymphocytes # 0.9 10^3/uL (0.8-4.8); Lymphocytes % 4.7 %; Mean Corpuscular HGB Conc 30.6 g/dL (30.0-36.0); Mean Corpuscular Hemoglobin 28.4 pg (28.0-34.0); Mean Platelet Volume 11.7 fL (7.4-10.4); Monocytes # 1.2 10^3/uL (0.2-0.9); Monocytes % 6.1 %; Neutrophils # 15.89 10^3/uL (1.8-7.7); Neutrophils % 80.9 %; Nucleated Red Blood Cells % 0 %; Platelet Count 164 10^3/cmm (130-400); Red Blood Count 3.13 10^6/uL (4.1-5.3); Red Cell Distribution Width 17.9 % (12.1-15.1); White Blood Count 19.7 10^3/uL (4.0-10.0)
[2021-11-21 05:06] LABS: Anion Gap 11.5 (5-19); Blood Urea Nitrogen 34 mg/dL (8-23); C Reactive Protein 109.7 mg/L (0.0-4.9); Calcium 8.9 mg/dL (8.5-10.5); Carbon Dioxide 27 mmol/L (22-29); Chloride 105 mmol/L (98-107); Glomerular Filtration Rate 46.5 mL/min (90-130); Glucose 116 mg/dL (65-115); Magnesium 2.1 mg/dL (1.7-2.3); Osmolality Calculated 299 mOsm/kg (285-295); Phosphorus 2.3 mg/dL (2.5-4.5); Potassium 3.5 mmol/L (3.5-5.1); Sodium 140 mmol/L (136-145)
[2021-11-21] MEDS: levothyroxine 100 mcg Tablet PO (06:39)
[2021-11-21] MEDS: doxycycline 100 mg Tablet PO ×2 (08:38→17:08)
[2021-11-21] MEDS: cholecalciferol (vitamin D3) 1,000 unit Tablet 1000 UNIT PO (08:38)
[2021-11-21] MEDS: pantoprazole DR 40 mg Tablet PO (08:39)
[2021-11-21] MEDS: magnesium oxide 400 mg tablet PO ×2 (08:39→17:08)
[2021-11-21] MEDS: dilTIAZem ER (24HR) 120 mg Capsule PO (08:39)
[2021-11-21] MEDS: hyDRALAzine 50 mg Tablet PO ×2 (08:39→16:01)
[2021-11-21] MEDS: aspirin 81 mg EC Tablet PO (08:39)
--- NOTE | 2021-11-21 09:29 | PC.SOCIAL ---
IMM Update Pg. 2 of IMM Updated and reviewed with patient, who verbalized understanding. Copy provided.
[2021-11-21] MEDS: sodium chloride 0.9% 1,000 ML 30 ML IV (11:20)
--- NOTE | 2021-11-21 12:10 | PM.PN ---
Subjective Subjective: This morning patient was laying flat He is n.p.o. Waiting for bronchoscopy this afternoon No overnight events Leukocytosis trending down Ox requirement has not worsened be on 4 L which is his home requirement Creatinine trending down with discontinuation of diuretics Lopes catheter can be removed today He walked 400 feet He does not want to go to longterm anymore Vitals/I&O/Wt Last Vital Signs Temp 97.7 F 11/21/21 11:38 Pulse 84 11/21/21 11:38 Resp 18 11/21/21 11:38 BP 136/61 11/21/21 11:38 Pulse Ox 100 11/21/21 11:38 11/20/21 11/21/21 11/21/21 22:59 06:59 14:59 Intake Total 240 / 590 480 / 1070 Output Total 100 / 100 250 / 350 Balance 140 / 490 230 / 720 Physical Exam Narrative: Patient is laying supine Currently saturating well on 3 L Clinically looks mildly fluid overloaded Pleasant cooperative No audible stridor or wheezing S1, S2 Abdomen soft Venous leg dermatitis Urinary Catheter Management: Lopes: Cath Placed During This Visit: yes, but has since been removed by the nurse Reason for Continuing Indwelling Catheter: Other Urinary Catheter Date of Insertion: 11/18/21 Urinary Catheter Time of Insertion: 18:29 Date Urinary Catheter Removed: 11/21/21 Time Urinary Catheter Discontinued: 10:45 Data : 11/21/21 04:30 11/21/21 04:30 Micro: Microbiology 11/18/21 17:05 Urine Culture - Final Urine Ureter A&P Assessment and plan (1) Emphysema lung: Status: Acute (2) MADDI (obstructive sleep apnea): Status: Acute (3) Smoker: Status: Acute (4) Lung mass: Status: Acute (5) Hilar mass: Status: Acute (6) Chest pain: Status: Acute (7) Pneumonia: Status: Acute (8) Right middle lobe pulmonary nodule: Status: Acute (9) Peripheral vascular disease: Status: Acute Plan Patient is awaiting for bronchoscopy today For his hilar mass He does not want to go to a longterm anymore, his life partner might pick him up tomorrow I will continue his antibiotics, holding Bumex for now Creatinine stable Chronic hypoxia without acute worsening Holding lisinopril, Bumex Continue doxycycline for his leg cellulitis core manager is aware Attestations Medical Necessity Statement*: Discharge tomorrow Time Spent in Patient Care: 30 Coding Level of Care Code Acute [employer] Report Developer for Chg Fwd Diagnoses Emphysema lung J43.9 MADDI (obstructive sleep apnea) G47.33 Smoker F17.200 Lung mass R91.8 Hilar mass R91.8 Chest pain R07.9 Pneumonia J18.9 Right middle lobe pulmonary nodule R91.1 Peripheral vascular disease I73.9
--- NOTE | 2021-11-21 12:15 | P.ANESASSM_ITS ---
Pre-Anesthetic Assessment Height/Weight: Height 1.7 m Weight 104.326 kg Temp Pulse Resp BP Pulse Ox 97.7 F 84 18 136/61 100 11/21/21 11:38 11/21/21 11:38 11/21/21 11:38 11/21/21 11:38 11/21/21 11:38 Operation Date: 11/21/21 11:45 Proposed Procedures p Bronchoscopy(Not Applicable) - Khanh Cortes MD s Ebus(Not Applicable) - Khanh SotomayorrMD Familial anesthetic complications: none Was Beta Meghan taken within 24 hours: N/A (Held on floor ) Social No alcohol and No tobacco Exam alert, oriented x 3 and regular rate & rhythm course lungs b/l Airway Submandibular: within normal limits Cervical ROM: within normal limits Mallampati: Class III Comments: Comments: poor dentition Pulmonary Chronic Obstructive Pulmonary Disease and Sleep Apnea (Does not use CPAP) chronic respiratory failure on 4 L NC O2 continuously hilar mass PCN CV/HEM Atrial Fibrillation, Congestive Heart Failure, Hypertension and Peripheral Vascular Disease METS < 4 Chronic Renal Failure Hepatic Hepatitis (C) GI None reported Metabolic Thyroid Disease [facility] [place] Osteoarthritis/DJD Neuropsych None reported Anesthetic Plan ASA status: 4 Anesthesia: Anesthesia Evaluation, General and MAC Other: We discussed risk and benefits of general anesthesia including PONV, sore throat (sometimes severe), corneal abrasion, positioning and peripheral nerve injuries, life threatening allergic reaction, post operative ICU admission requiring prolonged intubation, aspiration, stroke, heart attack, , and rare incidences of recall. Patient consents to proceed with general anesthesia. Risk of > 500 ml blood loss (7ml/kg in children): No Medications/Allergies Home Medications Medication Instructions Recorded Confirmed Last Taken Type albuterol sulfate 90 mcg/actuation 4 puff INHALATION BID 08/23/19 11/18/21 11/18/21 History aerosol inhaler (ProAir HFA) cholecalciferol (vitamin D3) 25 25 mcg PO DAILY 08/23/19 11/18/21 11/18/21 History mcg (1,000 unit) capsule (Vitamin D3) levothyroxine 100 mcg tablet 100 mcg PO DAILY@0730 08/23/19 11/18/21 11/18/21 History tamsulosin 0.4 mg capsule (Flomax) 0.4 mg PO DAILY@1600 08/23/19 11/18/21 11/17/21 History tiotropium bromide 2.5 2 puff INHALATION DAILY 08/23/19 11/18/21 11/18/21 History mcg/actuation mist for inhalation (Spiriva Respimat) aspirin 81 mg tablet,delayed 81 mg PO DAILY@0800 08/07/20 11/18/21 11/18/21 History release diltiazem HCl 240 mg 240 mg PO DAILY@0800 08/07/20 11/18/21 11/18/21 History capsule,extended release 24 hr furosemide 40 mg tablet 40 mg PO BID@0800,1600 08/07/20 11/18/21 08/07/20 History hydralazine 50 mg tablet 50 mg PO QID@08,12,,08/07/20 11/18/21 11/18/21 History lisinopril 40 mg tablet 40 mg PO DAILY@1600 08/07/20 11/18/21 08/06/20 History metoprolol tartrate 50 mg tablet 50 mg PO BID@0800,1600 08/07/20 11/18/21 11/18/21 History albuterol sulfate 2.5 mg (3 mL) INHALATION Q4H PRN 08/10/20 11/18/21 Unknown Rx #180 ml Allergies Allergy/AdvReac Type Severity Reaction Status Date / Time No Known Allergies Allergy Verified 11/18/21 13:07 Current Medications Generic Name Dose Route Start Last Admin Trade Name Freq PRN Reason Stop Dose Admin Acetaminophen 650 mg 11/18/21 16:33 11/20/21 04:44 Acetaminophen 325 Mg Tablet PO 650 mg Q6H PRN Administration Mild/Mod Pain Or Temp >/= 101 Aspirin 81 mg 11/19/21 08:00 11/21/21 08:39 Aspirin 81 Mg Ec Tablet PO 81 mg DAILY@0800 MICHAEL Administration Atorvastatin Calcium 40 mg 11/18/21 21:00 11/20/21 20:44 Atorvastatin 40 Mg Tablet PO 40 mg BEDTIME MICHAEL Administration Diltiazem HCl 120 mg 11/20/21 08:00 11/21/21 08:39 Diltiazem Er (24hr) 120 Mg Capsule PO 120 mg DAILY@0800 MICHAEL Administration Doxycycline Monohydrate 100 mg 11/19/21 18:00 11/21/21 08:38 Doxycycline 100 Mg Tablet PO 100 mg BID MICHAEL Administration Protocol Enoxaparin Sodium 40 mg 11/18/21 16:33 11/19/21 15:58 Enoxaparin 40 Mg/0.4 Ml Syringe SUBCUT 40 mg Q24H MICHAEL Administration Hydralazine HCl 50 mg 11/18/21 16:33 11/21/21 08:39 Hydralazine 50 Mg Tablet PO 50 mg QID@08,12,16,20 MICHAEL Administration Levothyroxine Sodium 100 mcg 11/19/21 07:30 11/21/21 06:39 Levothyroxine 100 Mcg Tablet PO 100 mcg DAILY@0730 MICHAEL Administration Magnesium Oxide 400 mg 11/19/21 18:00 11/21/21 08:39 Magnesium Oxide 400 Mg Tablet PO 400 mg BID MICHAEL Administration Metoprolol Tartrate 50 mg 11/18/21 16:33 11/19/21 08:35 Metoprolol Tartrate 50 Mg Tablet PO 50 mg BID@0800,1600 MICHAEL Administration Pantoprazole Sodium 40 mg 11/21/21 09:00 11/21/21 08:[address] 40 Mg Tablet PO 40 mg DAILY MICHAEL Administration Tamsulosin HCl 0.4 mg 11/18/21 16:33 11/20/21 17:03 Tamsulosin 0.4 Mg Capsule PO 0.4 mg DAILY@1600 MICHAEL Administration Vitamin D 1,000 unit 11/19/21 09:00 11/21/21 08:38 Cholecalciferol (Vitamin D3) 1,000 Unit Tablet PO 1,000 unit DAILY MICHAEL Administration [facility] Anesthesia Medical History (HFpEF) heart failure with preserved ejection fraction Acute kidney injury superimposed on CKD Anemia Atrial fibrillation CHF (congestive heart failure) -Has had prior echo done in 08/2017 showing ejection fraction of 65%, grade 1 diastolic dysfunction. Repeat Echo: EF=60%, G2DD, normal PSP Chronic acquired lymphedema Chronic hepatitis C CKD (chronic kidney disease) stage 2, GFR 60-89 ml/min -has GIULIANO on CKD stage 2-3, baseline Cr is around 1 COPD (chronic obstructive pulmonary disease) oxygen-dependent, 4 L at baseline Encephalopathy Falls frequently Hyperlipidemia Hypernatremia Hypertension Hypothyroidism -Has known history of hypothyroidism status post ablation, Hypothyroidism Leukocytosis MADDI (obstructive sleep apnea) -Has known history of MADDI, does not use CPAP MADDI (obstructive sleep apnea) Peripheral vascular disease -Has known history of PVD with chronic lower extremity edema Rhabdomyolysis UTI (urinary tract infection) Surgical History H/O hernia repair H/O shoulder surgery History of appendectomy Family History Denies family history of CAD (coronary artery disease) Social History Smoking and tobacco status: current every day smoker cigarettes Packs smoked per day: 1 Alcohol intake: current Alcohol intake frequency: 0-2 Drinks per Day Alcohol type: hard liquor Lives independently: Yes Data Anesthesia : 11/21/21 04:30 11/21/21 04:30 Short CBC 11/20/21 11/21/21 Range/Units 02:47 04:30 WBC 20.4 H 19.7 H (4.0-10.0) 10^3/uL Hgb 10.2 L 8.9 L (11.7-16.6) g/dL Hct 33.4 L 29.1 L (42.0-52.0) % MCV 94.1 H 93.0 (80-94) fl Plt Count 185 164 (130-400) 10^3/cmm Neut % (Auto) 78.2 80.9 % Neut # (Auto) 15.98 H 15.89 H (1.8-7.7) 10^3/uL BMP 11/20/21 11/21/21 02:47 04:30 Sodium 140 140 Potassium 3.5 3.5 Chloride 103 105 Carbon Dioxide 27 27 BUN 36 H 34 H Creatinine 1.6 H 1.5 H Glucose 129 H 116 H Calcium 8.9 8.9 Liver Function 11/20/21 Range/Units 02:47 Total Bilirubin 0.5 (0.15-1.2) mg/dL AST 13 (0-40) U/L ALT 39 (0-41) U/L Alkaline Phosphatase 46 (40-130) IU/L Albumin 3.3 L (3.5-5.2) g/dL Coags 11/20/21 11/21/21 02:47 04:30 C-Reactive Protein 88.2 H 109.7 H Microbiology 11/18/21 17:05 Urine Culture - Final Urine Ureter Cardiac Studies: Echocardiogram Ultrasound 08/24/19 Sestamibi Stress Test (Cardiology) 11/20/21
[2021-11-21] MEDS: lidocaine 1% INJ 20 mL 3 ML XX (13:05)
--- NOTE | 2021-11-21 13:38 | P.OP_ITS ---
Operative Report Date of procedure: November 21, 2021 Pre-op diagnosis: CT evidence of mediastinal and right perihilar lobulated mass suspicious for malignancy Post-op diagnosis: Suspicious for malignancy Procedure done: -CPT code 60080: Bronchoscope for airway inspection -CPT code 75161: Bronchoscope with BAL? -CPT code 93480: EBUS Sampling 1/2 nodes? -Control of bleeding Brief History: Omar Ta is a 66 year old male with past medical history of COPD on 4 L, heart failure with preserved ejection fraction, hypertension, hypothyroidism, chronic hep C, MADDI, peripheral vascular disease, alcohol abuse disorder admitted to hospital for severe substernal chest pain associated with shortness of breath.? Chest x-ray showed streaky opacities at the superior right perihilar region which are stable compared to chest x-rays that were done during previous visit.? However a CT chest abdomen pelvis 11/18/2021 was obtained by admitting physician which showed a lobulated mass in the superior mediastinum extending to the right perihilar region surrounding the mediastinal and right perihilar structures measuring 6.1 x 8.5 x 7.1 cm.? There is a 4 mm noncalcified nodular density in the right middle lobe. Last year 08/08/2020 patient had a CTA which showed 8 mm right middle lobe nodule but did not show this lobulated mass which is new and current CT scan. Also there is 3.2 cm nonspecific heterogeneous lesion in right adrenal gland on CT abdomen pelvis. Patient has significant smoking history and reported smoking at least 1 pack/day for more than 50 years and quit 3 months ago. I have scheduled patient for endobronchial ultrasound guided fine-needle aspiration of mediastinal mass Procedure: Procedure: -Flexible bronchoscope for airway inspection, obtaining BAL from right middle lobe, Endobronchial ultrasound-guided FNA C of station 4R and Control of bleeding Pre-Operative Diagnosis: CT evidence of mediastinal and right perihilar lobulated mass suspicious for malignancy Post-Operative Diagnosis: Suspect malignancy Indication: CT chest abdomen pelvis 11/18/2021 was obtained by admitting physician which showed a lobulated mass in the superior mediastinum extending to the right perihilar region surrounding the mediastinal and right perihilar structures measuring 6.1 x 8.5 x 7.1 cm.? Anesthesia: Managed as per anesthesia team Pre-procedure Evaluation: Patient was evaluated clinically and ancillary testing reviewed. The risk of having active MTB infection is very low in my clinical judgement. ASA: 3 Consent: Consents were obtained from patient and placed in the chart Procedure Details: Time out was performed by the procedure team and nursing staff.? Vent support maintained on Fio2 100. The bronchoscope was introduced through the laryngeal mask airway.? A bronchoscopic airway exam was performed to evaluate the visible tracheobronchial tree to the segmental level. Summary of Significant Findings: -Bronchoscope passed through LMA and visualized mobile vocal cords. Instilled 1% 1 mL lidocaine and advanced bronchoscope into the trachea, both right and left main bronchus, instilled 1% lidocaine 2 mL each distal trachea, right mainstem bronchus and left mainstem bronchus.? Tracheal mucosa appeared normal with no endotracheal lesions.? The main harini visualized which were sharp and normal.? Then the scope was passed through the? left bronchial tree and assessed left mainstem bronchus, ROB, Lingula, and LLL bronchi to the segmental and subsegmental level. No active bleeding noted.? Mucosa appeared normal.? There were scant mucoid secretions which were suctioned right away. Then the scope was placed in the right bronchial tree and assessed include the right mainstem bronchus, RBI, and RUL/RML/RLL bronchi to the segmental and subsegmental levels.? No active bleeding noted.? Mucosa appeared somewhat edematous along the proximal portion of right upper lobe and bronchus intermedius, there were no endobronchial lesions.? There were scant mucoid secretions noted through right bronchus intermedius which were suctioned right a way. ? After inspecting the airways, bronchoscope was removed and endobronchial ultrasound was introduced and was able to visualize a significantly enlarged mass along the right paratracheal area up to right hilar area. About 5-6 fine- needle aspirations were performed near for our area. Rapid onsite evaluation reported as non-small cell cancer. After making sure adequate samples were collected, endobronchial ultrasound was removed. The bronchoscope was introduced again and noted there was mild bleeding from biopsy sites which was controlled with cold saline. BAL was obtained from right middle lobe and was sent for various studies Estimated Blood Loss: 5 to 10 cc ? Specimens:? 1. Bronchoalveolar lavage was taken from right middle lobe and sent for microbiology cultures, ,? AFB cultures, fungal cultures, cytology, fluid analysis, 2. ? Endobronchial ultrasound-guided fine-needle aspiration of station 4R were sent for histopathology. ? Complications:None; patient tolerated the procedure well. Postprocedure chest x-ray did not show any pneumothorax ? Disposition: Stable-transfer to floor Discussed preliminary results with the patient and hospitalist taking care of the patient. Patient will follow-up with me in pulmonary clinic in 7 to 10 days to discuss the final pathology results. He will eventually need outpatient PET CT scan. He does not seem to be very much interested in pursuing chemo or radiation but I have counseled him to wait for the final pathology results and if it turns out to be malignancy-talk to oncology before making any decisions regarding further treatments. He verbalized understanding and agreed to follow- up with me in clinic. Related Problem List Diagnoses (1) Smoker: (2) Lung mass:
--- NOTE | 2021-11-21 15:00 | PC.OT ---
RN agreeable to OT tx. Upon therapist arrival, pt sitting EOB and anxious about results from bronchoscopy. Pt refused OT this date. Will attempt tomorrow. Left with all needs met.
[2021-11-21] MEDS: tamsulosin 0.4 mg Capsule PO (16:01)
[2021-11-21] MEDS: enoxaparin 40 mg/0.4 mL Syringe SUBCUT (16:01)
[2021-11-21 20:16] LABS: Bronch Source Right Middle Lobe; Cyto Order Verification Order Verified
[2021-11-21 20:24] LABS: Apprearance, Bronch Wash Bloody (CLEAR); Color, Bronc Wash Red
[2021-11-21 20:25] LABS: PATH Referral Yes; Total Cells Counted Bronch 214
[2021-11-21] MEDS: ipratropium-albuterol 3 mL Neb INHALATION (20:27)
[2021-11-21] MEDS: atorvastatin 40 mg Tablet PO (20:48)
[2021-11-21] MEDS: ALPRAZolam 0.5 mg Tablet 0.25 MG PO (22:31)
[2021-11-22] VITALS (7 sets, daily range): BP systolic 114–135; BP diastolic 57–73; PULSE 67–84; RESP 13–18; TEMP 36.4–36.8; O2SAT 98–100
[2021-11-22] MEDS: levothyroxine 100 mcg Tablet PO (06:30)
--- NOTE | 2021-11-22 07:55 | P.DS_ITS ---
Discharge Providers Date of Admission: 11/18/21 14:28 Date of Discharge: November 22, 2021 Attending Provider at Admission: Peter Sargent MD Attending Provider at Discharge: David Andrews MD Primary Care Provider: Sun Bello MD Diagnoses at Discharge Discharge Diagnosis (1) Emphysema lung: Status: Acute (2) MADDI (obstructive sleep apnea): Status: Acute Permanent problem details: -Has known history of MADDI, does not use CPAP (3) Smoker: Status: Acute (4) Lung mass: Status: Acute (5) Hilar mass: Status: Acute (6) Chest pain: Status: Acute (7) Pneumonia: Status: Acute (8) Right middle lobe pulmonary nodule: Status: Acute (9) Peripheral vascular disease: Status: Acute Permanent problem details: -Has known history of PVD with chronic lower extremity edema Reason for Visit Reason for Visit: CHEST PAIN Hospital Course Hospital Course Omar Ta is a 66 year old male with PMH of COPD ON 4LS home oxygen, HFpEF, HTN, Hypothyroidism, chronic hepc , MADDI,PVD, alcohol abuse has been sober since May this year,? was brought from home by the EMS, he was admitted and managed for metabolic encephalopathy initially when he was admitted on 11/12 he improved with IV fluid hydration and antibiotics, he was discharged on 11/18, he returned within a few hours because of worsening of shortness of breath. He was diagnosed with CHF exacerbation, he received diuretics which worsened his creatinine, his creatinine stabilized at 1.5 after discontinuation of diuretics. Clinically he did not look fluid overloaded. BNP 1200, he was also complaining of chest pain, cardiac stress test was requested which did not show any large ischemic areas. He carries history of grade 2 diastolic function preserved ejection fraction 60%. CT scan of chest revealed right-sided perihilar mass, Dr. Cortes was consulted who did bronchoscopy on 11/21, preliminary report is concerning for malignancy, patient does not want to pursue chemo or radiotherapy for any kind of malignancy however he wanted to know the diagnosis and prognosis. He will follow-up with Dr. Cortes within a week. He will be discharged on trilogy. I have discontinued his Spiriva. Initially he wanted to go to half-way because of his deconditioning however he changed his mind and wanted his girlfriend to pick him up from the hospital on 11/22 after his discharge. He had leukocytosis around 21,000, it has trended down gradually to 19,000, he remained afebrile, his leukocytosis most likely is related to underlying cancer, CT scan did not show active consolidation. Cultures negative to date. He was getting doxycycline for his nonpurulent cellulitis of leg. Pending results of bronchoalveolar lavage and biopsy Patient is DNR/DNI Medications added: Augmentin, potassium supplement along Lasix, treilogy Medication dose reduced, metoprolol and hydralazine secondary to stable blood pressure during hospitalization. Physical Exam Narrative: Patient is laying supine Currently saturating well on 4 L Clinically looks euvolemic today Pleasant cooperative No audible stridor or wheezing S1, S2 Abdomen soft Venous leg dermatitis Urinary Catheter Management: Lopes: Cath Placed During This Visit: yes, but has since been removed by the nurse Reason for Continuing Indwelling Catheter: Not indwelling catheter Urinary Catheter Date of Insertion: 11/18/21 Urinary Catheter Time of Insertion: 18:29 Date Urinary Catheter Removed: 11/21/21 Time Urinary Catheter Discontinued: 09:00 Discharge Data Studies Completed and Pending Completed Studies During Hospitalization Category Date Time Status CT chest abdomen pelvis [[place] [id number] Cat Scan 11/18/21 16:33 Completed ] Urgent Sestamibi Stress Test Request Routine Exams 11/20/21 06:27 Draft XR chest 1V portable [id number] Stat Exams 11/18/21 11:53 Completed NM amirah perf SPECT r/s* [id number] Routine Nuc Med 11/20/21 10:23 Completed US abdomen limited [id number] Routine Ultrasound 11/19/21 22:40 Completed Pending at discharge Category Date Time Status Sestamibi Stress Test Request Routine Exams 11/19/21 12:36 Stop Req Basic Metabolic Panel AM LABS Lab 11/22/21 04:00 Ordered Blood Culture Stat Lab 11/18/21 15:44 Results Bronchoalv Lavage Culture & GS Routine Lab 11/21/21 13:30 Received Complete Blood Count w/Auto AM LABS Lab 11/22/21 04:00 Ordered Mycobacteria, Culture w/Fluor Routine Lab 11/21/21 13:30 Received Sputum Culture and Gram Stain Stat Lab 11/18/21 15:32 Uncollected Cytology [PTH] Routine Pth 11/21/21 13:19 Ordered Cytology [PTH] Routine Pth 11/21/21 13:30 Received Pathology: Surgical [PTH] Routine Pth 11/21/21 13:40 Received Radiology Impressions Chest X-Ray 11/18/21 11:53 IMPRESSION: 1. Cardiomegaly. 2. Streaky opacities at the superior right perihilar region are stable when compared to the prior study. Differential includes scarring. Follow-up to exclude neoplasm as clinically warranted. Chest/Abdomen/Pelvis CT 11/18/21 16:33 IMPRESSION: 1. There is a lobulated mediastinal/right perihilar mass as described above. 2. There are centrilobular emphysematous changes in the bilateral lungs. 3. There is a 4 mm noncalcified nodular density in right middle lobe.For patients at low risk (minimal or absent history of smoking and of other known risk factors), no routine follow-up is indicated. For patients at high risk (history of smoking or of other known risk factors), consider optional IMPRESSION: 1. Hazy stranding in the peripancreatic fat is consistent with acute pancreatitis. Please correlate with pancreatic laboratory values. 2. There is a 3.2 cm nonspecific heterogeneous lesion in the right adrenal gland. 3. There is mucosal thickening of the duodenum with adjacent mesenteric inflammatory stranding consistent with a nonspecific enteritis. This may be reactive in nature secondary to the adjacent pancreatic pathology. COMMENTS: Consistent with the [employer]'s Incidental Findings Committee white paper (J Am Liz Radiol 2017): For any incidental adrenal lesion greater than or equal to 1 cm but less than or equal to 4 cm classified in this report as benign, likely benign, or containing fat (including classification as an adenoma or myelolipoma), no follow-up imaging is recommended per consensus recommendations based on imaging criteria. Further lab evaluation could be pursued if warranted based on clinical findings. ADDENDUM: 11/18/211943 CRITICAL RESULT: The study was personally discussed on the telephone with Dr. Michaels on 11/18/2021 7:41 PM CDT. The results were understood and acknowledged. Abdomen Ultrasound 11/19/21 22:40 IMPRESSION: 1. Quality the exam is compromised by body habitus. 2. Cholelithiasis without biliary dilatation. Diffuse gallbladder wall t hickening. Similar findings noted on the prior examination. Gallbladder wall thickening is probably due to chronic cholecystitis or the associated hepatocellular disease. 3. Chronic hepatocellular disease, likely hepatic steatosis. 4. Poorly visualized RIGHT kidney but there are numerous cysts present. Laboratory Results WBC 19.7 10^3/uL (4.0-10.0) H 11/21/21 04:30 RBC 3.13 10^6/uL (4.1-5.3) L 11/21/21 04:30 Hgb 8.9 g/dL (11.7-16.6) L 11/21/21 04:30 Hct 29.1 % (42.0-52.0) L 11/21/21 04:30 MCV 93.0 fl (80-94) 11/21/21 04:30 MCH 28.4 pg (28.0-34.0) 11/21/21 04:30 MCHC 30.6 g/dL (30.0-36.0) 11/21/21 04:30 RDW 17.9 % (12.1-15.1) H 11/21/21 04:30 Plt Count 164 10^3/cmm (130-400) 11/21/21 04:30 MPV 11.7 fL (7.4-10.4) H 11/21/21 04:30 Neut % (Auto) 80.9 % 11/21/21 04:30 Lymph % (Auto) 4.7 % 11/21/21 04:30 Ceiba % (Auto) 6.1 % 11/21/21 04:30 Eos % (Auto) 7.3 % 11/21/21 04:30 Baso % (Auto) 0.2 % 11/21/21 04:30 Neut # (Auto) 15.89 10^3/uL (1.8-7.7) H 11/21/21 04:30 Lymph # (Auto) 0.9 10^3/uL (0.8-4.8) 11/21/21 04:30 Ceiba # (Auto) 1.2 10^3/uL (0.2-0.9) H 11/21/21 04:30 Eos # (Auto) 1.4 10^3/uL (0.0-0.8) H 11/21/21 04:30 Baso # (Auto) 0.0 10^3/uL (0.0-0.1) 11/21/21 04:30 Nucleated RBC % (auto) 0 % 11/21/21 04:30 Nucleated RBCs # 0.0 /100WBC 11/21/21 04:30 PT 13.30 SECONDS (12.1-14.9) 11/19/21 04:23 INR 0.98 (0.8-1.2) 11/19/21 04:23 Sodium 140 mmol/L (136-145) 11/21/21 04:30 Potassium 3.5 mmol/L (3.5-5.1) 11/21/21 04:30 Chloride 105 mmol/L (98-107) 11/21/21 04:30 Carbon Dioxide 27 mmol/L (22-29) 11/21/21 04:30 Anion Gap 11.5 (5-19) 11/21/21 04:30 BUN 34 mg/dL (8-23) H 11/21/21 04:30 Creatinine 1.5 mg/dL (0.7-1.2) H 11/21/21 04:30 GFR Calculation 46.5 mL/min (90-130) L 11/21/21 04:30 Glucose 116 mg/dL (65-115) H 11/21/21 04:30 POC Glucose 183 mg/dL (70-110) H 11/20/21 20:34 Estimat Average Glucose 140 11/19/21 04:23 Hemoglobin A1c 6.5 % (4.0-6.0) H 11/19/21 04:23 Calculated Osmolality 299 mOsm/kg (285-295) H 11/21/21 04:30 Lactic Acid 1.3 mmol/L (0.5-2.2) 11/18/21 14:05 Lactate 1.0 mmol/L (0.5-2.2) 11/19/21 04:23 Calcium 8.9 mg/dL (8.5-10.5) 11/21/21 04:30 Phosphorus 2.3 mg/dL (2.5-4.5) L 11/21/21 04:30 Magnesium 2.1 mg/dL (1.7-2.3) 11/21/21 04:30 Total Bilirubin 0.5 mg/dL (0.15-1.2) 11/20/21 02:47 Direct Bilirubin 0.20 mg/dL (0.00-0.30) 11/18/21 16:25 GGT 41 U/L (8-61) 11/18/21 16:25 AST 13 U/L (0-40) 11/20/21 02:47 ALT 39 U/L (0-41) 11/20/21 02:47 Alkaline Phosphatase 46 IU/L (40-130) 11/20/21 02:47 Creatine Kinase 87 U/L (39-308) 11/19/21 04:23 Troponin T Baseline 36 ng/L (0-15) H 11/18/21 14:05 Troponin T 120 Minute 33.79 ng/L (0-15) H 11/18/21 16:25 Delta Troponin T -2.21 ABS# (0-10) L 11/18/21 16:25 Troponin T Hi Sens 6Hr 37.57 ng/L (0-15) H 11/18/21 19:20 Troponin T Hi Sens 6Hr Delta 1.57 ng/L (0-12) 11/18/21 19:20 C-Reactive Protein 109.7 mg/L (0.0-4.9) H 11/21/21 04:30 NT-Pro-B Natriuret Pep 1234 pg/mL (0-125) H 11/18/21 14:05 Total Protein 5.7 g/dL (6.6-8.7) L 11/20/21 02:47 Albumin 3.3 g/dL (3.5-5.2) L 11/20/21 02:47 Globulin 2.4 g/dL (1.3-4.6) 11/20/21 02:47 Lipase 82 U/L (13-60) H 11/19/21 04:23 Procalcitonin 0.10 ng/mL (0-0.5) 11/19/21 04:23 Urine Color Yellow (Yellow) 11/18/21 17:05 Urine Appearance Hazy (CLEAR) A 11/18/21 17:05 Urine pH 5 (5-7) 11/18/21 17:05 Ur Specific [place]ley 1.015 (1.005-1.030) 11/18/21 17:05 Urine Protein Neg (Negative) 11/18/21 17:05 Urine Glucose (UA) Norm (Normal) 11/18/21 17:05 Urine Ketones Negative (Negative) 11/18/21 17:05 Urine Blood 3+ (Negative) H 11/18/21 17:05 Urine Nitrate Negative (Negative) 11/18/21 17:05 Urine Bilirubin Neg (Negative) 11/18/21 17:05 Urine Urobilinogen Norm mg/dL (Negative) 11/18/21 17:05 Ur Leukocyte Esterase 1+ (Negative) H 11/18/21 17:05 Urine RBC 25-40 /hpf (0-2) H 11/18/21 17:05 Urine WBC 15-25 /hpf (0-5) H 11/18/21 17:05 Ur Squamous Epith Cells 0-4 /hpf (0-5) H 11/18/21 17:05 Amorphous Sediment Not Reportable 11/18/21 17:05 Urine Bacteria 1+ /hpf (NONE) H 11/18/21 17:05 Bronch Specimen Source Right middle lobe 11/21/21 13:30 Bronchial Fluid Color Red 11/21/21 13:30 Bronchial Fluid Appearance Bloody (CLEAR) 11/21/21 13:30 Bronchial Fluid WBC 205 /uL 11/21/21 13:30 Bronchial Fluid RBC 14 10^3/uL 11/21/21 13:30 Bronch Cells Counted 214 11/21/21 13:30 Bronchial Diff Comment Yes 11/21/21 13:30 Hepatitis A IgM Ab Non-reactive (Nonreactive) 11/18/21 14:05 Hep Bs Antigen Non-reactive (Nonreactive) 11/18/21 14:05 Hep B Core IgM Ab Non-reactive (Nonreactive) 11/18/21 14:05 Hepatitis C Antibody Reactive (Nonreactive) H 11/18/21 14:05 HCV RNA (PCR) IUs/ml <1.18 not detected Log IU/mL (NOT DETECTED) 11/18/21 18:27 HCV RNA (PCR) IU log10 <15 not detected IU/mL (NOT DETECTED) 11/18/21 18:27 Influenza Type A Ag Negative (Negative) 11/18/21 16:50 Influenza Type B Ag Negative (Negative) 11/18/21 16:50 SARS-CoV-2 Ag (Rapid) Negative (Negative) 11/18/21 18:08 Vitals Last Vital Signs Temp 97.6 F 11/22/21 04:00 Pulse 67 11/22/21 04:00 Resp 13 11/22/21 04:00 BP 117/58 11/22/21 04:00 Pulse Ox 98 11/22/21 04:00 Discharge Plan Discharge Patient Disposition: Home Condition: Stable Prescriptions: [place] Ellipta 100-62.5-25 mcg blister with device 1 inh inhalation DAILY Qty: 60 4RF potassium chloride 10 mEq tablet extended release 10 meq PO DAILY Qty: 30 0RF Augmentin 500-125 mg tablet 1 tab PO BID Qty: 10 0RF Continued levothyroxine 100 mcg Tablet 100 mcg PO DAILY@0730 0RF albuterol sulfate [ProAir HFA] 90 mcg/actuation Hfa Aerosol Inhaler 4 puff INHALATION BID 0RF cholecalciferol (vitamin D3) [Vitamin D3] 25 mcg (1,000 unit) Capsule 25 mcg PO DAILY 0RF albuterol sulfate 2.5 mg /3 mL (0.083 %) solution for nebulization 2.5 mg inhalation Q4H PRN (Reason: shortness of breath or wheezing) Qty: 180 0RF furosemide 40 mg Tablet 40 mg PO BID@0800,1600 0RF Hold Instructions: Resume on 11/24/21. aspirin 81 mg Tablet,Delayed Release (Dr/Ec) 81 mg PO DAILY@0800 0RF diltiazem HCl 240 mg capsule,extended release 24hr 240 mg PO DAILY@0800 0RF lisinopril 40 mg tablet 40 mg PO DAILY@1600 0RF Hold Instructions: Resume on 11/24/21. Flomax 0.4 mg Capsule 0.4 mg PO DAILY@1600 Qty: 60 0RF Changed metoprolol tartrate 50 mg tablet 25 mg PO BID@0800,1600 Qty: 60 0RF hydralazine 50 mg Tablet 25 mg PO BID Qty: 60 0RF Discontinued Spiriva Respimat 2.5 mcg/actuation Mist 2 puff INHALATION DAILY 0RF Discharge Orders: Discharge Order (Routine); Ordered 11/22/21 Ordered By: David Andrews Referrals: Sun Bello MD [Primary Care Provider] - 12/06/21 10:00 am (You have a follow up appointment with Dr. Bello on December 06 at 10:00am If you are unable to keep this appointment please contact providers office) Khanh Cortes MD [Physician] - 12/10/21 8:15 am (You have a follow up appointment with Dr. Cortes on December 10 at 8:15am If you are unable to keep this appointment please contact providers office) Discharge Diet: Cardiac Discharge Activity: Increase activity as tolerated and As per PT/OT instructions Patient Instructions: Potassium Chloride (By mouth), Amoxicillin/Clavulanate Potassium (By mouth), Fluticasone/Umeclidinium/Vilanterol (By breathing), Opioid Safety Discharge Attestations Time Spent in Discharge Care*: less than 30 min Status at Discharge: Cognitive status at discharge: cognitively intact , Behavioral status at discharge: cooperative , Quality Metrics Clinical Quality Measures [ No reported AMI, CVA or VTE this stay] Coding Level of Care Code Acute Chg FW DC note Diagnoses Emphysema lung J43.9 MADDI (obstructive sleep apnea) G47.33 Smoker F17.200 Lung mass R91.8 Hilar mass R91.8 Chest pain R07.9 Pneumonia J18.9 Right middle lobe pulmonary nodule R91.1 Peripheral vascular disease I73.9
[2021-11-22] MEDS: doxycycline 100 mg Tablet PO (08:04)
[2021-11-22] MEDS: hyDRALAzine 50 mg Tablet PO ×2 (08:04→11:12)
[2021-11-22] MEDS: magnesium oxide 400 mg tablet PO (08:04)
[2021-11-22] MEDS: cholecalciferol (vitamin D3) 1,000 unit Tablet 1000 UNIT PO (08:04)
[2021-11-22] MEDS: aspirin 81 mg EC Tablet PO (08:04)
[2021-11-22] MEDS: pantoprazole DR 40 mg Tablet PO (08:04)
[2021-11-22] MEDS: dilTIAZem ER (24HR) 120 mg Capsule PO (08:04)
--- NOTE | 2021-11-22 16:54 | PC.NURSE ---
Discharge Note Patient discharged to home via private vehicle accompanied by girlfriend. Discharge instructions reviewed with patient and/or entry level marketing representative. Mobile pharmacy medications and/or prescriptions provided. Belongings/home medications returned.
== END 2021-11-22 16:30 | disposition home or self-care (01) | DRG 264 ==
LOC: ER 15:18 → MEDSURG 16:11
PROVIDERS: Internal Medicine Pulmonary Disease; Admitting Provider Family Medicine; Emergency Provider Emergency Medicine; PCP Family Medicine; Visit Provider Internal Medicine
PROC: 0BJ08ZZ Inspection of Tracheobronchial Tree, Via Natural or Artificial Opening Endoscopic (ICD-10-PCS; CPT 31622; principal; 2021-11-21 11:45)
PROC: BB4BZZZ Ultrasonography of Pleura (ICD-10-PCS; 2021-11-21 11:45)
DX: I13.0 Hypertensive heart and chronic kidney disease with heart failure and stage 1 through stage 4 chronic kidney disease, or unspecified chronic kidney disease (principal); I50.33 Acute on chronic diastolic (congestive) heart failure; J18.9 Pneumonia, unspecified organism; K85.90 Acute pancreatitis without necrosis or infection, unspecified; C34.2 Malignant neoplasm of middle lobe, bronchus or lung; C77.1 Secondary and unspecified malignant neoplasm of intrathoracic lymph nodes; N17.9 Acute kidney failure, unspecified; N18.2 Chronic kidney disease, stage 2 (mild); I48.91 Unspecified atrial fibrillation; J43.9 Emphysema, unspecified; B18.2 Chronic viral hepatitis C; E78.5 Hyperlipidemia, unspecified; E03.9 Hypothyroidism, unspecified; G47.33 Obstructive sleep apnea (adult) (pediatric); I73.9 Peripheral vascular disease, unspecified; Z87.440 Personal history of urinary (tract) infections; Z87.891 Personal history of nicotine dependence; Z99.81 Dependence on supplemental oxygen; F10.11 Alcohol abuse, in remission; Z79.82 Long term (current) use of aspirin; Z79.51 Long term (current) use of inhaled steroids; Z91.19 Patient's noncompliance with other medical treatment and regimen; L89.312 Pressure ulcer of right buttock, stage 2; Z66 Do not resuscitate; I20.0 Unstable angina
CPT/HCPCS: 31624; 31652; 36415; 36416; 51702; 51798; 71045; 71250; 74176; 76705; 78452; 80048; 80053; 80074; 80076; 80503; 81001; 82550; 82962; 82977; 83036; 83605; 83690; 83735; 83880; 84100; 84145; 84484; 85025; 85610; 86140; 87015; 87040; 87070; 87086; 87116; 87205; 87206; 87426; 87522; 87641; 87801; 87804; 88108; 88305; 88325; 88342; 89050; 93005; 93017; 94640; 94664; 96365; 96367; 96372; 96375; 97116; 97161; 97530; 99285; A9500; C9113; J0692; J1650; J1940; J2270; J2785; J3370; J7030; J7050

== ENCOUNTER 2021-12-03 15:20 | Inpatient (IN) | payer OTHER, MEDICARE, SELFPAY ==
[2021-12-03] VITALS (12 sets, daily range): BP systolic 131–163; BP diastolic 59–70; PULSE 72–90; RESP 18–22; TEMP 36.6; O2SAT 91–100; BMI 46.2
--- NOTE | 2021-12-03 15:23 | ECG_ITS ---
[facility] Test Date: 2021-12-03 Pat Name: Omar Ta Department: Room: Gender: Male Office Assistant: : [id number] Requested By: Francois Neri Order Number: [id number] Leann MD: Sivakumar [place] M.D. Measurements Intervals [place] Rate: 71 P: 64 TN: 175 QRS: 71 QRSD: 92 T: 0 QT: 344 QTc: 376 Interpretive Statements SINUS RHYTHM INCOMPLETE RIGHT BUNDLE BRANCH BLOCK [90+ ms QRS DURATION, TERMINAL R IN V1/V2, 40+ ms S IN I/aVL/V4/V5/V6] NONSPECIFIC ST & T-WAVE ABNORMALITY Compared to ECG 11/18/2021 14:54:16 Incomplete right bundle-branch block now present Sinus bradycardia no longer present T-wave abnormality still present Electronically Signed On 12-03-2021 20:59:46 CDT by Sivakumar [place] M.D. [id number]
--- NOTE | 2021-12-03 15:23 | XR_ITS ---
WS: [id number] Exam: XR chest 1V portable [id number] Date/Time of Exam: 12/03/2021 3:30 PM Reason For Exam: dyspnea Comparison 11/18/2001. Spiculated density seen at the right suprahilar region is unchanged since prior study. There is widen ing of the mediastinum. The lungs are fully expanded. Remaining lung lundberg are clear. No pleural eff usions are seen. Bony structures are intact. Normal heart size for technique. XR/XR chest 1V portable [id number] IMPRESSION: 1. Spiculated right suprahilar pulmonary density unchanged in appearance since prior study. This apparently represents a known pulmonary mass identified on re cent chest CT scanning. There is also widening of the mediastinum which may ind icate mediastinal involvement or mediastinal lymphadenopathy. 2. The lungs are otherwise clear and fully expanded.
--- NOTE | 2021-12-03 15:35 | ED_ITS ---
HPI - General Adult General: Chief complaint: Shortness of Breath/Dyspnea Stated complaint: SOB Time Seen by Provider: 12/03/21 15:23 History of Present Illness: Patient is a 66-year-old male with a history of COPD on 4 L oxygen, diastolic heart failure, hypertension, hypothyroidism c hronic hep C, obstructive sleep apnea, alcohol abuse has been sober since May of this year presenting to the emergency room with complaints of worsening dyspnea since 11/27/2021. [facility] and tells me that he has been doing up well until 11/27/2021 at which point time, he has report increasing cough and shortness of breath. Patient tells me that he has been using his albuterol inhaler at home without any improvement symptom. Patient denies any fever or chills, chest pain, abdominal, nausea/vomiting, diarrhea/melena/hematochezia. Patient does report worsening shortness of breath on exertion. Patient denies any active chest pain. Patient does have body aches or any sick contacts. Patient reports that he is compliant with furosemide 40 mg twice daily. Onset: 11/27/2021 Duration: 6 days Location:home Severity:moderate Associated symptoms: Reports dyspnea and malaise; Deny chest pain, nausea, palpitations or vomiting Review of Systems Const: Reports: fatigue, malaise and other (+generalized weakness); Denies: fever(s) or chills Eyes: Denies: change in vision ENMT: Denies: mouth pain Card: Denies: chest pain or palpitations Resp: Reports: dyspnea and non-productive cough GI: Denies: abdominal pain, nausea, vomiting or diarrhea : Denies: dysuria Musc: Denies: extremity pain Skin/Breast: Reports: new lesions (+butt sore) Neuro: Denies: weakness in extremities Psych: Reports: other (Normal mood) Joe/Lymph: Denies: easy bruising PFSH ED PFSH: Medical History (HFpEF) heart failure with preserved ejection fraction Acute kidney injury superimposed on CKD Anemia Atrial fibrillation Chest pain CHF (congestive heart failure) -Has had prior echo done in 08/2017 showing ejection fraction of 65%, grade 1 diastolic dysfunction. Repeat Echo: EF=60%, G2DD, normal PSP Chronic acquired lymphedema Chronic acquired lymphedema Chronic hepatitis C CKD (chronic kidney disease) stage 2, GFR 60-89 ml/min -has GIULIANO on CKD stage 2-3, baseline Cr is around 1 COPD (chronic obstructive pulmonary disease) oxygen-dependent, 4 L at baseline Encephalopathy Falls frequently Hyperlipidemia Hypernatremia Hypertension Hypothyroidism -Has known history of hypothyroidism status post ablation, Hypothyroidism Leukocytosis MADDI (obstructive sleep apnea) -Has known history of MADDI, does not use CPAP MADDI (obstructive sleep apnea) Peripheral vascular disease -Has known history of PVD with chronic lower extremity edema Pneumonia Rhabdomyolysis Right middle lobe pulmonary nodule UTI (urinary tract infection) Wound of left lower extremity Surgical History H/O hernia repair H/O shoulder surgery History of appendectomy Family History Denies family history of CAD (coronary artery disease) Social History Smoking and tobacco status: current every day smoker cigarettes Packs smoked per day: 1 Alcohol intake: current Alcohol intake frequency: 0-2 Drinks per Day Alcohol type: hard liquor Lives independently: Yes Physical Exam Const: COMMON NORMALS: alert HENMT: COMMON NORMALS: atraumatic HEAD & SCALP: atraumatic MOUTH: moist mucous membranes not abnormal Eye: COMMON NORMALS: EOMs intact bilaterally and conjunctivae normal CONJUNCTIVA: Yes conjunctivae normal Neck/C-Spine: COMMON NORMALS: full ROM and supple Resp: COMMON NORMALS: normal respiratory effort OTHER: + Coarse breath sounds bilaterally Cardio: COMMON NORMALS: regular rate RATE: regular rate GI: COMMON NORMALS: Soft to palpation and non-tender PALPATION: Yes Soft to palpation OTHER: No focal TTP. NO guarding rebound, guarding, rigidity. No CVA tenderness to percussion. Neg Yin/Neg McBurney's point tenderness, no suprabupic tenderness to palpation. Extremity: COMMON NORMALS: full ROM OTHER: 1+ edema in the extremities b/l Neuro: SENSORIUM/ORIENTATION: Yes alert MOTOR EXAM: No Abnormal motor strength present and Other motor observations present (no focal motor deficits) Psych: COMMON NORMALS: speech normal SPEECH: Yes normal speech MOOD & AFFECT: Yes euthymic mood Skin: NARRATIVE SKIN EXAM: +stage 1 skin erosion on the R buttock Course Vital Signs: Vital signs: Vital Signs Temperature 98.0 F 12/06/21 20:00 Pulse Rate 67 12/06/21 21:33 Respiratory Rate 18 12/06/21 22:18 Blood Pressure 105/53 12/06/21 20:00 Pulse Oximetry 98 12/06/21 21:33 Oxygen Delivery Me thod 12/06/21 21:33 Oxygen Flow Rate 4 12/06/21 21:33 MDM - General Adult Medical Decision Making 66-year-old male with a history of COPD on 4 L oxygen, diastolic heart failure, hypertension, hypothyroidism chronic hep C, obstructive sleep apnea alcohol abuse has been sober since May of this year presenting to the emergency room with complaints of worsening dyspnea since discharge from the hospital. Physical exam, patient is noted be satting at greater than 95% on 4 L oxygen. No increased work of breathing. Patient is noted to have coarse breath sounds on lung exam with cough. No increased work of breathing appreciated. X-ray chest showed pulmonary mass with what looks like widened mediastinum concerning for lymphadenopathy. Lab work-up showed white count 13.7. Hemoglobin 8.1 today down from baseline of 8.9 during recent admission. Patient received DuoNeb and Solu-Medrol with improvement in respiratory status. Given white count 13.7 presents with cough, COVID and she has been sent. Patient received antibiotics include vancomycin and cefepime at this time. CTA chest showed worsening mediastinal mass that is now eroding into the bilateral bronchus and distal trachea. Discussed case with Dr. Cortse who tells me the patient is currently in the process of establishing care with oncology and with the [facility]. Dr. Cortes recommended treating the dyspnea and ruling out COPD and PNA. Patient also has a troponin of 107 with delta less than 15. Patient has no active complaints of chest pain. EKG did not show any signs of ischemia. Patient will be admitted to the hospital for new troponin elevation in the setting of normal creatinine. Disposition: admission Lab Data : 12/06/21 06:40 12/06/21 06:40 Radiology Impressions Chest X-Ray 12/03/21 15:23 IMPRESSION: 1. Spiculated right suprahilar pulmonary density unchanged in appearance since prior study. This apparently represents a known pulmonary mass identified on recent chest CT scanning. There is also widening of the mediastinum which may indicate mediastinal involvement or mediastinal lymphadenopathy. 2. The lungs are otherwise clear and fully expanded. Chest CTA 12/03/21 16:44 IMPRESSION: 1. No evidence for pulmonary embolus. 2. Large right upper lobe mass with right hilar extension. Highly suspicious nodule(s). Consider non-emergent PET/CT, or tissue sampling.(Reference: Roxi) 3. Mass in the right hilum with mediastinal extension. This most likely represents a combination of direct invasion by the right upper lobe mass and metastatic lymphadenopathy. 4. There is encasement of the superior right upper lobe pulmonary artery branch by the mass in the right hilum. This narrows the artery but does not cause obstruction. 5. Encasement of the distal superior vena cava by the mediastinal mass with moderate narrowing but no obstruction. 6. Pericardial effusion. 7. Small pleural effusions. COMMENTS: Consistent with the [employer]'s Incidental Findings Committee white paper (J Am Liz Radiol 2018): Any incidental renal lesion less than 1 cm or classified as too small to characterize, or any incidental cystic renal lesion characterized as simple-appearing, is likely benign. No follow-up imaging is recommended for these lesions per consensus recommendations based on imaging criteria. References: Roxi Vincent, et al. Guidelines for Management of Incidental Pulmonary Nodules Detected on CT Images: From the Fleischner Society 2017. Radiology. 2017;284(1):228-243. ADDENDUM: 12/03/21 0967 Airways: There is a partial encasement and narrowing of the distal trachea. Mild narrowing of the right mainstem bronchus. Moderate-severe narrowing of the left mainstem bronchus. Severe narrowing of superomedial right upper lobe bronchi in the right hilum. THIS REPORT CONTAINS FINDINGS THAT MAY BE CRITICAL TO PATIENT CARE. The findings were verbally communicated via telephone conference with FRANCOIS NERI at 6:56 PM CHRISTINA on 12/03/2021. The findings were acknowledged and understood. Laboratory Results WBC 13.7 10^3/uL (4.0-10.0) H 12/03/21 15:40 RBC 2.78 10^6/uL (4.1-5.3) L 12/03/21 15:40 Hgb 8.1 g/dL (11.7-16.6) L 12/03/21 15:40 Hct 27.1 % (42.0-52.0) L 12/03/21 15:40 MCV 97.5 fl (80-94) H 12/03/21 15:40 MCH 29.1 pg (28.0-34.0) 12/03/21 15:40 MCHC 29.9 g/dL (30.0-36.0) L 12/03/21 15:40 RDW 16.9 % (12.1-15.1) H 12/03/21 15:40 Plt Count 252 10^3/cmm (130-400) 12/03/21 15:40 MPV 10.9 fL (7.4-10.4) H 12/03/21 15:40 Neut % (Auto) 70.3 % 12/03/21 15:40 Lymph % (Auto) 9.4 % 12/03/21 15:40 [place] % (Auto) 6.4 % 12/03/21 15:40 Eos % (Auto) 12.7 % 12/03/21 15:40 Baso % (Auto) 0.4 % 12/03/21 15:40 Neut # (Auto) 9.60 10^3/uL (1.8-7.7) H 12/03/21 15:40 Lymph # (Auto) 1.3 10^3/uL (0.8-4.8) 12/03/21 15:40 [place] # (Auto) 0.9 10^3/uL (0.2-0.9) 12/03/21 15:40 Eos # (Auto) 1.7 10^3/uL (0.0-0.8) H 12/03/21 15:40 Baso # (Auto) 0.1 10^3/uL (0.0-0.1) 12/03/21 15:40 Nucleated RBC % (auto) 0 % 12/03/21 15:40 Nucleated RBCs # 0.0 /100WBC 12/03/21 15:40 Sodium 136 mmol/L (136-145) 12/03/21 17:20 Potassium 5.0 mmol/L (3.5-5.1) 12/03/21 17:20 Chloride 99 mmol/L (98-107) 12/03/21 17:20 Carbon Dioxide 29 mmol/L (22-29) 12/03/21 17:20 Anion Gap 13.0 (5-19) 12/03/21 17:20 BUN 15 mg/dL (8-23) 12/03/21 17:20 Creatinine 1.1 mg/dL (0.7-1.2) 12/03/21 17:20 GFR Calculation 66.6 mL/min (90-130) L 12/03/21 17:20 Glucose 150 mg/dL (65-115) H 12/03/21 17:20 Calculated Osmolality 286 mOsm/kg (285-295) 12/03/21 17:20 Calcium 9.6 mg/dL (8.5-10.5) 12/03/21 17:20 Troponin T Baseline 107 ng/L (0-15) H* 12/03/21 15:40 Troponin T 120 Minute 115.0 ng/L (0-15) H 12/03/21 17:20 Delta Troponin T 8.0 ABS# (0-10) 12/03/21 17:20 NT-Pro-B Natriuret Pep 1547 pg/mL (0-125) H 12/03/21 17:20 SARS-CoV-2 Ag (Rapid) Negative (Negative) 12/03/21 15:32 Imaging Data Other Imaging: Radiologist's impression: [address] [address] XRay Report Signed Patient: Omar Ta Unit #: [id number] : 1955 Age/Sex: 66 / M ADM Date: 12/03/21 Loc: ER Room/Bed: Attending Dr: Ordering Provider/Ordering MD: Francois Neri MD Date of Service: 12/03/21 Procedure(s): XR chest 1V portable [id number] Accession Number(s): [id number] Report Number: [id number] WS: [id number] Exam: XR chest 1V portable [id number] Date/Time of Exam: 12/03/2021 3:30 PM Reason For Exam: dyspnea Comparison 11/18/2001. Spiculated density seen at the right suprahilar region is unchanged since prior study. There is widening of the mediastinum. The lungs are fully expanded. Remaining lung lundberg are clear. No pleural effusions are seen. Bony structures are intact. Normal heart size for technique. XR/XR chest 1V portable [id number] IMPRESSION: 1. Spiculated right suprahilar pulmonary density unchanged in appearance since prior study. This apparently represents a known pulmonary mass identified on recent chest CT scanning. There is also widening of the mediastinum which may indicate mediastinal involvement or mediastinal lymphadenopathy. 2. The lungs are otherwise clear and fully expanded. ? Dictated By: Celso Reid DO Signed By: Celso Reid DO Signed Date/Time: 12/03/21 1556 DD/ [address] [place] [address] CT Scan Report Signed with Addenda Patient: Omar Ta Unit #: [id number] : 1955 Age/Sex: 66 / M ADM Date: 12/03/21 Loc: ER Room/Bed: Attending Dr: Ordering Provider/Ordering MD: Francois Neri MD Date of Service: 12/03/21 Procedure(s): CT angio chest PE protcl [id number] Accession Number(s): [id number] Report Number: [id number]/CT angio chest PE protcl [id number] Airways:? There is a partial encasement and narrowing of the distal trachea. Mild narrowing of the right mainstem bronchus. Moderate-severe narrowing of the left mainstem bronchus.? Severe narrowing of superomedial right upper lobe bronchi in the right hilum. ? THIS REPORT CONTAINS FINDINGS THAT MAY BE CRITICAL TO PATIENT CARE. The findings were verbally communicated via telephone conference with FRANCOIS NERI at 6:56 PM CDT on 12/03/2021. The findings were acknowledged and understood. ? Addendum Dictated By: Mauro Fernando Addendum Signed By: Mauro Fernando Signed Date/Time: 12/03/21 5336 Addendum Cosigned By: ? PROCEDURE INFORMATION: Exam: CTA Chest With Contrast Exam date and time: 12/03/2021 5:53 PM Age: 66 years old Clinical indication: Shortness of breath; Additional info: Widened mediastinum and lung mass TECHNIQUE: Imaging protocol: Computed tomographic angiography of the chest with contrast. 3D rendering (Not supervised by radiologist): MIP and/or 3D reconstructed images were created by the technologist. Radiation optimization: All CT scans at this facility use at least one of these dose optimization techniques: automated exposure control; mA and/or kV adjustment per patient size (includes targeted exams where dose is matched to clinical indication); or iterative reconstruction. Contrast material: OMNIPAQUE 350; Contrast volume: 95 ml; Contrast route: INTRAVENOUS (IV);? COMPARISON: CT angio chest PE protcl [id number] 08/08/2020 3:42 AM RADIATION DOSE METRICS: Total DLP (mGy-cm): 577.19 FINDINGS: Pulmonary arteries: Encasement and narrowing of the superior right upper lobe pulmonary artery by the right hilar mass. No visible filling defects within the pulmonary arteries. Aorta: Calcified plaque in the thoracic aorta. No aneurysm or dissection. Veins: Small amount of gas in the left brachycephalic vein, consistent with gas introduced during venous catheterization. The superior vena cava is partially encased by the mediastinal mass with moderate narrowing but no obstruction. Lungs: Severe emphysema. 6.5 cm mass in the posterior suprahilar right upper lobe with extension to the right hilum. Interstitial opacities in the right upper lobe, adjacent to the mass. 7 mm partially calcified nodule in the right middle lobe. Dependent atelectasis in both lower lobes. Pleural spaces: Pleural thickening along the right major fissure which appears to be continuous with the right upper lobe mass. Trace bilateral pleural effusions. Heart: 6.5 x 8.8 x 6.8 cm low-density mass in the mid mediastinum with extension into the AP window region and right hilum. Pericardial effusion. Cardiomegaly. Coronary artery calcifications. Lymph nodes: Prominent subcarinal and separate mediastinal lymph nodes. Gallbladder and bile ducts: Partially visualized calcified gallstone. No visible wall thickening. Adrenal glands: 3.6 cm partial fat containing nodule in the right adrenal gland. Partially visualized 3.5 cm left adrenal nodule, Hounsfield units less than 10. These most likely represent adenomas and are unchanged. Kidneys and ureters: Right renal cyst, Hounsfield units less than 20. No follow-up imaging is recommended. Bones/joints: Mild scoliosis. No fracture. Soft tissues: Unremarkable. CT/CT angio chest PE protcl [id number] IMPRESSION: 1. No evidence for pulmonary embolus. 2. Large right upper lobe mass with right hilar extension. Highly suspicious nodule(s). Consider non-emergent PET/CT, or tissue sampling.(Reference: Roxi) 3. Mass in the right hilum with mediastinal extension. This most likely represents a combination of direct invasion by the right upper lobe mass and metastatic lymphadenopathy. 4. There is encasement of the superior right upper lobe pulmonary artery branch by the mass in the right hilum. This narrows the artery but does not cause obstruction. 5. Encasement of the distal superior vena cava by the mediastinal mass with moderate narrowing but no obstruction.? 6. Pericardial effusion. 7. Small pleural effusions. ? COMMENTS: Consistent with the [employer]'s Incidental Findings Committee white paper (J Am Liz Radiol 2018): Any incidental renal lesion less than 1 cm or classified as too small to characterize, or any incidental cystic renal lesion characterized as simple-appearing, is likely benign. No follow-up imaging is recommended for these lesions per consensus recommendations based on imaging criteria. ? References: Roxi Vincent, et al. Guidelines for Management of Incidental Pulmonary Nodules Detected on CT Images: From the Fleischner Society 2017. Radiology. 2017;284(1):228-243. ? Dictated By: Mauro Camacho Signed By: Mauro Camacho Signed Date/Time: 12/03/21 185 DD/ 52 Discharge Plan Discharge Patient Disposition: Admitted As Inpatient Admit Provider: Federica Nash Clinical Impression: Acute dyspnea, Generalized weakness, Cough Condition: Stable Coding Level of Care Code ED Content Curator for Chg Fwd Exam Comprehensive
[2021-12-03 16:06] LABS: Basophils # 0.1 10^3/uL (0.0-0.1); Basophils % 0.4 %; Eosinophils # 1.7 10^3/uL (0.0-0.8); Eosinophils % 12.7 %; Hematocrit 27.1 % (42.0-52.0); Hemoglobin 8.1 g/dL (11.7-16.6); Lymphocytes # 1.3 10^3/uL (0.8-4.8); Lymphocytes % 9.4 %; Mean Corpuscular HGB Conc 29.9 g/dL (30.0-36.0); Mean Corpuscular Hemoglobin 29.1 pg (28.0-34.0); Mean Corpuscular Volume 97.5 fl (80-94); Mean Platelet Volume 10.9 fL (7.4-10.4); Monocytes # 0.9 10^3/uL (0.2-0.9); Monocytes % 6.4 %; Neutrophils % 70.3 %; Nucleated Red Blood Cells % 0 %; Platelet Count 252 10^3/cmm (130-400); Red Blood Count 2.78 10^6/uL (4.1-5.3); Red Cell Distribution Width 16.9 % (12.1-15.1); White Blood Count 13.7 10^3/uL (4.0-10.0)
[2021-12-03] MEDS: ipratropium-albuterol 3 mL Neb INHALATION ×3 (16:20→16:26)
[2021-12-03 16:44] LABS: SARS Covid-2 Antigen Negative (Negative)
--- NOTE | 2021-12-03 16:44 | CTR_ITS ---
PROCEDURE INFORMATION: Exam: CTA Chest With Contrast Exam date and time: 12/03/2021 5:53 PM Age: 66 years old Clinical indication: Shortness of breath; Additional info: Widened mediastinum and lung mass TECHNIQUE: Imaging protocol: Computed tomographic angiography of the chest with contrast. 3D rendering (Not supervised by radiologist): MIP and/or 3D reconstructed images were created by the technologist. Radiation optimization: All CT scans at this facility use at least one of these dose optimization techniques: automated exposure control; mA and/or kV adjustment per patient size (includes targeted exams where dose is matched to clinical indication); or iterative reconstruction. Contrast material: OMNIPAQUE 350; Contrast volume: 95 ml; Contrast route: INTRAVENOUS (IV); COMPARISON: CT angio chest PE protcl [id number] 08/08/2020 3:42 AM RADIATION DOSE METRICS: Total DLP (mGy-cm): 577.19 FINDINGS: Pulmonary arteries: Encasement and narrowing of the superior right upper lobe pulmonary artery by the right hilar mass. No visible filling defects within the pulmonary arteries. Aorta: Calcified plaque in the thoracic aorta. No aneurysm or dissection. Veins: Small amount of gas in the left brachycephalic vein, consistent with gas introduced during venous catheterization. The superior vena cava is partially encased by the mediastinal mass with moderate narrowing but no obstruction. Lungs: Severe emphysema. 6.5 cm mass in the posterior suprahilar right upper lobe with extension to the right hilum. Interstitial opacities in the right upper lobe, adjacent to the mass. 7 mm partially calcified nodule in the right middle lobe. Dependent atelectasis in both lower lobes. Pleural spaces: Pleural thickening along the right major fissure which appears to be continuous with the right upper lobe mass. Trace bilateral pleural effusions. Heart: 6.5 x 8.8 x 6.8 cm low-density mass in the mid mediastinum with extension into the AP window region and right hilum. Pericardial effusion. Cardiomegaly. Coronary artery calcifications. Lymph nodes: Prominent subcarinal and separate mediastinal lymph nodes. Gallbladder and bile ducts: Partially visualized calcified gallstone. No visible wall thickening. Adrenal glands: 3.6 cm partial fat containing nodule in the right adrenal gland. Partially visualized 3.5 cm left adrenal nodule, Hounsfield units less than 10. These most likely represent adenomas and are unchanged. Kidneys and ureters: Right renal cyst, Hounsfield units less than 20. No follow-up imaging is recommended. Bones/joints: Mild scoliosis. No fracture. Soft tissues: Unremarkable. CT/CT angio chest PE protcl [id number] IMPRESSION: 1. No evidence for pulmonary embolus. 2. Large right upper lobe mass with right hilar extension. Highly suspicious nodule(s). Consider non-emergent PET/CT, or tissue sampling.(Reference: Roxi) 3. Mass in the right hilum with mediastinal extension. This most likely represents a combination of direct invasion by the right upper lobe mass and metastatic lymphadenopathy. 4. There is encasement of the superior right upper lobe pulmonary artery branch by the mass in the right hilum. This narrows the artery but does not cause obstruction. 5. Encasement of the distal superior vena cava by the mediastinal mass with moderate narrowing but no obstruction. 6. Pericardial effusion. 7. Small pleural effusions. COMMENTS: Consistent with the [employer]'s Incidental Findings Committee white paper (J Am Liz Radiol 2018): Any incidental renal lesion less than 1 cm or classified as too small to characterize, or any incidental cystic renal lesion characterized as simple-appearing, is likely benign. No follow-up imaging is recommended for these lesions per consensus recommendations based on imaging criteria. References: Roxi Vincent, et al. Guidelines for Management of Incidental Pulmonary Nodules Detected on CT Images: From the Fleischner Society 2017. Radiology. 2017;284(1):228-243.
--- NOTE | 2021-12-03 17:23 | ECG_ITS ---
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 Measurements Intervals [place] Rate: 80 P: 54 MD: 176 QRS: 51 QRSD: 98 T: 31 QT: 346 QTc: 400 Interpretive Statements SINUS RHYTHM INCOMPLETE RIGHT BUNDLE BRANCH BLOCK [90+ ms QRS DURATION, TERMINAL R IN V1/V2, 40+ ms S IN I/aVL/V4/V5/V6] NONSPECIFIC ST & T-WAVE ABNORMALITY Compared to ECG 12/03/2021 15:32:40 No significant changes Electronically Signed On 12-03-2021 21:07:14 CDT by Sivakumar Houston M.D. [id number]
[2021-12-03 17:24] LABS: Troponin(5th) Baseline 107 ng/L (0-15)
[2021-12-03] MEDS: iohexol 350 mg/mL 100 mL Btl IV (18:07)
[2021-12-03 18:34] LABS: Blood Urea Nitrogen 15 mg/dL (8-23); Calcium 9.6 mg/dL (8.5-10.5); Carbon Dioxide 29 mmol/L (22-29); Chloride 99 mmol/L (98-107); Glomerular Filtration Rate 66.6 mL/min (90-130); Glucose 150 mg/dL (65-115); NT Pro B Type Natriuretic Pept 1547 pg/mL (0-125); Osmolality Calculated 286 mOsm/kg (285-295); Sodium 136 mmol/L (136-145)
--- NOTE | 2021-12-03 22:25 | P.HP_ITS ---
Providers/Chief Complaint Admitting Physician: Federica Nash MD Primary Care Provider: Sun Bello MD Chief Complaint: SOB History of Present Illness Omar Ta is a 66 year old male with past medical history of COPD on 4 L, heart failure with preserved ejection fraction, hypertension, hypothyroidism, chronic hep C, MADDI, peripheral vascular disease, alcohol abuse disorder presented to ER today due to complaints of shortness of breath. He was recently admitted 11/12-11/18 for acute metabolic encephalopathy and was found to have lobulated mass in the superior mediastinum extending to the right perihilar region surrounding the mediastinal and right perihilar structures measuring 6.1 x 8.5 x 7.1 cm, new since 2020. He had additionally presented on 11/20 for substernal chest pain and had an abnormal stress test with small sized area of ischemia in left circumflex artery territory with normal LV systolic function. Echo from 11/14 showed LVEF of 55 to 60%, no RWMA. He has been complaining of dyspnea on exertion and severe deconditioning. On 11/22 he underwent bronchoscopy with EBUS. Histopath results from EBUS is reported as poorly differentiated adenocarcinoma. He presents today with worsening dyspnea on exertion. CTA chest negative for PE, dissection and known R hilar mass with encasement of the superior right upper lobe pulmonary artery and distal SVC. EKG without acute ST-T wave changes. Trop elevated baseline 107, 2 hr at 115, delta 8. Denies fever, chills. Review of Systems General: Reports: 10 or more systems reviewed and unremarkable except in HPI and below Const: Denies: fever(s), chills or body aches Eyes: Denies: change in vision, blurry vision or photophobia ENMT: Reports: hoarseness; Denies: throat pain, enlarged tonsils, odynophagia or nasal congestion Card: Denies: chest pain, palpitations, irregular heart rhythm, edema, swelling of feet/ankles, lightheadedness, pre-syncope, dyspnea on exertion or orthopnea Resp: Reports: dyspnea; Denies: productive cough, non-productive cough, wheezing, stridor, pain on inspiration, change in phlegm color, hemoptysis or chest congestion GI: Denies: abdominal pain, nausea, vomiting, hematemesis, coffee ground emesis, dysphagia, heartburn, diarrhea, constipation, GI cramping, change in stool character, hematochezia or melena : Denies: flank pain, dysuria, urinary frequency, urinary urgency, urinary hesitancy or hematuria Musc: Denies: neck pain, back pain, extremity pain, joint swelling, joint warmth or deformity Neuro: Denies: headache(s), numbness in extremities, weakness in extremities, sensory changes, difficulty walking, frequent falls, dizziness, vertigo, behavioral changes, Slurred speech present or seizure-like activity Psych: Denies: anxiety, depression, suicidal ideation or homicidal ideation Endo: Denies: polyuria, polydipsia, tired all the time, cold intolerance or hot flashes Joe/Lymph: Denies: easy bruising or easy bleeding Medications/Allergies Home Medications Medication Instructions Recorded Confirmed Last Taken Type albuterol sulfate 90 mcg/actuation 4 puff INHALATION BID 08/23/19 12/03/21 11/18/21 History aerosol inhaler (ProAir HFA) cholecalciferol (vitamin D3) 25 25 mcg PO DAILY 08/23/19 12/03/21 11/18/21 History mcg (1,000 unit) capsule (Vitamin D3) levothyroxine 100 mcg tablet 100 mcg PO DAILY@0730 08/23/19 12/03/21 11/18/21 History aspirin 81 mg tablet,delayed 81 mg PO DAILY@0800 08/07/20 12/03/21 11/18/21 History release diltiazem HCl 240 mg 240 mg PO DAILY@0800 08/07/20 12/03/21 11/18/21 History capsule,extended release 24 hr furosemide 40 mg tablet 40 mg PO BID@0800,1600 08/07/20 12/03/21 08/07/20 History lisinopril 40 mg tablet 40 mg PO DAILY@1600 08/07/20 12/03/21 08/06/20 History albuterol sulfate 2.5 mg (3 mL) INHALATION Q4H PRN 08/10/20 12/03/21 Unknown Rx #180 ml amoxicillin 500 mg-potassium 1 tab PO BID #10 tab 11/22/21 12/03/21 Unknown Rx clavulanate 125 mg tablet (Augmentin) fluticasone fur. 100 mcg-umeclid 1 inh INHALATION DAILY #60 ea 11/22/21 12/03/21 Unknown Rx 62.5 mcg-vilant 25 mcg inhalat.powder (Trelegy Ellipta) hydralazine 50 mg tablet 25 mg PO BID #60 tab 11/22/21 12/03/21 11/18/21 Rx metoprolol tartrate 50 mg tablet 25 mg PO BID@0800,1600 #60 tab 11/22/21 12/03/21 11/18/21 Rx potassium chloride 10 mEq 10 meq PO DAILY #30 tab 11/22/21 12/03/21 Unknown Rx tablet,extended release tamsulosin 0.4 mg capsule (Flomax) 0.4 mg PO DAILY@1600 #60 cap 11/22/21 12/03/21 11/17/21 Rx mometasone 200 mcg/actuation HFA 2 puff INHALATION BID 12/03/21 12/03/21 Unknown History aerosol inhaler olodaterol 2.5 mcg/actuation mist 2 inh INHALATION DAILY 12/03/21 12/03/21 Unknown History for inhalation Allergies Allergy/AdvReac Type Severity Reaction Status Date / Time No Known Allergies Allergy Verified 12/03/21 17:14 PFSH Acute PFSH: Medical History (HFpEF) heart failure with preserved ejection fraction Acute kidney injury superimposed on CKD Anemia Atrial fibrillation Chest pain CHF (congestive heart failure) -Has had prior echo done in 08/2017 showing ejection fraction of 65%, grade 1 diastolic dysfunction. Repeat Echo: EF=60%, G2DD, normal PSP Chronic acquired lymphedema Chronic acquired lymphedema Chronic hepatitis C CKD (chronic kidney disease) stage 2, GFR 60-89 ml/min -has GIULIANO on CKD stage 2-3, baseline Cr is around 1 COPD (chronic obstructive pulmonary disease) oxygen-dependent, 4 L at baseline Encephalopathy Falls frequently Hyperlipidemia Hypernatremia Hypertension Hypothyroidism -Has known history of hypothyroidism status post ablation, Hypothyroidism Leukocytosis MADDI (obstructive sleep apnea) -Has known history of MADDI, does not use CPAP MADDI (obstructive sleep apnea) Peripheral vascular disease -Has known history of PVD with chronic lower extremity edema Pneumonia Rhabdomyolysis Right middle lobe pulmonary nodule UTI (urinary tract infection) Wound of left lower extremity Surgical History H/O hernia repair H/O shoulder surgery History of appendectomy Family History Denies family history of CAD (coronary artery disease) Social History Smoking and tobacco status: current every day smoker cigarettes Packs smoked per day: 1 Alcohol intake: current Alcohol intake frequency: 0-2 Drinks per Day Alcohol type: hard liquor Lives independently: Yes Vitals/I&O/Wt Last Vital Signs Temp 97.9 F 12/03/21 15:24 Pulse 84 12/03/21 20:41 Resp 18 12/03/21 18:30 BP 146/70 12/03/21 20:41 Pulse Ox 100 12/03/21 20:41 Weight last 48 hrs Weight 133.81 kg Physical Exam Narrative: GEN: Awake, alert and oriented, no acute distress CVS: S1S2 N RS: CTA B/L except coarse breath sounds over RUL Abd: Soft, nt/nd , bs+ [employer]PER[employer]: no focal neuro deficits Data : 12/03/21 15:40 12/03/21 17:20 A&P Assessment and plan (1) Adenocarcinoma of lung: Status: Acute (2) Acute dyspnea: Status: Acute (3) MADDI (obstructive sleep apnea): Status: Acute (4) Emphysema lung: Status: Acute Plan 66-year-old male with recently diagnosed adenocarcinoma of the lung large hilar mass as noted above presenting today with worsening dyspnea on exertion. Suspect that worsening dyspnea is multifactorial, related to known lung cancer. Patient has recently undergone bronchoscopy, he is pending PET/CT for staging and is yet to have his oncology evaluation. Additional factors contributing to dyspnea include COPD exacerbation and obstructive sleep apnea. Prednisone 40 mg p.o. daily, scheduled nebulization with DuoNeb and budesonide Use CPAP at nighttime. Additionally carries a diagnosis of preserved ejection fraction heart failure. States he has been compliant with Lasix 40 mg p.o. twice daily at home. Troponins noted to be elevated, baseline at 107, 2-hour at 115 with a delta of 8. On previous admission Baseline troponin was in the 30s. recent stress test h ad showed small area of ischemia in the LCx territory. Echo findings as noted above. Elevated troponins today may be [employer] of NSTEMI versus type II [place] from recent stressors, CHF exacerbation. No acute ST-T wave changes on EKG. Continue to trend troponin at 6 hours. Lovenox 1 mg/kg x 1 given now. Aspirin 81 mg p.o. daily to be continued, add statin. Lasix 40 mg IV every 12 hours, monitor I/O and renal function Cardiology and pulmonology consults placed from the ER. Attestations Medical Necessity Statement*: Anticipate greater than 2 midnight admission for management of COPD exacerbation, NSTEMI, adenocarcinoma of the lung Coding Level of Care Code Acute Nurse Emergency for [employer] Fwd Diagnoses Adenocarcinoma of lung C34.90 Acute dyspnea R06.00 MADDI (obstructive sleep apnea) G47.33 Emphysema lung J43.9
[2021-12-03] MEDS: FUROsemide 10 mg/mL SDV 4mL 40 MG IVP (23:48)
[2021-12-04] VITALS (12 sets, daily range): BP systolic 133–154; BP diastolic 51–81; PULSE 70–131; RESP 16–24; TEMP 36.1–37.3; O2SAT 96–100; BMI 46.2
[2021-12-04] MEDS: enoxaparin 150 mg/mL Syringe 130 MG SUBCUT ×2 (00:45→18:00)
[2021-12-04] MEDS: ipratropium-albuterol 3 mL Neb INHALATION ×3 (04:12→20:10)
[2021-12-04 07:15] LABS: Basophils % 0.3 %; Eosinophils % 0.1 %; Hematocrit 27.4 % (42.0-52.0); Hemoglobin 8.1 g/dL (11.7-16.6); Lymphocytes # 0.4 10^3/uL (0.8-4.8); Mean Corpuscular HGB Conc 29.6 g/dL (30.0-36.0); Mean Corpuscular Hemoglobin 28.5 pg (28.0-34.0); Mean Corpuscular Volume 96.5 fl (80-94); Mean Platelet Volume 10.9 fL (7.4-10.4); Monocytes # 0.2 10^3/uL (0.2-0.9); Monocytes % 1.3 %; Neutrophils # 11.34 10^3/uL (1.8-7.7); Neutrophils % 94.5 %; Nucleated Red Blood Cells % 0 %; Platelet Count 290 10^3/cmm (130-400); Red Blood Count 2.84 10^6/uL (4.1-5.3); Red Cell Distribution Width 16.6 % (12.1-15.1)
[2021-12-04 07:16] LABS: Alanine Aminotransferase 33 U/L (0-41); Albumin Level 3.3 g/dL (3.5-5.2); Alkaline Phosphatase 66 IU/L (40-130); Aspartate Amino Transferase 13 U/L (0-40); Blood Urea Nitrogen 18 mg/dL (8-23); Calcium 9.8 mg/dL (8.5-10.5); Carbon Dioxide 32 mmol/L (22-29); Chloride 99 mmol/L (98-107); Glomerular Filtration Rate 60.2 mL/min (90-130); Glucose 182 mg/dL (65-115); Osmolality Calculated 293 mOsm/kg (285-295); Sodium 138 mmol/L (136-145); Total Bilirubin 0.3 mg/dL (0.15-1.2); Total Protein 6.3 g/dL (6.6-8.7)
--- NOTE | 2021-12-04 08:15 | P.CONIM_ITS ---
Providers/Reason For Consult Consulting Physician/Specialty*: Khanh Cortes MD/Pulmonary Critical Care Reason for Consult*: Shortness of breath and patient with recently diagnosed lung cancer Requesting Physician: Francois Neri MD Attending Physician: Federica Nash MD Primary Care Provider: Sun Bello MD History of Present Illness History of Present Illness Omar Ta is a 66 year old male with recently diagnosed with poorly differentiated non-small cell cancer and past medical history of COPD on 4 L, heart failure with preserved ejection fraction, hypertension, hypothyroidism, chronic hep C, MADDI, peripheral vascular disease, alcohol abuse disorder presented to [facility] yesterday with chief complaint of worsening shortness of breath for last 1 week. Patient had 2 admissions this month. Second admission was on 11/18/2021-CT chest abdomen pelvis 11/18/2021 was obtained by admitting physician which showed a lobulated mass in the superior mediastinum extending to the right perihilar region surrounding the mediastinal and right perihilar structures measuring 6.1 x 8.5 x 7.1 cm.? There is a 4 mm noncalcified nodular density in the right middle lobe. During that admission pulmonary was consulted-and I performed bronchoscopy and endobronchial ultrasound sampling of station 4R on 11/21/2021. Pathology reported poorly differentiated adenocarcinoma in the background of necrosis and slides were sent to [facility] for second opinion-the reported poorly differentiated non-small cell cancer. Currently patient is waiting for [place] approval for oncology consultation services as well as PET/CT as outpatient. -Today at bedside, patient is sitting in bed with no acute distress, he is requiring baseline 4 L oxygen -Admission troponin was high but delta troponin was normal -Patient reported using albuterol at home and that he is shortness of breath has been worsening in last 1 week. He is concerned about his cancer diagnosis and understands that he is currently in the process of being called by oncology/PET/CT. During last visit he did not want to go for any cancer treatments-however today he expressed that he wishes to talk to oncology and decide on future options. Currently he is DNR/DNI. CTA obtained during this admission showed showed the same large right upper lobe mass with right hilar extension and mediastinal extension, encasement of superior right upper lobe pulmonary artery branch and encasement of distal SVC by mediastinal mass with moderate narrowing. There is some pericardial effusion and small pleural effusions. There is severe emphysema as well. There is an addendum showing partial encasement and narrowing of distal trachea, mild narrowing of right mainstem bronchus, moderate to severe narrowing of left mainstem bronchus, severe narrowing of superior medial right upper lobe bronchi and right hilum. However when I compared to the CT done during last admission on 11/18/2021-the narrowing of airway did not show any significant change and the right upper lobe interstitial opacities also did not change Review of Systems 2 General: Reports: 10 or more systems reviewed and unremarkable except in HPI and below Medications/Allergies Home Medications Medication Instructions Recorded Confirmed Last Taken Type albuterol sulfate 90 mcg/actuation 4 puff INHALATION BID 08/23/19 12/03/21 11/18/21 History aerosol inhaler (ProAir HFA) cholecalciferol (vitamin D3) 25 25 mcg PO DAILY 08/23/19 12/03/21 11/18/21 History mcg (1,000 unit) capsule (Vitamin D3) levothyroxine 100 mcg tablet 100 mcg PO DAILY@0730 08/23/19 12/03/21 11/18/21 History aspirin 81 mg tablet,delayed 81 mg PO DAILY@0800 08/07/20 12/03/21 11/18/21 History release diltiazem HCl 240 mg 240 mg PO DAILY@0800 08/07/20 12/03/21 11/18/21 History capsule,extended release 24 hr furosemide 40 mg tablet 40 mg PO BID@0800,1600 08/07/20 12/03/21 08/07/20 History lisinopril 40 mg tablet 40 mg PO DAILY@1600 08/07/20 12/03/21 08/06/20 History albuterol sulfate 2.5 mg (3 mL) INHALATION Q4H PRN 08/10/20 12/03/21 Unknown Rx #180 ml amoxicillin 500 mg-potassium 1 tab PO BID #10 tab 11/22/21 12/03/21 Unknown Rx clavulanate 125 mg tablet (Augmentin) fluticasone fur. 100 mcg-umeclid 1 inh INHALATION DAILY #60 ea 11/22/21 12/03/21 Unknown Rx 62.5 mcg-vilant 25 mcg inhalat.powder (Trelegy Ellipta) hydralazine 50 mg tablet 25 mg PO BID #60 tab 11/22/21 12/03/21 11/18/21 Rx metoprolol tartrate 50 mg tablet 25 mg PO BID@0800,1600 #60 tab 11/22/21 12/03/21 11/18/21 Rx potassium chloride 10 mEq 10 meq PO DAILY #30 tab 11/22/21 12/03/21 Unknown Rx tablet,extended release tamsulosin 0.4 mg capsule (Flomax) 0.4 mg PO DAILY@1600 #60 cap 11/22/21 12/03/21 11/17/21 Rx mometasone 200 mcg/actuation HFA 2 puff INHALATION BID 12/03/21 12/03/21 Unknown History aerosol inhaler olodaterol 2.5 mcg/actuation mist 2 inh INHALATION DAILY 12/03/21 12/03/21 Unknown History for inhalation Allergies Allergy/AdvReac Type Severity Reaction Status Date / Time No Known Allergies Allergy Verified 12/03/21 17:14 Current Medications Generic Name Dose Route Start Last Admin Trade Name Nileshq PRN Reason Stop Dose Admin Albuterol/Ipratropium 3 ml 12/04/21 02:00 12/04/21 04:12 Ipratropium-Albuterol 3 Ml Neb INHALATION 3 ml Q6H.RESP MICHAEL Administration Furosemide 40 mg 12/04/21 00:00 12/03/21 23:48 Furosemide 10 Mg/Ml Sdv 4ml IVP 40 mg Q12H MICHAEL Administration PFSH Acute PFSH: Medical History (HFpEF) heart failure with preserved ejection fraction Acute kidney injury superimposed on CKD Anemia Atrial fibrillation Chest pain CHF (congestive heart failure) -Has had prior echo done in 08/2017 showing ejection fraction of 65%, grade 1 diastolic dysfunction. Repeat Echo: EF=60%, G2DD, normal PSP Chronic acquired lymphedema Chronic acquired lymphedema Chronic hepatitis C CKD (chronic kidney disease) stage 2, GFR 60-89 ml/min -has GIULIANO on CKD stage 2-3, baseline Cr is around 1 COPD (chronic obstructive pulmonary disease) oxygen-dependent, 4 L at baseline Encephalopathy Falls frequently Hyperlipidemia Hypernatremia Hypertension Hypothyroidism -Has known history of hypothyroidism status post ablation, Hypothyroidism Leukocytosis MADDI (obstructive sleep apnea) -Has known history of MADDI, does not use CPAP MADDI (obstructive sleep apnea) Peripheral vascular disease -Has known history of PVD with chronic lower extremity edema Pneumonia Rhabdomyolysis Right middle lobe pulmonary nodule UTI (urinary tract infection) Wound of left lower extremity Surgical History H/O hernia repair H/O shoulder surgery History of appendectomy Family History Denies family history of CAD (coronary artery disease) Social History Smoking and tobacco status: current every day smoker cigarettes Packs smoked per day: 1 Alcohol intake: current Alcohol intake frequency: 0-2 Drinks per Day Alcohol type: hard liquor Lives independently: Yes Vitals/I&O/Wt Last Vital Signs Temp 96.9 F L 12/04/21 08:00 Pulse 92 12/04/21 08:00 Resp 18 12/04/21 08:00 BP 135/81 12/04/21 08:00 Pulse Ox 98 12/04/21 08:00 12/03/21 12/04/21 12/04/21 22:59 06:59 14:59 Output Total 1050 / 1050 400 / 1450 Balance -1050 / -1050 -400 / -1450 Weight last 48 hrs Weight 295 lb Weight 295 lb Physical Exam Narrative: General: alert, NAD on supplemental oxygen HEENT: conj clear, EOMI, PERRL, mmm, Neck: supple, no meningismus Heme: no cervical LAP Pulmonary: Bilateral breath sounds present with mild expiratory wheeze Cardiovascular: rrr, nl s1s2, no mrg Abdomen: soft, nt, nd, no r/g, bs+ Extremities: pulses +, no edema, no c/c : no CVA tenderness Skin: intact, no rash MSK: no back or neck pain Neurologic: grossly intact Urinary Catheter Management: Lopes: Cath Placed During This Visit: yes Reason for Continuing Indwelling Catheter: Accurate Measurement of Urinary Output in Critically Ill Patients Urinary Catheter Date of Insertion: 11/18/21 Urinary Catheter Time of Insertion: 18:29 Data : 12/04/21 06:03 12/04/21 06:03 Other Labs: Radiology Impressions Chest X-Ray 12/03/21 15:23 IMPRESSION: 1. Spiculated right suprahilar pulmonary density unchanged in appearance since prior study. This apparently represents a known pulmonary mass identified on recent chest CT scanning. There is also widening of the mediastinum which may indicate mediastinal involvement or mediastinal lymphadenopathy. 2. The lungs are otherwise clear and fully expanded. Chest CTA 12/03/21 16:44 IMPRESSION: 1. No evidence for pulmonary embolus. 2. Large right upper lobe mass with right hilar extension. Highly suspicious nodule(s). Consider non-emergent PET/CT, or tissue sampling.(Reference: Roxi) 3. Mass in the right hilum with mediastinal extension. This most likely represents a combination of direct invasion by the right upper lobe mass and metastatic lymphadenopathy. 4. There is encasement of the superior right upper lobe pulmonary artery branch by the mass in the right hilum. This narrows the artery but does not cause obstruction. 5. Encasement of the distal superior vena cava by the mediastinal mass with moderate narrowing but no obstruction. 6. Pericardial effusion. 7. Small pleural effusions. COMMENTS: Consistent with the [place] [employer]'s Incidental Findings Committee white paper (J Am Liz Radiol 2018): Any incidental renal lesion less than 1 cm or classified as too small to characterize, or any incidental cystic renal lesion characterized as simple-appearing, is likely benign. No follow-up imaging is recommended for these lesions per consensus recommendations based on imaging criteria. References: Roxi Vincent, et al. Guidelines for Management of Incidental Pulmonary Nodules Detected on CT Images: From the Fleischner Society 2017. Radiology. 2017;284(1):228-243. ADDENDUM: 12/03/21 1857 Airways: There is a partial encasement and narrowing of the distal trachea. Mild narrowing of the right mainstem bronchus. Moderate-severe narrowing of the left mainstem bronchus. Severe narrowing of superomedial right upper lobe bronchi in the right hilum. THIS REPORT CONTAINS FINDINGS THAT MAY BE CRITICAL TO PATIENT CARE. The findings were verbally communicated via telephone conference with FRANCOIS NERI at 6:56 PM CDT on 12/03/2021. The findings were acknowledged and understood. Laboratory Results WBC 12.0 10^3/uL (4.0-10.0) H 12/04/21 06:03 RBC 2.84 10^6/uL (4.1-5.3) L 12/04/21 06:03 Hgb 8.1 g/dL (11.7-16.6) L 12/04/21 06:03 Hct 27.4 % (42.0-52.0) L 12/04/21 06:03 MCV 96.5 fl (80-94) H 12/04/21 06:03 MCH 28.5 pg (28.0-34.0) 12/04/21 06:03 MCHC 29.6 g/dL (30.0-36.0) L 12/04/21 06:03 RDW 16.6 % (12.1-15.1) H 12/04/21 06:03 Plt Count 290 10^3/cmm (130-400) 12/04/21 06:03 MPV 10.9 fL (7.4-10.4) H 12/04/21 06:03 Neut % (Auto) 94.5 % 12/04/21 06:03 Lymph % (Auto) 3.0 % 12/04/21 06:03 [place] % (Auto) 1.3 % 12/04/21 06:03 Eos % (Auto) 0.1 % 12/04/21 06:03 Baso % (Auto) 0.3 % 12/04/21 06:03 Neut # (Auto) 11.34 10^3/uL (1.8-7.7) H 12/04/21 06:03 Lymph # (Auto) 0.4 10^3/uL (0.8-4.8) L 12/04/21 06:03 [place] # (Auto) 0.2 10^3/uL (0.2-0.9) 12/04/21 06:03 Eos # (Auto) 0.0 10^3/uL (0.0-0.8) 12/04/21 06:03 Baso # (Auto) 0.0 10^3/uL (0.0-0.1) 12/04/21 06:03 Nucleated RBC % (auto) 0 % 12/04/21 06:03 Nucleated RBCs # 0.0 /100WBC 12/04/21 06:03 Sodium 138 mmol/L (136-145) 12/04/21 06:03 Potassium 5.0 mmol/L (3.5-5.1) 12/04/21 06:03 Chloride 99 mmol/L (98-107) 12/04/21 06:03 Carbon Dioxide 32 mmol/L (22-29) H 12/04/21 06:03 Anion Gap 12.0 (5-19) 12/04/21 06:03 BUN 18 mg/dL (8-23) 12/04/21 06:03 Creatinine 1.2 mg/dL (0.7-1.2) 12/04/21 06:03 GFR Calculation 60.2 mL/min (90-130) L 12/04/21 06:03 Glucose 182 mg/dL (65-115) H 12/04/21 06:03 Calculated Osmolality 293 mOsm/kg (285-295) 12/04/21 06:03 Calcium 9.8 mg/dL (8.5-10.5) 12/04/21 06:03 Total Bilirubin 0.3 mg/dL (0.15-1.2) 12/04/21 06:03 AST 13 U/L (0-40) 12/04/21 06:03 ALT 33 U/L (0-41) 12/04/21 06:03 Alkaline Phosphatase 66 IU/L (40-130) 12/04/21 06:03 Troponin T Baseline 107 ng/L (0-15) H* 12/03/21 15:40 Troponin T 120 Minute 115.0 ng/L (0-15) H 12/03/21 17:20 Delta Troponin T 8.0 ABS# (0-10) 12/03/21 17:20 NT-Pro-B Natriuret Pep 1547 pg/mL (0-125) H 12/03/21 17:20 Total Protein 6.3 g/dL (6.6-8.7) L 12/04/21 06:03 Albumin 3.3 g/dL (3.5-5.2) L 12/04/21 06:03 Globulin 3.0 g/dL (1.3-4.6) 12/04/21 06:03 SARS-CoV-2 Ag (Rapid) Negative (Negative) 12/03/21 15:32 A&P Assessment and plan (1) COPD exacerbation: Status: Acute (2) Non-small cell lung cancer: Status: Acute (3) Lung mass: Status: Acute (4) Smoker: Status: Acute (5) MADDI (obstructive sleep apnea): Status: Acute (6) Emphysema lung: Status: Acute Plan #Lobulated mass in superior mediastinum extending to right perihilar region on CT 11/18/2021 compared to 08/08/2020 #Underwent EBUS station 4R 11/21/2021-pathology reported poorly differentiated non-small cell lung cancer -Currently awaiting oncology consultation as well as PET/CT as outpatient pending [place] approval -CTA obtained during this admission showed the same large right upper lobe mass with right hilar extension and mediastinal extension, encasement of superior right upper lobe pulmonary artery branch and encasement of distal SVC by mediastinal mass with moderate narrowing. There is some pericardial effusion and small pleural effusions. There is severe emphysema as well. There is an addendum showing partial encasement and narrowing of distal trachea, mild narr owing of right mainstem bronchus, moderate to severe narrowing of left mainstem bronchus, severe narrowing of superior medial right upper lobe bronchi and right hilum. However when I compared to the CT done during last admission on 11/18/2021-the narrowing of airways did not show any significant change and the right upper lobe interstitial opacities also did not change -At this point of time patient does not need any endobronchial or endotracheal stenting as he still have patent airways and expect chemotherapy/radiation to help reduce the size of the tumor and decrease extrinsic compression. If wheezing/stridor gets worse-he may need endotracheal/endobronchial stenting by interventional paraprofessional interpreter at a higher center. He verbalized understanding of the plan. #Worsening of shortness of breath-inpatient with significant mass-effect on airways from poorly differentiated non-small cell cancer, possible COPD exacerbation -Currently requiring 4 L supplemental oxygen -We will perform PFTs and 6-minute walk test as outpatient -Last visit patient was discharged with ICS/LABA/LAMA-however he reported using albuterol only -Recommended to start him on DuoNeb every 6 hours scheduled doses and discharged with the same -Currently on Zosyn every 8 TAVR-can switch to p.o. Augmentin 750 Mg p.o. twice daily -May benefit from pulmonary rehab but patient is not ambulating due to chronic lymphedema and cellulitis -Strongly encouraged to maintain abstinence from smoking -Patient had a recent stress test which showed small area of ischemia in left circumflex territory-since admission he is delta troponin remain normal and EKG showed biphasic T waves-cardiology to follow-up #History of MADDI-noncompliant with CPAP -Currently uses supplemental oxygen at nighttime -Encouraged to lose weight Medical condition, labs, investigations, medications, counseling regarding medication compliance, side effects, importance of follow-up appointments, smoking-its adverse effects and importance of cessation and plan of care- everything explained in detail to the patient. Patient verbalized understanding and agreed with the plan. This documentation was created by [employer] reporting manager software (known for inherent reporting manager error). Every effort was made to assure accuracy of reporting manager. Any obvious errors or omissions should be clarified with the author of the document. Recommendations conveyed to hospitalist, RN taking care of the patient From pulmonary standpoint-patient can be discharged home and can follow-up with oncology and pulmonary as outpatient. Please discharge with DuoNeb every 6 hours scheduled and budesonide 1 puff twice daily. Also encourage patient to use ICS/LABA/LAMA as outpatient Consult Attestations Medical Necessity Statement: Deferred to hospitalist Time Spent in Patient Care: Greater than 35 minutes (>than 50% of time spent in counselling and/or direct pt care on unit) . Coding Level of Care Code New Pt Acute Wheel Molder for Chg Fwd Patient Type New History Comprehensive Exam Comprehensive Medical Decision Making Moderate Complexity Diagnoses Lung mass R91.8 Smoker F17.200 MADDI (obstructive sleep apnea) G47.33 Emphysema lung J43.9 Non-small cell lung cancer C34.90 COPD exacerbation J44.1 Time Spent (min) 46
[2021-12-04] MEDS: predniSONE 20 mg Tablet 40 MG PO (08:54)
[2021-12-04] MEDS: pantoprazole DR 40 mg Tablet PO (08:54)
[2021-12-04] MEDS: hyDRALAzine 50 mg Tablet 25 MG PO ×2 (08:55→19:56)
[2021-12-04] MEDS: aspirin 81 mg EC Tablet PO (08:55)
[2021-12-04] MEDS: levothyroxine 100 mcg Tablet PO (08:55)
[2021-12-04] MEDS: metoprolol tartrate 25 mg Tablet PO ×2 (08:55→17:02)
[2021-12-04] MEDS: dilTIAZem ER (24HR) 240 mg Capsule PO (08:55)
[2021-12-04] MEDS: budesonide 0.5 mg/2 mL Neb INHALATION ×2 (08:58→20:10)
--- NOTE | 2021-12-04 10:38 | PC.CHAP ---
Pastoral Care Encounter/Spiritual Assessment Type of Contact [] Declined cement finisher visit [] Patient/Family/Request visit [] Outpatient visit [] Follow-up visit [] Physician referral [] Code/Alert [x] Routine visit [] Staff referral [] Actively dying [] Patient sleeping [] Family support [] [] Out of room [] Palliative care [] [] Receiving care in room [] Pre-surgical visit [] Trauma [] Long length of stay [] ICU visit [] Other: Relational/Emotional Strength [] Patient feels connected with others/family/visitors/staff [] Distress [] Loneliness/isolation [] Abandonment Spirituality of Patient [] Person of Sadie [] Attends Hindu of their Sadie [] Believes in Prayer [] Reads Bible or Restorationism materials [] There are Spiritual issues to be addressed Solvent Process Extractor Operator Interventions [] Prayer [] Active listening [] Non-anxious presence [] Spiritual/emotional support [] Crisis/trauma care [] Spiritual counseling [] Bereavement support [] Provided bereavement packet [] Provided Bible/devotional materials [] Provided toy/stuffed animal, coloring book to patient or family member [] Provided Communion [] Anointing/[place] [] Salvation [] Completed spiritual assessment [] Other: Impact on Illness or Injury [] Angry [] Fearful [] Anxious [] Often cries [] Exhaustion [] Unable to work [] Unable to attend mosque [] Unable to walk/stand [] Unable to read [] Unable to drive [] Unable to eat/drink [] Unable to sleep [] Unable to be with family [] Patient intubated [] Other: Summary Time spent with patient
--- NOTE | 2021-12-04 12:02 | P.PN_ITS ---
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 fib RVR Awake and alert Nonfocal neuro exam Clinically does not look fluid overloaded Data : 12/04/21 06:03 12/04/21 06:03 A&P Assessment and plan (1) Adenocarcinoma of lung: Status: Acute (2) Acute dyspnea: Status: Acute (3) Generalized weakness: Status: Acute (4) Cough: Status: Acute (5) Emphysema lung: Status: Acute (6) MADDI (obstructive sleep apnea): Status: Acute (7) Smoker: Status: Acute (8) Lung mass: Status: Acute (9) Hilar mass: Status: Acute Plan NSTEMI Patient does not want to go for an angiogram I would continue therapeutic dose of Lovenox No active chest pain EKG showed biphasic T waves Cardiology notified Clinically patient does not look fluid overloaded Preserved ejection fraction heart failure without acute decompensation I will only do p.o. Lasix 20 mg daily Chronic hypoxia, no acute worsening currently requiring 4 L of oxygen Lung mass, likely non-small lung cancer He will need outpatient PET scan and then follow-up with oncologist He is not sure whether he will go for chemo or radiotherapy No signs of SVC syndrome Patient wants to be placed at a [facility] DNR/DNI New onset A. fib RVR I will start him on Cardizem drip currently on therapeutic Lovenox Dr. Sotomayorr pharmacy intern has seen him today, had extensive discussion with him as well, as per pulmonology lesions of lung parenchymal and hilar region has not increased he would recommend continuing antibiotics, low-dose diuretics, budesonide I have discontinued prednisone Cardiac diet DNR/DNI Currently on Lovenox therapeutic regimen Monitor hemoglobin chronic macrocytic anemia Attestations Medical Necessity Statement*: Continue medical management Time Spent in Patient Care: 30 Coding Level of Care Code Acute Drill Instructor for Chg Fwd Diagnoses Adenocarcinoma of lung C34.90 Acute dyspnea R06.00 Generalized weakness R53.1 Cough R05.9 Emphysema lung J43.9 MADDI (obstructive sleep apnea) G47.33 Smoker F17.200 Lung mass R91.8 Hilar mass R91.8
[2021-12-04] MEDS: piperacillin-tazobactam 3.375 GM in sodium chloride 0.9% (plus) 50 ML IV ×2 (12:35→19:56)
[2021-12-04] MEDS: lisinopril 20 mg Tablet 40 MG PO (16:58)
[2021-12-04] MEDS: tamsulosin 0.4 mg Capsule PO (16:58)
[2021-12-05] VITALS (21 sets, daily range): BP systolic 107–163; BP diastolic 51–68; PULSE 55–70; RESP 13–20; TEMP 36.4–37; O2SAT 98–100
[2021-12-05] MEDS: piperacillin-tazobactam 3.375 GM in sodium chloride 0.9% (plus) 50 ML IV ×3 (02:31→20:15)
[2021-12-05] MEDS: ipratropium-albuterol 3 mL Neb INHALATION ×4 (02:34→20:12)
[2021-12-05 02:52] LABS: Basophils % 0.1 %; Eosinophils # 0.1 10^3/uL (0.0-0.8); Eosinophils % 0.3 %; Hematocrit 26.5 % (42.0-52.0); Hemoglobin 7.9 g/dL (11.7-16.6); Lymphocytes # 0.8 10^3/uL (0.8-4.8); Lymphocytes % 4.8 %; Mean Corpuscular HGB Conc 29.8 g/dL (30.0-36.0); Mean Corpuscular Hemoglobin 28.8 pg (28.0-34.0); Mean Corpuscular Volume 96.7 fl (80-94); Mean Platelet Volume 10.6 fL (7.4-10.4); Monocytes # 1.3 10^3/uL (0.2-0.9); Monocytes % 7.7 %; Neutrophils # 14.82 10^3/uL (1.8-7.7); Nucleated Red Blood Cells % 0 %; Platelet Count 299 10^3/cmm (130-400); Red Blood Count 2.74 10^6/uL (4.1-5.3); Red Cell Distribution Width 16.5 % (12.1-15.1); White Blood Count 17.2 10^3/uL (4.0-10.0)
[2021-12-05 04:37] LABS: Blood Urea Nitrogen 28 mg/dL (8-23); Calcium 9.7 mg/dL (8.5-10.5); Carbon Dioxide 31 mmol/L (22-29); Chloride 101 mmol/L (98-107); Glomerular Filtration Rate 54.9 mL/min (90-130); Glucose 151 mg/dL (65-115); Magnesium 2.3 mg/dL (1.7-2.3); Osmolality Calculated 296 mOsm/kg (285-295); Sodium 139 mmol/L (136-145)
[2021-12-05 04:54] LABS: Anion Gap 12.5 (5-19); Potassium 5.5 mmol/L (3.5-5.1)
--- NOTE | 2021-12-05 05:13 | PC.NURSE ---
Patient became confused. Patient asked why he was in the hospital. Patient easily able to be reoriented. Will continue to monitor.
[2021-12-05] MEDS: enoxaparin 150 mg/mL Syringe 130 MG SUBCUT (05:37)
[2021-12-05] MEDS: levothyroxine 100 mcg Tablet PO (05:37)
[2021-12-05] MEDS: pantoprazole DR 40 mg Tablet PO (08:59)
[2021-12-05] MEDS: metoprolol tartrate 25 mg Tablet PO ×2 (08:59→16:54)
[2021-12-05] MEDS: budesonide 0.5 mg/2 mL Neb INHALATION ×2 (08:59→20:12)
[2021-12-05] MEDS: hyDRALAzine 50 mg Tablet 25 MG PO (08:59)
[2021-12-05] MEDS: FUROsemide 40 mg Tablet PO (09:00)
[2021-12-05] MEDS: dilTIAZem ER (24HR) 240 mg Capsule PO (09:00)
[2021-12-05] MEDS: sodium polystyrene sulfonate 15 gm/60 mL Btl PO (09:00)
[2021-12-05] MEDS: aspirin 81 mg EC Tablet PO (09:00)
[2021-12-05] MEDS: oxyCODONE-APAP 5-325 mg Tablet 1 TAB PO ×3 (12:09→20:26)
--- NOTE | 2021-12-05 12:13 | PM.PN ---
Subjective Subjective: Patient is stating that he does not want to get chemoradiotherapy, he is thinking of going to rehab and then opt for rehab department manager has been updated No overnight events This morning he is complaining of cough and feeling weak and lethargic He thinks he does not have enough energy and capacity to undergo the treatment for his cancer Vitals/I&O/Wt Last Vital Signs Temp 98.2 F 12/05/21 11:04 Pulse 68 12/05/21 11:04 Resp 18 12/05/21 12:09 BP 155/65 12/05/21 11:04 Pulse Ox 100 12/05/21 11:04 O2 Del Method 12/05/21 11:04 O2 Flow Rate 4 12/05/21 08:59 12/04/21 12/05/21 12/05/21 22:59 06:59 14:59 Intake Total 83.417 / 323.417 100 / 423.417 240 / 240 Output Total 200 / 200 450 / 650 300 / 300 Balance -116.583 / 123.417 -350 / -226.583 -60 / -60 Weight last 48 hrs Weight 133.81 kg Weight 133.81 kg Physical Exam Narrative: Patient is sitting in his couch saturating well on 4 L nasal cannula No sick no signs of fluid overload Skin wrinkling Abdomen distended however soft Awake and alert Nonfocal neuro exam Unkept appearance No active cellulitis EOMI, PERRLA Nonfocal neuro exam Awake and alert Urinary Catheter Management: Lopes: Cath Placed During This Visit: yes Reason for Continuing Indwelling Catheter: Accurate Measurement of Urinary Output in Critically Ill Patients Urinary Catheter Date of Insertion: 11/18/21 Urinary Catheter Time of Insertion: 18:29 Data : 12/05/21 02:45 12/05/21 02:45 A&P Assessment and plan (1) COPD exacerbation: Status: Acute (2) Non-small cell lung cancer: Status: Acute (3) Adenocarcinoma of lung: Status: Acute (4) Acute dyspnea: Status: Acute (5) Generalized weakness: Status: Acute (6) Cough: Status: Acute (7) Emphysema lung: Status: Acute (8) MADDI (obstructive sleep apnea): Status: Acute (9) Smoker: Status: Acute (10) Lung mass: Status: Acute (11) Hilar mass: Status: Acute Plan Non-small cell lung cancer with mass-effect on airway, superior vena cava involvement No signs of superior vena cava syndrome EBUS 11/21 Sample has been sent to [facility] for further verification There was plan to do outpatient PET scan and have him follow-up with Dr. Vo however patient is stating that he does not think he will be able to go for chemoradiotherapy because of his gradual decline in functional status, he wants to opt for hospice for now, I have verified with him twice today and asked the reason he stated that with his functional decline his biotic will not be able to accept chemoradiotherapy. I will notify contact center consultant as well. digital community manager updated. Paroxysmal A. fib converted to sinus rhythm, today I will de-escalate his Lovenox to DVT prophylactic regimen NSTEMI: Patient does not want to go for an angiogram, cardiology was notified, No active chest pain Chronic shortness of breath, chronic hypoxia Chest congestion, cough Codeine dextromethorphan Opioids for his pain DuoNeb with budesonide Would continue Zosyn for now Afebrile Appreciate pulmonary medicine recommendations History of MADDI noncompliant with CPAP Currently doing well on 4 L nasal cannula Please see pulmonary medicine note for further details DNR/DNI [facility] Attestations Medical Necessity Statement*: Awaiting placement Time Spent in Patient Care: 35 Coding Level of Care Code Acute Seismometer Operator for Jessie Fwgerardo Diagnoses COPD exacerbation J44.1 Non-small cell lung cancer C34.90 Adenocarcinoma of lung C34.90 Acute dyspnea R06.00 Generalized weakness R53.1 Cough R05.9 Emphysema lung J43.9 MADDI (obstructive sleep apnea) G47.33 Smoker F17.200 Lung mass R91.8 Hilar mass R91.8
[2021-12-05] MEDS: guaiFENesin-codeine UDC 10 mL 5 ML PO ×3 (13:02→20:27)
[2021-12-05] MEDS: benzonatate 100 mg Capsule 200 MG PO ×2 (13:02→20:26)
--- NOTE | 2021-12-05 13:22 | PC.OT ---
OT EVALUATION ORDERS RECEIVED. PER CHART PATIENT HAS DECIDED TO SEEK HOSPICE TREATMENT; DISCHARGE OT ORDERS
[2021-12-05] MEDS: tamsulosin 0.4 mg Capsule PO (16:55)
[2021-12-05] MEDS: enoxaparin 40 mg/0.4 mL Syringe SUBCUT (20:16)
[2021-12-06] VITALS (20 sets, daily range): BP systolic 96–135; BP diastolic 47–63; PULSE 55–69; RESP 15–22; TEMP 36.4–36.9; O2SAT 94–100
--- NOTE | 2021-12-06 00:02 | PC.NURSE ---
i reported low pulse 58 to nurse
[2021-12-06] MEDS: ipratropium-albuterol 3 mL Neb INHALATION ×4 (02:52→21:32)
[2021-12-06] MEDS: guaiFENesin-codeine UDC 10 mL 5 ML PO ×4 (03:40→21:04)
[2021-12-06] MEDS: oxyCODONE-APAP 5-325 mg Tablet 1 TAB PO ×4 (03:40→22:18)
[2021-12-06] MEDS: benzonatate 100 mg Capsule 200 MG PO ×2 (03:40→16:35)
[2021-12-06] MEDS: piperacillin-tazobactam 3.375 GM in sodium chloride 0.9% (plus) 50 ML IV ×3 (03:41→20:06)
[2021-12-06 07:05] LABS: Basophils # 0.1 10^3/uL (0.0-0.1); Basophils % 0.3 %; Eosinophils # 2.1 10^3/uL (0.0-0.8); Eosinophils % 14.1 %; Hematocrit 27.7 % (42.0-52.0); Hemoglobin 8.1 g/dL (11.7-16.6); Lymphocytes # 1.5 10^3/uL (0.8-4.8); Lymphocytes % 10.2 %; Mean Corpuscular HGB Conc 29.2 g/dL (30.0-36.0); Mean Corpuscular Hemoglobin 28.7 pg (28.0-34.0); Mean Corpuscular Volume 98.2 fl (80-94); Mean Platelet Volume 10.6 fL (7.4-10.4); Monocytes # 1.3 10^3/uL (0.2-0.9); Monocytes % 8.5 %; Neutrophils # 9.87 10^3/uL (1.8-7.7); Neutrophils % 66.2 %; Nucleated Red Blood Cells % 0 %; Platelet Count 308 10^3/cmm (130-400); Red Blood Count 2.82 10^6/uL (4.1-5.3); Red Cell Distribution Width 16.3 % (12.1-15.1); White Blood Count 14.9 10^3/uL (4.0-10.0)
[2021-12-06 07:22] LABS: Anion Gap 11.7 (5-19); Blood Urea Nitrogen 25 mg/dL (8-23); Calcium 9.5 mg/dL (8.5-10.5); Carbon Dioxide 32 mmol/L (22-29); Chloride 98 mmol/L (98-107); Glomerular Filtration Rate 50.4 mL/min (90-130); Glucose 96 mg/dL (65-115); Osmolality Calculated 288 mOsm/kg (285-295); Potassium 4.7 mmol/L (3.5-5.1); Sodium 137 mmol/L (136-145)
[2021-12-06] MEDS: budesonide 0.5 mg/2 mL Neb INHALATION ×2 (08:55→21:33)
[2021-12-06] MEDS: aspirin 81 mg EC Tablet PO (09:21)
[2021-12-06] MEDS: dilTIAZem ER (24HR) 240 mg Capsule PO (09:21)
[2021-12-06] MEDS: levothyroxine 100 mcg Tablet PO (09:21)
[2021-12-06] MEDS: pantoprazole DR 40 mg Tablet PO (09:21)
[2021-12-06] MEDS: metoprolol tartrate 25 mg Tablet PO ×2 (09:21→16:28)
[2021-12-06] MEDS: hyDRALAzine 50 mg Tablet 25 MG PO ×2 (09:22→17:42)
[2021-12-06] MEDS: enoxaparin 40 mg/0.4 mL Syringe SUBCUT ×2 (09:24→20:10)
--- NOTE | 2021-12-06 10:35 | PM.PN ---
Subjective Subjective: Patient had a panic attack in the morning when alarms went off Otherwise no acute events Saturating well on 4 L nasal cannula He will be excepted at a retirement tomorrow morning Vitals/I&O/Wt Last Vital Signs Temp 98.5 F 12/06/21 07:20 Pulse 67 12/06/21 09:01 Resp 22 H 12/06/21 09:23 BP 122/47 12/06/21 07:20 Pulse Ox 98 12/06/21 09:23 O2 Del Method 12/06/21 08:55 O2 Flow Rate 4 12/06/21 08:55 12/05/21 12/06/21 12/06/21 22:59 06:59 14:59 Intake Total 50 / 290 50 / 340 240 / 240 Output Total 360 / 660 760 / 1420 Balance -310 / -370 -710 / -1080 240 / 240 Physical Exam Narrative: Patient sitting in a recliner Saturating 100% on 4 L nasal cannula S1, S2 Abdomen distended nontender Lower extremity trace edema Signs of good granulation tissue No active cellulitis Awake and alert Anxious appearing No tachypnea or conversational dyspnea Urinary Catheter Management: Lopes: Cath Placed During This Visit: yes Reason for Continuing Indwelling Catheter: Accurate Measurement of Urinary Output in Critically Ill Patients Urinary Catheter Date of Insertion: 11/18/21 Urinary Catheter Time of Insertion: 18:29 Data : 12/06/21 06:40 12/06/21 06:40 A&P Assessment and plan (1) COPD exacerbation: Status: Acute (2) Non-small cell lung cancer: Status: Acute (3) Adenocarcinoma of lung: Status: Acute (4) Acute dyspnea: Status: Acute (5) Generalized weakness: Status: Acute (6) Cough: Status: Acute (7) Emphysema lung: Status: Acute (8) MADDI (obstructive sleep apnea): Status: Acute (9) Smoker: Status: Acute (10) Lung mass: Status: Acute (11) Hilar mass: Status: Acute Plan Non-small cell lung cancer with involvement of superior vena cava Currently on 3 L nasal cannula which was turned down from 4 L this morning He was saturating 100% Leukocytosis trending down Afebrile Continue Zosyn for 1 more day Appreciate pulmonary medicine recommendation Patient has opted for hospice care He does not want to pursue any chemotherapy or radiotherapy A. fib: Patient is converted to sinus rhythm I would not add any anticoagulating agent, he remained in A. fib for about 1 to 2 hours only Continue Cardizem NSTEMI: No active chest pain patient refused angiogram Pain well managed Continue bowel regimen DNR/DNI Patient will be discharged tomorrow Attestations Medical Necessity Statement*: Discharge tomorrow Time Spent in Patient Care: 30 Coding Level of Care Code Acute Photographer News for g Fwd Diagnoses COPD exacerbation J44.1 Non-small cell lung cancer C34.90 Adenocarcinoma of lung C34.90 Acute dyspnea R06.00 Generalized weakness R53.1 Cough R05.9 Emphysema lung J43.9 MADDI (obstructive sleep apnea) G47.33 Smoker F17.200 Lung mass R91.8 Hilar mass R91.8
--- NOTE | 2021-12-06 10:37 | PC.SOCIAL ---
IMM Update Imm updated with patient, copy of page 2 provided. Patient verbalized understanding. Copy initialed, dated and timed, placed in chart.
[2021-12-06] MEDS: tamsulosin 0.4 mg Capsule PO (16:28)
[2021-12-06] MEDS: lisinopril 20 mg Tablet 40 MG PO (16:28)
--- NOTE | 2021-12-06 20:04 | PC.NURSE ---
i reported low pulse 58 to nurse
[2021-12-06 20:38] LABS: SARS Covid-2 Antigen Negative (Negative)
--- NOTE | 2021-12-06 22:05 | PC.NURSE ---
Addendum entered by Stacey Bright RN 12/07/21 05:45: Patient's life partner, Jessica Garcia, notified this morning of fall from last night Original Note: nurse's aide in next room heard patient calling for help, patient found sitting in floor in front of chair, chair was tipped forward with footrest out, no injuries noted, bp 117/48, HR 66, Dr Nash notified, no new orders, attempted to notify patient's life partner, called number listed in chart with no answer, patient reminded to call for help before trying to get up, verbalized understanding, will continue to monitor patient
[2021-12-07] VITALS (12 sets, daily range): BP systolic 98–132; BP diastolic 41–55; PULSE 60–73; RESP 16–20; TEMP 36.6–36.7; O2SAT 95–100
[2021-12-07] MEDS: ipratropium-albuterol 3 mL Neb INHALATION ×2 (02:47→09:03)
[2021-12-07] MEDS: guaiFENesin-codeine UDC 10 mL 5 ML PO ×2 (02:52→11:14)
[2021-12-07] MEDS: benzonatate 100 mg Capsule 200 MG PO ×3 (02:53→08:46)
[2021-12-07] MEDS: oxyCODONE-APAP 5-325 mg Tablet 1 TAB PO ×2 (02:54→08:47)
[2021-12-07] MEDS: piperacillin-tazobactam 3.375 GM in sodium chloride 0.9% (plus) 50 ML IV (03:50)
[2021-12-07] MEDS: levothyroxine 100 mcg Tablet PO (08:19)
[2021-12-07] MEDS: metoprolol tartrate 25 mg Tablet PO (08:20)
[2021-12-07] MEDS: hyDRALAzine 50 mg Tablet 25 MG PO (08:20)
[2021-12-07] MEDS: pantoprazole DR 40 mg Tablet PO (08:20)
[2021-12-07] MEDS: dilTIAZem ER (24HR) 240 mg Capsule PO (08:20)
[2021-12-07] MEDS: aspirin 81 mg EC Tablet PO (08:20)
[2021-12-07] MEDS: enoxaparin 40 mg/0.4 mL Syringe SUBCUT (08:48)
--- NOTE | 2021-12-07 08:55 | PM.DCS ---
Discharge Providers Date of Admission: 12/03/21 19:20 Date of Discharge: December 07, 2021 Attending Provider at Admission: Federica Nash MD Attending Provider at Discharge: David Andrews MD Primary Care Provider: Sun Bello MD Diagnoses at Discharge Discharge Diagnosis (1) COPD exacerbation: Status: Acute (2) Non-small cell lung cancer: Status: Acute (3) Adenocarcinoma of lung: Status: Acute (4) Acute dyspnea: Status: Acute (5) Generalized weakness: Status: Acute (6) Cough: Status: Acute (7) Emphysema lung: Status: Acute (8) MADDI (obstructive sleep apnea): Status: Acute Permanent problem details: -Has known history of MADDI, does not use CPAP (9) Smoker: Status: Acute (10) Lung mass: Status: Acute (11) Hilar mass: Status: Acute Reason for Visit Reason for Visit: SOB Hospital Course Hospital Course This is a detailed note by pulmonary medicine which I am using This note was written by Dr. Sophia Griffni Cely is a 66 year old male with recently diagnosed with poorly differentiated non-small cell cancer and past medical history of COPD on 4 L, heart failure with preserved ejection fraction, hypertension, hypothyroidism, chronic hep C, MADDI, peripheral vascular disease, alcohol abuse disorder presented to [facility] yesterday with chief complaint of worsening shortness of breath for last 1 week. Patient had 2 admissions this month.? Second admission was on 11/18/2021-CT chest abdomen pelvis 11/18/2021 was obtained by admitting physician which showed a lobulated mass in the superior mediastinum extending to the right perihilar region surrounding the mediastinal and right perihilar structures measuring 6.1 x 8.5 x 7.1 cm.? There is a 4 mm noncalcified nodular density in the right middle lobe.? During? that admission pulmonary was consulted-and I performed bronchoscopy and endobronchial ultrasound sampling of station 4R on 11/21/2021.? Pathology reported poorly differentiated adenocarcinoma in the background of necrosis and slides were sent to [facility] for second opinion-the reported poorly differentiated non-small cell cancer.? Currently patient is waiting for [place] approval for oncology consultation services as well as PET/CT as outpatient. -Today at bedside, patient is sitting in bed with no acute distress, he is requiring baseline 4 L oxygen -Admission troponin was high but delta troponin was normal -Patient reported using albuterol at home and that he is shortness of breath has been worsening in last 1 week.? He is concerned about his cancer diagnosis and understands that he is currently in the process of being called by oncology/PET/CT.? During last visit he did not want to go for any cancer treatments-however today he expressed that he wishes to talk to oncology and decide on future options.? Currently he is DNR/DNI.? CTA obtained during this admission showed showed the same large right upper lobe mass with right hilar extension and mediastinal extension, encasement of superior right upper lobe pulmonary artery branch and encasement of distal SVC by mediastinal mass with moderate narrowing.? There is some pericardial effusion and small pleural effusions.? There is severe emphysema as well.? There is an addendum showing partial encasement and narrowing of distal trachea, mild narrowing of right mainstem bronchus, moderate to severe narrowing of left mainstem bronchus, severe narrowing of superior medial right upper lobe bronchi and right hilum.? However when I compared to the CT done during last admission on 11/18/2021-the narrowing of airway did not show any significant change and the right upper lobe interstitial opacities also did not change Hospital course Patient was admitted for management of worsening shortness of breath, NSTEMI, he was seen by Dr. Cortes initially there was plan to discharge him to a [facility] do outpatient PET scan and follow-up with oncologist. He had detailed discussion with pulmonary medicine. However patient decided to opt for hospice care. Patient is stating that his body is too weak and cannot handle chemo or radiotherapy. He does not want to get PET scan. 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 He is also requirement has not worsened however he is experiencing hoarseness of voice. He is mostly staying in a recliner Being discharged on hospice. During this hospitalization he also refused coronary angiogram for NSTEMI. Dr. Ellison was consulted who was notified regarding patient's wishes. He did finish 48 hours of anticoagulating therapeutic regimen. No active chest pain. Physical Exam Narrative: Patient sitting in a recliner has hoarseness of voice which is new hoarseness of voice is new Saturating 100% on 4 L nasal cannula S1, S2 Abdomen distended nontender Lower extremity trace edema Signs of good granulation tissue No active cellulitis Awake and alert Anxious appearing No tachypnea or conversational dyspnea Urinary Catheter Management: Lopes: Cath Placed During This Visit: yes Reason for Continuing Indwelling Catheter: Accurate Measurement of Urinary Output in Critically Ill Patients Urinary Catheter Date of Insertion: 11/18/21 Urinary Catheter Time of Insertion: 18:29 Discharge Data Studies Completed and Pending Completed Studies During Hospitalization Category Date Time Status CT angio chest PE protcl [id number] Urgent Cat Scan 12/03/21 16:44 Completed XR chest 1V portable [id number] Stat Exams 12/03/21 15:23 Completed Radiology Impressions Chest X-Ray 12/03/21 15:23 IMPRESSION: 1. Spiculated right suprahilar pulmonary density unchanged in appearance since prior study. This apparently represents a known pulmonary mass identified on recent chest CT scanning. There is also widening of the mediastinum which may indicate mediastinal involvement or mediastinal lymphadenopathy. 2. The lungs are otherwise clear and fully expanded. Chest CTA 12/03/21 16:44 IMPRESSION: 1. No evidence for pulmonary embolus. 2. Large right upper lobe mass with right hilar extension. Highly suspicious nodule(s). Consider non-emergent PET/CT, or tissue sampling.(Reference: Roxi) 3. Mass in the right hilum with mediastinal extension. This most likely represents a combination of direct invasion by the right upper lobe mass and metastatic lymphadenopathy. 4. There is encasement of the superior right upper lobe pulmonary artery branch by the mass in the right hilum. This narrows the artery but does not cause obstruction. 5. Encasement of the distal superior vena cava by the mediastinal mass with moderate narrowing but no obstruction. 6. Pericardial effusion. 7. Small pleural effusions. COMMENTS: Consistent with the [employer]'s Incidental Findings Committee white paper (J Am Liz Radiol 2018): Any incidental renal lesion less than 1 cm or classified as too small to characterize, or any incidental cystic renal lesion characterized as simple-appearing, is likely benign. No follow-up imaging is recommended for these lesions per consensus recommendations based on imaging criteria. References: Roxi Vincent et al. Guidelines for Management of Incidental Pulmonary Nodules Detected on CT Images: From the Fleischner Society 2017. Radiology. 2017;284(1):228-243. ADDENDUM: 12/03/21 1857 Airways: There is a partial encasement and narrowing of the distal trachea. Mild narrowing of the right mainstem bronchus. Moderate-severe narrowing of the left mainstem bronchus. Severe narrowing of superomedial right upper lobe bronchi in the right hilum. THIS REPORT CONTAINS FINDINGS THAT MAY BE CRITICAL TO PATIENT CARE. The findings were verbally communicated via telephone conference with TAVARES DICKSON at 6:56 PM CDT on 12/03/2021. The findings were acknowledged and understood. Laboratory Results WBC 14.9 10^3/uL (4.0-10.0) H 12/06/21 06:40 RBC 2.82 10^6/uL (4.1-5.3) L 12/06/21 06:40 Hgb 8.1 g/dL (11.7-16.6) L 12/06/21 06:40 Hct 27.7 % (42.0-52.0) L 12/06/21 06:40 MCV 98.2 fl (80-94) H 12/06/21 06:40 MCH 28.7 pg (28.0-34.0) 12/06/21 06:40 MCHC 29.2 g/dL (30.0-36.0) L 12/06/21 06:40 RDW 16.3 % (12.1-15.1) H 12/06/21 06:40 Plt Count 308 10^3/cmm (130-400) 12/06/21 06:40 MPV 10.6 fL (7.4-10.4) H 12/06/21 06:40 Neut % (Auto) 66.2 % 12/06/21 06:40 Lymph % (Auto) 10.2 % 12/06/21 06:40 Wood % (Auto) 8.5 % 12/06/21 06:40 Eos % (Auto) 14.1 % 12/06/21 06:40 Baso % (Auto) 0.3 % 12/06/21 06:40 Neut # (Auto) 9.87 10^3/uL (1.8-7.7) H 12/06/21 06:40 Lymph # (Auto) 1.5 10^3/uL (0.8-4.8) 12/06/21 06:40 Wood # (Auto) 1.3 10^3/uL (0.2-0.9) H 12/06/21 06:40 Eos # (Auto) 2.1 10^3/uL (0.0-0.8) H 12/06/21 06:40 Baso # (Auto) 0.1 10^3/uL (0.0-0.1) 12/06/21 06:40 Nucleated RBC % (auto) 0 % 12/06/21 06:40 Nucleated RBCs # 0.0 /100WBC 12/06/21 06:40 Sodium 137 mmol/L (136-145) 12/06/21 06:40 Potassium 4.7 mmol/L (3.5-5.1) 12/06/21 06:40 Chloride 98 mmol/L (98-107) 12/06/21 06:40 Carbon Dioxide 32 mmol/L (22-29) H 12/06/21 06:40 Anion Gap 11.7 (5-19) 12/06/21 06:40 BUN 25 mg/dL (8-23) H 12/06/21 06:40 Creatinine 1.4 mg/dL (0.7-1.2) H 12/06/21 06:40 GFR Calculation 50.4 mL/min (90-130) L 12/06/21 06:40 Glucose 96 mg/dL (65-115) 12/06/21 06:40 Calculated Osmolality 288 mOsm/kg (285-295) 12/06/21 06:40 Calcium 9.5 mg/dL (8.5-10.5) 12/06/21 06:40 Magnesium 2.3 mg/dL (1.7-2.3) 12/05/21 02:45 Total Bilirubin 0.3 mg/dL (0.15-1.2) 12/04/21 06:03 AST 13 U/L (0-40) 12/04/21 06:03 ALT 33 U/L (0-41) 12/04/21 06:03 Alkaline Phosphatase 66 IU/L (40-130) 12/04/21 06:03 Troponin T Baseline 107 ng/L (0-15) H* 12/03/21 15:40 Troponin T 120 Minute 115.0 ng/L (0-15) H 12/03/21 17:20 Delta Troponin T 8.0 ABS# (0-10) 12/03/21 17:20 NT-Pro-B Natriuret Pep 1547 pg/mL (0-125) H 12/03/21 17:20 Total Protein 6.3 g/dL (6.6-8.7) L 12/04/21 06:03 Albumin 3.3 g/dL (3.5-5.2) L 12/04/21 06:03 Globulin 3.0 g/dL (1.3-4.6) 12/04/21 06:03 SARS-CoV-2 Ag (Rapid) Negative (Negative) 12/06/21 15:25 Vitals Last Vital Signs Temp 97.8 F 12/07/21 08:00 Pulse 73 12/07/21 08:00 Resp 20 H 12/07/21 08:47 BP 132/55 12/07/21 08:00 Pulse Ox 98 12/07/21 08:47 O2 Del Method 12/07/21 08:00 O2 Flow Rate 3.5 12/07/21 08:00 Discharge Plan Discharge Patient Disposition: Xfer SNF Condition: Stable Prescriptions: Continued levothyroxine 100 mcg Tablet 100 mcg PO DAILY@0730 albuterol sulfate [ProAir HFA] 90 mcg/actuation Hfa Aerosol Inhaler 4 puff INHALATION BID cholecalciferol (vitamin D3) [Vitamin D3] 25 mcg (1,000 unit) Capsule 25 mcg PO DAILY albuterol sulfate 2.5 mg /3 mL (0.083 %) solution for nebulization 2.5 mg inhalation Q4H PRN (Reason: shortness of breath or wheezing) Qty: 180 0RF furosemide 40 mg Tablet 40 mg PO BID@0800,1600 Hold Instructions: Resume on 11/24/21. diltiazem HCl 240 mg capsule,extended release 24hr 240 mg PO DAILY@0800 lisinopril 40 mg tablet 40 mg PO DAILY@1600 Hold Instructions: Resume on 11/24/21. olodaterol 2.5 mcg/actuation Mist 2 inh INHALATION DAILY mometasone 200 mcg/actuation Hfa Aerosol Inhaler 2 puff INHALATION BID Trelegy Ellipta 100-62.5-25 mcg blister with device 1 inh inhalation DAILY Qty: 60 4RF tamsulosin [Flomax] 0.4 mg Capsule 0.4 mg PO DAILY@1600 Qty: 60 0RF metoprolol tartrate 50 mg tablet 25 mg PO BID@0800,1600 Qty: 60 0RF hydralazine 50 mg Tablet 25 mg PO BID Qty: 60 0RF potassium chloride 10 mEq tablet extended release 10 meq PO DAILY Qty: 30 0RF amoxicillin-pot clavulanate [Augmentin] 500-125 mg tablet 1 tab PO BID Qty: 10 0RF Discontinued aspirin 81 mg Tablet,Delayed Release (Dr/Ec) 81 mg PO DAILY@0800 Discharge Orders: Discharge Order (Routine); Ordered 12/07/21 Ordered By: David Andrews Referrals: Sun Bello MD [Primary Care Provider] - Discharge Attestations Time Spent in Discharge Care*: less than 30 min Status at Discharge: Cognitive status at discharge: cognitively intact, Behavioral status at discharge: cooperative, Quality Metrics Clinical Quality Measures [ No reported AMI, CVA or VTE this stay] Coding Level of Care Code Acute Chg FW DC note Diagnoses COPD exacerbation J44.1 Non-small cell lung cancer C34.90 Adenocarcinoma of lung C34.90 Acute dyspnea R06.00 Generalized weakness R53.1 Cough R05.9 Emphysema lung J43.9 MADDI (obstructive sleep apnea) G47.33 Smoker F17.200 Lung mass R91.8 Hilar mass R91.8
[2021-12-07] MEDS: budesonide 0.5 mg/2 mL Neb INHALATION (09:03)
--- NOTE | 2021-12-07 09:50 | PC.NURSE ---
hand-off report called to [facility] Talked to Alonso nurse. we will call her back for a ETA once [facility] ambulance called us back for transport.
--- NOTE | 2021-12-07 10:00 | PC.CHAP ---
Pastoral Care Encounter/Spiritual Assessment Type of Contact [] Declined asset protection detective visit [] Patient/Family/Request visit [] Outpatient visit [] Follow-up visit [] Physician referral [] Code/Alert [x] Routine visit [] Staff referral [x] Actively dying [] Patient sleeping [] Family support [] [] Out of room [] Palliative care [] [] Receiving care in room [] Pre-surgical visit [] Trauma [] Long length of stay [] ICU visit [] Other: Relational/Emotional Strength [] Patient feels connected with others/family/visitors/staff [x] Distress [x] Loneliness/isolation [] Abandonment Spirituality of Patient [x] Person of Sadie [] Attends Mandaeism of their Sadie [] Believes in Prayer [] Reads Bible or Advent materials [x] There are Spiritual issues to be addressed Senior Mechanical Design 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 Interventions x[] Prayer x] Active listening [] Non-anxious presence [] Spiritual/emotional support [] Crisis/trauma care [x] Spiritual counseling [] Bereavement support [] Provided bereavement packet [] Provided Bible/devotional materials [] Provided toy/stuffed animal, coloring book to patient or family member [] Provided Communion [] Anointing/[place] [x] Salvation [x] Completed spiritual assessment [] Other: Impact on Illness or Injury [] Angry [] Fearful [] Anxious [] Often cries [] Exhaustion [] Unable to work [] Unable to attend quaker [] Unable to walk/stand [] Unable to read [] Unable to drive [] Unable to eat/drink [] Unable to sleep [] Unable to be with family [] Patient intubated [] Other: Summary Time spent with patient 20 min
--- NOTE | 2021-12-07 12:10 | PC.NURSE ---
[facility] be here around 1:30 pm to transport patient. pt notified.
--- NOTE | 2021-12-07 14:07 | PC.NURSE ---
transport is here from [facility]
--- NOTE | 2021-12-07 14:13 | PC.NURSE ---
notified [facility] in provided phone #[phone] that pt is on his way to [facility] in [place].
== END 2021-12-07 14:09 | disposition hospice, inpatient (51) | DRG 281 ==
LOC: ER 16:26 → MEDSURG 20:35
PROVIDERS: Admitting Provider Student in an Organized Health Care Education/Training Program; Emergency Provider Emergency Medicine; PCP Family Medicine; Visit Provider Internal Medicine
DX: I21.4 Non-ST elevation (NSTEMI) myocardial infarction (principal); C34.11 Malignant neoplasm of upper lobe, right bronchus or lung; I13.0 Hypertensive heart and chronic kidney disease with heart failure and stage 1 through stage 4 chronic kidney disease, or unspecified chronic kidney disease; I50.32 Chronic diastolic (congestive) heart failure; J43.9 Emphysema, unspecified; Z99.81 Dependence on supplemental oxygen; N18.2 Chronic kidney disease, stage 2 (mild); E03.9 Hypothyroidism, unspecified; B18.2 Chronic viral hepatitis C; G47.33 Obstructive sleep apnea (adult) (pediatric); I73.9 Peripheral vascular disease, unspecified; F10.10 Alcohol abuse, uncomplicated; D63.1 Anemia in chronic kidney disease; I48.0 Paroxysmal atrial fibrillation; E78.5 Hyperlipidemia, unspecified; Z87.440 Personal history of urinary (tract) infections; F17.210 Nicotine dependence, cigarettes, uncomplicated; Z66 Do not resuscitate; Z79.51 Long term (current) use of inhaled steroids; F41.0 Panic disorder [episodic paroxysmal anxiety]; Z91.19 Patient's noncompliance with other medical treatment and regimen
CPT/HCPCS: 36415; 71045; 71275; 80048; 80053; 83735; 83880; 84484; 85025; 87426; 93005; 94640; 96372; 96374; 97116; 97161; 97530; 99285; J1650; J1940; J2543; J2930; J3490; J7512; J7626; Q9967